=== PATIENT | male | born 1965 | race Caucasian/White ===

== ENCOUNTER → 2016-11-24 | Outpatient (CLI) | payer BC ==
[~2016-11-24] MED LIST: ALFU1TAB2 PO; ATOR-24 PO; CLBPO15 TOP; CYAN100020 PO; CYAN10005 PO; EMPA1TAB3 PO; FRS/40 PO; KETO10TA PO; LISI-461 PO; LVT/20 PO; MCRK/20 PO; METF1000 PO; METO25TA3 PO; OXYC-57 PO; POTA20TA16 PO; PRVHFAIN INH; TRAZ50TA35 PO; WARF5TAB90 PO
[2016-11-24 12:20] LABS: HEMATOCRIT 42.3 % (42-52); MEAN CELL VOLUME 92.4 fL (80-100); MEAN CORPUSCULAR HGB CONC 33.6 g/dl (32-36); MEAN PLATELET VOLUME 12.2 fL (7.4-10.4); PLATELET COUNT 187 K/uL (130-400); RED BLOOD COUNT 4.58 M/uL (4.7-6.1); WHITE BLOOD COUNT 7.75 K/uL (4.8-10.8)
[2016-11-24 12:36] LABS: ESTIMATED AVERAGE GLUCOSE 148 mg/dl; HA1C FLAG Normal (Normal)
[2016-11-24 12:44] LABS: INR 2.4 (0.9-1.1); PROTHROMBIN TIME (PATIENT) 26.2 SECONDS (9.0-12.0)
[2016-11-24 12:48] LABS: ALT/SGPT 27 U/L (12-78); AST/SGOT 17 U/L (15-37); BLOOD UREA NITROGEN 19 mg/dl (7-18); BUN/CREATININE RATIO 14.2 (10-20); CALCIUM 9.6 mg/dl (8.5-10.1); CARBON DIOXIDE 26 mmol/L (21-32); CHLORIDE 102 mmol/L (98-107); CHOLESTEROL 150 mg/dl (0-200); GLUCOSE 105 mg/dl (70-99); POTASSIUM 4.2 mmol/L (3.5-5.1); SODIUM 139 mmol/L (136-145)
[2016-11-24 13:01] LABS: ALB/GLOB RATIO 1.1 (0.9-2); ALKALINE PHOSPHATASE 79 U/L (45-117); CHOLESTEROL/HDL RATIO 3.5; HDL CHOLESTEROL 43 mg/dl; LDL CHOLESTEROL CALCULATED 66 mg/dl; TRIGLYCERIDES 205 mg/dl (0-150); VERY LOW DENSITY LIPOPROT CALC 41 mg/dl
[2016-11-24 15:38] LABS: RATIO 72.9 mcg/mg (0-30.0)
== END | disposition home or self-care (01) ==
LOC: C.LAB 10:58
PROVIDERS: ATTEND Family Medicine
DX: Z11.59 Encounter for screening for other viral diseases (principal); Z79.01 Long term (current) use of anticoagulants; E11.9 Type 2 diabetes mellitus without complications; E78.00 Pure hypercholesterolemia, unspecified; I10 Essential (primary) hypertension; E53.8 Deficiency of other specified B group vitamins

== ENCOUNTER → 2016-12-25 | Outpatient (CLI) | payer BC ==
--- NOTE | 2016-12-25 11:09 | DIAGNOSTIC IMAGING REPORT ---
CHEST 2 VIEWS ROUTINE CLINICAL HISTORY: J20.9 Acute bronchitis with [id number] COMPARISON STUDY: No previous studies for comparison. FINDINGS: There are postsurgical changes of a midline sternotomy. The heart is mildly enlarged. There is no lobar consolidation. There is no failure. There are no pleural effusions. Increased left basal markings are felt to be atelectatic.[ IMPRESSION: Left basilar opacities, likely atelectatic. Mild cardiomegaly. No evidence of failure. No evidence of lobar consolidation. Electronically signed by: Nura Ta M.D. 12/25/2016 11:07 AM Dictated Date/Time: 12/25/2016 11:07 AM
== END | disposition home or self-care (01) ==
LOC: C.RADBC 10:46
PROVIDERS: ATTEND Nurse Practitioner Family
DX: J20.9 Acute bronchitis, unspecified (principal); R91.8 Other nonspecific abnormal finding of lung field

== ENCOUNTER 2017-01-11 18:01 | Inpatient (IN) | payer BC ==
[~2017-01-11] VITALS: Ht 175.3 cm; Wt 121.5 kg
[2017-01-11] MEDS ORDERED: SODIUM CHLORIDE 0.9% 1000ML 1,000 ML IV STA (18:49)
--- NOTE | 2017-01-11 19:02 | EMERGENCY ROOM VISIT NOTE ---
History Report prepared by Poncho: Skyla Oliveira Under the Supervision of: Dr. Eliezer Liu M.D. First contact with patient: 18:37 Chief Complaint: ABNORMAL LABS Stated Complaint: LOW RBC,BLOOD IN URINE History of Present Illness The patient is a 51 year old male who presents to the Emergency Room with complaints of sudden abnormal labs that were noticed this morning. The patient states that he began experiencing hematuria 2 days ago while he was on vacation in [place]. He got home yesterday and the hematuria was worse. He states that he is experiencing a normal urine stream, but it is dark red in color. He states that he experiences hematuria every time he urinates. The patient states that he developed photophobia around the same time that he developed hematuria. He denies abdominal pain, melena, and generalized weakness. The patient saw his PCP this morning and they did blood work, which revealed that his red blood cell count was below 10. The patient states that his right kidney does not function, but he follows with Dr. Puga for that. He states that he also has an issue with his bladder that was revealed when they did an ultrasound of his kidneys, but he is unsure of what exactly was wrong with his bladder. He denies any history of prostate problems. 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 Source of History: patient Onset: this morning Position: other (global) Quality: other (abnormal labs ) Timing: other (sudden) Associated Symptoms: + urinary symptoms (hematuria), No abdominal pain, No melena, No weakness Note: photophobia Review of Systems See HPI for pertinent positives & negatives. A total of 10 systems reviewed and were otherwise negative. Past Medical & Surgical Medical Problems: (1) Anemia (2) Hematuria Family History No pertinent family history Social History Smoking Status: Never Smoker Current/Historical Medications Scheduled Alfuzosin Hcl (Alfuzosin Hcl Er), 10 MG PO DAILY Atorvastatin (Lipitor), 40 MG PO DAILY Cyanocobalamin (Vitamin B-12), 1,000 MCG PO DAILY Empagliflozin (Jardiance), 25 MG PO DAILY Lisinopril (Zestril), 10 MG PO DAILY Metoprolol Succ (Toprol Xl) (Toprol-Xl), 25 MG PO DAILY Potassium Chloride (Potassium Chloride ER), 20 MEQ PO DAILY Trazodone Hcl (Trazodone), 50-100 MG PO HS Vardenafil (Levitra), 20 MG PO DIRECTED Warfarin Sodium (Coumadin), 5 MG PO DAILY Scheduled PRN Albuterol (Ventolin Hfa), 2-4 PUFFS INH Q4-6H PRN for SOB/Wheezing Furosemide (Lasix), 40 MG PO DAILY PRN for LEG EDEMA Allergies Coded Allergies: No Known Allergies (Unverified , 01/11/17) Physical Exam Vital Signs Date Time Temp Pulse Resp B/P Pulse Ox O2 Delivery O2 Flow Rate FiO2 01/11/17 20:31 89 18 92/52 96 Room Air 01/11/17 19:15 97 Room Air 01/11/17 18:34 36.8 98 18 95/57 99 Room Air Physical Exam GENERAL: Patient is a healthy-appearing well-nourished male. HEAD: Normocephalic atraumatic EYES: Ocular movements intact pupils equal and react to light OROPHARYNX mucous membranes are moist no exudates present no erythema or edema present NECK: Supple no nuchal rigidity CHEST: Good equal expansion LUNGS: Clear and equal to auscultation CARDIAC: Normal S1 and S2 ABDOMEN: Soft nontender no guarding BACK: No CVA tenderness EXTREMITIES: No pain upon palpation normal muscle strength in all groups no clubbing cyanosis or edema NEURO: Patient is following commands is answering questions appropriately. Alert and oriented x3 Cranial Nerves 2-12 grossly intact Medical Decision & Procedures ER Provider Diagnostic Interpretation: CT results as stated below per my review and radiologist interpretation: CT OF THE ABDOMEN AND PELVIS WITHOUT CONTRAST IMPRESSION: 1. Severe right hydroureteronephrosis which is unchanged since prior exams. Marked right renal cortical atrophy due to long-standing hydronephrosis. 2. 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 Mild adjacent infiltration is probably chronic although could be correlated with urinalysis. 3. No change in irregular bladder wall thickening with multiple trabeculations. Decreased sensitivity for the detection of urothelial lesions on this unenhanced exam. Electronically signed by: Josemanuel Ball M.D. 01/11/2017 8:30 PM Dictated Date/Time: 01/11/2017 8:20 PM Laboratory Results 01/11/17 18:50 Test 01/11/17 18:50 Immature Granulocyte % (Auto) 0.3 % White Blood Count 7.81 K/uL (4.8-10.8) Red Blood Count 3.08 M/uL (4.7-6.1) Hemoglobin 9.4 g/dL (14.0-18.0) Hematocrit 28.4 % (42-52) Mean Corpuscular Volume 92.2 fL (80-100) Mean Corpuscular Hemoglobin 30.5 pg (25-34) Mean Corpuscular Hemoglobin Concent 33.1 g/dl (32-36) Platelet Count 255 K/uL (130-400) Mean Platelet Volume 11.5 fL (7.4-10.4) Neutrophils (%) (Auto) 63.3 % Lymphocytes (%) (Auto) 26.5 % Monocytes (%) (Auto) 6.3 % Eosinophils (%) (Auto) 3.2 % Basophils (%) (Auto) 0.4 % Neutrophils # (Auto) 4.95 K/uL (1.4-6.5) Lymphocytes # (Auto) 2.07 K/uL (1.2-3.4) Monocytes # (Auto) 0.49 K/uL (0.11-0.59) Eosinophils # (Auto) 0.25 K/uL (0-0.5) Basophils # (Auto) 0.03 K/uL (0-0.2) Immature Granulocyte # (Auto) 0.02 K/uL (0.00-0.02) Prothrombin Time 40.5 SECONDS (9.0-12.0) Prothromb Time International Ratio 3.6 (0.9-1.1) Activated Partial Thromboplast Time 52.1 SECONDS (21.0-31.0) Partial Thromboplastin Ratio 2.0 Anion Gap 9.0 mmol/L (3-11) Est Creatinine Clear Calc Drug Dose 47.8 ml/min Estimated GFR () 36.2 Estimated GFR (Non- 31.3 BUN/Creatinine Ratio 19.4 (10-20) Calcium Level 8.4 mg/dl (8.5-10.1) Total Bilirubin 0.3 mg/dl (0.2-1) Direct Bilirubin 0.1 mg/dl (0-0.2) Aspartate Amino Transf (AST/SGOT) 12 U/L (15-37) Alanine Aminotransferase (ALT/SGPT) 24 U/L (12-78) Alkaline Phosphatase 89 U/L (45-117) Total Protein 7.0 gm/dl (6.4-8.2) Albumin 3.3 gm/dl (3.4-5.0) Lipase 328 U/L (73-393) Labs reviewed by ED physician. Medications Administered Medications (Trade) Dose Ordered Sig/Naeem Route Start Time Stop Time Status Last Admin Dose Admin Sodium Chloride (Nss 1000ml) 1,000 ml @ 999 mls/hr Q1H1M STAT IV 01/11/17 18:49 01/11/17 19:49 DC 01/11/17 19:23 999 MLS/HR ECG Indication: other (Anemia) Rate (beats per minute): 96 Rhythm: normal sinus Findings: no acute ischemic change, no ectopy, other (LBBB) ED Course 1841: Past medical records reviewed. The patient was evaluated in room C3. A complete history and physical examination was performed. 1848: Ordered Sodium Chloride 1000 ml @ 999 mls/hr IV 2032: Upon reexamination the patient is resting comfortably. I discussed results and treatment plan with the patient. He verbalizes agreement and understanding. The patient will be evaluated for further management. 2039: I discussed the patient's case with Dr. Tone FERGUSON, he has agreed to evaluate the patient for further management and care. Medical Decision Differential diagnosis: Etiologies such as appendicitis, diverticulitis, PUD, biliary pathology, UTI, pancreatitis, obstruction, mesenteric ischemia, aortic pathology, infections, inflammatory bowel disease, renal colic, as well as others were entertained. This is a 51-year-old male who presents emergency department complaining of hematuria as well as anemia. The patient also has one kidney and his creatinine is also elevated. An IV was established, patient given normal saline bolus. The patient is on Coumadin for mechanical heart valve. He was typed and screened. I did discuss the case with the hospitalist service who agreed to admit the patient. Patient was in agreement with the treatment plan. Consults Time Called: 2032 Consulting Physician: Dr. Tone FERGUSON Returned Call: 2039 I discussed the patient's case with Dr. Tone FERGUSON, he has agreed to evaluate the patient for further management and care. Impression Primary Impression: Hematuria Additional Impressions: Anemia Acute renal failure Scribe Attestation The scribe's documentation has been prepared under my direction and personally reviewed by me in its entirety. I confirm that the note above accurately reflects all work, treatment, procedures, and medical decision making performed by me. Departure Information Dispostion Being Evaluated By Hospitalist Referrals Jordyn Truong DO (PCP) Patient Instructions My [facility] Problem Qualifiers Additional Impressions: Anemia Anemia type: unspecified type Qualified Codes: D64.9 - Anemia, unspecified Acute renal failure Acute renal failure type: unspecified Qualified Codes: N17.9 - Acute kidney failure, unspecified
[2017-01-11 19:11] LABS: BASO % 0.4 %; BASO ABS # 0.03 K/uL (0-0.2); COMPLETE YES; EOS % 3.2 %; HEMATOCRIT 28.4 % (42-52); IG% 0.3 %; LYMPH % 26.5 %; LYMPH ABS # 2.07 K/uL (1.2-3.4); MEAN CELL VOLUME 92.2 fL (80-100); MEAN CORPUSCULAR HEMOGLOBIN 30.5 pg (25-34); MEAN CORPUSCULAR HGB CONC 33.1 g/dl (32-36); MEAN PLATELET VOLUME 11.5 fL (7.4-10.4); MONO % 6.3 %; NEUT % 63.3 %; PLATELET COUNT 255 K/uL (130-400); RED BLOOD COUNT 3.08 M/uL (4.7-6.1); WHITE BLOOD COUNT 7.81 K/uL (4.8-10.8)
[2017-01-11] MEDS ORDERED: ATOR-24 PO (19:20)
[2017-01-11] MEDS ORDERED: ALFU1TAB2 PO (19:21)
[2017-01-11] MEDS ORDERED: FRS/40 PO (19:22)
[2017-01-11] MEDS ORDERED: EMPA1TAB3 PO (19:22)
[2017-01-11] MEDS ORDERED: LVT/20 PO (19:23)
[2017-01-11] MEDS ORDERED: LISI-461 PO (19:24)
[2017-01-11] MEDS ORDERED: METO25TA3 PO (19:25)
[2017-01-11] MEDS ORDERED: MCRK/20 PO (19:27)
[2017-01-11 19:28] LABS: INR 3.6 (0.9-1.1); PROTHROMBIN TIME (PATIENT) 40.5 SECONDS (9.0-12.0)
[2017-01-11] MEDS ORDERED: TRAZ50TA35 PO (19:28)
[2017-01-11] MEDS ORDERED: PRVHFAIN INH (19:31)
[2017-01-11 19:32] LABS: BUN/CREATININE RATIO 19.4 (10-20); CALCIUM 8.4 mg/dl (8.5-10.1); CREATININE 2.3 mg/dl (0.60-1.40)
[2017-01-11] MEDS ORDERED: CYAN10005 PO (19:32)
[2017-01-11] MEDS ORDERED: WARF5TAB90 PO (19:33)
--- NOTE | 2017-01-11 20:32 | DIAGNOSTIC IMAGING REPORT ---
CT OF THE ABDOMEN AND PELVIS WITHOUT CONTRAST CLINICAL HISTORY: Hematuria. Anemia. COMPARISON STUDY: CT of the abdomen and pelvis October 02, 2014 and renal ultrasound October 06, 2016. TECHNIQUE: Axial images of the abdomen and pelvis were obtained without IV contrast. Images were reviewed in the axial, sagittal, and coronal planes. FINDINGS: Evaluation of the abdomen and pelvis is suboptimal given the lack of IV and oral contrast. Unenhanced images of liver, spleen, adrenal glands and pancreas are normal. There is no biliary or pancreatic ductal dilatation. Severe right hydroureteronephrosis is unchanged since CT of October 02, 2014. A large diverticulum arising from the right lateral aspect of the bladder is unchanged, measuring 18 cm. There is mild infiltration adjacent to this diverticulum. Irregular bladder wall thickening with trabeculation is unchanged. Sensitivity for detection of urothelial lesions is diminished on this exam but the appearance is unchanged since prior exams. There is no abdominal or pelvic lymphadenopathy. There is no evidence for a bowel obstruction. Marked right renal atrophy is noted due to long-standing hydronephrosis. There is no left collecting system dilatation. There is slight dilatation of the mid to distal left ureter. IMPRESSION: 1. Severe right hydroureteronephrosis which is unchanged since prior exams. Marked right renal cortical atrophy due to long-standing hydronephrosis. 2. 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 Mild adjacent infiltration is probably chronic although could be correlated with urinalysis. 3. No change in irregular bladder wall thickening with multiple trabeculations. Decreased sensitivity for the detection of urothelial lesions on this unenhanced exam. Electronically signed by: Josemanuel Ball M.D. 01/11/2017 8:30 PM Dictated Date/Time: 01/11/2017 8:20 PM
[2017-01-11] MEDS ORDERED: ALUMINUM/MAGNESIUM/SIMETH (MAALOX MAX) 30 ML UDC PO PRN (21:45)
[2017-01-11] MEDS ORDERED: ACETAMINOPHEN 325 MG TAB PO PRN (21:45)
[2017-01-11] MEDS ORDERED: MAGNESIUM HYDROXIDE SUSP 30 ML UDC PO PRN (21:45)
[2017-01-11] MEDS ORDERED: ONDANSETRON INJ 2 MG/ML 2 ML VIAL IV PRN (21:45)
[2017-01-11] MEDS ORDERED: POLYETHYLENE (MIRALAX) 17 GM PACK PO PRN (21:45)
[2017-01-11] MEDS ORDERED: DEXTROSE 50% 50 ML SYR IV PRN (22:00)
[2017-01-11] MEDS ORDERED: GLUCOSE 10 TABS/TUBE PO PRN (22:00)
[2017-01-11] MEDS ORDERED: GLUCOSE 40% GEL 15 GM TUBE PO PRN (22:00)
[2017-01-11] MEDS ORDERED: GLUCAGON FOR INJ 1 MG VIAL SQ PRN (22:00)
[2017-01-11 22:08] VITALS: O2SAT 96
[2017-01-11 22:20] VITALS: Ht 175.3 cm; Wt 121.5 kg
--- NOTE | 2017-01-11 22:53 | History and Physical ---
History & Physical Date & Time of Service: Jan 11, 2017 at 21:57 Chief Complaint: Low Rbc,Blood In Urine Primary Care Physician: Jordyn Truong DO History of Present Illness Source: patient 51 y/o M Hx DM, TN, HPL, Chronic R renal cortical atrophy - mechanical aortic valve on Coumadin. Pt was sent to the ER by primary for abnormal labs which include RITU and anemia. He has had gross hematuria for approximately 3-4 days. It is not unusual for him to have mild hematuria when his INR is elevated, however he states that his urine is dark red which has not happened before. Initial labs reveal a creatinine of 2.3 (baseline 1.2) and a hemoglobin of 9.4 ( baseline 12+). A CT of the abdomen shows a bladder diverticulum which the pt was aware of. He does not have a reason to be dehydrated and the CT does not show visible clots or hydronephrosis. He denies CP, SOB or light headedness. He was treated for an upper respiratory infection recently with a course of Prednisone and Zithromax. 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 Smoking Status: Never Smoker Multi-Drug Resistant Organisms History of MDRO: No Home Medications Scheduled Alfuzosin Hcl (Alfuzosin Hcl Er), 10 MG PO DAILY Atorvastatin (Lipitor), 40 MG PO DAILY Cyanocobalamin (Vitamin B-12), 1,000 MCG PO DAILY Empagliflozin (Jardiance), 25 MG PO DAILY Lisinopril (Zestril), 10 MG PO DAILY Metoprolol Succ (Toprol Xl) (Toprol-Xl), 25 MG PO DAILY Potassium Chloride (Potassium Chloride ER), 20 MEQ PO DAILY Trazodone Hcl (Trazodone), 50-100 MG PO HS Vardenafil (Levitra), 20 MG PO DIRECTED Warfarin Sodium (Coumadin), 5 MG PO DAILY Scheduled PRN Albuterol (Ventolin Hfa), 2-4 PUFFS INH Q4-6H PRN for SOB/Wheezing Furosemide (Lasix), 40 MG PO DAILY PRN for LEG EDEMA Review of Systems Constitutional: No chills, No fever, No sweats Eyes: No eye pain, No worsening of vision ENT: No hearing loss, No nasal symptoms, No unusual epistaxis Respiratory: No cough, No sputum, No wheezing Cardiovascular: No PND, No chest pain, No orthopnea Abdomen: No nausea, No pain, No vomiting Musculoskeletal: No joint pain, No muscle pain Genitourinary - Male: + hematuria, No dysuria, No urinary frequency, No urinary retention, No urinary urgency Neurologic: No memory loss, No paralysis, No weakness Psychiatric: No depression symptoms Endocrine: No fatigue Hematologic / Lymphatic: + abnormal bleeding/bruising Integumentary: No rash Physical Exam Vital Signs Date Time Temp Pulse Resp B/P Pulse Ox O2 Delivery O2 Flow Rate FiO2 01/11/17 20:31 89 18 92/52 96 Room Air 01/11/17 19:15 97 Room Air 01/11/17 18:34 36.8 98 18 95/57 99 Room Air General Appearance: WD/WN, no apparent distress Head: normocephalic, atraumatic Eyes: normal inspection, EOMI ENT: normal ENT inspection, pharynx normal Neck: supple, no JVD Respiratory/Chest: chest non-tender, lungs clear, normal breath sounds, no respiratory distress, no accessory muscle use Cardiovascular: regular rate, rhythm, no JVD, no murmur, + pertinent finding ( Expected click is audible without murmur) Abdomen/GI: normal bowel sounds, non tender, soft Back: normal inspection, no CVA tenderness, no muscle spasm, normal range of motion Extremities/Musculoskelatal: normal inspection, no calf tenderness, normal capillary refill, no pedal edema, normal range of motion Neurologic/Psych: 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 II-XII nml as tested, no motor/sensory deficits, alert, normal mood/affect, normal reflexes, oriented x 3 Skin: normal color, warm/dry, no rash Diagnostics Laboratory Results Results Past 24 Hours Test 01/11/17 18:50 01/11/17 21:45 Range/Units White Blood Count 7.81 4.8-10.8 K/uL Red Blood Count 3.08 4.7-6.1 M/uL Hemoglobin 9.4 14.0-18.0 g/dL Hematocrit 28.4 42-52 % Mean Corpuscular Volume 92.2 80-100 fL Mean Corpuscular Hemoglobin 30.5 25-34 pg Mean Corpuscular Hemoglobin Concent 33.1 32-36 g/dl Platelet Count 255 130-400 K/uL Mean Platelet Volume 11.5 7.4-10.4 fL Neutrophils (%) (Auto) 63.3 % Lymphocytes (%) (Auto) 26.5 % Monocytes (%) (Auto) 6.3 % Eosinophils (%) (Auto) 3.2 % Basophils (%) (Auto) 0.4 % Neutrophils # (Auto) 4.95 1.4-6.5 K/uL Lymphocytes # (Auto) 2.07 1.2-3.4 K/uL Monocytes # (Auto) 0.49 0.11-0.59 K/uL Eosinophils # (Auto) 0.25 0-0.5 K/uL Basophils # (Auto) 0.03 0-0.2 K/uL RDW Standard Deviation 47.5 36.4-46.3 fL RDW Coefficient of Variation 14.1 11.5-14.5 % Immature Granulocyte % (Auto) 0.3 % Immature Granulocyte # (Auto) 0.02 0.00-0.02 K/uL Prothrombin Time 40.5 9.0-12.0 SECONDS Prothromb Time International Ratio 3.6 0.9-1.1 Activated Partial Thromboplast Time 52.1 21.0-31.0 SECONDS Partial Thromboplastin Ratio 2.0 Sodium Level 137 136-145 mmol/L Potassium Level 5.0 3.5-5.1 mmol/L Chloride Level 104 98-107 mmol/L Carbon Dioxide Level 24 21-32 mmol/L Anion Gap 9.0 3-11 mmol/L Blood Urea Nitrogen 45 7-18 mg/dl Creatinine 2.30 0.60-1.40 mg/dl Est Creatinine Clear Calc Drug Dose 47.8 ml/min Estimated GFR () 36.2 Estimated GFR (Non- 31.3 BUN/Creatinine Ratio 19.4 10-20 Random Glucose 152 70-99 mg/dl Calcium Level 8.4 8.5-10.1 mg/dl Total Bilirubin 0.3 0.2-1 mg/dl Direct Bilirubin 0.1 0-0.2 mg/dl Aspartate Amino Transf (AST/SGOT) 12 15-37 U/L Alanine Aminotransferase (ALT/SGPT) 24 12-78 U/L Alkaline Phosphatase 89 45-117 U/L Total Protein 7.0 6.4-8.2 gm/dl Albumin 3.3 3.4-5.0 gm/dl Lipase 328 73-393 U/L Diagnostic Radiology CT abdomen 1. Severe right hydroureteronephrosis which is unchanged since prior exams. Marked right renal cortical atrophy due to long-standing hydronephrosis. 2. 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 Mild adjacent infiltration is probably chronic although could be correlated with urinalysis. 3. No change in irregular bladder wall thickening with multiple trabeculations. Decreased sensitivity for the detection of urothelial lesions on this unenhanced exam. Impression Assessment and Plan 51 y/o M Hx DM, [place], HPL, Chronic R renal cortical atrophy - mechanical aortic valve on Coumadin. Pt was sent to the ER by primary for abnormal labs which include RITU and anemia. He has had gross hematuria for approximately 3-4 days. It is not unusual for him to have mild hematuria when his INR is elevated, however he states that his urine is dark red which has not happened before. Initial labs reveal a creatinine of 2.3 (baseline 1.2) and a hemoglobin of 9.4 ( baseline 12+). A CT of the abdomen shows a bladder diverticulum which the pt was aware of. He does not have a reason to be dehydrated and the CT does not show visible clots or hydronephrosis. He denies CP, SOB or light headedness. He was treated for an upper respiratory infection recently with a course of Prednisone and Zithromax. 1) Elevated creatinine - reason unclear - He denies dehydration and denies increased use of Lasix recently. May be related to hematuria and a degree of post-renal failure. It may be that he had partial function in his R kidney until recently. We will hydrate aggressively overnight and recheck electrolytes AM. We will obtain a FeNa and can consult Nephrology if there is no immediate improvement. 2) Hematuria - anemia - INR is 3.5 which is not terribly high however the pt states that he normally runs below 3. Reason for increased bleeding may be related to his increased INR and diverticulum. We will recheck his Hb at midnight and then AM and transfuse if needed. A catheter will be placed for irrigation. If his bleeding persists we would contact his Urologist, otherwise he can likely be seen in the outpatient setting. 3) DM -sliding scale provided 4) HTN - Lisinopril held due to RITU - cont Metoprolol 5) HPL - cont Lipitor 6) Mechanical valve - AM Coumadin held - would not reverse if can be avoided Full code - anticoagulated with Coumadin Total time for this admit including review of meds, labs, imaging - discussion with ER attending and pt - 38 min Level of Care Med/Surg Resuscitation Status FULL RESUSCITATION VTE Prophylaxis VTE Risk Assessment Done? Y/N: Yes Risk Level: Low Given or contraindicated: Warfarin (Coumadin)
[2017-01-11] MEDS: SODIUM CHLORIDE 0.9% 1000ML 1,000 ML IV SCH (23:01)
[2017-01-11 23:05] LABS: MANUAL MICROSCOPIC REQUIRED? YES; REVIEW REQ? NO; SULFASALICYLIC ACID POS (NEG); URINE APPEARANCE TURBID (CLEAR); URINE COLOR RED
[2017-01-11 23:06] VITALS: BP 96/62; PULSE 98; TEMP 36.8; O2SAT 96
[2017-01-11 23:09] LABS: URINE BACTERIA 1+ (NEG); URINE RBC >30 /hpf (0-4); URINE WBC >30 /hpf (0-5)
[2017-01-11 23:31] LABS: HEMATOCRIT 25.7 % (42-52); MEAN CELL VOLUME 92.1 fL (80-100); MEAN CORPUSCULAR HEMOGLOBIN 30.5 pg (25-34); MEAN CORPUSCULAR HGB CONC 33.1 g/dl (32-36); MEAN PLATELET VOLUME 11.3 fL (7.4-10.4); PLATELET COUNT 237 K/uL (130-400); RED BLOOD COUNT 2.79 M/uL (4.7-6.1); WHITE BLOOD COUNT 8.39 K/uL (4.8-10.8)
[2017-01-12] VITALS (9 sets, daily range): BP systolic 99–125; BP diastolic 61–79; PULSE 84–93; TEMP 36.2–36.9; O2SAT 96–99
[2017-01-12] MEDS: SODIUM CHLORIDE 0.9% 1000ML 1,000 ML IV SCH (05:40)
[2017-01-12] MEDS: INSULIN ASPART 100 UNITS/ML 3 ML PEN SC SCH ×3 (08:06→16:30)
[2017-01-12 08:28] LABS: BUN/CREATININE RATIO 19.5 (10-20); CALCIUM 8.3 mg/dl (8.5-10.1); CREATININE 1.5 mg/dl (0.60-1.40); MAGNESIUM 1.9 mg/dl (1.8-2.4); PHOSPHORUS 3.2 mg/dl (2.5-4.9); POTASSIUM 5.2 mmol/L (3.5-5.1)
[2017-01-12] MEDS ORDERED: NURSING VERBAL MED ORDER ONE ×3 (08:30→15:15)
[2017-01-12] MEDS ORDERED: ALFUZosin TAB 10 MG TAB PO SCH (09:00)
[2017-01-12] MEDS ORDERED: METOPROLOL SUCC 25MG EXT REL TAB PO SCH (09:00)
[2017-01-12] MEDS ORDERED: CYANOCOBALAMIN 500 MCG TAB (VIT B-12) PO SCH (09:00)
[2017-01-12] MEDS ORDERED: ATORVASTATIN 40 MG TAB PO SCH ×2 (09:00→21:00)
[2017-01-12] MEDS ORDERED: POTASSIUM CHLORIDE 20 MEQ TABCR PO SCH (09:00)
--- NOTE | 2017-01-12 11:06 | Progress Note ---
Subjective Date of Service: Jan 12, 2017. Subjective Pt evaluation today including: conversation w/ patient, physical exam, chart review, lab review, review of studies, review of inpatient medication list Feeling fine. 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 He otherwise reports clearing of his urine. He reports being on Azithromycin for bronchitis prior to going on vacation. Refusing insulin and would like his Jardiance but explained why we're holding off on both Jardiance and metformin espcially in setting of RITU and possibe volume depletion. He also reports decreased po intake during vacation last week. Problem List Medical Problems: (1) Acute renal failure Status: Acute Review of Systems All Other Systems: Reviewed and Negative Medications Acetaminophen (Tylenol Tab) 650 mg Q4H PRN PO; Start 01/11/17 at 21:45; Stop 02/10/17 at 21:44 Al Hydrox/Mg Hydrox/Simethicone (Maalox Max Susp) 15 ml Q4H PRN PO; Start 01/11 at 21:45; Stop 02/10/17 at 21:44 Alfuzosin HCl (Uroxatral Tab) 10 mg DAILY PO Last administered on 01/12/17t 08: 16; Admin Dose 10 MG; Start 01/12/17 at 09:00; Stop 02/11/17 at 08:59 Atorvastatin Calcium (Lipitor Tab) 40 mg HS PO; Start 01/12/17 at 21:00; Stop at 20:59 Cyanocobalamin (Vitamin B-12 Tab) 1,000 mcg DAILY PO Last administered on 08:16; Admin Dose 1,000 MCG; Start 01/12/17 at 09:00; Stop 02/11/17 at 08: 59 Dextrose (Dextrose 50% 50ML Syringe) 25-50ML OF 50% DW IV FOR... UD PRN IV; Start 01/11/17 at 22:00; Stop 02/10/17 at 21:59 Glucagon (Glucagon Inj) 1 mg UD PRN SQ; Start 01/11/17 at 22:00; Stop 02/10/17 at 21:59 Glucose (Glucose 40% Gel) 15-30 GRAMS 15 GRAMS... UD PRN PO; Start 01/11/17 at 22:00; Stop 02/10/17 at 21:59 Glucose (Glucose Chew Tab) 4-8 Tablets 4 Tabl... UD PRN PO; Start 01/11/17 at 22:00; Stop 02/10/17 at 21:59 Insulin Aspart (novoLOG ASPART) SLIDING SCALE G... ACHS SC; Start at 06:30; Stop 02/11/17 at 06:59 Magnesium Hydroxide (Milk Of Magnesia Susp) 30 ml Q6H PRN PO; Start 01/11/17 at 21:45; Stop 02/10/17 at 21:44 Metoprolol Succinate (Toprol Xl Tab) 25 mg DAILY PO Last administered on t 08:15; Admin Dose 25 MG; Start 01/12/17 at 09:00; Stop 02/11/17 at 08:59 Ondansetron HCl (Zofran Inj) 4 mg Q6H PRN IV; Start 01/11/17 at 21:45; Stop 10/17 at 21:44 Polyethylene (Miralax Powder Packet) 17 gm DAILY PRN PO; Start 01/11/17 at 21: 45; Stop 02/10/17 at 21:44 Sodium Chloride (Maili Nasal [place]) 1 sprays PRN PRN NA; Start 01/12/17 at 14: 45; Stop 02/11/17 at 14:44 Trazodone HCl (Desyrel Tab) 100 mg HS PO; Start 01/12/17 at 21:00; Stop at 20:59 Objective Vital Signs Date Time Temp Pulse Resp B/P Pulse Ox O2 Delivery O2 Flow Rate FiO2 01/12/17 09:56 Room Air 01/12/17 07:53 36.6 90 18 106/66 97 Room Air 01/12/17 05:15 36.9 84 16 99/61 01/12/17 04:45 36.3 90 16 121/76 96 01/12/17 04:15 36.2 86 16 125/79 96 01/12/17 04:00 36.8 92 113/72 01/12/17 03:45 36.9 92 14 103/67 96 01/12/17 00:20 36.7 93 16 99/63 97 Room Air 01/12/17 00:00 Room Air 01/11/17 23:06 36.8 98 20 96/62 96 01/11/17 22:20 Room Air 01/11/17 22:08 97 18 115/70 96 01/11/17 20:31 89 18 92/52 96 Room Air 01/11/17 19:15 97 Room Air 01/11/17 18:34 36.8 98 18 95/57 99 Room Air Physical Exam Comments: nad, aox3 eomi, perrl, anicteric s1 s2 rrr, +loud S1, no rubs/gallops ctab no w/r/r abd soft nt nd +BS no LE edema + gonzalez in place with clear yellow urine Laboratory Results Last 24 Hours Test 01/11/17 18:50 01/11/17 22:23 01/11/17 23:10 01/12/17 07:35 White Blood Count 7.81 K/uL 8.39 K/uL Red Blood Count 3.08 M/uL 2.79 M/uL Hemoglobin 9.4 g/dL 8.5 g/dL 8.5 g/dL Hematocrit 28.4 % 25.7 % Mean Corpuscular Volume 92.2 fL 92.1 fL Mean Corpuscular Hemoglobin 30.5 pg 30.5 pg Mean Corpuscular Hemoglobin Concent 33.1 g/dl 33.1 g/dl Platelet Count 255 K/uL 237 K/uL Mean Platelet Volume 11.5 fL 11.3 fL Neutrophils (%) (Auto) 63.3 % Lymphocytes (%) (Auto) 26.5 % Monocytes (%) (Auto) 6.3 % Eosinophils (%) (Auto) 3.2 % Basophils (%) (Auto) 0.4 % Neutrophils # (Auto) 4.95 K/uL Lymphocytes # (Auto) 2.07 K/uL Monocytes # (Auto) 0.49 K/uL Eosinophils # (Auto) 0.25 K/uL Basophils # (Auto) 0.03 K/uL RDW Standard Deviation 47.5 fL 46.9 fL RDW Coefficient of Variation 14.1 % 14.1 % Immature Granulocyte % (Auto) 0.3 % Immature Granulocyte # (Auto) 0.02 K/uL Prothrombin Time 40.5 SECONDS Prothromb Time International Ratio 3.6 Activated Partial Thromboplast Time 52.1 SECONDS Partial Thromboplastin Ratio 2.0 Sodium Level 137 mmol/L 140 mmol/L Potassium Level 5.0 mmol/L 5.2 mmol/L Chloride Level 104 mmol/L 110 mmol/L Carbon Dioxide Level 24 mmol/L 19 mmol/L Anion Gap 9.0 mmol/L 11.0 mmol/L Blood Urea Nitrogen 45 mg/dl 29 mg/dl Creatinine 2.30 mg/dl 1.50 mg/dl Est Creatinine Clear Calc Drug Dose 47.8 ml/min 73.3 ml/min Estimated GFR () 36.2 60.7 Estimated GFR (Non- 31.3 52.4 BUN/Creatinine Ratio 19.4 19.5 Random Glucose 152 mg/dl 106 mg/dl Calcium Level 8.4 mg/dl 8.3 mg/dl Total Bilirubin 0.3 mg/dl Direct Bilirubin 0.1 mg/dl Aspartate Amino Transf (AST/SGOT) 12 U/L Alanine Aminotransferase (ALT/SGPT) 24 U/L Alkaline Phosphatase 89 U/L Total Protein 7.0 gm/dl Albumin 3.3 gm/dl Lipase 328 U/L Urine Color RED Urine Appearance TURBID Urine pH Urine Specific [place] Urine Protein POS Urine Glucose (UA) Urine Ketones Urine Occult Blood Urine Nitrite Urine Bilirubin Urine Urobilinogen Urine Leukocyte Esterase Urine RBC >30 /hpf Urine WBC >30 /hpf Urine Epithelial Cells 5-10 /lpf Urine Bacteria 1+ Urine Random Creatinine 79.0 mg/dl Urine Random Sodium 75 mEq/L Phosphorus Level 3.2 mg/dl Magnesium Level 1.9 mg/dl Test 01/12/17 07:40 01/12/17 10:36 Bedside Glucose 109 mg/dl Assessment and Plan 1. RITU with possible CKD - creat baseline 1.3-1.4 on prior labs - likely volume depletion from increase uop from SGLP2 inhibitor + autoregulatory failure from acei/arb - improved with IVF from 2.3 down to 1.5 - cont to hold Jardiance and metformin - give more IVF and encourage po intake - holding acei for now - repeat BMP in the evening 2. Hematuria - 2/2 elevated INR - resolving 3. Supratherapeutic INR - 2/2 recent abx - can resume coumadin tonight, now off abx 4. Low BP with h/o HTN - likely volume depletion - give more IVF - hold Jardiance for today 5. T2DM - blood glucose checks - explained to patient why Jardiance and metformin are being held
[2017-01-12] MEDS ORDERED: SODIUM CHLORIDE 0.9% 1000ML 1,000 ML IV SCH ×3 (11:15→15:45)
[2017-01-12 11:27] LABS: INR 2.8 (0.9-1.1); PROTHROMBIN TIME (PATIENT) 30.7 SECONDS (9.0-12.0)
[2017-01-12] MEDS ORDERED: SODIUM CHLORIDE 0.65% NA SOLN 45 ML (OCEAN) ONE (14:17)
[2017-01-12] MEDS ORDERED: SODIUM CHLORIDE 0.65% NA SOLN 45 ML (OCEAN) PRN (14:45)
[2017-01-12 17:24] LABS: BUN/CREATININE RATIO 17.1 (10-20); CALCIUM 8.5 mg/dl (8.5-10.1); CREATININE 1.5 mg/dl (0.60-1.40); POTASSIUM 5.3 mmol/L (3.5-5.1)
--- NOTE | 2017-01-12 18:01 | Discharge Instructions ---
Discharge Instructions Date of Service Jan 12, 2017. Admission Reason for Admission: Anemia, Hematuria Discharge Discharge Diagnosis / Problem: hematuria, acute kidney injury Discharge Goals Goal(s): Improve disease control Activity Recommendations Activity Limitations: resume your previous activity . Current Hospital Diet Patient's current hospital diet: AHA Diet (Heart Healthy), Diabetes Type 2 Diet Discharge Diet Recommended Diet: Diabetes Type 2 Diet Fluid Restriction: None Pending Studies Studies pending at discharge: no Laboratory Results Hemoglobin A1c Test 11/24/16 11:34 Range/Units Estimated Average Glucose 148 mg/dl Hemoglobin A1c 6.8 H 4.5-5.6 % Lipid Panel Test 11/24/16 11:34 Range/Units Triglycerides Level 205 H 0-150 mg/dl Cholesterol Level 150 0-200 mg/dl HDL Cholesterol 43 mg/dl Cholesterol/HDL Ratio 3.5 LDL Cholesterol, Calculated 66 mg/dl Medical Emergencies . Who to Call and When: Medical Emergencies: If at any time you feel your situation is an emergency, please call 911 immediately. . Non-Emergent Contact Non-Emergency issues call your: Primary Care Provider . . "Provider Documentation" section prepared by Laurence Pineda. VTE Core Measure Inpt VTE Proph given/why not?: Warfarin (Coumadin)
--- NOTE | 2017-01-12 18:13 | Discharge Summary ---
Discharge Summary Date of Service Jan 12, 2017. Discharge Summary Admission Date: Jan 11, 2017 at 21:45 Discharge Date: Jan 12, 2017 Discharge Disposition: Home Principal Diagnosis: hematuria Medication Reconciliation Continued Medications: Albuterol (Ventolin Hfa) 60 Puffs/5400 Mcg Aers 2-4 PUFFS INH Q4-6H PRN for SOB/Wheezing Alfuzosin Hcl (Alfuzosin Hcl Er) 10 Mg Tab 10 MG PO DAILY, TAB Atorvastatin (Lipitor) 40 Mg Tab 40 MG PO DAILY, TAB Cyanocobalamin (Vitamin B-12) 1,000 Mcg Tab 1000 MCG PO DAILY, TAB Furosemide (Lasix) 40 Mg Tab 40 MG PO DAILY PRN for LEG EDEMA, TAB Metoprolol Succ (Toprol Xl) (Toprol-Xl) 25 Mg Tabcr 25 MG PO DAILY, TAB Trazodone Hcl (Trazodone) 50 Mg Tab 50-100 MG PO HS, TAB Vardenafil (Levitra) 20 Mg Tab 20 MG PO DIRECTED, TAB Warfarin Sodium (Coumadin) 5 Mg Tab 5 MG PO DAILY, TAB Discontinued Medications: Empagliflozin (Jardiance) 25 Mg Tab 25 MG PO DAILY Lisinopril (Zestril) 10 Mg Tab 10 MG PO DAILY, TAB Potassium Chloride (Potassium Chloride ER) 20 Meq Tabcr 20 MEQ PO DAILY Hospital Course 51 y/o M Hx DM, [place], HPL, Chronic R renal cortical atrophy - mechanical aortic valve on Coumadin. Pt was sent to the ER by primary for abnormal labs which include RITU and anemia. He has had gross hematuria for approximately 3-4 days. It is not unusual for him to have mild hematuria when his INR is elevated, however he states that his urine is dark red which has not happened before. Initial labs reveal a creatinine of 2.3 (baseline 1.2) and a hemoglobin of 9.4 ( baseline 12+). A CT of the abdomen shows a bladder diverticulum which the pt was aware of. He does not have a reason to be dehydrated and the CT does not show visible clots or new hydronephrosis. He denies CP, SOB or light headedness. He was treated for an upper respiratory infection recently with a course of Prednisone and Zithromax. During his hospital stay, patient had a gonzalez placed. His coumadin was held and he was given IVF. His creat improved to 1.5, however, his potassium was on the high side of normal and on repeat , creat did not improve further but potassium did trend up slightly. I did discuss these findings with him and risks of potassium increasing and creatinine not continuing to improve despite IVF that further increase in his potassium could result in arrhythmias which may lead to fatal events. He did verbalize understanding and promised to follow-up with Dr. Jordyn Truong with labs and INR. His INR did improve down to 2.8 and his urine did clear- up and the gonzalez was removed. He was instructed to follow-up with Dr. Truong with a urinalysis as well. During this stay, his BP was also on the lower side, although asymptomatic. This was likely due to volume depletion. Lisinopril was held and will be held until repeat labs will be done as outpatient. 1. RITU with possible CKD - creat baseline 1.2 on prior labs - likely volume depletion from increase uop from SGLP2 inhibitor + autoregulatory failure from acei/arb - improved with IVF from 2.3 down to 1.5 - cont to hold Jardiance and metformin - Continue holding lisinopril - encouraged po intake - he will have renal function and potassium checked in 2-3 days 2. Hematuria - 2/2 elevated INR - resolving - will need INR checked in 2-3 days 3. Supratherapeutic INR - 2/2 recent abx - can resume coumadin tonight, now off abx - needs INR checked in 2-3 days 4. Low BP with h/o HTN - likely volume depletion - encourage po intake - cont to hold lisinopril - cont to hold Jardiance 5. T2DM - blood glucose checks - explained to patient why Jardiance and metformin are being held and will continue to be held until repeat labs are done outpatient - in the meantime, patient was instructed to check blood glucose at home and to seek medical attention or call PCP if >180. Total Time Spent: Greater than 30 minutes This includes examination of the patient, discharge planning, medication reconciliation, and communication with other providers. Discharge Instructions Please refer to the electronic Patient Visit Report (Discharge Instructions) for additional information. Additional Copies To Jordyn Truong DO
[2017-01-12] MEDS ORDERED: TRAZODONE HCL 100 MG TAB PO SCH (21:00)
[2017-01-18 09:29] LABS: ISTAT CREATININE 2.2 mg/dl (0.6-1.3); ISTAT HEMOGLOBIN 9.5 g/dl (14.0-18.0); ISTAT IONIZED CALCIUM 1.16 mmol/l (1.12-1.32)
[2017-04-06] MEDS ORDERED: POTA20TA16 PO (10:32)
[2017-04-06] MEDS ORDERED: EMPA1TAB3 PO (10:32)
[2017-04-06] MEDS ORDERED: WARF5TAB90 PO (10:32)
[2017-04-06] MEDS ORDERED: METF1000 PO (10:32)
[2017-04-06] MEDS ORDERED: METO25TA3 PO (10:32)
[2017-04-06] MEDS ORDERED: TRAZ50TA35 PO (10:32)
[2017-04-06] MEDS ORDERED: FRS/40 PO (10:32)
[2017-04-06] MEDS ORDERED: CYAN100020 PO (10:32)
[2017-04-06] MEDS ORDERED: LVT/20 PO (10:32)
[2017-04-06] MEDS ORDERED: CLBPO15 TOP (10:32)
[2017-04-08] MEDS ORDERED: KETO10TA PO (13:58)
[2017-04-08] MEDS ORDERED: OXYC-57 PO (13:58)
== END 2017-01-12 18:14 | disposition home or self-care (01) | DRG 684 ==
LOC: ENRESERVTM → ENRESERVDT → C.EDB 18:02 → C.MS2W 21:45
PROVIDERS: ADMIT Internal Medicine; ATTEND Internal Medicine
DX: N17.9 Acute kidney failure, unspecified (principal); T45.515A Adverse effect of anticoagulants, initial encounter; R31.9 Hematuria, unspecified; E78.5 Hyperlipidemia, unspecified; Z95.2 Presence of prosthetic heart valve; D64.9 Anemia, unspecified; N26.1 Atrophy of kidney (terminal); E86.1 Hypovolemia; N18.9 Chronic kidney disease, unspecified; E11.21 Type 2 diabetes mellitus with diabetic nephropathy; Z79.01 Long term (current) use of anticoagulants; Y92.009 Unspecified place in unspecified non-institutional (private) residence as the place of occurrence of the external cause

== ENCOUNTER → 2017-01-11 | Outpatient (CLI) | payer BC ==
[2017-01-11 14:47] LABS: BASO % 0.3 %; BASO ABS # 0.02 K/uL (0-0.2); COMPLETE YES; EOS % 2.8 %; HEMATOCRIT 27.6 % (42-52); IG% 0.3 %; LYMPH % 23.3 %; LYMPH ABS # 1.76 K/uL (1.2-3.4); MEAN CELL VOLUME 91.4 fL (80-100); MEAN CORPUSCULAR HEMOGLOBIN 30.1 pg (25-34); MEAN PLATELET VOLUME 11.6 fL (7.4-10.4); MONO % 6.6 %; NEUT % 66.7 %; PLATELET COUNT 245 K/uL (130-400); RED BLOOD COUNT 3.02 M/uL (4.7-6.1); WHITE BLOOD COUNT 7.55 K/uL (4.8-10.8)
[2017-01-11 15:56] LABS: MANUAL MICROSCOPIC REQUIRED? YES; REVIEW REQ? NO; URINE APPEARANCE CLOUDY (CLEAR); URINE COLOR RED
[2017-01-11 15:57] LABS: SULFASALICYLIC ACID POS (NEG)
[2017-01-11 16:01] LABS: URINE RBC >30 /hpf (0-4); URINE WBC >30 /hpf (0-5)
[2017-01-11 16:02] LABS: URINE BACTERIA NEG (NEG)
== END | disposition home or self-care (01) ==
LOC: C.LAB 13:20
PROVIDERS: ATTEND Family Medicine
DX: R31.0 Gross hematuria (principal)

== ENCOUNTER → 2017-01-14 | Outpatient (CLI) | payer BC ==
[~2017-01-14] MED LIST changes: -LISI-461 PO; -MCRK/20 PO
[2017-01-14 15:53] LABS: BASO % 0.3 %; BASO ABS # 0.03 K/uL (0-0.2); COMPLETE YES; EOS % 2.8 %; HEMATOCRIT 28.9 % (42-52); IG% 0.5 %; LYMPH % 19.3 %; LYMPH ABS # 1.94 K/uL (1.2-3.4); MEAN CELL VOLUME 89.5 fL (80-100); MEAN CORPUSCULAR HEMOGLOBIN 30.7 pg (25-34); MEAN CORPUSCULAR HGB CONC 34.3 g/dl (32-36); MEAN PLATELET VOLUME 11.4 fL (7.4-10.4); MONO % 11.5 %; NEUT % 65.6 %; PLATELET COUNT 269 K/uL (130-400); RED BLOOD COUNT 3.23 M/uL (4.7-6.1); WHITE BLOOD COUNT 10.07 K/uL (4.8-10.8)
[2017-01-14 16:02] LABS: BLOOD UREA NITROGEN 20 mg/dl (7-18); CALCIUM 8.9 mg/dl (8.5-10.1); CARBON DIOXIDE 26 mmol/L (21-32); CHLORIDE 99 mmol/L (98-107); GLUCOSE 150 mg/dl (70-99); POTASSIUM 4.6 mmol/L (3.5-5.1); SODIUM 136 mmol/L (136-145)
[2017-01-14 16:03] LABS: INR 1.9 (0.9-1.1); PROTHROMBIN TIME (PATIENT) 21.2 SECONDS (9.0-12.0)
== END | disposition home or self-care (01) ==
LOC: C.LAB 14:54
PROVIDERS: ATTEND Family Medicine
DX: D64.9 Anemia, unspecified (principal); R31.0 Gross hematuria

== ENCOUNTER → 2017-02-03 | Outpatient (CLI) | payer BC | END | disposition home or self-care (01) | LOC: C.LABSPEC 17:53 | PROVIDERS: ATTEND Urology | DX: R31.9 Hematuria, unspecified (principal); N39.0 Urinary tract infection, site not specified ==

== ENCOUNTER → 2017-03-31 | Outpatient (CLI) | payer BC ==
[2017-03-31 09:30] LABS: BASO % 0.6 %; BASO ABS # 0.05 K/uL (0-0.2); COMPLETE YES; EOS % 8.9 %; HEMATOCRIT 40.8 % (42-52); IG% 0.2 %; LYMPH % 20.4 %; LYMPH ABS # 1.67 K/uL (1.2-3.4); MEAN CELL VOLUME 94.9 fL (80-100); MEAN CORPUSCULAR HGB CONC 31.6 g/dl (32-36); MEAN PLATELET VOLUME 12.1 fL (7.4-10.4); MONO % 10.2 %; NEUT % 59.7 %; PLATELET COUNT 225 K/uL (130-400)
[2017-03-31 09:59] LABS: BLOOD UREA NITROGEN 18 mg/dl (7-18); BUN/CREATININE RATIO 13.5 (10-20); CARBON DIOXIDE 28 mmol/L (21-32); CHLORIDE 105 mmol/L (98-107); GLUCOSE 146 mg/dl (70-99); POTASSIUM 4.3 mmol/L (3.5-5.1); SODIUM 140 mmol/L (136-145)
== END | disposition home or self-care (01) ==
LOC: C.LAB 08:41
PROVIDERS: ATTEND Orthopaedic Surgery
DX: M75.02 Adhesive capsulitis of left shoulder (principal); R31.0 Gross hematuria; Z79.01 Long term (current) use of anticoagulants

== ENCOUNTER → 2017-04-08 | Day surgery (SDC) | payer BC ==
[2017-04-06 10:19] VITALS: Ht 175.3 cm; Wt 122.7 kg
[~2017-04-08] VITALS: Ht 175.3 cm; Wt 122.7 kg
[~2017-04-08] MED LIST changes: +ATROPINE SULFATE 0.1 MG/ML 5ML SYR IV PRN; +BUPIVACAINE 0.5 % 5 MG/1 ML PF 10ML VIAL ONE; -CYAN10005 PO; +EpHEDrine SULFATE INJ 50 MG/ML AMP IV PRN; +FENTANYL CITRATE INJ 50 MCG/1 ML 2 ML VIAL IV PRN; +LACTATED RINGER'S 1000ML 1,000 ML IV SCH; +LIDOCAINE HCL 2% 2 ML VIAL (20MG/ML) ONE; +METHYLPREDNISOLONE ACETATE 80 MG/ML VIAL ONE; +ONDANSETRON INJ 2 MG/ML 2 ML VIAL IV PRN; +ONDANSETRON INJ 2 MG/ML 2 ML VIAL ONE; +OXYCODONE/ACETAMINOPHEN 5-325 TAB PO PRN; +PROMETHAZINE HCL INJ 6.25 MG in SODIUM CHLORIDE 0.9% 50ML 50 ML IV PRN; +PROPOFOL IV EMULSION 10 MG/ML 20 ML VIAL IV ONE; -PRVHFAIN INH; +SODIUM CHLORIDE 0.9% 1000ML 1,000 ML IV SCH; +SUCCINYLCHOLINE CHLORIDE 20 MG/ML 10 ML VIAL IV ONE
--- NOTE | 2017-04-08 13:16 | History & Physical Bridge - SC ---
H&P Re-Evaluation Bridge Note: I have examined the patient, reviewed the History & Physical and in the interval since the performance of the History & Physical I have noted the following changes of clinical significance: No changes noted
--- NOTE | 2017-04-08 14:00 | Discharge Instructions-SurgCtr ---
Discharge Instructions Date of Service Apr 08, 2017. Visit Reason for Visit: Left Shoulder Adhesive Capsulitis Discharge Discharge Diagnosis / Problem: SAME ABOVE Discharge Goals Goal(s): Decrease discomfort, Improve function Medications Stopped Medications Name(s): Metformin stopped Wednesday Restart Stopped Medication(s): MARCH RESTART 04/08/2017 Activity Recommendations Activity Limitations: as noted below Lifting Limitations: until after follow-up appointment Shower/Bathe: tomorrow Driving or Machine Use: resume 1 day after discharge (OR WHEN OUT OF THE SLING AND PAIN IS TOLERATED ) Anesthesia . Post Anesthesia Instructions: If you have had General Anesthesia or IV Sedation: * Do not drive today. * Resume driving when surgeon permits. * Do not make important decisions or sign legal documents today. * Call surgeon for: 1. Temperature elevations greater than 101 degrees F. 2. Uncontrollable pain. 3. Excessive bleeding. 4. Persistent nausea and vomiting. 5. Medication intolerance (nausea, vomiting or rash). * For nausea and vomiting use only clear liquids such as: tea, soda, bouillon until nausea subsides, then gradually increase diet as tolerated. * If you have any concerns or questions, call your surgeon's office. If physician is unavailable and it is an emergency, call 911 or go to the nearest emergency room. . Diet Recommendations Home Diet: no limitations Fluid Restriction: None Procedures Procedures Performed: Left Shoulder Manipulation Under Anesthesia Pending Studies Studies pending at discharge: no Work Instructions Return To Work: after follow-up (OR WHEN PAIN IS TOLERATED ) Lifting Limitations: INCREASE TOLREATED Medical Emergencies . Who to Call and When: Medical Emergencies: If at any time you feel your situation is an emergency, please call 911 immediately. . Non-Emergent Contact Non-Emergency issues call your: Primary Care Provider Call Non-Emergent contact if: you have a fever, temperature is above 101.5 . . "Provider Documentation" section prepared by Des Moss. .
[2017-04-08 14:56] VITALS: TEMP 36.8
--- NOTE | 2017-04-08 14:56 | OPERATIVE REPORT ---
DATE OF OPERATION: 04/08/2017 PREOPERATIVE DIAGNOSIS: Adhesive capsulitis of the left shoulder. POSTOPERATIVE DIAGNOSIS: Same. PROCEDURE: Manipulation under anesthesia, left shoulder. SURGEON: Dr. Leon Garza. HEAD TURNING MACHINE OPERATOR: None. ANESTHESIA: Sedation. COMPLICATIONS: None. CONDITION: Stable to PACU. INDICATIONS: Arturo is a pleasant 51-year-old male with multiple medical conditions. He presented to my office with pain and stiffness of his left shoulder. Clinical examination was diagnostic for adhesive capsulitis. He elected to undergo manipulation under anesthesia of the left shoulder. DESCRIPTION OF PROCEDURE: On 04/08/2017, he arrived at the [facility] for the above procedure. He was seen in the preoperative holding area and the operative extremity was identified and signed. He was then taken back to the operating room and given basic sedation. Time-out was done and the patient and operative extremity was properly identified. On preoperative physical examination, he had 80 degrees of abduction, but only 20 degrees of external rotation. A gentle manipulation was done under anesthesia and I was able to get full range of motion of his shoulder. He had 120 degrees of abduction with the scapula stabilized in full forward elevation and 90 degrees of external rotation. The glenohumeral joint was then injected with 80 mg of Depo-Medrol. He was then placed in a regular arm sling and taken to the postanesthesia care unit in stable condition. He tolerated the procedure well. I attest to the content of the Intraoperative Record and any orders documented therein. Any exception s are noted below.
--- NOTE | 2017-04-08 15:30 | Anesthesia Progress Nt - [facility] ---
Anesthesia Post Op Note Date & Time Apr 08, 2017 at 15:30 Vital Signs Pain Intensity: 4 Vital Signs Past 12 Hours Date Time Temp Pulse Resp B/P (MAP) Pulse Ox O2 Delivery O2 Flow Rate FiO2 04/08/17 15:10 78 16 130/85 (100) 96 Room Air 04/08/17 14:56 36.8 79 16 144/92 95 Room Air 04/08/17 14:50 80 22 95 04/08/17 14:50 81 22 04/08/17 14:47 143/95 04/08/17 14:45 79 18 94 04/08/17 14:45 72 18 04/08/17 14:42 150/95 04/08/17 14:40 75 18 100 04/08/17 14:40 75 18 04/08/17 14:37 147/91 04/08/17 14:35 75 14 99 04/08/17 14:35 75 14 04/08/17 14:32 147/90 04/08/17 14:30 76 13 100 04/08/17 14:30 76 13 04/08/17 14:27 142/91 04/08/17 14:25 76 14 04/08/17 14:25 75 14 100 04/08/17 14:22 130/94 04/08/17 14:20 75 19 99 04/08/17 14:20 75 19 04/08/17 14:19 79 16 04/08/17 14:19 80 16 100 04/08/17 14:17 138/89 04/08/17 14:14 75 20 04/08/17 14:14 76 20 99 04/08/17 14:12 135/81 04/08/17 14:09 75 99 04/08/17 14:09 75 04/08/17 14:07 134/81 04/08/17 14:06 138/75 04/08/17 14:04 37.0 75 16 136/89 100 Mask 6 04/08/17 13:24 36.7 87 16 157/92 (113) 96 Room Air Notes Mental Status: alert / awake / arousable, participated in evaluation Pt Amnestic to Procedure: Yes Nausea / Vomiting: adequately controlled Pain: adequately controlled Airway Patency, RR, SpO2: stable & adequate BP & HR: stable & adequate Hydration State: stable & adequate Anesthetic Complications: no major complications apparent Patient aware that his INR was sub-therapeudic and plan is already in place with those managing his coumadin for his dosage tonight and tomorrow
[2017-04-08 15:55] VITALS: BP 139/88; PULSE 75; O2SAT 95
--- NOTE | 2017-04-08 17:01 | [facility] Post Operative Brief Note ---
Immediate Operative Summary Operative Date Apr 08, 2017. Pre-Operative Diagnosis Adhesive Capsulitis Left Shoulder Post-Operative Diagnosis same Procedure(s) Performed Left Shoulder Manipulation Under Anesthesia Surgeon Dr. Kristyn Garza [employer] Commissioner Surgeon(s) 0 Estimated Blood Loss 0 Findings as above Specimens none Complication(s) None Disposition Recovery Room / PACU
== END | disposition home or self-care (01) ==
LOC: X.SURG 11:05
PROVIDERS: ATTEND Orthopaedic Surgery
DX: M75.02 Adhesive capsulitis of left shoulder (principal); I10 Essential (primary) hypertension; E78.00 Pure hypercholesterolemia, unspecified; E11.9 Type 2 diabetes mellitus without complications; Z95.2 Presence of prosthetic heart valve

== ENCOUNTER → 2017-04-23 | Outpatient (CLI) | payer BC ==
[~2017-04-23] MED LIST changes: -ATROPINE SULFATE 0.1 MG/ML 5ML SYR IV PRN; -BUPIVACAINE 0.5 % 5 MG/1 ML PF 10ML VIAL ONE; -EpHEDrine SULFATE INJ 50 MG/ML AMP IV PRN; -FENTANYL CITRATE INJ 50 MCG/1 ML 2 ML VIAL IV PRN; -LACTATED RINGER'S 1000ML 1,000 ML IV SCH; -LIDOCAINE HCL 2% 2 ML VIAL (20MG/ML) ONE; -METHYLPREDNISOLONE ACETATE 80 MG/ML VIAL ONE; -ONDANSETRON INJ 2 MG/ML 2 ML VIAL IV PRN; -ONDANSETRON INJ 2 MG/ML 2 ML VIAL ONE; -OXYCODONE/ACETAMINOPHEN 5-325 TAB PO PRN; -PROMETHAZINE HCL INJ 6.25 MG in SODIUM CHLORIDE 0.9% 50ML 50 ML IV PRN; -PROPOFOL IV EMULSION 10 MG/ML 20 ML VIAL IV ONE; -SODIUM CHLORIDE 0.9% 1000ML 1,000 ML IV SCH; -SUCCINYLCHOLINE CHLORIDE 20 MG/ML 10 ML VIAL IV ONE
[2017-04-23 12:24] LABS: BLOOD UREA NITROGEN 19 mg/dl (7-18); BUN/CREATININE RATIO 12.7 (10-20)
== END | disposition home or self-care (01) ==
LOC: C.LAB 10:52
PROVIDERS: ATTEND Urology
DX: Z00.00 Encounter for general adult medical examination without abnormal findings (principal); R97.20 Elevated prostate specific antigen [PSA]; N32.3 Diverticulum of bladder; R31.9 Hematuria, unspecified; N39.0 Urinary tract infection, site not specified

== ENCOUNTER → 2017-06-03 | Outpatient (CLI) | payer BC ==
[2017-06-03 09:56] LABS: ESTIMATED AVERAGE GLUCOSE 160 mg/dl; HA1C FLAG Normal (Normal)
[2017-06-03 10:12] LABS: BLOOD UREA NITROGEN 18 mg/dl (7-18); BUN/CREATININE RATIO 14.6 (10-20); CALCIUM 9.3 mg/dl (8.5-10.1); CARBON DIOXIDE 26 mmol/L (21-32); CHLORIDE 106 mmol/L (98-107); GLUCOSE 97 mg/dl (70-99); HDL CHOLESTEROL 37 mg/dl; POTASSIUM 4.2 mmol/L (3.5-5.1); SODIUM 140 mmol/L (136-145)
[2017-06-03 10:25] LABS: ALKALINE PHOSPHATASE 82 U/L (45-117); ALT/SGPT 23 U/L (12-78); AST/SGOT 16 U/L (15-37); CHOLESTEROL 136 mg/dl (0-200); CHOLESTEROL/HDL RATIO 3.7; LDL CHOLESTEROL CALCULATED 63 mg/dl; TRIGLYCERIDES 182 mg/dl (0-150); VERY LOW DENSITY LIPOPROT CALC 36 mg/dl
== END | disposition home or self-care (01) ==
LOC: C.LAB 08:21
PROVIDERS: ATTEND Family Medicine
DX: E11.9 Type 2 diabetes mellitus without complications (principal); E78.00 Pure hypercholesterolemia, unspecified; I10 Essential (primary) hypertension

== ENCOUNTER → 2017-07-09 | Outpatient (CLI) | payer BC ==
[2017-07-09 13:19] LABS: BASO % 0.4 %; BASO ABS # 0.03 K/uL (0-0.2); COMPLETE YES; EOS % 4.2 %; HEMATOCRIT 42.8 % (42-52); IG% 0.1 %; LYMPH % 19.6 %; MEAN CELL VOLUME 93.4 fL (80-100); MEAN CORPUSCULAR HEMOGLOBIN 30.3 pg (25-34); MEAN CORPUSCULAR HGB CONC 32.5 g/dl (32-36); MEAN PLATELET VOLUME 12.7 fL (7.4-10.4); MONO % 9.9 %; NEUT % 65.8 %; PLATELET COUNT 179 K/uL (130-400); RED BLOOD COUNT 4.58 M/uL (4.7-6.1); WHITE BLOOD COUNT 7.65 K/uL (4.8-10.8)
[2017-07-09 13:59] LABS: BLOOD UREA NITROGEN 15 mg/dl (7-18); BUN/CREATININE RATIO 11.2 (10-20); CALCIUM 9.4 mg/dl (8.5-10.1); CARBON DIOXIDE 27 mmol/L (21-32); CHLORIDE 103 mmol/L (98-107); GLUCOSE 100 mg/dl (70-99); POTASSIUM 4.2 mmol/L (3.5-5.1); SODIUM 139 mmol/L (136-145)
== END | disposition home or self-care (01) ==
LOC: C.LAB 12:10
PROVIDERS: ATTEND Nurse Practitioner Adult Health
DX: R31.9 Hematuria, unspecified (principal); I10 Essential (primary) hypertension

== ENCOUNTER 2017-11-15 15:39 | Inpatient (IN) | payer BC ==
[~2017-11-15] VITALS: Ht 175.3 cm; Wt 122.9 kg
[~2017-11-15 15:39] MED LIST changes: -ALFU1TAB2 PO; -ATOR-24 PO; -KETO10TA PO; -OXYC-57 PO
[2017-11-15] MEDS ORDERED: CEFEPIME IV 2,000 MG in DEXTROSE 5% 100ML 100 ML IV STA (17:02)
[2017-11-15] MEDS ORDERED: SODIUM CHLORIDE 0.9% 1000ML 1,000 ML IV ONE (17:02)
--- NOTE | 2017-11-15 17:29 | DIAGNOSTIC IMAGING REPORT ---
CHEST ONE VIEW PORTABLE CLINICAL HISTORY: Sepsis COMPARISON STUDY: 12/25/2016 FINDINGS: There are postsurgical changes of midline sternotomy. The heart is mildly enlarged. Slight interstitial prominence is felt to be secondary to suboptimal inspiration. There is no focal pulmonary consolidation. There is no overt failure. There are no pleural effusions.[ IMPRESSION: Mild cardiomegaly. No acute findings. Electronically signed by: Nura Ta M.D. 11/15/2017 5:28 PM Dictated Date/Time: 11/15/2017 5:27 PM
--- NOTE | 2017-11-15 17:34 | EMERGENCY ROOM VISIT NOTE ---
History Report prepared by Poncho: Brittany Gayle Under the Supervision of: Dr. Samson Jang M.D. First contact with patient: 16:54 Chief Complaint: URINARY SYMPTOMS Stated Complaint: DICOLORATION IN URINE Nursing Triage Summary: Patient states he has been having discoloration of urine for about 2 weeks , low grade fevers. History of Present Illness The patient is a 51 year old male who presents to the Emergency Room with complaints of persistent urinary symptoms that started two weeks ago. The patient notes he has also had a low grade fever for the past two weeks. He states it is difficult for him to urinate. The patient reports he has a bladder diverticulum and Dr. Puga is his urologist. He states he had a UTI about one year ago. He states his right kidney has very little function. He denies having a history of kidney stones. The patient notes he has type II diabetes. He reports he had an aortic valve replacement about 20 years ago. He notes he takes Coumadin every day. The patient denies any SOB, CP, vomiting, diarrhea, abdominal pain, or flank pain. Source of History: patient Onset: 2 weeks ago Position: other (urinary symptoms) Timing: other (persistent) Associated Symptoms: No chest pain, No SOB, No vomiting, No abdominal pain Note: Additional symptoms: No flank pain. Review of Systems See HPI for pertinent positives & negatives. A total of 10 systems reviewed and were otherwise negative. Past Medical & Surgical Medical Problems: (1) Anemia (2) Fever of unknown origin (3) Hematuria Family History No pertinent family history Social History Smoking Status: Never Smoker Current/Historical Medications Scheduled Alfuzosin Hcl (Alfuzosin Hcl Er), 10 MG PO QAM Atorvastatin (Lipitor), 40 MG PO HS Clobetasol Propionate (Clobetasol Propionate), 1 APPLN TOP 2XWK Empagliflozin (Jardiance), 25 MG PO QAM Metformin Hcl (Glucophage), 1,000 MG PO BID Metoprolol Succ (Toprol Xl) (Toprol-Xl), 25 MG PO QAM Warfarin Sodium (Coumadin), 5 MG PO DAILY Scheduled PRN Furosemide (Lasix), 40 MG PO DAILY PRN for Leg Swelling Potassium Ext Rel (Klor-Con), 20 MEQ PO DAILY PRN for When Lasix Taken Trazodone Hcl (Trazodone), 50 MG PO HS PRN for Sleep Vardenafil (Levitra), 20 MG PO UD PRN for Prior to [place] Allergies Coded Allergies: No Known Allergies (Unverified , 04/08/17) Physical Exam Vital Signs Date Time Temp Pulse Resp B/P (MAP) Pulse Ox O2 Delivery O2 Flow Rate FiO2 11/15/17 19:51 95 Room Air 11/15/17 19:01 36.8 115 16 127/75 95 Room Air 11/15/17 17:18 112 11/15/17 15:43 36.8 122 16 131/69 95 Room Air Physical Exam GENERAL: Patient is in no acute distress. HEENT: No acute trauma, normocephalic atraumatic, mucous membranes moist, no nasal congestion, no scleral icterus. NECK: No stridor, no adenopathy, no meningismus, trachea is midline. LUNGS: Scattered wheezes, breath sounds equal, no rhonchi, no respiratory distress. HEART: Mildly tachycardic with a regular rhythm, 2/6 systolic murmur with a metallic click. ABDOMEN: Soft, nontender, bowel sounds positive, no hernias, no peritonitis. BACK: No flank discomfort with percussion. EXTREMITIES: No cyanosis or edema, full range of motion of all the joints without pain or difficulty, no signs for acute trauma. GROIN: No cellulitis. NEUROLOGIC: Oriented x 3, no acute motor or sensory deficits, no focal weakness. SKIN: No rash, no jaundice, no diaphoresis. Pale. Medical Decision & Procedures ER Provider Diagnostic Interpretation: Radiology results as stated below per my review and radiologist interpretation: CHEST ONE VIEW PORTABLE CLINICAL HISTORY: Sepsis COMPARISON STUDY: 12/25/2016 FINDINGS: There are postsurgical changes of midline sternotomy. The heart is mildly enlarged. Slight interstitial prominence is felt to be secondary to suboptimal inspiration. There is no focal pulmonary consolidation. There is no overt failure. There are no pleural effusions.[ IMPRESSION: Mild cardiomegaly. No acute findings. Electronically signed by: Nura Ta M.D. 11/15/2017 5:28 PM Dictated Date/Time: 11/15/2017 5:[address] SCAN OF THE ABDOMEN AND PELVIS WITHOUT CONTRAST CLINICAL HISTORY: Flank pain hematuria COMPARISON STUDY: 01/11/2017 TECHNIQUE: CT scan of the abdomen and pelvis was performed from the lung bases to the proximal femurs. Images are reviewed in the axial, sagittal, and coronal planes. IV contrast was not administered for this examination. A dose lowering technique was utilized adhering to the principles of ALARA. CT DOSE: 1365.14 mGycm FINDINGS: Lower chest: The heart is mildly enlarged. There are no significant pleural effusions. There is no focal basilar consolidation Liver: The unenhanced liver is normal in size, contour, and attenuation. There is no intrahepatic biliary ductal dilatation. Gallbladder: Unremarkable. Spleen: Normal in size and attenuation. Pancreas: Unremarkable. Adrenal glands: Unremarkable. Kidneys: There is severe progressive right-sided hydronephrosis with marked cortical atrophy. There is mild right-sided perinephric infiltration. There is minor fullness of the left renal collecting system and left ureter. No ureteral calculi are visualized. Bowel: There are no transition zones to indicate bowel obstruction. There is no acute diverticulitis. There is no evidence of acute appendicitis. Peritoneum: There is no intraperitoneal free air or abdominal ascites. Vasculature: The abdominal aorta is normal in course and caliber. Adenopathy: There is an enlarged right para-aortic lymph node measuring 25 mm. Pelvic viscera: There is a large right-sided bladder diverticula measuring 18 cm. The bladder is mildly distended thick walled and trabeculated. Skeletal structures: No destructive osseous lesions are seen. IMPRESSION: 1. Mildly thick walled trabeculated bladder, containing a large 18 cm right-sided bladder diverticulum. 2. Progressive severe right-sided hydronephrosis with mild perinephric infiltration. 3. No obstructing ureteral calculi identified 4. No evidence of bowel obstruction. No evidence of free air. 5. No evidence of acute appendicitis. No evidence of acute diverticulitis 6. Nonspecific enlarged right para aortic lymph node measuring 25 mm. Electronically signed by: Nura Ta M.D. 11/15/2017 5:59 PM Dictated Date/Time: 11/15/2017 5:51 PM Laboratory Results 11/15/17 17:10 Red Blood Count 3.20, Mean Corpuscular Volume 93.1, Mean Corpuscular Hemoglobin 30.3, Mean Corpuscular Hemoglobin Concent 32.6, Mean Platelet Volume 10.2, Neutrophils (%) (Auto) 65.9, Lymphocytes (%) (Auto) 12.5, Monocytes (%) (Auto) 19.0, Eosinophils (%) (Auto) 0.5, Basophils (%) (Auto) 0.4, Neutrophils # (Auto ) 5.40, Lymphocytes # (Auto) 1.02, Monocytes # (Auto) 1.56, Eosinophils # (Auto ) 0.04, Basophils # (Auto) 0.03 11/15/17 17:10 Test 11/15/17 17:00 11/15/17 17:10 11/15/17 17:25 Urine Color BROWN Urine Appearance CLOUDY (CLEAR) Urine pH 5.5 (4.5-7.5) Urine Specific [place] 1.020 (1.000-1.030) Urine Protein 2+ (NEG) Urine Glucose (UA) 3+ (NEG) Urine Ketones TRACE (NEG) Urine Occult Blood 3+ (NEG) Urine Nitrite NEG (NEG) Urine Bilirubin NEG (NEG) Urine Urobilinogen NEG (NEG) Urine Leukocyte Esterase SMALL (NEG) Urine RBC 10-30 /hpf (0-4) Urine WBC >30 /hpf (0-5) Urine Epithelial Cells 5-10 /lpf (0-5) Urine Bacteria 1+ (NEG) White Blood Count 8.19 K/uL (4.8-10.8) Red Blood Count 3.20 M/uL (4.7-6.1) Hemoglobin 9.7 g/dL (14.0-18.0) Hematocrit 29.8 % (42-52) Mean Corpuscular Volume 93.1 fL (80-100) Mean Corpuscular Hemoglobin 30.3 pg (25-34) Mean Corpuscular Hemoglobin Concent 32.6 g/dl (32-36) Platelet Count 361 K/uL (130-400) Mean Platelet Volume 10.2 fL (7.4-10.4) Neutrophils (%) (Auto) 65.9 % Lymphocytes (%) (Auto) 12.5 % Monocytes (%) (Auto) 19.0 % Eosinophils (%) (Auto) 0.5 % Basophils (%) (Auto) 0.4 % Neutrophils # (Auto) 5.40 K/uL (1.4-6.5) Lymphocytes # (Auto) 1.02 K/uL (1.2-3.4) Monocytes # (Auto) 1.56 K/uL (0.11-0.59) Eosinophils # (Auto) 0.04 K/uL (0-0.5) Basophils # (Auto) 0.03 K/uL (0-0.2) RDW Standard Deviation 49.4 fL (36.4-46.3) RDW Coefficient of Variation 14.3 % (11.5-14.5) Immature Granulocyte % (Auto) 1.7 % Immature Granulocyte # (Auto) 0.14 K/uL (0.00-0.02) Red Blood Cell Morphology Unremarkable Prothrombin Time 57.6 SECONDS (9.0-12.0) Prothromb Time International Ratio 5.7 (0.9-1.1) Activated Partial Thromboplast Time 73.1 SECONDS (21.0-31.0) Partial Thromboplastin Ratio 2.8 Anion Gap 11.0 mmol/L (3-11) Est Creatinine Clear Calc Drug Dose 57.9 ml/min Estimated GFR () 45.3 Estimated GFR (Non- 39.1 BUN/Creatinine Ratio 19.2 (10-20) Calcium Level 9.0 mg/dl (8.5-10.1) Magnesium Level 2.0 mg/dl (1.8-2.4) Total Bilirubin 1.0 mg/dl (0.2-1) Aspartate Amino Transf (AST/SGOT) 28 U/L (15-37) Alanine Aminotransferase (ALT/SGPT) 29 U/L (12-78) Alkaline Phosphatase 103 U/L (45-117) Total Protein 7.7 gm/dl (6.4-8.2) Albumin 2.3 gm/dl (3.4-5.0) Globulin 5.4 gm/dl (2.5-4.0) Albumin/Globulin Ratio 0.4 (0.9-2) Bedside Lactic Acid Venous 1.36 mmol/L (0.90-1.70) Laboratory results reviewed by me. Medications Administered Medications (Trade) Dose Ordered Sig/Naeem Route Start Time Stop Time Status Last Admin Dose Admin Sodium Chloride 1,000 ml @ 999 mls/hr Q1H1M ONCE IV 11/15/17 17:02 11/15/17 18:02 DC 11/15/17 17:25 999 MLS/HR Cefepime HCl 2000 mg/Dextrose 112.5 ml @ 200 mls/hr ONE STAT IV 11/15/17 17:02 11/15/17 17:35 DC 11/15/17 18:13 200 MLS/HR Sodium Chloride 500 ml @ 999 mls/hr Q31M STAT IV 11/15/17 18:32 11/15/17 19:02 DC 11/15/17 18:59 999 MLS/HR ECG Indication: other (urinary symptoms) Rate (beats per minute): 111 Rhythm: sinus tachycardia Findings: LBBB, no ectopy Change: no significant change (12/2016) ED Course 1654: The patient was evaluated in room B5. A complete history and physical exam was performed. 1702: Cefepime HCI 2000 mg/Dextrose 112.5 ml @ 200 mls/hr, Sodium Chloride 1000 ml @ 999 mls/hr IV. 1822: Upon reexamination the patient is resting comfortably. I discussed results and treatment plan with the patient. He verbalizes agreement and understanding. I spoke with Dr. Cotton of the [facility]. We discussed the patient's results and findings. The patient will be evaluated by Dr. Babb for further management. 183: Sodium Chloride 500 ml @ 999 mls/hr IV. Medical Decision The patient is a 51 year old male who presents to the ED with complaints of urinary symptoms. Differential diagnoses considered include sepsis, renal failure, dehydration, electrolyte imbalance, pyelonephritis, urinary obstruction , UTI, bacteremia. There is no leukocytosis. The patient is anemic. The patient has had a lower hemoglobin value before although today's number is lower than his most recent value. INR is over the therapeutic window for someone using Coumadin, of note, the patient is not actively bleeding anywhere. Renal panel testing shows some acute on chronic renal failure. Potassium is slightly high, sodium somewhat low. No hepatitis. Urinalysis is suggestive of infection, urine culture is pending. Blood cultures are pending. Lactic acid level is not elevated making sepsis less likely. Abdominal and pelvis CT shows evidence for atrophy of the right kidney and some hydronephrosis of the right collecting system, this is chronic. The left ureter was not dilated. There was a bladder diverticulum noted. Chest x-ray does not show any pneumonia. The patient received IV saline, a second bolus of saline was given. He received IV cefepime as antibiotic coverage. The patient presents with intermittent fevers, tachycardia. He is in some mild acute renal failure and appears to have a UTI. He only has one functioning kidney. He has a history of aortic valve replacement. I do think a hospital stay is warranted. The patient has findings that are concerning for possible early sepsis. He did respond nicely though to the IV fluids. Heart rate is improved. I discussed things with the patient, I discussed things with case management. The on-call hospitalist was consulted. Medication Reconcilliation Current Medication List: was personally reviewed by me Blood Pressure Screening Patient's blood pressure: Elevated blood pressure Blood pressure disposition: Elevated BP felt to be situational Consults Time Called: 1817 Consulting Physician: Dr. Babb, [facility] Returned Call: [address] Cotton of the [facility]. We discussed the patient's results and findings. The patient will be evaluated by Dr. Babb for further management. Impression Primary Impression: Acute renal failure Additional Impressions: Dehydration UTI (urinary tract infection) Tachycardia Scribe Attestation The scribe's documentation has been prepared under my direction and personally reviewed by me in its entirety. I confirm that the note above accurately reflects all work, treatment, procedures, and medical decision making performed by me. Departure Information Dispostion Being Evaluated By Hospitalist Referrals No Doctor, Assigned (PCP) Patient Instructions My [facility] Problem Qualifiers
[2017-11-15 17:37] LABS: HEMATOCRIT 29.8 % (42-52); HEMOGLOBIN 9.7 g/dL (14.0-18.0); MEAN CELL VOLUME 93.1 fL (80-100); MEAN CORPUSCULAR HEMOGLOBIN 30.3 pg (25-34); MEAN CORPUSCULAR HGB CONC 32.6 g/dl (32-36); MEAN PLATELET VOLUME 10.2 fL (7.4-10.4); PLATELET COUNT 361 K/uL (130-400); RED CELL DISTRIBUTION WIDTH CV 14.3 % (11.5-14.5); RED CELL DISTRIBUTION WIDTH SD 49.4 fL (36.4-46.3); WHITE BLOOD COUNT 8.19 K/uL (4.8-10.8)
[2017-11-15 17:51] LABS: ALBUMIN 2.3 gm/dl (3.4-5.0); CREATININE 1.91 mg/dl (0.60-1.40); POTASSIUM 5.2 mmol/L (3.5-5.1)
[2017-11-15 17:54] LABS: TOTAL PROTEIN 7.7 gm/dl (6.4-8.2)
[2017-11-15 17:56] LABS: BASO % 0.4 %; BASO ABS # 0.03 K/uL (0-0.2); EOS % 0.5 %; EOS ABS # 0.04 K/uL (0-0.5); IG# 0.14 K/uL (0.00-0.02); LYMPH % 12.5 %; LYMPH ABS # 1.02 K/uL (1.2-3.4); MONO ABS # 1.56 K/uL (0.11-0.59); NEUT % 65.9 %
--- NOTE | 2017-11-15 18:00 | DIAGNOSTIC IMAGING REPORT ---
CT SCAN OF THE ABDOMEN AND PELVIS WITHOUT CONTRAST CLINICAL HISTORY: Flank pain hematuria COMPARISON STUDY: 01/11/2017 TECHNIQUE: CT scan of the abdomen and pelvis was performed from the lung bases to the proximal femurs. Images are reviewed in the axial, sagittal, and coronal planes. IV contrast was not administered for this examination. A dose lowering technique was utilized adhering to the principles of ALARA. CT DOSE: 1365.14 mGycm FINDINGS: Lower chest: The heart is mildly enlarged. There are no significant pleural effusions. There is no focal basilar consolidation Liver: The unenhanced liver is normal in size, contour, and attenuation. There is no intrahepatic biliary ductal dilatation. Gallbladder: Unremarkable. Spleen: Normal in size and attenuation. Pancreas: Unremarkable. Adrenal glands: Unremarkable. Kidneys: There is severe progressive right-sided hydronephrosis with marked cortical atrophy. There is mild right-sided perinephric infiltration. There is minor fullness of the left renal collecting system and left ureter. No ureteral calculi are visualized. Bowel: There are no transition zones to indicate bowel obstruction. There is no acute diverticulitis. There is no evidence of acute appendicitis. Peritoneum: There is no intraperitoneal free air or abdominal ascites. Vasculature: The abdominal aorta is normal in course and caliber. Adenopathy: There is an enlarged right para-aortic lymph node measuring 25 mm. Pelvic viscera: There is a large right-sided bladder diverticula measuring 18 cm. The bladder is mildly distended thick walled and trabeculated. Skeletal structures: No destructive osseous lesions are seen. IMPRESSION: 1. Mildly thick walled trabeculated bladder, containing a large 18 cm right-sided bladder diverticulum. 2. Progressive severe right-sided hydronephrosis with mild perinephric infiltration. 3. No obstructing ureteral calculi identified 4. No evidence of bowel obstruction. No evidence of free air. 5. No evidence of acute appendicitis. No evidence of acute diverticulitis 6. Nonspecific enlarged right para aortic lymph node measuring 25 mm. Electronically signed by: Nura Ta M.D. 11/15/2017 5:59 PM Dictated Date/Time: 11/15/2017 5:51 PM
[2017-11-15] MEDS ORDERED: SODIUM CHLORIDE 0.9% 500ML 500 ML IV STA (18:32)
[2017-11-15 18:58] LABS: PTT PATIENT 73.1 SECONDS (21.0-31.0)
[2017-11-15 18:59] LABS: INR 5.7 (0.9-1.1)
[2017-11-15] MEDS ORDERED: ATOR-24 PO (19:20)
[2017-11-15] MEDS ORDERED: ALFU1TAB2 PO (19:21)
[2017-11-15] MEDS ORDERED: MAGNESIUM HYDROXIDE SUSP 30 ML UDC PO PRN (20:00)
[2017-11-15] MEDS ORDERED: ONDANSETRON INJ 2 MG/ML 2 ML VIAL IV PRN (20:00)
[2017-11-15] MEDS ORDERED: ALUMINUM/MAGNESIUM/SIMETH (MAALOX MAX) 30 ML UDC PO PRN (20:00)
[2017-11-15] MEDS ORDERED: ZOLPIDEM TARTRATE 5 MG TAB PO PRN (20:00)
[2017-11-15] MEDS ORDERED: ACETAMINOPHEN 325 MG TAB PO PRN (20:00)
[2017-11-15] MEDS ORDERED: POLYETHYLENE (MIRALAX) 17 GM PACK PO PRN (20:00)
[2017-11-15] MEDS ORDERED: TRAZODONE HCL 50 MG TAB PO PRN (20:00)
[2017-11-15] MEDS ORDERED: DAPTOmycin IV 600 MG in SODIUM CHLORIDE 0.9% 50ML 50 ML IV SCH (20:15)
[2017-11-15] MEDS ORDERED: CEFEPIME IV 1,000 MG in DEXTROSE 5% 100ML 100 ML IV SCH (20:15)
--- NOTE | 2017-11-15 20:43 | History and Physical ---
History & Physical Date & Time of Service: Nov 15, 2017 at 19:44 Chief Complaint: Dicoloration In Urine Primary Care Physician: Aida Denton MD History of Present Illness Source: patient 51 y/o M Hx DM, HTN, anemia, HPL, Chronic R renal cortical atrophy, mechanical aortic valve on Coumadin. Pt suffers from recurrent UTIs. Beginning two weeks ago he developed low grade fevers and discolored urine. Due to his artificial valve, he was promptly placed on a course of Zithromax lasting 5 days. The pt had completed a five day course, however, his fevers persisted. He denies CP, SOB, N/V, diarrhea or dysuria. He states that he continues to have discolored urine and denies gross hematuria. A UA is equivocal. There is no obvious additional focus of infection. Initial labs are consistent with dehydration, RITU, hyponatremia, mild hyperkalemia and worsening anemia. 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 Status: Never Smoker Multi-Drug Resistant Organisms History of MDRO: No Allergies Coded Allergies: No Known Allergies (Unverified , 04/08/17) Home Medications Scheduled Alfuzosin Hcl (Alfuzosin Hcl Er), 10 MG PO QAM Atorvastatin (Lipitor), 40 MG PO HS Clobetasol Propionate (Clobetasol Propionate), 1 APPLN TOP 2XWK Empagliflozin (Jardiance), 25 MG PO QAM Metformin Hcl (Glucophage), 1,000 MG PO BID Metoprolol Succ (Toprol Xl) (Toprol-Xl), 25 MG PO QAM Warfarin Sodium (Coumadin), 5 MG PO DAILY Scheduled PRN Furosemide (Lasix), 40 MG PO DAILY PRN for Leg Swelling Potassium Ext Rel (Klor-Con), 20 MEQ PO DAILY PRN for When Lasix Taken Trazodone Hcl (Trazodone), 50 MG PO HS PRN for Sleep Vardenafil (Levitra), 20 MG PO UD PRN for Prior to [place] Review of Systems Constitutional: + fever, + chills, + sweats Eyes: No worsening of vision, No eye pain ENT: No hearing loss, No unusual epistaxis, No nasal symptoms Respiratory: No cough, No sputum, No wheezing Cardiovascular: No chest pain, No orthopnea, No PND Abdomen: No pain, No nausea, No vomiting Musculoskeletal: No joint pain, No muscle pain Genitourinary - Male: + problem reported (Dark, brownish urine), No hematuria, No dysuria Neurologic: No memory loss, No paralysis, No weakness Psychiatric: No depression symptoms Endocrine: No fatigue Hematologic / Lymphatic: No abnormal bleeding/bruising Integumentary: No rash Allergic / Immunologic: No environmental allergies Physical Exam Vital Signs Date Time Temp Pulse Resp B/P (MAP) Pulse Ox O2 Delivery O2 Flow Rate FiO2 11/15/17 19:01 36.8 115 16 127/75 95 Room Air 11/15/17 17:18 112 11/15/17 15:43 36.8 122 16 131/69 95 Room Air General Appearance: WD/WN, no apparent distress Head: normocephalic Eyes: normal inspection ENT: normal ENT inspection, hearing grossly normal, TMs normal, pharynx normal Neck: supple, no JVD Respiratory/Chest: chest non-tender, lungs clear Cardiovascular: regular rate, rhythm, no edema, no gallop, + systolic murmur ( Audible mechanical valve) Abdomen/GI: normal bowel sounds, non tender, soft Back: normal inspection, no CVA tenderness Extremities/Musculoskelatal: normal inspection, no calf tenderness 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, no motor/sensory deficits, alert, oriented x 3 Skin: normal color Diagnostics Laboratory Results Results Past 24 Hours Test 11/15/17 17:00 11/15/17 17:10 11/15/17 17:25 Range/Units Urine Color BROWN Urine Appearance CLOUDY CLEAR Urine pH 5.5 4.5-7.5 Urine Specific [place] 1.020 1.000-1.030 Urine Protein 2+ NEG Urine Glucose (UA) 3+ NEG Urine Ketones TRACE NEG Urine Occult Blood 3+ NEG Urine Nitrite NEG NEG Urine Bilirubin NEG NEG Urine Urobilinogen NEG NEG Urine Leukocyte Esterase SMALL NEG Urine RBC 10-30 0-4 /hpf Urine WBC >30 0-5 /hpf Urine Epithelial Cells 5-10 0-5 /lpf Urine Bacteria 1+ NEG White Blood Count 8.19 4.8-10.8 K/uL Red Blood Count 3.20 4.7-6.1 M/uL Hemoglobin 9.7 14.0-18.0 g/dL Hematocrit 29.8 42-52 % Mean Corpuscular Volume 93.1 80-100 fL Mean Corpuscular Hemoglobin 30.3 25-34 pg Mean Corpuscular Hemoglobin Concent 32.6 32-36 g/dl Platelet Count 361 130-400 K/uL Mean Platelet Volume 10.2 7.4-10.4 fL Neutrophils (%) (Auto) 65.9 % Lymphocytes (%) (Auto) 12.5 % Monocytes (%) (Auto) 19.0 % Eosinophils (%) (Auto) 0.5 % Basophils (%) (Auto) 0.4 % Neutrophils # (Auto) 5.40 1.4-6.5 K/uL Lymphocytes # (Auto) 1.02 1.2-3.4 K/uL Monocytes # (Auto) 1.56 0.11-0.59 K/uL Eosinophils # (Auto) 0.04 0-0.5 K/uL Basophils # (Auto) 0.03 0-0.2 K/uL RDW Standard Deviation 49.4 36.4-46.3 fL RDW Coefficient of Variation 14.3 11.5-14.5 % Immature Granulocyte % (Auto) 1.7 % Immature Granulocyte # (Auto) 0.14 0.00-0.02 K/uL Red Blood Cell Morphology Unremarkable Prothrombin Time 57.6 9.0-12.0 SECONDS Prothromb Time International Ratio 5.7 0.9-1.1 Activated Partial Thromboplast Time 73.1 21.0-31.0 SECONDS Partial Thromboplastin Ratio 2.8 Sodium Level 128 136-145 mmol/L Potassium Level 5.2 3.5-5.1 mmol/L Chloride Level 95 98-107 mmol/L Carbon Dioxide Level 21 21-32 mmol/L Anion Gap 11.0 3-11 mmol/L Blood Urea Nitrogen 37 7-18 mg/dl Creatinine 1.91 0.60-1.40 mg/dl Est Creatinine Clear Calc Drug Dose 57.9 ml/min Estimated GFR () 45.3 Estimated GFR (Non- 39.1 BUN/Creatinine Ratio 19.2 10-20 Random Glucose 174 70-99 mg/dl Calcium Level 9.0 8.5-10.1 mg/dl Magnesium Level 2.0 1.8-2.4 mg/dl Total Bilirubin 1.0 0.2-1 mg/dl Aspartate Amino Transf (AST/SGOT) 28 15-37 U/L Alanine Aminotransferase (ALT/SGPT) 29 12-78 U/L Alkaline Phosphatase 103 45-117 U/L Total Protein 7.7 6.4-8.2 gm/dl Albumin 2.3 3.4-5.0 gm/dl Globulin 5.4 2.5-4.0 gm/dl Albumin/Globulin Ratio 0.4 0.9-2 Bedside Lactic Acid Venous 1.36 0.90-1.70 mmol/L Microbiology Results 11/15/17 Blood Culture, Received Pending 11/15/17 Blood Culture, Received Pending 11/15/17 Urine Culture, Received Pending Diagnostic Radiology 1. Mildly thick walled trabeculated bladder, containing a large 18 cm right- sided bladder diverticulum. 2. Progressive severe right-sided hydronephrosis with mild perinephric infiltration. 3. No obstructing ureteral calculi identified 4. No evidence of bowel obstruction. No evidence of free air. 5. No evidence of acute appendicitis. No evidence of acute diverticulitis 6. Nonspecific enlarged right para aortic lymph node measuring 25 mm. Impression Assessment and Plan 51 y/o M Hx DM, HTN, HPL, anemia, Chronic R renal cortical atrophy - mechanical aortic valve on Coumadin. Pt suffers from recurrent UTIs. Beginning two weeks ago he developed low grade fevers and discolored urine. Due to his artificial valve, he was promptly placed on a course of Zithromax lasting 5 days. The pt had completed a five day course, however, his fevers persisted. He denies CP, SOB, N/V, diarrhea or dysuria. He states that he continues to have discolored urine and denies gross hematuria. A UA is equivocal. There is no obvious additional focus of infection. Initial labs are consistent with dehydration, RITU, hyponatremia, mild hyperkalemia and worsening anemia. 1) Fever - UA may be equivocal due to Zithromax use although he states he has not taken antibiotics for nearly 10 day. Due to his mechanical AV, Azithromycin failure and recurrent UTIs, he will be placed on Cefepime and Dapto pending culture results and an ID consult. 2) RITU - labs indicate dehydration - provided IVF - recheck BMP AM - he has one functional kidney so that nephrology should be consulted if there is further deterioration. Pt takes Lasix PRN for LE edema - held presently. 3) Anemia - 2+ points below baseline Hb - denies any source of bleeding. We will guiac all stools. Consent obtained for transfusions if needed. PPi provided. 4) DM - placed on a SS 5) HTN - cont Metoprolol 6) HPL - cont Statin 7) Mechanical aortic valve - remians on Coumadin - INR is therapeutic - Consider echo if blood culture is + and does not match urine culture findings Full code - Coumadin prophylaxis Total time for this admit including review of labs, meds, imaging, records - discussion with pt and ER attending - 38 min Level of Care Med/Surg Resuscitation Status FULL RESUSCITATION VTE Prophylaxis Given or contraindicated: SCD's
[2017-11-15] MEDS: INSULIN ASPART 100 UNITS/ML 3 ML PEN SC SCH (21:00)
[2017-11-15 21:08] VITALS: BP 116/72; PULSE 99; TEMP 36.8; O2SAT 94; Ht 175.3 cm; Wt 122.9 kg
[2017-11-15] MEDS ORDERED: GLUCOSE 40% GEL 15 GM TUBE PO PRN (21:15)
[2017-11-15] MEDS ORDERED: DAPTOmycin IV 600 MG in SYRINGE 0 ML IV SCH (21:15)
[2017-11-15] MEDS ORDERED: GLUCOSE 10 TABS/TUBE PO PRN (21:15)
[2017-11-15] MEDS ORDERED: DEXTROSE 50% 50 ML SYR IV PRN (21:15)
[2017-11-15] MEDS ORDERED: GLUCAGON FOR INJ 1 MG VIAL SQ PRN (21:15)
[2017-11-15] MEDS: SODIUM CHLORIDE 0.9% 1000ML 1,000 ML IV SCH (21:45)
[2017-11-15] MEDS: ATORVASTATIN 40 MG TAB PO SCH (21:45)
[2017-11-15 23:38] VITALS: BP 126/80; PULSE 96; TEMP 36.9; O2SAT 96
[2017-11-16] MEDS: CEFEPIME IV 1,000 MG in SYRINGE 0 ML IV SCH ×3 (02:10→17:40)
[2017-11-16 05:39] LABS: CALCIUM 8.6 mg/dl (8.5-10.1); CREATININE 1.72 mg/dl (0.60-1.40); POTASSIUM 4.9 mmol/L (3.5-5.1)
[2017-11-16] MEDS: SODIUM CHLORIDE 0.9% 1000ML 1,000 ML IV SCH (05:49)
[2017-11-16 07:47] VITALS: BP 146/82; PULSE 107; TEMP 37.6; O2SAT 96
[2017-11-16] MEDS: INSULIN ASPART 100 UNITS/ML 3 ML PEN SC SCH ×4 (07:56→21:00)
[2017-11-16] MEDS: ALFUZosin TAB 10 MG TAB PO SCH (07:57)
[2017-11-16] MEDS: METOPROLOL SUCC 25MG EXT REL TAB PO SCH (07:57)
[2017-11-16] MEDS: PANTOprazole SOD 40 MG TAB PO SCH ×2 (07:58→21:00)
[2017-11-16 08:00] VITALS: O2SAT 96
[2017-11-16 08:55] LABS: HEMATOCRIT 28.5 % (42-52); HEMOGLOBIN 9.3 g/dL (14.0-18.0); MEAN CELL VOLUME 93.4 fL (80-100); MEAN CORPUSCULAR HEMOGLOBIN 30.5 pg (25-34); MEAN CORPUSCULAR HGB CONC 32.6 g/dl (32-36); MEAN PLATELET VOLUME 10.1 fL (7.4-10.4); PLATELET COUNT 336 K/uL (130-400); RED CELL DISTRIBUTION WIDTH CV 14.3 % (11.5-14.5); RED CELL DISTRIBUTION WIDTH SD 49.2 fL (36.4-46.3); WHITE BLOOD COUNT 6.27 K/uL (4.8-10.8)
[2017-11-16 09:27] LABS: INR > 10.0 (0.9-1.1)
[2017-11-16 09:31] VITALS: TEMP 37.4
[2017-11-16 10:32] LABS: INR > 10.0 (0.9-1.1)
[2017-11-16] MEDS ORDERED: NURSING VERBAL MED ORDER ONE (11:15)
[2017-11-16] MEDS ORDERED: PHYTONADIONE INJ 5 MG in SODIUM CHLORIDE 0.9% 50ML 50 ML IV ONE (11:30)
--- NOTE | 2017-11-16 11:51 | Medical Consult ---
Consultation Date of Consultation: Nov 16, 2017. Attending Physician: Art Savage M.D. Reason for Consultation: Fever of unknown origin, restricted antibiotic use History of Present Illness 51-year-old male with history of diabetes mellitus, mechanical aortic valve replacement, cortical atrophy of right kidney, right hydronephrosis, and bladder diverticulum, with history of recurrent urinary tract infections, developed fever and discolored urine consistent with his urinary tract infections approximately 2 weeks ago. He was given a course of azithromycin but continued with fever, discolored, somewhat foul-smelling urine without associated flank pain. He eventually came to the emergency department was admitted to the hospital for further management. Blood in urine cultures are pending. CT scan of the abdomen, read by me, shows what looks like increase in right hydronephrosis with cortical atrophy, without evidence of obstruction. He has been started empirically on daptomycin and cefepime which he is tolerating without apparent difficulty Past Medical/Surgical History Medical Problems: (1) Acute renal failure Status: Acute (2) Acute renal failure Status: Acute (3) Dehydration Status: Acute (4) Tachycardia Status: Acute (5) UTI (urinary tract infection) Status: Acute 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 2) Mechanical aortic valve - 1996 - on Coumadin 3) Hyperlipidemia 4) Hypertension 5) NIDDM 6) Anemia Family History No pertinent family history Social History Smoking Status: Never Smoker Allergies Coded Allergies: No Known Allergies (Unverified , 04/08/17) Current Inpatient Medications Current Inpatient Medications Medications (Trade) Dose Ordered Sig/Naeem Route Start Time Stop Time Status Last Admin Dose Admin Alfuzosin HCl (Uroxatral Tab) 10 mg QAM PO 11/16/17 09:00 12/16/17 08:59 11/16/17 07:57 10 MG Atorvastatin Calcium (Lipitor Tab) 40 mg HS PO 11/15/17 21:00 12/15/17 20:59 11/15/17 21:45 40 MG Metoprolol Succinate (Toprol Xl Tab) 25 mg QAM PO 11/16/17 09:00 12/16/17 08:59 11/16/17 07:57 25 MG Trazodone HCl (Desyrel Tab) 50 mg HS PRN PO 11/15/17 20:00 12/15/17 19:59 Acetaminophen (Tylenol Tab) 650 mg Q4H PRN PO 11/15/17 20:00 12/15/17 19:59 Al Hydrox/Mg Hydrox/Simethicone (Maalox Max Susp) 15 ml Q4H PRN PO 11/15/17 20:00 12/15/17 19:59 Magnesium Hydroxide (Milk Of Magnesia Susp) 30 ml Q6H PRN PO 11/15/17 20:00 12/15/17 19:59 Polyethylene (Miralax Powder Packet) 17 gm DAILY PRN PO 11/15/17 20:00 12/15/17 19:59 Zolpidem Tartrate (Ambien Tab) 5 mg HSZ PRN PO 11/15/17 20:00 12/15/17 19:59 Ondansetron HCl (Zofran Inj) 4 mg Q6H PRN IV 11/15/17 20:00 12/15/17 19:59 Sodium Chloride 1,000 ml @ 125 mls/hr Q8H IV 11/15/17 20:15 11/16/17 12:14 11/16/17 05:49 125 MLS/HR Insulin Aspart (novoLOG ASPART) SLIDING SCALE G... ACHS SC 11/15/17 21:00 12/15/17 20:59 Cefepime HCl 1000 mg/Syringe 11 ml @ 5.5 mls/min Q8@0200,1000,1800 IV 11/16/17 02:00 11/26/17 01:59 11/16/17 10:03 5.5 MLS/MIN Glucose (Glucose 40% Gel) 15-30 GRAMS 15 GRAMS... UD PRN PO 11/15/17 21:15 12/15/17 21:14 Glucose (Glucose Chew Tab) 4-8 Tablets 4 Tabl... UD PRN PO 11/15/17 21:15 12/15/17 21:14 Dextrose (Dextrose 50% 50ML Syringe) 25-50ML OF 50% DW IV FOR... UD PRN IV 11/15/17 21:15 12/15/17 21:14 Glucagon (Glucagon Inj) 1 mg UD PRN SQ 11/15/17 21:15 12/15/17 21:14 Pantoprazole Sodium (Protonix Tab) 40 mg BID PO 11/16/17 09:00 2/15/18 08:59 Phytonadione 5 mg/ Sodium Chloride 50.5 ml @ 101 mls/hr NOW ONCE IV 11/16/17 11:30 11/16/17 11:59 11/16/17 11:34 101 MLS/HR Review of Systems All systems were reviewed and are negative except as per HPI Physical Exam Date Time Temp Pulse Resp B/P (MAP) Pulse Ox O2 Delivery O2 Flow Rate FiO2 11/16/17 09:31 37.4 11/16/17 08:00 96 Room Air 11/16/17 07:47 37.6 107 18 146/82 (103) 96 Room Air 11/16/17 00:00 Room Air 11/15/17 23:38 36.9 96 18 126/80 (95) 96 Room Air 11/15/17 21:08 36.8 99 18 116/72 94 Room Air 11/15/17 20:36 85 20 140/83 95 11/15/17 19:51 95 Room Air 11/15/17 19:01 36.8 115 16 127/75 95 Room Air 11/15/17 17:18 112 11/15/17 15:43 36.8 122 16 131/69 95 Room Air General Appearance: WD/WN, no apparent distress Head: normocephalic, atraumatic Eyes: normal inspection, EOMI, sclerae normal ENT: normal ENT inspection, hearing grossly normal, pharynx normal Neck: supple, no adenopathy, thyroid normal, trachea midline Respiratory/Chest: chest non-tender, lungs clear, normal breath sounds, no respiratory distress Cardiovascular: regular rate, rhythm, no gallop, + systolic murmur Abdomen/GI: normal bowel sounds, non tender, soft, no organomegaly Back: normal inspection, no CVA tenderness Extremities/Musculoskelatal: no calf tenderness, normal capillary refill, non- tender Neurologic/Psych: alert, oriented x 3 Skin: normal color, warm/dry, no rash Lymphatic: no adenopathy Laboratory Results Date/Time Source Procedure Growth Status 11/15/17 17:14 Blood Blood Culture Pending Received 11/15/17 17:10 Blood Blood Culture Pending Received 11/15/17 17:00 Urine , Clean Catch Urine Culture Pending Received Last 24 Hours Test 11/15/17 17:00 11/15/17 17:10 11/15/17 17:25 11/15/17 21:28 Urine Color BROWN Urine Appearance CLOUDY Urine pH 5.5 Urine Specific [place] 1.020 Urine Protein 2+ Urine Glucose (UA) 3+ Urine Ketones TRACE Urine Occult Blood 3+ Urine Nitrite NEG Urine Bilirubin NEG Urine Urobilinogen NEG Urine Leukocyte Esterase SMALL Urine RBC 10-30 /hpf Urine WBC >30 /hpf Urine Epithelial Cells 5-10 /lpf Urine Bacteria 1+ White Blood Count 8.19 K/uL Red Blood Count 3.20 M/uL Hemoglobin 9.7 g/dL Hematocrit 29.8 % Mean Corpuscular Volume 93.1 fL Mean Corpuscular Hemoglobin 30.3 pg Mean Corpuscular Hemoglobin Concent 32.6 g/dl Platelet Count 361 K/uL Mean Platelet Volume 10.2 fL Neutrophils (%) (Auto) 65.9 % Lymphocytes (%) (Auto) 12.5 % Monocytes (%) (Auto) 19.0 % Eosinophils (%) (Auto) 0.5 % Basophils (%) (Auto) 0.4 % Neutrophils # (Auto) 5.40 K/uL Lymphocytes # (Auto) 1.02 K/uL Monocytes # (Auto) 1.56 K/uL Eosinophils # (Auto) 0.04 K/uL Basophils # (Auto) 0.03 K/uL RDW Standard Deviation 49.4 fL RDW Coefficient of Variation 14.3 % Immature Granulocyte % (Auto) 1.7 % Immature Granulocyte # (Auto) 0.14 K/uL Red Blood Cell Morphology Unremarkable Prothrombin Time 57.6 SECONDS Prothromb Time International Ratio 5.7 Activated Partial Thromboplast Time 73.1 SECONDS Partial Thromboplastin Ratio 2.8 Sodium Level 128 mmol/L Potassium Level 5.2 mmol/L Chloride Level 95 mmol/L Carbon Dioxide Level 21 mmol/L Anion Gap 11.0 mmol/L Blood Urea Nitrogen 37 mg/dl Creatinine 1.91 mg/dl Est Creatinine Clear Calc Drug Dose 57.9 ml/min Estimated GFR () 45.3 Estimated GFR (Non- 39.1 BUN/Creatinine Ratio 19.2 Random Glucose 174 mg/dl Calcium Level 9.0 mg/dl Magnesium Level 2.0 mg/dl Total Bilirubin 1.0 mg/dl Aspartate Amino Transf (AST/SGOT) 28 U/L Alanine Aminotransferase (ALT/SGPT) 29 U/L Alkaline Phosphatase 103 U/L Total Protein 7.7 gm/dl Albumin 2.3 gm/dl Globulin 5.4 gm/dl Albumin/Globulin Ratio 0.4 Bedside Lactic Acid Venous 1.36 mmol/L Bedside Glucose 168 mg/dl Test 11/15/17 22:51 11/16/17 04:35 11/16/17 07:30 11/16/17 08:41 Hemoglobin 9.2 g/dL 9.2 g/dL 9.3 g/dL Sodium Level 130 mmol/L Potassium Level 4.9 mmol/L Chloride Level 99 mmol/L Carbon Dioxide Level 22 mmol/L Anion Gap 9.0 mmol/L Blood Urea Nitrogen 28 mg/dl Creatinine 1.72 mg/dl Est Creatinine Clear Calc Drug Dose 64.4 ml/min Estimated GFR () 51.5 Estimated GFR (Non- 44.4 BUN/Creatinine Ratio 16.2 Random Glucose 115 mg/dl Calcium Level 8.6 mg/dl Magnesium Level 1.8 mg/dl Iron Level 16 mcg/dl Total Iron Binding Capacity 219 mcg/dl Bedside Glucose 117 mg/dl White Blood Count 6.27 K/uL Red Blood Count 3.05 M/uL Hematocrit 28.5 % Mean Corpuscular Volume 93.4 fL Mean Corpuscular Hemoglobin 30.5 pg Mean Corpuscular Hemoglobin Concent 32.6 g/dl RDW Standard Deviation 49.2 fL RDW Coefficient of Variation 14.3 % Platelet Count 336 K/uL Mean Platelet Volume 10.1 fL Prothrombin Time > 100.0 SECONDS Prothromb Time International Ratio > 10.0 Test 11/16/17 09:54 11/16/17 11:06 Prothrombin Time > 100.0 SECONDS Prothromb Time International Ratio > 10.0 Bedside Glucose 150 mg/dl Patient Name: MARCI GALLARDO Unit Number: [id number] Dictated: 11/15/171750 Transcribed: 11/15/171750 ARG Printed Date/Time: [~ rep prt dt]/[~ rep prt tm] [~ rep ct labl] - [~ rep ct ivnm] [facility] [place] [address] Dictated: 11/15/171750 Transcribed: 11/15/171750 ARG Printed Date/Time: [~ rep prt dt]/[~ rep prt tm] [~ rep ct labl] - [~ rep ct ivnm] CT SCAN OF THE ABDOMEN AND PELVIS WITHOUT CONTRAST CLINICAL HISTORY: Flank pain hematuria COMPARISON STUDY: 01/11/2017 TECHNIQUE: CT scan of the abdomen and pelvis was performed from the lung bases to the proximal femurs. Images are reviewed in the axial, sagittal, and coronal planes. IV contrast was not administered for this examination. A dose lowering technique was utilized adhering to the principles of ALARA. CT DOSE: 1365.14 mGycm FINDINGS: Lower chest: The heart is mildly enlarged. There are no significant pleural effusions. There is no focal basilar consolidation Liver: The unenhanced liver is normal in size, contour, and attenuation. There is no intrahepatic biliary ductal dilatation. Gallbladder: Unremarkable. Spleen: Normal in size and attenuation. Pancreas: Unremarkable. Adrenal glands: Unremarkable. Kidneys: There is severe progressive right-sided hydronephrosis with marked cortical atrophy. There is mild right-sided perinephric infiltration. There is minor fullness of the left renal collecting system and left ureter. No ureteral calculi are visualized. Bowel: There are no transition zones to indicate bowel obstruction. There is no acute diverticulitis. There is no evidence of acute appendicitis. Peritoneum: There is no intraperitoneal free air or abdominal ascites. Vasculature: The abdominal aorta is normal in course and caliber. Adenopathy: There is an enlarged right para-aortic lymph node measuring 25 mm. Pelvic viscera: There is a large right-sided bladder diverticula measuring 18 cm. The bladder is mildly distended thick walled and trabeculated. Skeletal structures: No destructive osseous lesions are seen. IMPRESSION: 1. Mildly thick walled trabeculated bladder, containing a large 18 cm right-sided bladder diverticulum. 2. Progressive severe right-sided hydronephrosis with mild perinephric infiltration. 3. No obstructing ureteral calculi identified 4. No evidence of bowel obstruction. No evidence of free air. 5. No evidence of acute appendicitis. No evidence of acute diverticulitis 6. Nonspecific enlarged right para aortic lymph node measuring 25 mm. Electronically signed by: Nura Ta M.D. 11/15/2017 5:59 PM Dictated Date/Time: 11/15/2017 5:51 PM The status of this report is Signed. Draft = Not yet reviewed or approved by Radiologist. Signed = Reviewed and approved by Radiologist. <AttendingPhy></AttendingPhy> <FamilyPhy>Aida Denton MD</FamilyPhy> < PrimaryPhy>Aida Denton MD</PrimaryPhy> <UnitNumber>[id number]</UnitNumber > <VisitNumber>[id number]</VisitNumber> <PatientName>MARCI GALLARDO Srini</PatientName > <DateOfBirth>1965</DateOfBirth> <Location>[facility]</Location> <ServiceDate> 11/15/17</ServiceDate> <MNE>ESINDI</MNE> <OrderingPhy>Samson Jang M.D.</ OrderingPhy> <OrderingPhyMNE>f rep ord dr sierra</OrderingPhyMNE> <DictatingPhyMNE> f rep dict dr sierra</DictatingPhyMNE> <CCListMNE>f rep ct mne</CCListMNE> < AdmittingPhyMNE>f pt admit dr sierra</AdmittingPhyMNE> <AttendingPhyMNE>f pt attend dr sierra</AttendingPhyMNE> <ConsultingPhyMNE>f pt consult dr sierra</ConsultingPhyMNE> <FamilyPhyMNE>f pt fam dr sierra</FamilyPhyMNE> <OtherPhyMNE>f pt other dr sierra</OtherPhyMNE> < PrimaryPhyMNE>f pt prim care dr sierra</PrimaryPhyMNE> <ReferringPhyMNE>f pt referring dr sierra</ReferringPhyMNE> Assessment & Plan 51-year-old male with history of diabetes mellitus, bladder diverticulum, and recurrent urinary tract infections, now presents with fever with symptoms of recurrent urine infection, not responding to azithromycin. Agree with use of daptomycin and cefepime for now given recent antibiotics and risk for resistant organisms. Given worsening right hydronephrosis, would consider urology consult. Will follow.
[2017-11-16 14:52] VITALS: BP 122/77; PULSE 94; TEMP 36.8; O2SAT 93
[2017-11-16 16:00] VITALS: O2SAT 93
--- NOTE | 2017-11-16 18:34 | Progress Note ---
Subjective Date of Service: Nov 16, 2017. Subjective pt states he no longer feels chills but does continue to have cloudy milky urine , he has no melena or other signs of bleeding despite the INR being >10 x2 Problem List Medical Problems: (1) Acute renal failure Status: Acute (2) Acute renal failure Status: Acute (3) Dehydration Status: Acute (4) Tachycardia Status: Acute (5) UTI (urinary tract infection) Status: Acute Review of Systems Constitutional: + weakness, + fatigue, No fever, No chills Respiratory: No cough, No shortness of breath, No dyspnea on exertion Cardiac: No edema Abdomen: No pain, No nausea, No vomiting, No diarrhea Musculoskeletal: No joint pain, No muscle pain, No swelling Male : + problem reported (change in urine color), No dysuria, No urinary frequency, No incontinence Psychiatric: No depression symptoms, No anhedonism, No anxiety Objective Vital Signs Date Time Temp Pulse Resp B/P (MAP) Pulse Ox O2 Delivery O2 Flow Rate FiO2 11/16/17 07:47 37.6 107 18 146/82 (103) 96 Room Air 11/16/17 00:00 Room Air 11/15/17 23:38 36.9 96 18 126/80 (95) 96 Room Air 11/15/17 21:08 36.8 99 18 116/72 94 Room Air 11/15/17 20:36 85 20 140/83 95 11/15/17 19:51 95 Room Air 11/15/17 19:01 36.8 115 16 127/75 95 Room Air 11/15/17 17:18 112 11/15/17 15:43 36.8 122 16 131/69 95 Room Air Physical Exam General Appearance: WD/WN, + mild distress Eyes: normal inspection, sclerae normal Respiratory/Chest: chest non-tender, lungs clear, normal breath sounds Cardiovascular: regular rate, rhythm, + pertinent finding (has valvular click) Abdomen: normal bowel sounds, non tender, soft Extremities: no pedal edema, no calf tenderness Neurologic/Psychiatric: alert, oriented x 3 Laboratory Results Last 24 Hours Test 11/15/17 17:00 11/15/17 17:10 11/15/17 17:25 11/15/17 21:28 Urine Color BROWN Urine Appearance CLOUDY Urine pH 5.5 Urine Specific [place] 1.020 Urine Protein 2+ Urine Glucose (UA) 3+ Urine Ketones TRACE Urine Occult Blood 3+ Urine Nitrite NEG Urine Bilirubin NEG Urine Urobilinogen NEG Urine Leukocyte Esterase SMALL Urine RBC 10-30 /hpf Urine WBC >30 /hpf Urine Epithelial Cells 5-10 /lpf Urine Bacteria 1+ White Blood Count 8.19 K/uL Red Blood Count 3.20 M/uL Hemoglobin 9.7 g/dL Hematocrit 29.8 % Mean Corpuscular Volume 93.1 fL Mean Corpuscular Hemoglobin 30.3 pg Mean Corpuscular Hemoglobin Concent 32.6 g/dl Platelet Count 361 K/uL Mean Platelet Volume 10.2 fL Neutrophils (%) (Auto) 65.9 % Lymphocytes (%) (Auto) 12.5 % Monocytes (%) (Auto) 19.0 % Eosinophils (%) (Auto) 0.5 % Basophils (%) (Auto) 0.4 % Neutrophils # (Auto) 5.40 K/uL Lymphocytes # (Auto) 1.02 K/uL Monocytes # (Auto) 1.56 K/uL Eosinophils # (Auto) 0.04 K/uL Basophils # (Auto) 0.03 K/uL RDW Standard Deviation 49.4 fL RDW Coefficient of Variation 14.3 % Immature Granulocyte % (Auto) 1.7 % Immature Granulocyte # (Auto) 0.14 K/uL Red Blood Cell Morphology Unremarkable Prothrombin Time 57.6 SECONDS Prothromb Time International Ratio 5.7 Activated Partial Thromboplast Time 73.1 SECONDS Partial Thromboplastin Ratio 2.8 Sodium Level 128 mmol/L Potassium Level 5.2 mmol/L Chloride Level 95 mmol/L Carbon Dioxide Level 21 mmol/L Anion Gap 11.0 mmol/L Blood Urea Nitrogen 37 mg/dl Creatinine 1.91 mg/dl Est Creatinine Clear Calc Drug Dose 57.9 ml/min Estimated GFR () 45.3 Estimated GFR (Non- 39.1 BUN/Creatinine Ratio 19.2 Random Glucose 174 mg/dl Calcium Level 9.0 mg/dl Magnesium Level 2.0 mg/dl Total Bilirubin 1.0 mg/dl Aspartate Amino Transf (AST/SGOT) 28 U/L Alanine Aminotransferase (ALT/SGPT) 29 U/L Alkaline Phosphatase 103 U/L Total Protein 7.7 gm/dl Albumin 2.3 gm/dl Globulin 5.4 gm/dl Albumin/Globulin Ratio 0.4 Bedside Lactic Acid Venous 1.36 mmol/L Bedside Glucose 168 mg/dl Test 11/15/17 22:51 11/16/17 04:35 11/16/17 07:30 Hemoglobin 9.2 g/dL 9.2 g/dL Sodium Level 130 mmol/L Potassium Level 4.9 mmol/L Chloride Level 99 mmol/L Carbon Dioxide Level 22 mmol/L Anion Gap 9.0 mmol/L Blood Urea Nitrogen 28 mg/dl Creatinine 1.72 mg/dl Est Creatinine Clear Calc Drug Dose 64.4 ml/min Estimated GFR () 51.5 Estimated GFR (Non- 44.4 BUN/Creatinine Ratio 16.2 Random Glucose 115 mg/dl Calcium Level 8.6 mg/dl Magnesium Level 1.8 mg/dl Iron Level 16 mcg/dl Total Iron Binding Capacity 219 mcg/dl Bedside Glucose 117 mg/dl Assessment and Plan 51 y/o M presents with ferer and gross hematuria, dehydration, he has a Hx DM, HTN, HPL, anemia, Chronic R renal cortical atrophy - mechanical aortic valve on Coumadin. Pt suffers from recurrent UTIs. Fever - UA, due to mechanical valve will be treated aggressively for UTI poa, however initial culture negative and maybe influenced by recent antibiotic, ID recommends continued Cefepime and Dapto ; CT scan shows progressive right hydro this is unexplained will have urology consult has seen Dr dubon in the past RITU - labs indicate dehydration - and right hydronephrosis, provided IVF - - he has one functional kidney Pt takes Lasix PRN for LE edema - held presently. Anemia - 2+ points below baseline Hb - denies any source of bleeding. may have spontaneous GI bleed with markedly high INR, . PPi provided. iron is low but so is TIBC, consider anemia of chronic disease Hyponatremia, slight improvement will follow DM - placed on a SS HTN - controlled with Metoprolol HPL - cont Statin Mechanical aortic valve - Coumadin -on hold, since dramatically high will give vitamin K Full code -
[2017-11-16 19:09] LABS: INR 1.9 (0.9-1.1)
[2017-11-16] MEDS: ATORVASTATIN 40 MG TAB PO SCH (21:27)
[2017-11-16 23:30] VITALS: BP 95/48; PULSE 97; TEMP 37.1; O2SAT 92
[2017-11-17 00:16] VITALS: BP 132/79
[2017-11-17] MEDS: CEFEPIME IV 1,000 MG in SYRINGE 0 ML IV SCH ×3 (01:48→18:48)
[2017-11-17 06:52] LABS: HEMATOCRIT 25.7 % (42-52); HEMOGLOBIN 8.5 g/dL (14.0-18.0); MEAN CELL VOLUME 93.5 fL (80-100); MEAN CORPUSCULAR HEMOGLOBIN 30.9 pg (25-34); MEAN CORPUSCULAR HGB CONC 33.1 g/dl (32-36); PLATELET COUNT 339 K/uL (130-400); RED CELL DISTRIBUTION WIDTH CV 14.3 % (11.5-14.5); RED CELL DISTRIBUTION WIDTH SD 48.7 fL (36.4-46.3); WHITE BLOOD COUNT 5.89 K/uL (4.8-10.8)
[2017-11-17 06:59] LABS: INR 1.4 (0.9-1.1)
[2017-11-17 07:18] LABS: CALCIUM 8.6 mg/dl (8.5-10.1); CREATININE 1.18 mg/dl (0.60-1.40); POTASSIUM 5.1 mmol/L (3.5-5.1)
[2017-11-17 07:36] VITALS: BP 123/74; PULSE 95; TEMP 37.2; O2SAT 96
[2017-11-17] MEDS: INSULIN ASPART 100 UNITS/ML 3 ML PEN SC SCH ×4 (07:49→21:00)
[2017-11-17] MEDS: ALFUZosin TAB 10 MG TAB PO SCH (07:50)
[2017-11-17] MEDS: METOPROLOL SUCC 25MG EXT REL TAB PO SCH (07:50)
[2017-11-17] MEDS: PANTOprazole SOD 40 MG TAB PO SCH ×2 (07:52→21:00)
[2017-11-17] MEDS ORDERED: ACETAMINOPHEN 500 MG TAB PO PRN (08:00)
--- NOTE | 2017-11-17 09:07 | Urology Consultation ---
History General Date of Service: Nov 17, 2017. Chief Complaint: fevers Primary Care Physician: Aida Denton MD Pt seen a urologist before?: Yes (Dr. Fred Puga) If yes, why?: recurrent UTI, right hydro, bladder diverticulum History of Present Illness 51 yo male presents to [facility] with c/o fevers and "milky urine." consulted for progressive right hydronephrosis seen on CT scan. The pt has a hx of recurrent UTI, right hydronephrosis, and a bladder diverticulum for which he follows with Dr. Puga. CT scan reviewed this morning. CT showing ? slightly progressive right hydro as compared to CT from January 2017. Right renal atrophy noted. Bladder diverticulum again visualized. Pt denies any dysuria or gross hematuria. Denies n/v. He is currently afebrile. He reports fevers of up to 100F at home. UC&S preliminarily negative. White count and Cr are normal. Imaging Imaging: CT Laboratory Last 24 Hours Test 11/16/17 09:54 11/16/17 11:06 11/16/17 16:21 11/16/17 18:46 Prothrombin Time > 100.0 SECONDS 19.9 SECONDS Prothromb Time International Ratio > 10.0 1.9 Bedside Glucose 150 mg/dl 164 mg/dl Test 11/16/17 20:21 11/17/17 06:30 11/17/17 07:26 Bedside Glucose 162 mg/dl 136 mg/dl White Blood Count 5.89 K/uL Red Blood Count 2.75 M/uL Hemoglobin 8.5 g/dL Hematocrit 25.7 % Mean Corpuscular Volume 93.5 fL Mean Corpuscular Hemoglobin 30.9 pg Mean Corpuscular Hemoglobin Concent 33.1 g/dl RDW Standard Deviation 48.7 fL RDW Coefficient of Variation 14.3 % Platelet Count 339 K/uL Mean Platelet Volume 10.0 fL Prothrombin Time 14.1 SECONDS Prothromb Time International Ratio 1.4 Sodium Level 133 mmol/L Potassium Level 5.1 mmol/L Chloride Level 103 mmol/L Carbon Dioxide Level 20 mmol/L Anion Gap 11.0 mmol/L Blood Urea Nitrogen 19 mg/dl Creatinine 1.18 mg/dl Est Creatinine Clear Calc Drug Dose 93.8 ml/min Estimated GFR () 81.2 Estimated GFR (Non- 70.0 BUN/Creatinine Ratio 16.4 Random Glucose 116 mg/dl Calcium Level 8.6 mg/dl Problem List Medical Problems: (1) Acute renal failure Status: Acute (2) Acute renal failure Status: Acute (3) Dehydration Status: Acute (4) Tachycardia Status: Acute (5) UTI (urinary tract infection) Status: Acute Past History diabetes, high cholesterol, hypertension, urinary tract infection (recurrent), other (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, NIDDM, anemia, bladder diverticulum, mechanical aortic valve ) Past Surgical History: other (mechanical valve replacement 1996) Family History No pertinent family history mother with asthma father with leukemia Social History Hx Tobacco Use In Past Year?: No Smoking: non-smoker Alcohol: other (rarely) Drug use: none Marital status: Housing status: lives with family Occupation status: employed History of MDRO No Allergies Coded Allergies: No Known Allergies (Unverified , 04/08/17) Medications Home Medications: Home Meds and Scripts Medications Dose Route/Sig Max Daily Dose Days Date Category Dose Instructions Trazodone (Trazodone HCl) 50 Mg Tab 50 Mg PO HS PRN 04/06/17 Reported Klor-Con (Potassium Chloride) 20 Meq Tabcr 20 Meq PO DAILY PRN 04/06/17 Reported Toprol-Xl (Metoprolol Succinate) 25 Mg Tabcr 25 Mg PO QAM 04/06/17 Reported Glucophage (Metformin Hcl) 1,000 Mg Tab 1,000 Mg PO BID 04/06/17 Reported Levitra (Vardenafil HCl) 20 Mg Tab 20 Mg PO UD PRN 04/06/17 Reported ONCE DAILY ONE HOUR BEFORE INTERCOURSE Jardiance (Empagliflozin) 25 Mg Tab 25 Mg PO QAM 04/06/17 Reported Lasix (Furosemide) 40 Mg Tab 40 Mg PO DAILY PRN 04/06/17 Reported Coumadin (Warfarin Sodium) 5 Mg Tab 5 Mg PO DAILY 04/06/17 Reported TAKE 5 MG EVERY DAY OR OTHERWISE DIRECTED TO TAKE BY ANTICOAGULATION CLINIC/ Clobetasol Propionate 45 Appln/15 Gm Oint 1 Appln TOP 2XWK 04/06/17 Reported APPLY SPARINGLY DIRECTED TO AFFECTED AREA(S) Alfuzosin Hcl Er (Alfuzosin Hcl) 10 Mg Tab 10 Mg PO QAM 01/11/17 Reported Lipitor (Atorvastatin Calcium) 40 Mg Tab 40 Mg PO HS 01/11/17 Reported Inpatient Medications: Current Inpatient Medications Medications (Trade) Dose Ordered Sig/Naeem Route Start Time Stop Time Status Last Admin Dose Admin Alfuzosin HCl (Uroxatral Tab) 10 mg QAM PO 11/16/17 09:00 12/16/17 08:59 11/17/17 07:50 10 MG Atorvastatin Calcium (Lipitor Tab) 40 mg HS PO 11/15/17 21:00 12/15/17 20:59 11/16/17 21:27 40 MG Metoprolol Succinate (Toprol Xl Tab) 25 mg QAM PO 11/16/17 09:00 12/16/17 08:59 11/17/17 07:50 25 MG Trazodone HCl (Desyrel Tab) 50 mg HS PRN PO 11/15/17 20:00 12/15/17 19:59 Al Hydrox/Mg Hydrox/Simethicone (Maalox Max Susp) 15 ml Q4H PRN PO 11/15/17 20:00 12/15/17 19:59 Magnesium Hydroxide (Milk Of Magnesia Susp) 30 ml Q6H PRN PO 11/15/17 20:00 12/15/17 19:59 Polyethylene (Miralax Powder Packet) 17 gm DAILY PRN PO 11/15/17 20:00 12/15/17 19:59 Zolpidem Tartrate (Ambien Tab) 5 mg HSZ PRN PO 11/15/17 20:00 12/15/17 19:59 Ondansetron HCl (Zofran Inj) 4 mg Q6H PRN IV 11/15/17 20:00 12/15/17 19:59 Insulin Aspart (novoLOG ASPART) SLIDING SCALE G... ACHS SC 11/15/17 21:00 12/15/17 20:59 Cefepime HCl 1000 mg/Syringe 11 ml @ 5.5 mls/min Q8@0200,1000,1800 IV 11/16/17 02:00 11/26/17 01:59 11/17/17 01:48 5.5 MLS/MIN Glucose (Glucose 40% Gel) 15-30 GRAMS 15 GRAMS... UD PRN PO 11/15/17 21:15 12/15/17 21:14 Glucose (Glucose Chew Tab) 4-8 Tablets 4 Tabl... UD PRN PO 11/15/17 21:15 12/15/17 21:14 Dextrose (Dextrose 50% 50ML Syringe) 25-50ML OF 50% DW IV FOR... UD PRN IV 11/15/17 21:15 12/15/17 21:14 Glucagon (Glucagon Inj) 1 mg UD PRN SQ 11/15/17 21:15 12/15/17 21:14 Pantoprazole Sodium (Protonix Tab) 40 mg BID PO 11/16/17 09:00 12/16/17 08:59 Acetaminophen (Tylenol Tab) 1,000 mg Q8H PRN PO 11/17/17 08:00 12/17/17 07:59 11/17/17 08:07 1,000 MG Review of Systems Review of Systems Constitutional: No fever, No chills Eyes: No eye pain Neurological: No dizzy Endocrine: No excessive thirst Gastrointestinal: No abdominal pain, No nausea, No vomiting Cardiovascular: No chest pain Respiratory: No shortness of breath Skin: No rash Musculoskeletal: No back pain Male : No painful urination, No blood in urine Physical Exam Vital Signs: Vital Signs Past 12 Hours Date Time Temp Pulse Resp B/P (MAP) Pulse Ox O2 Delivery O2 Flow Rate FiO2 11/17/17 07:36 37.2 95 18 123/74 (90) 96 Room Air 11/17/17 07:30 Room Air 11/17/17 00:16 132/79 (96) 11/16/17 23:48 Room Air 11/16/17 23:30 37.1 97 18 95/48 (64) 92 Room Air Physical Exam: General Appearance: no apparent distress Eyes: bilateral eyes normal inspection ENT: hearing grossly normal Neck: no JVD Respiratory/Chest: no respiratory distress, no accessory muscle use Cardiovascular: no JVD Extremities: normal inspection Neurologic/Psychiatric: alert, normal mood/affect, oriented x 3 Skin: normal color Assessment & Plan Assessment & Plan A/P: Recurrent UTI, right hydronephrosis, bladder diverticulum AFVSS. UC&S preliminarily negative. Chronic right hydronephrosis. ? slightly worse on CT. Will continue to observe, and avoid any surgical intervention at this time. ? how much function his right kidney continues to provide given the cortical atrophy. Will plan to place gonzalez catheter today and check a cath UC&S. Will irrigate gonzalez catheter as well. "Milky urine" likely just old urine pooling in his large diverticulum. Hopefully draining it and irrigating the bladder will help. Thanks for the consult. Will continue to follow along with primary service.
[2017-11-17] MEDS ORDERED: WARFARIN SOD 2.5 MG TAB PO ONE (11:15)
[2017-11-17 14:43] VITALS: BP 120/76; PULSE 85; TEMP 36.6; O2SAT 95
[2017-11-17 16:00] VITALS: O2SAT 95
[2017-11-17] MEDS ORDERED: WARFARIN SOD 5 MG TAB PO ONE (18:15)
--- NOTE | 2017-11-17 18:19 | Progress Note ---
Subjective Date of Service: Nov 17, 2017. Subjective this pt is comfortable with his care plan put forth by urology and ID, no fevers and no abnormal cultures to date has been moving bowels and ambulating without difficulty pt has no pain control or other issues Problem List Medical Problems: (1) Acute renal failure Status: Acute (2) Acute renal failure Status: Acute (3) Dehydration Status: Acute (4) Tachycardia Status: Acute (5) UTI (urinary tract infection) Status: Acute Review of Systems Constitutional: No fever, No chills Cardiac: No chest pain, No orthopnea Abdomen: No pain, No nausea Musculoskeletal: No joint pain, No muscle pain Neurologic: No memory loss, No paralysis, No weakness Objective Vital Signs Date Time Temp Pulse Resp B/P (MAP) Pulse Ox O2 Delivery O2 Flow Rate FiO2 11/17/17 14:43 36.6 85 18 120/76 (91) 95 11/17/17 07:36 37.2 95 18 123/74 (90) 96 Room Air 11/17/17 07:30 Room Air 11/17/17 00:16 132/79 (96) 11/16/17 23:48 Room Air 11/16/17 23:30 37.1 97 18 95/48 (64) 92 Room Air Physical Exam General Appearance: WD/WN, + mild distress Eyes: normal inspection, sclerae normal Neck: supple, no adenopathy Respiratory/Chest: chest non-tender, lungs clear, normal breath sounds Cardiovascular: regular rate, rhythm, no murmur, + pertinent finding (click) Abdomen: normal bowel sounds, non tender, soft Extremities: no pedal edema, no calf tenderness Neurologic/Psychiatric: alert, oriented x 3 Laboratory Results Last 24 Hours Test 11/16/17 18:46 11/16/17 20:21 11/17/17 06:30 11/17/17 07:26 Prothrombin Time 19.9 SECONDS 14.1 SECONDS Prothromb Time International Ratio 1.9 1.4 Bedside Glucose 162 mg/dl 136 mg/dl White Blood Count 5.89 K/uL Red Blood Count 2.75 M/uL Hemoglobin 8.5 g/dL Hematocrit 25.7 % Mean Corpuscular Volume 93.5 fL Mean Corpuscular Hemoglobin 30.9 pg Mean Corpuscular Hemoglobin Concent 33.1 g/dl RDW Standard Deviation 48.7 fL RDW Coefficient of Variation 14.3 % Platelet Count 339 K/uL Mean Platelet Volume 10.0 fL Sodium Level 133 mmol/L Potassium Level 5.1 mmol/L Chloride Level 103 mmol/L Carbon Dioxide Level 20 mmol/L Anion Gap 11.0 mmol/L Blood Urea Nitrogen 19 mg/dl Creatinine 1.18 mg/dl Est Creatinine Clear Calc Drug Dose 93.8 ml/min Estimated GFR () 81.2 Estimated GFR (Non- 70.0 BUN/Creatinine Ratio 16.4 Random Glucose 116 mg/dl Calcium Level 8.6 mg/dl Test 11/17/17 11:29 11/17/17 16:48 Bedside Glucose 194 mg/dl 177 mg/dl Assessment and Plan 51 y/o M presents with fever and gross hematuria, dehydration, he has a Hx DM, HTN, HPL, anemia, Chronic R renal cortical atrophy - mechanical aortic valve on Coumadin. Pt suffers from recurrent UTIs. Fever - UA, due to mechanical valve will be treated aggressively for UTI poa, however initial culture negative and maybe influenced by recent antibiotic, ID recommends continued Cefepime and Dapto ; CT scan shows progressive right hydro urology consult feels that since renal function is improving no plans for intervention, will place gonzalez to drain bladder diverticula, re culture urine and restart coumdin RITU -resolving - and right hydronephrosis, - - he has one functional kidney Pt takes Lasix PRN for LE edema - continue to hold Anemia - has been stable and non symptomatic, PPi provided. iron is low but so is TIBC, consider anemia of chronic disease Hyponatremia, improving DM - placed on a SS HTN - controlled with Metoprolol HPL - cont Statin Mechanical aortic valve - Coumadin -resumed Full code -
[2017-11-17 20:20] VITALS: O2SAT 95
[2017-11-17] MEDS: ATORVASTATIN 40 MG TAB PO SCH (21:50)
[2017-11-17 23:23] VITALS: BP 146/84; PULSE 89; TEMP 36.8; O2SAT 93
[2017-11-18] MEDS: CEFEPIME IV 1,000 MG in SYRINGE 0 ML IV SCH ×2 (02:05→09:43)
[2017-11-18] MEDS: INSULIN ASPART 100 UNITS/ML 3 ML PEN SC SCH ×2 (06:30→11:00)
[2017-11-18 06:49] LABS: INR 1.8 (0.9-1.1)
[2017-11-18 07:13] LABS: CALCIUM 9.3 mg/dl (8.5-10.1); CREATININE 1.22 mg/dl (0.60-1.40); POTASSIUM 4.8 mmol/L (3.5-5.1)
[2017-11-18 07:23] VITALS: BP 128/88; PULSE 93; TEMP 37; O2SAT 96
[2017-11-18] MEDS: PANTOprazole SOD 40 MG TAB PO SCH (08:04)
[2017-11-18] MEDS: ALFUZosin TAB 10 MG TAB PO SCH (08:07)
[2017-11-18] MEDS: METOPROLOL SUCC 25MG EXT REL TAB PO SCH (08:07)
--- NOTE | 2017-11-18 08:31 | Discharge Instructions ---
Discharge Instructions Date of Service Nov 18, 2017. Admission Reason for Admission: Fever Of Unknown Origin Discharge Discharge Diagnosis / Problem: coaguloppathy, bladder diverticulum Discharge Goals Goal(s): Diagnostic testing, Therapeutic intervention Activity Recommendations Activity Limitations: as noted below Lifting Limitations: gradually increase as tolerated Your Coumadin INR seems to be very sensitive, please take 2.5 mg daily and follow up with an outpt lab check 11/19, and also phone your coumadin clinic for further instructions . Current Hospital Diet Patient's current hospital diet: AHA Diet (Heart Healthy), Diabetes Type 2 Diet Discharge Diet Recommended Diet: Low Sodium Diet (2gm Na) Pending Studies Studies pending at discharge: no Medical Emergencies . Who to Call and When: Medical Emergencies: If at any time you feel your situation is an emergency, please call 911 immediately. . Non-Emergent Contact Non-Emergency issues call your: Primary Care Provider, Urologist Call Non-Emergent contact if: temperature is above 101 . . "Provider Documentation" section prepared by Art Savage. . VTE Core Measure Inpt VTE Proph given/why not?: Warfarin (Coumadin), SCD's
[2017-11-18] MEDS ORDERED: WARFARIN SOD 5 MG TAB PO SCH ×2 (09:00→16:00)
--- NOTE | 2017-11-18 09:00 | Progress Note ---
Subjective Date of Service: Nov 18, 2017. Subjective Pt evaluation today including: conversation w/ patient, chart review, lab review Voiding: gonzalez catheter in place (patent, draining milky colored urine with ) 51 yo male with fever of unknown etiology. Clean catch UC&S is negative. Repeat cath UC&S pending. Gonzalez in place draining milk urine with some blood. Hand irrigating qshift per nursing staff. Pt denies pain this morning. He reports he wants to go home today, and go home without the gonzalez catheter. The pt remains afebrile. Problem List Medical Problems: (1) Acute renal failure Status: Acute (2) Acute renal failure Status: Acute (3) Dehydration Status: Acute (4) Tachycardia Status: Acute (5) UTI (urinary tract infection) Status: Acute Review of Systems Constitutional: No fever, No chills Respiratory: No shortness of breath Cardiac: No chest pain Abdomen: No pain, No nausea, No vomiting Male : + hematuria Heme: No abnormal bleeding/bruising Objective Vital Signs Date Time Temp Pulse Resp B/P (MAP) Pulse Ox O2 Delivery O2 Flow Rate FiO2 11/18/17 07:23 37.0 93 18 128/88 (101) 96 Room Air 11/18/17 00:35 Room Air 11/17/17 23:23 36.8 89 18 146/84 (104) 93 Room Air 11/17/17 20:20 95 Room Air 11/17/17 16:00 95 Room Air 11/17/17 14:43 36.6 85 18 120/76 (91) 95 Physical Exam General Appearance: no apparent distress Eyes: normal inspection ENT: hearing grossly normal Neck: no JVD Respiratory/Chest: no respiratory distress, no accessory muscle use Cardiovascular: no JVD Extremities: normal inspection Neurologic/Psychiatric: alert, normal mood/affect, oriented x 3 Skin: normal color Laboratory Results Last 24 Hours Test 11/17/17 11:29 11/17/17 16:48 11/17/17 20:20 11/18/17 06:24 Bedside Glucose 194 mg/dl 177 mg/dl 218 mg/dl Prothrombin Time 19.1 SECONDS Prothromb Time International Ratio 1.8 Sodium Level 134 mmol/L Potassium Level 4.8 mmol/L Chloride Level 102 mmol/L Carbon Dioxide Level 22 mmol/L Anion Gap 10.0 mmol/L Blood Urea Nitrogen 18 mg/dl Creatinine 1.22 mg/dl Est Creatinine Clear Calc Drug Dose 90.7 ml/min Estimated GFR () 78.0 Estimated GFR (Non- 67.3 BUN/Creatinine Ratio 14.3 Random Glucose 155 mg/dl Calcium Level 9.3 mg/dl Test 11/18/17 07:54 Bedside Glucose 153 mg/dl Assessment and Plan A/P: Right hydronephrosis, bladder diverticulum, fever of unknown etiology AFVSS. I have recommended the pt leave the gonzalez catheter in place for now given it's appearance and continue hand irrigation qshift until urine is more clear. However, he prefers to go home today without the gonzalez. We have also discussed him going home with the gonzalez catheter for 1 week, and he does not wish to do this either. Will discuss with Dr. Puga today.
[2017-11-18 10:36] LABS: HEMATOCRIT 30.6 % (42-52)
[2017-11-18 12:34] VITALS: BP 128/88; PULSE 93; TEMP 37; O2SAT 96
--- NOTE | 2017-11-18 16:39 | Discharge Summary ---
Discharge Summary Date of Service Nov 18, 2017. Discharge Summary Admission Date: Nov 15, 2017 at 20:02 Discharge Date: Nov 18, 2017 Discharge Disposition: Home Principal Diagnosis: coaguloapthy, bladder diverticulum Consultations: urology and ID Discharge Exam Review of Systems: Constitutional: No fever, No chills Respiratory: No cough, No sputum Cardiovascular: No chest pain, No edema Abdomen: No pain, No nausea, No diarrhea Physical Exam: General Appearance: WD/WN, no apparent distress Respiratory/Chest: chest non-tender, lungs clear, normal breath sounds Cardiovascular: regular rate, rhythm (audible click) Hospital Course 51 y/o M presents with fever and gross hematuria, dehydration, he has a Hx DM, HTN, HPL, anemia, Chronic R renal cortical atrophy - mechanical aortic valve on Coumadin. Pt suffers from recurrent UTIs. Fever none since admission - Urine culture negative and cath culture negative ; CT scan shows progressive right hydro urology consult feels that since renal function is improving no plans for intervention, did place gonzalez to drain bladder diverticula, restarted coumdin RITU -resolving - and right hydronephrosis, - - he has one functional kidney Pt takes Lasix PRN for LE edema Anemia - has been stable and non symptomatic, . iron is low but so is TIBC, consider anemia of chronic disease Hyponatremia, improved DM - resume outpt regime HTN - controlled with Metoprolol HPL - cont Statin Mechanical aortic valve - Coumadin -resumed, discussed seeing coumadin clinic, gave phone number, pt states has home monitor and wants to do it his way at home but will consider in the future Full code - Total Time Spent: Greater than 30 minutes This includes examination of the patient, discharge planning, medication reconciliation, and communication with other providers. Discharge Instructions Please refer to the electronic Patient Visit Report (Discharge Instructions) for additional information.
== END 2017-11-18 13:38 | disposition home or self-care (01) | DRG 683 ==
LOC: C.EDB 15:41 → C.MS2W 20:02 → ENRESERV 20:19
PROVIDERS: ADMIT Internal Medicine; ATTEND Internal Medicine
DX: N17.9 Acute kidney failure, unspecified (principal); N39.0 Urinary tract infection, site not specified; E87.1 Hypo-osmolality and hyponatremia; E11.9 Type 2 diabetes mellitus without complications; I10 Essential (primary) hypertension; E78.5 Hyperlipidemia, unspecified; D64.9 Anemia, unspecified; Z79.01 Long term (current) use of anticoagulants; Z79.84 Long term (current) use of oral hypoglycemic drugs; Z79.899 Other long term (current) drug therapy; Z95.2 Presence of prosthetic heart valve

== ENCOUNTER → 2017-12-17 | Outpatient (CLI) | payer BC ==
[~2017-12-17] MED LIST changes: +ALFU1TAB2 PO; +ATOR-24 PO; -CYAN100020 PO; +CYAN100073; +FERR50TA3; +LISI10TA PO; +PROB1TAB16; +WARF5TAB7 PO
[2017-12-17 10:02] LABS: BASO % 0.9 %; BASO ABS # 0.06 K/uL (0-0.2); EOS % 4.9 %; EOS ABS # 0.33 K/uL (0-0.5); HEMATOCRIT 39.1 % (42-52); HEMOGLOBIN 12.7 g/dL (14.0-18.0); IG# 0.03 K/uL (0.00-0.02); LYMPH % 29.1 %; LYMPH ABS # 1.97 K/uL (1.2-3.4); MEAN CELL VOLUME 95.4 fL (80-100); MEAN CORPUSCULAR HGB CONC 32.5 g/dl (32-36); MEAN PLATELET VOLUME 10.8 fL (7.4-10.4); MONO % 8.1 %; MONO ABS # 0.55 K/uL (0.11-0.59); NEUT % 56.6 %; NEUT ABS # 3.82 K/uL (1.4-6.5); PLATELET COUNT 237 K/uL (130-400); RED CELL DISTRIBUTION WIDTH CV 16.1 % (11.5-14.5); RED CELL DISTRIBUTION WIDTH SD 55.8 fL (36.4-46.3); WHITE BLOOD COUNT 6.76 K/uL (4.8-10.8)
[2017-12-17 11:17] LABS: HEMOGLOBIN A1C 6.4 % (4.5-5.6)
== END | disposition home or self-care (01) ==
LOC: C.LAB 09:04
PROVIDERS: ATTEND Nurse Practitioner Adult Health
DX: E11.9 Type 2 diabetes mellitus without complications (principal); D64.9 Anemia, unspecified; E78.00 Pure hypercholesterolemia, unspecified

== ENCOUNTER → 2018-03-21 | Outpatient (CLI) | payer BC ==
[~2018-03-21] MED LIST changes: -ALFU1TAB2 PO; +ASPI-232 PO; -CYAN100073; +CYAN1CAP3 PO; +FERR325T5 PO; -FERR50TA3; +POTA-639 PO; -POTA20TA16 PO; -PROB1TAB16; +PROB1TAB16 PO; +SILO8CAP PO
--- NOTE | 2018-03-21 10:12 | DIAGNOSTIC IMAGING REPORT ---
(RENAL)RETROPERITON COMP CLINICAL HISTORY: 52 years-old Male presenting with R31.9 Hematuria. TECHNIQUE: Real-time grayscale and limited color Doppler ultrasound imaging of the kidneys and bladder was performed. COMPARISON: CT from 11/15/2017 and ultrasound from 10/06/2016. FINDINGS: Right kidney: Severe cortical atrophy, unchanged. Right kidney measures 13.6 cm. Moderate hydronephrosis, significantly decreased from prior ultrasound and likely decreased from prior CT. The proximal right ureter is also dilated measuring 32 mm in AP dimension. No gross evidence of renal mass or calculus. Left kidney: Normal echogenicity of renal parenchyma. Left kidney measures 14.3 cm. No hydronephrosis. No convincing evidence of calculus or mass. Bladder: Significant bladder wall thickening with trabeculation. A large right bladder diverticulum is again noted measuring 18.5 x 13.4 x 13.3 cm. Bilateral ureteral jets not visualized. No bladder calculi or debris evident. Other: None. IMPRESSION: 1. Chronic cortical atrophy of the right kidney with moderate right hydronephrosis, stable to slightly decreased from prior CT. 2. No left hydronephrosis. 3. Significant bladder wall trabeculation could suggest a neurogenic bladder. 4. Stable large right bladder diverticulum. Electronically signed by: Davy Galarza M.D. 03/21/2018 10:10 AM Dictated Date/Time: 03/21/2018 10:07 AM
== END | disposition home or self-care (01) ==
LOC: C.ULTR 09:07
PROVIDERS: ATTEND Urology
DX: R31.9 Hematuria, unspecified (principal); N32.3 Diverticulum of bladder; N26.1 Atrophy of kidney (terminal); N13.30 Unspecified hydronephrosis

== ENCOUNTER 2021-11-06 10:18 | Inpatient (IN) ==
[2021-11-06] MEDS ORDERED: DEXTROSE 50% 50 ML SYRINGE IV STA (10:55)
[2021-11-06] MEDS ORDERED: CALCIUM GLUCONATE 10% 1,000 MG in SODIUM CHLORIDE 0.9% 50 ML IV STA (10:55)
[2021-11-06] MEDS ORDERED: SODIUM BICARBONATE 8.4% 150 MEQ in DEXTROSE 5% 1,000 ML IV STA (10:55)
[2021-11-06] MEDS ORDERED: INSULIN HUMAN REGULAR PER UNIT 10 UNITS in SYRINGE 9.9 ML IV STA (10:55)
[2021-11-06] MEDS ORDERED: SODIUM BICARB 8.4% INJ 50 MEQ/50 ML SYR IV ONE (11:01)
[2021-11-06] MEDS ORDERED: CALCIUM GLUCONATE 1000 MG/60 ML NSS IV ONE (11:01)
[2021-11-06] MEDS ORDERED: SODIUM BICARB 8.4% INJ 50 MEQ/50 ML SYR IV STA (11:02)
[2021-11-06] MEDS ORDERED: NovoLIN-R INSULIN PER UNIT CHARGE ONE (11:02)
[2021-11-06 11:07] LABS: Hematocrit (blood only) 19.6 % (42-52); Hemoglobin 5.8 g/dL (14.0-18.0); Mean Corpuscular Hemoglobin 25.2 pg (25-34); Mean Corpuscular Hgb Conc 29.6 g/dL (32-36); Mean Corpuscular Volume 85.2 fL (80-100); Platelet Count 488 K/uL (130-400); RDW Coefficient of Variation 18.9 % (11.5-14.5); White Blood Count 16.73 K/uL (4.8-10.8)
[2021-11-06] MEDS: SODIUM CHLORIDE 0.9% 1000ML 1,000 ML IV SCH (11:07)
[2021-11-06 11:16] LABS: Anisocytosis Present; Basophils # (auto) 0.03 K/uL (0-0.2); Basophils % (auto) 0.2 %; Eosinophils # (auto) 0.08 K/uL (0-0.5); Eosinophils % (auto) 0.5 %; Immature Granulocytes # (auto) 0.38 K/uL (0.00-0.02); Immature Granulocytes % (auto) 2.3 %; Lymphocytes # (auto) 1.95 K/uL (1.2-3.4); Lymphocytes % (auto) 11.7 %; Monocytes # (auto) 0.53 K/uL (0.11-0.59); Monocytes % (auto) 3.2 %; Neutrophils # (auto) 13.76 K/uL (1.4-6.5); Neutrophils % (auto) 82.1 %; Polychromasia 1+
[2021-11-06 11:20] LABS: INR 4.1 (0.9-1.1); Prothrombin Time 37.5 Seconds (9.0-12.0)
[2021-11-06] MEDS ORDERED: SODIUM CHLORIDE 0.9% 250 ML IV PRN ×3 (11:24→18:10)
[2021-11-06] MEDS ORDERED: PHYTONADIONE 2.5 MG in SODIUM CHLORIDE 0.9% 50 ML IV ONE (11:26)
[2021-11-06] MEDS ORDERED: STAT IV Infusion **Titration per Protocol STA ×3 (11:29→15:13)
[2021-11-06] MEDS ORDERED: AMIODARONE / D5W 150 MG/100 ML BAG IV STA (11:29)
[2021-11-06] MEDS ORDERED: AMIODARONE IV BOLUS & DRIP IV STA (11:29)
[2021-11-06] MEDS ORDERED: 0.2 MICRON FILTER SET 1 EA IV ONE (11:29)
[2021-11-06 11:30] LABS: Alanine Aminotransferase 26 (12-78); Albumin Globulin Ratio 0.6 (0.9-2); Albumin Level 2.8 gm/dl (3.4-5.0); Alkaline Phosphatase 98 U/L (45-117); Aspartate Aminotransferase 9 U/L (15-37); BUN Creatinine Ratio 22.8 (10-20); Bilirubin,Total 0.5 mg/dl (0.2-1); Blood Urea Nitrogen 81 mg/dl (7-18); Calcium 8.9 mg/dl (8.5-10.1); Carbon Dioxide 12 mmol/L (21-32); Chloride 95 mmol/L (98-107); Creatinine Clr Calc Pharmacy 29.7 ml/min; Est GFR (Non-African American) 18.1 ml/min; Globulin 4.8 gm/dl (2.5-4.0); Glucose 313 mg/dl (70-99); Potassium 6.9 mmol/L (3.5-5.1); Sodium 121 mmol/L (136-145); Total Protein 7.6 gm/dl (6.4-8.2); Troponin I < 0.015 ng/ml (0-0.045)
[2021-11-06 11:40] LABS: Magnesium 1.8 mg/dl (1.8-2.4); Phosphorus 4.5 mg/dl (2.5-4.9)
[2021-11-06] MEDS ORDERED: AMIODARONE / D5W 360 MG/200 ML BAG IV ONE (11:40)
[2021-11-06 11:42] LABS: Beta-Hydroxybutyrate 9.28 mg/dl (0.2-2.81)
[2021-11-06] MEDS: NOREPINEPHRINE/D5W 8 MG/508 ML BAG IV SCH (11:45)
--- NOTE | 2021-11-06 12:01 | History & Physical Report ---
Date of Service November 06, 2021 Assessment & Plan (1) Hypotension: Plan: Due to multiple medical problems and active hypotension, feel patient would be a candidate for ICU admission. I did speak to Dr. Fink who will take the patient in the ICU. Will defer blood commissioners to him, will write transfer order to ICU. Likely secondary to significant volume depletion from bleeding. Less likely to be sepsis 2 units of packed red blood cells as ordered, continue normal saline infusion as well If blood pressure remains low, consider norepinephrine treatment ER physician is already contacted nephrology to see the patient, please see below (2) Hyperkalemia: Plan: Patient was given 10 units IV insulin along with amp of D50 1 g calcium gluconate also given in ER will need to recheck labs in the next few hours and treat further as necessary Patient to be evaluated in the emergency room by nephrology, will defer further recommendations (3) Hematuria: Plan: Consideration of hypercoagulable state versus infection. Patient has a urinary retention which is likely cause of acute renal failure Patient was given vitamin K 2.5 mg IV to reverse over anticoagulation. I will continue to follow PT/INR Check urinalysis and urine culture Orosco in place, seems to be draining. We will continue for now We will ask urology to evaluate for further recommendations (4) Aortic valve replaced: Plan: Patient is on chronic Coumadin for this, over anticoagulated as noted Continue to monitor PT/INR Unfortunately, patient will need to remain anticoagulated with Coumadin for this (5) Uncontrolled type 2 diabetes mellitus with chronic kidney disease: Plan: We will keep n.p.o. for the time being On sliding scale insulin only for now (6) Anemia: Plan: Likely secondary to ongoing hematuria Transfusion as ordered (7) Hypercholesterolemia: Plan: Hold statin for now (8) NSVT (nonsustained ventricular tachycardia): Plan: I did see echo from 07/11/2020. EKG showing normal sinus rhythm with left bundle branch block, similar in appearance to 2018 tracing ER physician is already discussed with cardiology Work to correct electrolyte abnormalities for now IV amiodarone drip started after bolus dosing Defer further treatment to medical staff services coordinator (9) Hypercoagulability due to heart valve disorder: History of Present Illness Chief Complaint: abnormal labs Primary Care Provider: NO PCP This is a 55-year-old male with past medical history of prostate adenocarcinoma 2018, type 2 diabetes mellitus, mild chronic renal sufficiency, status post mechanical aortic valve secondary to congenital bicuspid valve and chronic bladder outlet obstruction that presents with abnormal lab work. Patient is awake and alert and able to give history, rest the history as per ER physician and outpatient records. Patient tells me that approximately 4 days ago he started to have evidence hematuria. He says he occasionally gets urinary tract infections and these present in this matter. He denied any fevers or chills as well as any pain in his back or his suprapubic region. He does follow with urology and was at their office yesterday. He saw the nurse and at that time he had a Orosco catheter placed with return of 1500 cc of "Merlot colored urine". He also had lab work performed at that night. Today he returned to the urologist office and was told to present to the emergency room. He was found to be in acute renal failure with a very elevated creatinine. In addition, he was anemic with hemoglobin down to 6.5. His potassium was also very elevated to 6.2. In the emergency room, he was found to be tachycardic and hypotensive. He did have periods of prolonged NSVT which seem to improve with volume resuscitation. Blood pressure was down to 74/49 although this is improving. Unit of O- packed blood cells is currently being administered when I arrived into the room. In addition, patient is supratherapeutic on his Coumadin with an INR 4.1. At this time, patient will be admitted to the hospital. I have a call out to [facility] to discuss ICU admission. Allergies Allergy/AdvReac Type Severity Reaction Status Date / Time No Known Allergies Allergy Verified 11/06/21 12:29 Home Medications Medication Instructions Recorded Confirmed Type aspirin 81 mg tablet,delayed 81 mg PO DAILY 08/04/18 11/06/21 History release (Ecotrin Low Strength) lactobacillus combination no.4 3 3,000 mmu cells PO DAILY 08/04/18 11/06/21 History billion cell capsule (Probiotic) potassium chloride 10 mEq 20 meq PO DAILY PRN tab 08/04/18 11/06/21 History tablet,extended release (Klor-Con) clobetasol 0.05 % topical ointment 1 appln TOP 2XWK PRN gm 06/20/19 11/06/21 History triamcinolone acetonide 0.5 % 1 applic TOP QID PRN #45 gm 02/07/21 11/06/21 Rx topical ointment atorvastatin 40 mg tablet 40 mg PO DAILY #90 tab 05/21/21 11/06/21 Rx metformin 1,000 mg tablet 1,000 mg PO BID #180 tab 06/06/21 11/06/21 Rx trazodone 50 mg tablet See Rx Instructions .ROUTE 06/12/21 11/06/21 Rx .COMPLEX #90 tab empagliflozin 25 mg tablet 25 mg PO QAM #90 tab 06/13/21 11/06/21 Rx (Jardiance) furosemide 40 mg tablet 40 mg PO DAILY PRN #90 tab 06/13/21 11/06/21 Rx metoprolol succinate 25 mg 25 mg PO DAILY #90 tab 06/13/21 11/06/21 Rx tablet,extended release 24 hr (Toprol XL) glimepiride 1 mg tablet 1 mg PO DAILY #90 tab 07/14/21 11/06/21 Rx silodosin 8 mg capsule 8 mg PO DAILY #90 cap 07/31/21 11/06/21 Rx lisinopril 10 mg tablet 10 mg PO DAILY #90 tab 10/06/21 11/06/21 Rx warfarin 5 mg tablet (Jantoven) See Rx Instructions PO UD tab 10/31/21 11/06/21 History warfarin 7.5 mg tablet (Jantoven) See Rx Instructions PO UD tab 10/31/21 11/06/21 History Past Med/Surg History Medical History Chronic anticoagulation Chronic kidney disease States right kidney doesn't function much at all;Left kidney doing all the work per pt Diabetes Diabetic retinopathy Diverticulum of bladder Erectile dysfunction Hematuria Couple days out of a month will noted tea colored urine; Hydronephrosis Hydronephrosis of right kidney Hypercholesteremia Hypertension Incomplete bladder emptying Insomnia Neurogenic bladder Prostate cancer Psoriasis Surgical History H/O aortic valve replacement H/O colonoscopy Tubular adenoma 08/22/18 H/O cystoscopy Family History Mother Asthma MVP (mitral valve prolapse) Father Leukemia Pernicious anemia Brother No problems noted. Brother No problems noted. Brother No problems noted. Sister No problems noted. Daughter No problems noted. Daughter No problems noted. 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; Feels Safe at Home: Yes caffeine: No during the past year weight has: remained stable Review of Systems Constitutional: + chills and + fatigue; no fever, no weakness, no weight loss and no weight gain Eyes: as per Subjective / HPI Respiratory: no cough, no chest congestion, no dyspnea and no dyspnea on exertion Cardiovascular: no chest pain, no orthopnea, no palpitations, no lightheadedness and no edema Gastrointestinal: no abdominal pain, no nausea, no vomiting, no constipation and no diarrhea/loose stools Genitourinary: + hematuria and + urinary urgency Musculoskeletal: no back pain, no neck pain, no joint pain, no stiffness and no myalgia Integumentary: no rash Neurologic: no gait abnormality, no unsteadiness, no falls and no generalized weakness Physical Exam Constitutional: cooperative; no acute distress Neck: trachea midline, no thyromegaly Respiratory: normal respiratory effort Auscultation: lungs clear to auscultation bilaterally; no crackles, no rales, no rhonchi and no wheezes Cardiovascular: Rate/Rhythm: regular rate and regular rhythm Heart Sounds: normal S1, normal S2 and + murmur Gastrointestinal (Abdomen): Inspection/Auscultation: abdomen normal to inspection Percussion/Palpation: abdomen soft; abdomen nontender, no guarding, abdomen not rigid and no hepatosplenomegaly Skin: + pallor Genitourinary: Orosco with scant dark red urine in tubing and bag. No suprapubic or flank tenderness Results & Data Results & Data ([facility]) Vital Signs (Past 12 Hours) Vital Signs Temp Pulse Pulse Resp BP BP Pulse Ox 11/06/21 11:49 36.4 C L 108 H 18 83/49 L 100 01/06/22 11:19 113 H 20 74/49 L 99 11/06/21 11:12 99 H 16 80/46 L 100 11/06/21 11:09 93 H 20 83/55 L 100 11/06/21 10:20 36.9 C 110 H 18 104/61 100 Diagnostic Findings Laboratory Results WBC 16.73 K/uL (4.8-10.8) H 11/06/21 10:37 RBC 2.30 M/uL (4.7-6.1) L 11/06/21 10:37 Hgb 5.8 g/dL (14.0-18.0) L* 11/06/21 10:37 Hct 19.6 % (42-52) L* 11/06/21 10:37 MCV 85.2 fL (80-100) 11/06/21 10:37 MCH 25.2 pg (25-34) 11/06/21 10:37 MCHC 29.6 g/dL (32-36) L 11/06/21 10:37 RDW Std Deviation 59.0 fL (36.4-46.3) H 11/06/21 10:37 RDW Coeff of Juliane 18.9 % (11.5-14.5) H 11/06/21 10:37 Plt Count 488 K/uL (130-400) H 11/06/21 10:37 MPV 10.0 fL (7.4-10.4) 11/06/21 10:37 Immature Gran % (Auto) 2.3 % 11/06/21 10:37 Neut % (Auto) 82.1 % 11/06/21 10:37 Lymph % (Auto) 11.7 % 11/06/21 10:37 [place] % (Auto) 3.2 % 11/06/21 10:37 Eos % (Auto) 0.5 % 11/06/21 10:37 Baso % (Auto) 0.2 % 11/06/21 10:37 Neut # (Auto) 13.76 K/uL (1.4-6.5) H 11/06/21 10:37 Lymph # (Auto) 1.95 K/uL (1.2-3.4) 11/06/21 10:37 [place] # (Auto) 0.53 K/uL (0.11-0.59) 11/06/21 10:37 Eos # (Auto) 0.08 K/uL (0-0.5) 11/06/21 10:37 Baso # (Auto) 0.03 K/uL (0-0.2) 11/06/21 10:37 Immature Gran # (Auto) 0.38 K/uL (0.00-0.02) H 11/06/21 10:37 Polychromasia 1+ 11/06/21 10:37 Anisocytosis Present 11/06/21 10:37 PT 37.5 Seconds (9.0-12.0) H 11/06/21 10:37 INR 4.1 (0.9-1.1) H 11/06/21 10:37 Sodium 121 mmol/L (136-145) L 11/06/21 10:37 Potassium 6.9 mmol/L (3.5-5.1) H* 11/06/21 10:37 Chloride 95 mmol/L (98-107) L 11/06/21 10:37 Carbon Dioxide 12 mmol/L (21-32) L 11/06/21 10:37 Anion Gap 13.0 (3-11) H 11/06/21 10:37 BUN 81 mg/dl (7-18) H 11/06/21 10:37 Creatinine 3.53 mg/dl (0.6-1.4) H 11/06/21 10:37 Est Cr Clr Drug Dosing 29.7 ml/min 11/06/21 10:37 Est GFR ( Amer) 21.0 ml/min 11/06/21 10:37 Est GFR (Non-Af Amer) 18.1 ml/min 11/06/21 10:37 BUN/Creatinine Ratio 22.8 (10-20) H 11/06/21 10:37 Glucose 313 mg/dl (70-99) H* 11/06/21 10:37 Calcium 8.9 mg/dl (8.5-10.1) 11/06/21 10:37 Phosphorus 4.5 mg/dl (2.5-4.9) 11/06/21 10:37 Magnesium 1.8 mg/dl (1.8-2.4) 11/06/21 10:37 Total Bilirubin 0.5 mg/dl (0.2-1) 11/06/21 10:37 AST 9 U/L (15-37) L 11/06/21 10:37 ALT 26 (12-78) 11/06/21 10:37 Alkaline Phosphatase 98 U/L (45-117) 11/06/21 10:37 Troponin I < 0.015 ng/ml (0-0.045) 11/06/21 10:37 Total Protein 7.6 gm/dl (6.4-8.2) 11/06/21 10:37 Albumin 2.8 gm/dl (3.4-5.0) L 11/06/21 10:37 Globulin 4.8 gm/dl (2.5-4.0) H 11/06/21 10:37 Albumin/Globulin Ratio 0.6 (0.9-2) L 11/06/21 10:37 Beta-Hydroxybutyric Acd 9.28 mg/dl (0.2-2.81) H 11/06/21 10:37 Blood Type O Negative 11/06/21 10:45 Antibody Screen NEGATIVE 11/06/21 10:45 Crossmatch See Detail 11/06/21 10:45 PG Care Time/CCT Total # of Minutes Spent Total Time Spent with Patient: Total time spent is greater than 50% in coordination of care (as documented) at patient's floor/unit and/or counseling patient: Coding Level of Care Code 68030 Initial Inpt Care Lvl 3 Diagnoses Hematuria R31.9 Aortic valve replaced Z95.2 Uncontrolled type 2 diabetes mellitus with chronic kidney disease E11.22; E11.65 Anemia D64.9 Hypercholesterolemia E78.00 Hypotension I95.9 NSVT (nonsustained ventricular tachycardia) I47.2 Hypercoagulability due to heart valve disorder D68.69; I38 Hyperkalemia E87.5
--- NOTE | 2021-11-06 12:37 | Nephrology Consultation ---
Date of Consultation November 06, 2021 Assessment & Plan (1) Acute kidney injury: * RITU due to obstruction and hemodynamic instability * Patient has already received medical management of hyperkalemia, volume resuscitation, blood transfusion and irrigation of gonzalez catheter while in the EMD * SBP now 110 - 120 mmHg * Elevated INR precludes dialysis catheter insertion. Vitamin K has been administered by EMD team * Agree w/ admission to ICU. Plan of care discussed w/ ICU team * Will order STAT PRP (2) Chronic kidney disease, stage III (moderate): * Baseline Cr 1.3 - 1.5 * Atrophic/nonfunctional R kidney (3) Anemia: * Agree w/ blood transfusion * Recommend checking FOBT * Recommend consultation w/ Urology History of Present Illness Reason for Consultation: RITU/CKD History of Present Illness Mr. Davidson is a 55 year old white male who is seen at the request of Dr. Landrum for evaluation of RITU/CKD. Medical records in the EMR were reviewed today and are summarized as follows: Mr. Davidson was diagnosed w/ prostate carcinoma in 2019, underwent androgen deprivation therapy, radiation therapy and has chronic urinary outflow obstruction. His baseline Cr has been 1.3 - 1.5. Previous evaluation has revealed chronic R hydronephrosis, R renal atrophy. His medical history is also significant for DM, congenital aortic valve disorder s/p mechanical AVR on warfarin. 4 days ago Mr. Davidson developed gross hematuria. He contacted his Urologist and 11/05/20 underwent Gonzalez catheter insertion as an outpatient. Laboratory studies post procedure revealed anemia and progressive renal dysfunction. His Urologist referred him to the [facility] for evaluation. Upon presentation, SBP was 70's, Hgb 6.5, INR 4.1, Cr 3.5, K 6.2. Mr. Davidson received 1L 0.9NS, 2 amps NaHCO3, 1 amp Ca Gluconate and transfused one unit PRBC. Gonzalez catheter was obstructed w/ blood clot but successfully irrigated and is now draining bloody urine. Patient is in the process of being admitted to the ICU. Nephrology consultation has been requested to assist in his medical care and correction of electrolyte abnormalities Allergies Allergy/AdvReac Type Severity Reaction Status Date / Time No Known Allergies Allergy Verified 11/06/21 12:29 Home Medications Medication Instructions Recorded Confirmed Type aspirin 81 mg tablet,delayed 81 mg PO DAILY 08/04/18 11/06/21 History release (Ecotrin Low Strength) lactobacillus combination no.4 3 3,000 mmu cells PO DAILY 08/04/18 11/06/21 History billion cell capsule (Probiotic) potassium chloride 10 mEq 20 meq PO DAILY PRN tab 08/04/18 11/06/21 History tablet,extended release (Klor-Con) clobetasol 0.05 % topical ointment 1 appln TOP 2XWK PRN gm 06/20/19 11/06/21 History triamcinolone acetonide 0.5 % 1 applic TOP QID PRN #45 gm 02/07/21 11/06/21 Rx topical ointment atorvastatin 40 mg tablet 40 mg PO DAILY #90 tab 05/21/21 11/06/21 Rx metformin 1,000 mg tablet 1,000 mg PO BID #180 tab 06/06/21 11/06/21 Rx trazodone 50 mg tablet See Rx Instructions .ROUTE 06/12/21 11/06/21 Rx .COMPLEX #90 tab empagliflozin 25 mg tablet 25 mg PO QAM #90 tab 06/13/21 11/06/21 Rx (Jardiance) furosemide 40 mg tablet 40 mg PO DAILY PRN #90 tab 06/13/21 11/06/21 Rx metoprolol succinate 25 mg 25 mg PO DAILY #90 tab 06/13/21 11/06/21 Rx tablet,extended release 24 hr (Toprol XL) glimepiride 1 mg tablet 1 mg PO DAILY #90 tab 07/14/21 11/06/21 Rx silodosin 8 mg capsule 8 mg PO DAILY #90 cap 07/31/21 11/06/21 Rx lisinopril 10 mg tablet 10 mg PO DAILY #90 tab 10/06/21 11/06/21 Rx warfarin 5 mg tablet (Jantoven) See Rx Instructions PO UD tab 10/31/21 11/06/21 History warfarin 7.5 mg tablet (Jantoven) See Rx Instructions PO UD tab 10/31/21 11/06/21 History Patient History Medical History Chronic anticoagulation Chronic kidney disease States right kidney doesn't function much at all;Left kidney doing all the work per pt Diabetes Diabetic retinopathy Diverticulum of bladder Erectile dysfunction Hematuria Couple days out of a month will noted tea colored urine; Hydronephrosis Hydronephrosis of right kidney Hypercholesteremia Hypertension Incomplete bladder emptying Insomnia Neurogenic bladder Prostate cancer Psoriasis Surgical History H/O aortic valve replacement H/O colonoscopy Tubular adenoma 08/22/18 H/O cystoscopy Family History Mother Asthma MVP (mitral valve prolapse) Father Leukemia Pernicious anemia Brother No problems noted. Brother No problems noted. Brother No problems noted. Sister No problems noted. Daughter No problems noted. Daughter No problems noted. 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 Safe at Home: Yes caffeine: No during the past year weight has: remained stable Review of Systems Constitutional: no fever Eyes: no problem reported Ear, Nose, Mouth, Throat: no problem reported Respiratory: no cough and no dyspnea Cardiovascular: no chest pain, no palpitations and no edema Gastrointestinal: no abdominal pain, no nausea, no vomiting and no diarrhea/loose stools Genitourinary: + hematuria Musculoskeletal: no back pain Integumentary: no rash Neurologic: no confusion Physical Exam Constitutional: + ill appearing Eyes: PERRL, conjunctivae normal, anicteric sclerae ENMT: external ear and nose normal, oropharynx normal Neck: trachea midline, no thyromegaly Respiratory: normal respiratory effort, lungs clear to auscultation Cardiovascular: Rate/Rhythm: + tachycardic Extremities: no edema Gastrointestinal (Abdomen): normal bowel sounds, soft, nontender, no hepatosplenomegaly Musculoskeletal: Extremities: extremities normal to inspection Skin: no rashes, warm and dry Neurologic: awake; not confused Genitourinary: Gonzalez catheter in place draining bloody urine Results & Data ([facility]) Vital Signs (Past 12 Hours) Vital Signs Temp Pulse Pulse Resp BP BP Pulse Ox 11/06/21 12:15 109 H 18 103/65 100 11/06/21 12:00 36.5 C 111 H 17 90/54 L 100 11/06/21 11:55 112 H 25 H 97/45 L 100 11/06/21 11:49 36.4 C L 108 H 18 83/49 L 100 11/06/21 11:45 114 H 30 H 83/49 L 100 11/06/21 11:35 114 H 23 80/51 L 100 11/06/21 11:30 110 H 20 63/44 L 100 11/06/21 11:20 118 H 23 74/49 L 11/06/21 11:19 113 H 20 74/49 L 99 11/06/21 11:15 65 23 91 11/06/21 11:14 70 22 83/40 L 97 11/06/21 11:12 99 H 16 80/46 L 100 11/06/21 11:11 96 H 21 80/46 L 100 11/06/21 11:09 127 H 93 H 21 83/55 L 83/55 L 92 11/06/21 11:01 114 H 26 H 76/47 L 99 11/06/21 11:00 115 H 22 100 11/06/21 10:50 85/45 L 11/06/21 10:20 36.9 C 110 H 18 104/61 100 Laboratory Results Laboratory Results WBC 16.73 K/uL (4.8-10.8) H 11/06/21 10:37 RBC 2.30 M/uL (4.7-6.1) L 11/06/21 10:37 Hgb 5.8 g/dL (14.0-18.0) L* 11/06/21 10:37 Hct 19.6 % (42-52) L* 11/06/21 10:37 MCV 85.2 fL (80-100) 11/06/21 10:37 MCH 25.2 pg (25-34) 11/06/21 10:37 MCHC 29.6 g/dL (32-36) L 11/06/21 10:37 RDW Std Deviation 59.0 fL (36.4-46.3) H 11/06/21 10:37 RDW Coeff of Juliane 18.9 % (11.5-14.5) H 11/06/21 10:37 Plt Count 488 K/uL (130-400) H 11/06/21 10:37 MPV 10.0 fL (7.4-10.4) 11/06/21 10:37 Immature Gran % (Auto) 2.3 % 11/06/21 10:37 Neut % (Auto) 82.1 % 11/06/21 10:37 Lymph % (Auto) 11.7 % 11/06/21 10:37 [place] % (Auto) 3.2 % 11/06/21 10:37 Eos % (Auto) 0.5 % 11/06/21 10:37 Baso % (Auto) 0.2 % 11/06/21 10:37 Neut # (Auto) 13.76 K/uL (1.4-6.5) H 11/06/21 10:37 Lymph # (Auto) 1.95 K/uL (1.2-3.4) 11/06/21 10:37 [place] # (Auto) 0.53 K/uL (0.11-0.59) 11/06/21 10:37 Eos # (Auto) 0.08 K/uL (0-0.5) 11/06/21 10:37 Baso # (Auto) 0.03 K/uL (0-0.2) 11/06/21 10:37 Immature Gran # (Auto) 0.38 K/uL (0.00-0.02) H 11/06/21 10:37 Polychromasia 1+ 11/06/21 10:37 Anisocytosis Present 11/06/21 10:37 PT 37.5 Seconds (9.0-12.0) H 11/06/21 10:37 INR 4.1 (0.9-1.1) H 11/06/21 10:37 Sodium 121 mmol/L (136-145) L 11/06/21 10:37 Potassium 6.9 mmol/L (3.5-5.1) H* 11/06/21 10:37 Chloride 95 mmol/L (98-107) L 11/06/21 10:37 Carbon Dioxide 12 mmol/L (21-32) L 11/06/21 10:37 Anion Gap 13.0 (3-11) H 11/06/21 10:37 BUN 81 mg/dl (7-18) H 11/06/21 10:37 Creatinine 3.53 mg/dl (0.6-1.4) H 11/06/21 10:37 Est Cr Clr Drug Dosing 29.7 ml/min 11/06/21 10:37 Est GFR ( Amer) 21.0 ml/min 11/06/21 10:37 Est GFR (Non-Af Amer) 18.1 ml/min 11/06/21 10:37 BUN/Creatinine Ratio 22.8 (10-20) H 11/06/21 10:37 Glucose 313 mg/dl (70-99) H* 11/06/21 10:37 Calcium 8.9 mg/dl (8.5-10.1) 11/06/21 10:37 Phosphorus 4.5 mg/dl (2.5-4.9) 11/06/21 10:37 Magnesium 1.8 mg/dl (1.8-2.4) 11/06/21 10:37 Total Bilirubin 0.5 mg/dl (0.2-1) 11/06/21 10:37 AST 9 U/L (15-37) L 11/06/21 10:37 ALT 26 (12-78) 11/06/21 10:37 Alkaline Phosphatase 98 U/L (45-117) 11/06/21 10:37 Troponin I < 0.015 ng/ml (0-0.045) 11/06/21 10:37 Total Protein 7.6 gm/dl (6.4-8.2) 11/06/21 10:37 Albumin 2.8 gm/dl (3.4-5.0) L 11/06/21 10:37 Globulin 4.8 gm/dl (2.5-4.0) H 11/06/21 10:37 Albumin/Globulin Ratio 0.6 (0.9-2) L 11/06/21 10:37 Beta-Hydroxybutyric Acd 9.28 mg/dl (0.2-2.81) H 11/06/21 10:37 SARS-CoV-2, RNA, NAAT NEGATIVE (NEGATIVE) 11/06/21 11:55 Blood Type O Negative 11/06/21 10:45 Antibody Screen NEGATIVE 11/06/21 10:45 Crossmatch See Detail 11/06/21 10:45 PG Care Time/CCT Total # of Minutes Spent Total Time Spent with Patient: Total time spent is greater than 50% in coordination of care (as documented) at patient's floor/unit and/or counseling patient: Coding Level of Care Code 94303 Inpt Consult Level 5 Diagnoses Acute kidney injury N17.9 Chronic kidney disease, stage III (moderate) N18.3 Anemia D64.9
[2021-11-06 13:35] LABS: BUN Creatinine Ratio 24.3 (10-20); Calcium 8.7 mg/dl (8.5-10.1); Creatinine Clr Calc Pharmacy 33.2 ml/min; Est GFR (Non-African American) 20.7 ml/min; Potassium 6.9 mmol/L (3.5-5.1)
[2021-11-06] MEDS ORDERED: FUROSEMIDE 40 MG/4 ML VIAL IV STA (14:26)
[2021-11-06] MEDS ORDERED: SODIUM BICARBONATE 8.4% 150 MEQ in WATER, STERILE 1,000 ML IV ONE (14:26)
[2021-11-06 14:54] LABS: Beta-Hydroxybutyrate 7.47 mg/dl (0.2-2.81)
[2021-11-06] MEDS ORDERED: PATIROMER CALCIUM SORBITEX 8.4 GM PACK PO SCH ×2 (15:00→15:15)
[2021-11-06] MEDS ORDERED: INSULIN PROTOCOL GOAL RANGE ONE (15:13)
[2021-11-06] MEDS ORDERED: INSULIN REGULAR 250 UNITS in SODIUM CHLORIDE 0.9% 247.5 ML IV SCH (15:15)
--- NOTE | 2021-11-06 15:18 | Critical Care Consultation ---
Date of Consultation November 06, 2021 Assessment & Plan (1) Acute kidney injury: (2) Hyperkalemia: (3) Hypercoagulability due to heart valve disorder: (4) Hypotension: (5) Hematuria: --Acute renal failure with hyperkalemia Likely secondary to obstruction Orosco catheter has been placed in Strict ins and outs Avoid nephrotoxic medication Monitor BUNs/creatinine S/p hyperkalemia cocktail -- Acute blood loss anaemia Likely secondary to source Transfuse as needed to keep hemoglobin greater than 7 Monitor H&H Nephrology on board --Transient hypotension Likely from the blood loss Improved with fluids --History of aortic valve replacement Metallic valve On chronic Coumadin --Coagulopathy INR 4.1 s/p vitamin K 2.5 mg on 11/06/2021 --Diabetes type 2 We will start the patient on insulin drip which help with the hyperkalemia ICU hypoglycemia protocol --Dyslipidemia Plan: Patient's potassium is still 6.9 on labs done at 1 PM He is on bicarb drip I am going to to start the patient on insulin drip given the patient's sugars are in 300s. This will help with the potassium. Patient got 2 units of PRBC so far. Monitor H&H Case was discussed with Dr. Wood I have personally spent 63 minutes of critical care time in the direct management of this patient. This is a life/limb threatening event. This includes time spent evaluating patient, direct bedside care, chart review, placing orders, interpretation of diagnostic studies, discussion with consultants, patient, and family members, as well as other required patient management activities. This time is exclusive of all separately billable procedures, and teaching time and separate from and in addition to any other critical care service time. Please note the above document was generated using voice recognition software. It may contain grammatical, syntax or spelling errors. History of Present Illness History of Present Illness 55-year-old male past medical history of prostate adenocarcinoma diagnosed 2018, type 2 diabetes, s/p AVR metallic on chronic Coumadin He presented to the ER from urologist office as he was looking pale. They tried to put a Orosco catheter at the urologist office but they were not able to do anything. Bloody urine came out following that. In the ED patient was found to have potassium of 6.9 with left bundle branch block and wide-complex tachycardia. Orosco was finally able to put in. He got 2 units of PRBC in the ED as well as fluids along with hyperkalemia cocktail He was awake alert oriented x3. Patient had repeat labs done at around 1 PM which again showed potassium of 6.9. He was given Veltassa, started on bicarb drip. His potassium did come down finally after starting insulin drip. At the time of examination denied any chest pain No headache, no nausea, no vomiting. Denies any dizziness. Has been compliant with all of his medication along with Coumadin Social history: Lifetime non-smoker Allergies Allergy/AdvReac Type Severity Reaction Status Date / Time No Known Allergies Allergy Verified 11/06/21 12:29 Home Medications Medication Instructions Recorded Confirmed Type aspirin 81 mg tablet,delayed 81 mg PO DAILY 08/04/18 11/06/21 History release (Ecotrin Low Strength) lactobacillus combination no.4 3 3,000 mmu cells PO DAILY 08/04/18 11/06/21 History billion cell capsule (Probiotic) potassium chloride 10 mEq 20 meq PO DAILY PRN tab 08/04/18 11/06/21 History tablet,extended release (Klor-Con) clobetasol 0.05 % topical ointment 1 appln TOP 2XWK PRN gm 06/20/19 11/06/21 History triamcinolone acetonide 0.5 % 1 applic TOP QID PRN #45 gm 02/07/21 11/06/21 Rx topical ointment atorvastatin 40 mg tablet 40 mg PO DAILY #90 tab 05/21/21 11/06/21 Rx metformin 1,000 mg tablet 1,000 mg PO BID #180 tab 06/06/21 11/06/21 Rx trazodone 50 mg tablet See Rx Instructions .ROUTE 06/12/21 11/06/21 Rx .COMPLEX #90 tab empagliflozin 25 mg tablet 25 mg PO QAM #90 tab 06/13/21 11/06/21 Rx (Jardiance) furosemide 40 mg tablet 40 mg PO DAILY PRN #90 tab 06/13/21 11/06/21 Rx metoprolol succinate 25 mg 25 mg PO DAILY #90 tab 06/13/21 11/06/21 Rx tablet,extended release 24 hr (Toprol XL) glimepiride 1 mg tablet 1 mg PO DAILY #90 tab 07/14/21 11/06/21 Rx silodosin 8 mg capsule 8 mg PO DAILY #90 cap 07/31/21 11/06/21 Rx lisinopril 10 mg tablet 10 mg PO DAILY #90 tab 10/06/21 11/06/21 Rx warfarin 5 mg tablet (Jantoven) See Rx Instructions PO UD tab 10/31/21 11/06/21 History warfarin 7.5 mg tablet (Jantoven) See Rx Instructions PO UD tab 10/31/21 11/06/21 History Patient History Medical History Chronic anticoagulation Chronic kidney disease States right kidney doesn't function much at all;Left kidney doing all the work per pt Diabetes Diabetic retinopathy Diverticulum of bladder Erectile dysfunction Hematuria Couple days out of a month will noted tea colored urine; Hydronephrosis Hydronephrosis of right kidney Hypercholesteremia Hypertension Incomplete bladder emptying Insomnia Neurogenic bladder Prostate cancer Psoriasis Surgical History H/O aortic valve replacement H/O colonoscopy Tubular adenoma 08/22/18 H/O cystoscopy Family History Mother Asthma MVP (mitral valve prolapse) Father Leukemia Pernicious anemia Brother No problems noted. Brother No problems noted. Brother No problems noted. Sister No problems noted. Daughter No problems noted. Daughter No problems noted. 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; Other Information That Helps Us Care for You: No Feels Safe at Home: Yes Safety Concerns: Feels Safe At This Time caffeine: No during the past year weight has: remained stable Assistive Devices: Glasses Review of Systems Review of Systems: All systems reviewed & are unremarkable except as noted in HPI & below Physical Exam Physical Exam: Constitutional: No acute distress HEENT: EOMI, PERRLA Respiratory system: Good air entry bilaterally, no wheeze, no rhonchi, mild crackles bilateral lower lobes CVS: S1-S2 positive, mechanical heart sound appreciated best at the aorta Abdomen: Soft, nontender, nondistended, positive bowel sounds x4, obese Extremities: +2 pulses bilaterally radialis/ dorsalis pedis, no cyanosis, no edema Neuro: Awake alert oriented x3 Psych: Normal mood and affect G/U: Positive Orosco Skin: no rashes, warm and dry Lymphatic: no cervical or axillary lymphadenopathy Results & Data Results & Data ([facility]) Vital Signs (Past 12 Hours) Vital Signs Temp Pulse Pulse Resp BP BP Pulse Ox 11/06/21 14:30 107 H 25 H 94/59 L 100 11/06/21 14:15 108 H 23 100/64 97 11/06/21 14:00 108 H 26 H 99/65 L 97 11/06/21 13:45 114 H 23 107/60 100 11/06/21 13:30 109 H 32 H 112/69 99 11/06/21 13:24 37 C 108 H 18 130/76 99 11/06/21 13:00 99 H 25 H 130/76 99 11/06/21 12:45 107 H 14 120/76 99 11/06/21 12:44 37 C 108 H 18 120/76 98 11/06/21 12:39 37 C 110 H 18 105/57 L 98 11/06/21 12:30 108 H 19 105/57 L 100 11/06/21 12:15 109 H 18 103/65 100 11/06/21 12:00 36.5 C 111 H 17 90/54 L 100 11/06/21 11:55 112 H 25 H 97/45 L 100 11/06/21 11:49 36.4 C L 108 H 18 83/49 L 100 11/06/21 11:45 114 H 30 H 83/49 L 100 11/06/21 11:35 114 H 23 80/51 L 100 11/06/21 11:30 110 H 20 63/44 L 100 11/06/21 11:20 118 H 23 74/49 L 11/06/21 11:19 113 H 20 74/49 L 99 11/06/21 11:15 65 23 91 11/06/21 11:14 70 22 83/40 L 97 11/06/21 11:12 99 H 16 80/46 L 100 11/06/21 11:11 96 H 21 80/46 L 100 11/06/21 11:09 127 H 93 H 21 83/55 L 83/55 L 92 11/06/21 11:01 114 H 26 H 76/47 L 99 11/06/21 11:00 115 H 22 100 11/06/21 10:50 85/45 L 11/06/21 10:20 36.9 C 110 H 18 104/61 100 Laboratory Results 11/06/21 10:37 11/06/21 13:03 Coding Level of Care Code Critical Care 1st 30-74 mins Diagnoses Acute kidney injury N17.9 Hyperkalemia E87.5 Hypercoagulability due to heart valve disorder D68.69; I38 Hypotension I95.9 Hematuria R31.9 Time Spent (min) 63
[2021-11-06] MEDS ORDERED: GLUCAGON FOR INJ 1 MG VIAL IM PRN (15:30)
[2021-11-06] MEDS ORDERED: NovoLIN-R BOLUS FROM BAG IV ONE (15:30)
[2021-11-06] MEDS ORDERED: CARBOHYDRATES FOR HYPOGLYCEMIA PO PRN (15:30)
[2021-11-06] MEDS ORDERED: DEXTROSE 50% 50 ML SYRINGE IV PRN (15:30)
[2021-11-06] MEDS ORDERED: GLUCOSE 40% GEL 15 GM TUBE PO PRN (15:30)
[2021-11-06] MEDS ORDERED: GLUCOSE 10 TABS/TUBE PO PRN (15:30)
[2021-11-06] MEDS ORDERED: ICU PROTOCOL FOR HYPERGLYCEMIA PRN (16:10)
--- NOTE | 2021-11-06 16:18 | Emergency Department Note ---
History of Present Illness General Chief complaint: Referred by Doctor Stated complaint: REF FOR TRANSFUSION Time Seen by Provider: 11/06/21 10:26 Source: patient Mode of arrival: wheelchair Limitations: no limitations History of Present Illness Provider complaint: Low blood counts, hematuria Onset (ago): day(s) 1 Maximum Pain Intensity: 8 Treatments prior to arrival: none This is a 55-year-old male who presents emergency department after being referred by urology due to abnormal outpatient labs. Patient states he had a Orosco catheter placed yesterday with return of a dark bloody urine. Patient states the catheter continued to drain and he was sent for outpatient labs yesterday. He states when he went to the urology office again today, they checked his catheter that it was still draining, and told him to come immediately to the emergency room due to his low blood counts. Patient denies any prior history of anemia, denies any prior history of requiring a blood transfusion. Patient does take anticoagulation due to a history of a valve replacement from a congenital bicuspid aortic valve. Patient denies any history of kidney stones. Patient states he does have kidney problems and follows with Dr. Cole. Patient states his Coumadin level recently had been mildly elevated over 3, he does not know what the level was yesterday. Patient denies any other change in medications. Patient denies any coming abdominal pain or back pain. He states he has been dizzy, fatigued, and short of breath with exertion. He denies chest pain or palpitations. Denies any recent fevers or chills. No prior history of requiring a catheter. Pt seen during a time of high acuity and national emergency pandemic while wearing PPE. Home Medications Medication Instructions Recorded Confirmed Type aspirin 81 mg tablet,delayed 81 mg PO DAILY 08/04/18 11/06/21 History release (Ecotrin Low Strength) lactobacillus combination no.4 3 3,000 mmu cells PO DAILY 08/04/18 11/06/21 History billion cell capsule (Probiotic) potassium chloride 10 mEq 20 meq PO DAILY PRN tab 08/04/18 11/06/21 History tablet,extended release (Klor-Con) clobetasol 0.05 % topical ointment 1 appln TOP 2XWK PRN gm 06/20/19 11/06/21 History triamcinolone acetonide 0.5 % 1 applic TOP QID PRN #45 gm 02/07/21 11/06/21 Rx topical ointment atorvastatin 40 mg tablet 40 mg PO DAILY #90 tab 05/21/21 11/06/21 Rx metformin 1,000 mg tablet 1,000 mg PO BID #180 tab 06/06/21 11/06/21 Rx trazodone 50 mg tablet See Rx Instructions .ROUTE 06/12/21 11/06/21 Rx .COMPLEX #90 tab empagliflozin 25 mg tablet 25 mg PO QAM #90 tab 06/13/21 11/06/21 Rx (Jardiance) furosemide 40 mg tablet 40 mg PO DAILY PRN #90 tab 06/13/21 11/06/21 Rx metoprolol succinate 25 mg 25 mg PO DAILY #90 tab 06/13/21 11/06/21 Rx tablet,extended release 24 hr (Toprol XL) glimepiride 1 mg tablet 1 mg PO DAILY #90 tab 07/14/21 11/06/21 Rx silodosin 8 mg capsule 8 mg PO DAILY #90 cap 07/31/21 11/06/21 Rx lisinopril 10 mg tablet 10 mg PO DAILY #90 tab 10/06/21 11/06/21 Rx warfarin 5 mg tablet (Jantoven) See Rx Instructions PO UD tab 10/31/21 11/06/21 History warfarin 7.5 mg tablet (Jantoven) See Rx Instructions PO UD tab 10/31/21 11/06/21 History Allergies Allergy/AdvReac Type Severity Reaction Status Date / Time No Known Allergies Allergy Verified 11/06/21 12:29 Past Med/Surg History Medical History Chronic anticoagulation Chronic kidney disease States right kidney doesn't function much at all;Left kidney doing all the work per pt Diabetes Diabetic retinopathy Diverticulum of bladder Erectile dysfunction Hematuria Couple days out of a month will noted tea colored urine; Hydronephrosis Hydronephrosis of right kidney Hypercholesteremia Hypertension Incomplete bladder emptying Insomnia Neurogenic bladder Prostate cancer Psoriasis Surgical History H/O aortic valve replacement H/O colonoscopy Tubular adenoma 08/22/18 H/O cystoscopy Family History Mother Asthma MVP (mitral valve prolapse) Father Leukemia Pernicious anemia Brother No problems noted. Brother No problems noted. Brother No problems noted. Sister No problems noted. Daughter No problems noted. Daughter No problems noted. 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; Feels Safe at Home: Yes caffeine: No during the past year weight has: remained stable Review of Systems A total of 10 systems reviewed and were otherwise negative All systems reviewed & are unremarkable except as noted in HPI & below Physical Exam Vital Signs Vital Signs - 24 hr 11/06/21 10:20 11/06/21 10:50 11/06/21 11:00 Temperature 36.9 C Temperature Source Temporal Artery Scan Pulse Rate 110 H 115 H Pulse Rate [Left Apical] Pulse Rate from SpO2 Sensor 115 H Pulse Rhythm Pulse Strength Respiratory Rate 18 22 Respiratory Effort / Characteristics Respiratory Depth Blood Pressure 104/61 85/45 L Blood Pressure [Left Arm] Blood Pressure Mean 75 58 Blood Pressure Mean [Left Arm] Blood Pressure Position Pulse Oximetry 100 100 Oxygen Delivery Method Room Air Room Air Oxygen Flow Rate Sepsis Recent Fever Within 48 Hours No Sepsis New/Unexplained Change in Mental Status No Sepsis Action Taken by Nursing No Action Required 11/06/21 11:01 11/06/21 11:09 11/06/21 11:11 Temperature Temperature Source Pulse Rate 114 H 127 H 96 H Pulse Rate [Left Apical] 93 H Pulse Rate from SpO2 Sensor 112 H 128 H 98 H Pulse Rhythm Pulse Strength Respiratory Rate 26 H 21 21 Respiratory Effort / Characteristics Non-Labored Respiratory Depth Normal Blood Pressure 76/47 L 83/55 L 80/46 L Blood Pressure [Left Arm] 83/55 L Blood Pressure Mean 56 64 57 Blood Pressure Mean [Left Arm] 64 Blood Pressure Position Pulse Oximetry 99 92 100 Oxygen Delivery Method Room Air Room Air Room Air Oxygen Flow Rate Sepsis Recent Fever Within 48 Hours Sepsis New/Unexplained Change in Mental Status Sepsis Action Taken by Nursing 11/06/21 11:12 11/06/21 11:14 11/06/21 11:15 Temperature Temperature Source Pulse Rate 70 65 Pulse Rate [Left Apical] 99 H Pulse Rate from SpO2 Sensor 70 64 Pulse Rhythm Pulse Strength Respiratory Rate 16 22 23 Respiratory Effort / Characteristics Non-Labored Respiratory Depth Normal Blood Pressure 83/40 L Blood Pressure [Left Arm] 80/46 L Blood Pressure Mean 54 Blood Pressure Mean [Left Arm] 57 Blood Pressure Position Pulse Oximetry 100 97 91 Oxygen Delivery Method Room Air Room Air Room Air Oxygen Flow Rate Sepsis Recent Fever Within 48 Hours Sepsis New/Unexplained Change in Mental Status Sepsis Action Taken by Nursing 11/06/21 11:19 11/06/21 11:20 11/06/21 11:30 Temperature Temperature Source Pulse Rate 118 H 110 H Pulse Rate [Left Apical] 113 H Pulse Rate from SpO2 Sensor 113 H 111 H Pulse Rhythm Pulse Strength Respiratory Rate 20 23 20 Respiratory Effort / Characteristics Respiratory Depth Blood Pressure 74/49 L 63/44 L Blood Pressure [Left Arm] 74/49 L Blood Pressure Mean 57 50 Blood Pressure Mean [Left Arm] 57 Blood Pressure Position Pulse Oximetry 99 100 Oxygen Delivery Method Room Air Nasal Cannula Oxygen Flow Rate 2 Sepsis Recent Fever Within 48 Hours Sepsis New/Unexplained Change in Mental Status Sepsis Action Taken by Nursing 11/06/21 11:35 11/06/21 11:45 11/06/21 11:49 Temperature 36.4 C L Temperature Source Oral Pulse Rate 114 H 114 H 108 H Pulse Rate [Left Apical] Pulse Rate from SpO2 Sensor 112 H 113 H Pulse Rhythm Irregular Pulse Strength Respiratory Rate 23 30 H 18 Respiratory Effort / Characteristics Respiratory Depth Blood Pressure 80/51 L 83/49 L 83/49 L Blood Pressure [Left Arm] Blood Pressure Mean 60 60 60 Blood Pressure Mean [Left Arm] Blood Pressure Position Lying Pulse Oximetry 100 100 100 Oxygen Delivery Method Nasal Cannula Nasal Cannula Oxygen Flow Rate 2 2 Sepsis Recent Fever Within 48 Hours Sepsis New/Unexplained Change in Mental Status Sepsis Action Taken by Nursing 11/06/21 11:55 11/06/21 12:00 11/06/21 12:15 Temperature 36.5 C Temperature Source Oral Pulse Rate 112 H 111 H 109 H Pulse Rate [Left Apical] Pulse Rate from SpO2 Sensor 112 H 111 H 112 H Pulse Rhythm Pulse Strength Respiratory Rate 25 H 17 18 Respiratory Effort / Characteristics Respiratory Depth Blood Pressure 97/45 L 90/54 L 103/65 Blood Pressure [Left Arm] Blood Pressure Mean 62 66 77 Blood Pressure Mean [Left Arm] Blood Pressure Position Lying Lying Pulse Oximetry 100 100 100 Oxygen Delivery Method Nasal Cannula Nasal Cannula Nasal Cannula Oxygen Flow Rate 2 2 2 Sepsis Recent Fever Within 48 Hours Sepsis New/Unexplained Change in Mental Status Sepsis Action Taken by Nursing 11/06/21 12:30 11/06/21 12:39 11/06/21 12:44 Temperature 37 C 37 C Temperature Source Oral Oral Pulse Rate 108 H 110 H 108 H Pulse Rate [Left Apical] Pulse Rate from SpO2 Sensor 107 H Pulse Rhythm Regular Regular Pulse Strength Normal Normal Respiratory Rate 19 18 18 Respiratory Effort / Characteristics Respiratory Depth Blood Pressure 105/57 L 105/57 L 120/76 Blood Pressure [Left Arm] Blood Pressure Mean 73 73 90 Blood Pressure Mean [Left Arm] Blood Pressure Position Lying Lying Pulse Oximetry 100 98 98 Oxygen Delivery Method Oxygen Flow Rate Sepsis Recent Fever Within 48 Hours Sepsis New/Unexplained Change in Mental Status Sepsis Action Taken by Nursing 11/06/21 12:45 11/06/21 13:00 Temperature Temperature Source Pulse Rate 107 H 99 H Pulse Rate [Left Apical] Pulse Rate from SpO2 Sensor 107 H 99 H Pulse Rhythm Pulse Strength Respiratory Rate 14 25 H Respiratory Effort / Characteristics Respiratory Depth Blood Pressure 120/76 130/76 Blood Pressure [Left Arm] Blood Pressure Mean 90 94 Blood Pressure Mean [Left Arm] Blood Pressure Position Pulse Oximetry 99 99 Oxygen Delivery Method Oxygen Flow Rate Sepsis Recent Fever Within 48 Hours Sepsis New/Unexplained Change in Mental Status Sepsis Action Taken by Nursing GENERAL: alert, ill appearing, well nourished, no distress, non-toxic, diaphoretic/pale in wheelchair, BMI>39 EYE EXAM: normal conjunctiva, PERRL and EOM's grossly intact OROPHARYNX: no exudate, no erythema, lips, buccal mucosa, and tongue normal and mucous membranes are moist NECK: supple, no nuchal rigidity, no adenopathy, non-tender LUNGS: Clear to auscultation. Normal chest wall mechanics, no w/r/r HEART: no murmurs, S1 normal and S2 normal, tachycardic on telemetry, appears to be wide-complex ABDOMEN: abdomen soft, non-tender, normo-active bowel sounds, no masses, no rebound or guarding. : Circumcised, catheter in place, bilaterally descended testicles, gross hematuria noted in the catheter tubing and bag BACK: Back is symmetrical on inspection and there is no deformity, no midline tenderness, no CVA tenderness. SKIN: no rashes and no bruising, no petechiae UPPER EXTREMITIES: upper extremities are grossly normal. FROM, nml pulses b/l. LOWER EXTREMITIES: No pitting edema. FROM, nml pulses b/l. NEURO EXAM: Normal sensorium, cranial nerves II-XII grossly intact, normal speech, no gross weakness of arms, no gross weakness of legs. Gross sensation intact. Course Course 1028: Patient still hypotensive, IV being established. 1035: IV fluids running, patient still hypotensive, continues to mentate well. 1044: We will add second IV, EKG reviewed, will compared to prior. 1100: Outpatient labs reviewed which showed hyperkalemia and RITU compared to prior. Outpatient hemoglobin here 6, prior levels 11 and 12. Patient denies bleeding from any other source other than the hematuria noted upon placement of the catheter yesterday. Patient states no difficulty or repeat attempts when catheter was placed. No prior history of hematuria. Hyperkalemia treatment started. 1112: Second doses of calcium and bicarb given after patient with evolving dysrhythmia noted on telemetry including an episode of VT. IV fluids continuing to run. Patient still hypotensive. Awaiting bicarb drip from pharmacy. 1123: I called blood bank to ask for an emergency release of O- due to patient's persistent hypotension as type and cross still pending. Nor epi drip added while awaiting additional volume in order to maintain blood pressure. Patient still tachycardic and hypotensive at this time however still mentating well. No hypoxia. 1133: Discussed with Dr. Byrd. 1136: Discussed with Dr. Bernstein. 1149: Discussed with Dr. Wood. 1202: Dr. Byrd at bedside. 1218: Dr. Wood at bedside. Administered Medications Sodium Chloride (Nss 1000ml) 1,000 mls @ 125 mls/hr IV .Q8H [facility] Stop: 12/06/21 10:44 Last Admin: 11/06/21 11:07 Dose: 125 mls/hr Documented by: [id number] Norepinephrine Bitartrate (Levophed/D5w) 8 mg in 508 mls @ 23.165 mls/hr IV .[id number] [facility]; Protocol Stop: 12/06/21 11:44 Last Admin: 11/06/21 11:45 Dose: 0.015 mcg/kg/min, 6.9 mls/hr Documented by: [id number] Cosigned by: [id number] Sodium Bicarbonate 150 meq/ (Sterile Water) 1,150 mls @ 80 mls/hr IV .[id number] ONE Stop: 11/07/21 04:48 Last Admin: 11/06/21 16:49 Dose: 80 mls/hr Documented by: [id number] Insulin Human Regular 250 (units/ Sodium Chloride) 250 mls @ 4.6 mls/hr IV .Q24H [facility]; Protocol Stop: 12/06/21 15:14 Last Admin: 11/06/21 16:50 Dose: 4.6 units/hr, 4.6 mls/hr Documented by: [id number] Cosigned by: [id number] Patiromer (Patiromer Calcium Sorbitex 8.4 Gm Pack) 8.4 gm PO DAILY [facility] Stop: 12/06/21 14:59 Last Admin: 11/06/21 16:49 Dose: 8.4 gm Documented by: [id number] Discontinued Medications Amiodarone HCl (Amiodarone Iv Bolus & Drip) 1 ea IV NOW STA; Protocol Stop: 11/06/21 11:30 Last Admin: 11/06/21 16:42 Dose: Not Given Documented by: [id number] Calcium Gluconate (Calcium Gluconate 1000 Mg/60 Ml Nss) Confirm Administered Dose 1,000 mg IV .STK-MED ONE Stop: 11/06/21 11:02 Last Admin: 11/06/21 11:05 Dose: 1,000 mg Documented by: [id number] Dextrose (Dextrose 50% 50 Ml Syringe) 50 ml IV NOW STA Stop: 11/06/21 10:56 Last Admin: 11/06/21 11:06 Dose: 50 ml Documented by: [id number] Furosemide (Furosemide 40 Mg/4 Ml Vial) 80 mg IV ONE STA Stop: 11/06/21 14:27 Last Admin: 11/06/21 16:37 Dose: 80 mg Documented by: [id number] Calcium Gluconate 1,000 mg/ (Sodium Chloride) 60 mls @ 240 mls/hr IV NOW STA Stop: 11/06/21 11:09 Last Infusion: 11/06/21 11:38 Dose: 0 mls/hr Documented by: [id number] Admin: 11/06/21 11:23 Dose: 240 mls/hr Documented by: [id number] Insulin Human Regular 10 units (/ Syringe) 9.9 mls @ 3 mls/sec IV ONE STA Stop: 11/06/21 10:56 Last Admin: 11/06/21 11:07 Dose: 3 mls/sec Documented by: [id number] Cosigned by: [id number] Sodium Bicarbonate 150 meq/ (Dextrose) 1,150 mls @ 290 mls/hr IV .[id number] STA Stop: 11/06/21 14:52 Last Admin: 11/06/21 11:29 Dose: 290 mls/hr Documented by: [id number] Phytonadione 2.5 mg/ Sodium (Chloride) 50.25 mls @ 100.5 mls/hr IV ONE ONE Stop: 11/06/21 11:55 Last Infusion: 11/06/21 12:20 Dose: 0 mls/hr Documented by: [id number] Admin: 11/06/21 11:44 Dose: 100.5 mls/hr Documented by: [id number] Amiodarone HCl/Dextrose (Nexterone / D5w) 150 mg in 100 mls @ 600 mls/hr IV NOW STA Stop: 11/06/21 11:38 Last Admin: 11/06/21 16:32 Dose: Not Given Documented by: [id number] Insulin Human Regular (Novolin-R Insulin Per Unit Charge) Confirm Administered Dose 10 units .ROUTE .STK-MED ONE Stop: 11/06/21 11:03 Last Admin: 11/06/21 11:21 Dose: Not Given Documented by: [id number] Insulin Human Regular (Novolin-R Bolus From Bag) 4.5 units IV ONE ONE Stop: 11/06/21 15:31 Last Admin: 11/06/21 16:50 Dose: 4.5 units Documented by: [id number] Cosigned by: [id number] Miscellaneous (Stat Iv Infusion Titration Per Protocol) 1 ea N/A NOW STA Stop: 11/06/21 11:30 Last Admin: 11/06/21 16:42 Dose: Not Given Documented by: [id number] Miscellaneous (Insulin Protocol Goal Range ) 1 ea N/A ONE ONE Stop: 11/06/21 15:14 Last Admin: 11/06/21 16:50 Dose: 1 ea Documented by: [id number] Sodium Bicarbonate (Sodium Bicarb 8.4% Inj 50 Meq/50 Ml Syr) Confirm Administered Dose 50 meq IV .STK-MED ONE Stop: 11/06/21 11:02 Last Admin: 11/06/21 11:06 Dose: 50 meq Documented by: [id number] Sodium Bicarbonate (Sodium Bicarb 8.4% Inj 50 Meq/50 Ml Syr) 50 meq IV NOW STA Stop: 11/06/21 11:03 Last Admin: 11/06/21 11:21 Dose: 50 meq Documented by: [id number] Critical Care Time Critical Care Time: Yes Total Critical Care Time: 95 Critical care of 95 min performed to assess and manage high likelihood of life- threatening hypotension and anemia, involving labs and imaging performed with assessment to evaluate hypotension and anemia diagnosis with frequent reassessment. This time includes bedside time, treatment discussions with patient/family/consultants, documentation time and excludes procedure time. Medical Decision Making Differential Diagnosis Differential diagnoses includes but is not limited to pneumonia, bronchitis, COPD/Asthma exacerbation, pneumothorax, pulmonary embolism, congestive heart failure, acute coronary syndrome Medical Records Attestation: I reviewed the patient's medical records. Home Medications Current Medication List: was personally reviewed by me Laboratory Data Attestation: I reviewed the patient's lab results. Result diagrams: 11/06/21 16:17 11/06/21 16:17 Lab Results 11/06/21 11/06/21 11/06/21 Range/Units 10:37 10:37 10:37 WBC 16.73 H (4.8-10.8) K/uL RBC 2.30 L (4.7-6.1) M/uL Hgb 5.8 L* (14.0-18.0) g/dL Hct 19.6 L* (42-52) % MCV 85.2 (80-100) fL MCH 25.2 (25-34) pg MCHC 29.6 L (32-36) g/dL RDW Std Deviation 59.0 H (36.4-46.3) fL RDW Coeff of Juliane 18.9 H (11.5-14.5) % Plt Count 488 H (130-400) K/uL MPV 10.0 (7.4-10.4) fL Immature Gran % (Auto) 2.3 % Neut % (Auto) 82.1 % Lymph % (Auto) 11.7 % [facility] % (Auto) 3.2 % Eos % (Auto) 0.5 % Baso % (Auto) 0.2 % Neut # (Auto) 13.76 H (1.4-6.5) K/uL Lymph # (Auto) 1.95 (1.2-3.4) K/uL [facility] # (Auto) 0.53 (0.11-0.59) K/uL Eos # (Auto) 0.08 (0-0.5) K/uL Baso # (Auto) 0.03 (0-0.2) K/uL Immature Gran # (Auto) 0.38 H (0.00-0.02) K/uL Polychromasia 1+ Anisocytosis Present PT 37.5 H (9.0-12.0) Seconds INR 4.1 H (0.9-1.1) Sodium 121 L (136-145) mmol/L Potassium 6.9 H* (3.5-5.1) mmol/L Chloride 95 L (98-107) mmol/L Carbon Dioxide 12 L (21-32) mmol/L Anion Gap 13.0 H (3-11) BUN 81 H (7-18) mg/dl Creatinine 3.53 H (0.6-1.4) mg/dl Est Cr Clr Drug Dosing 29.7 ml/min Est GFR ( Amer) 21.0 ml/min Est GFR (Non-Af Amer) 18.1 ml/min BUN/Creatinine Ratio 22.8 H (10-20) Glucose 313 H* (70-99) mg/dl Calcium 8.9 (8.5-10.1) mg/dl Phosphorus (2.5-4.9) mg/dl Magnesium (1.8-2.4) mg/dl Total Bilirubin 0.5 (0.2-1) mg/dl AST 9 L (15-37) U/L ALT 26 (12-78) Alkaline Phosphatase 98 (45-117) U/L Troponin I < 0.015 (0-0.045) ng/ml Total Protein 7.6 (6.4-8.2) gm/dl Albumin 2.8 L (3.4-5.0) gm/dl Globulin 4.8 H (2.5-4.0) gm/dl Albumin/Globulin Ratio 0.6 L (0.9-2) Beta-Hydroxybutyric Acd 9.28 H (0.2-2.81) mg/dl SARS-CoV-2, RNA, NAAT (NEGATIVE) Blood Type Antibody Screen Crossmatch 11/06/21 11/06/21 11/06/21 Range/Units 10:37 10:45 11:55 WBC (4.8-10.8) K/uL RBC (4.7-6.1) M/uL Hgb (14.0-18.0) g/dL Hct (42-52) % MCV (80-100) fL MCH (25-34) pg MCHC (32-36) g/dL RDW Std Deviation (36.4-46.3) fL RDW Coeff of Juliane (11.5-14.5) % Plt Count (130-400) K/uL MPV (7.4-10.4) fL Immature Gran % (Auto) % Neut % (Auto) % Lymph % (Auto) % [facility] % (Auto) % Eos % (Auto) % Baso % (Auto) % Neut # (Auto) (1.4-6.5) K/uL Lymph # (Auto) (1.2-3.4) K/uL [facility] # (Auto) (0.11-0.59) K/uL Eos # (Auto) (0-0.5) K/uL Baso # (Auto) (0-0.2) K/uL Immature Gran # (Auto) (0.00-0.02) K/uL Polychromasia Anisocytosis PT (9.0-12.0) Seconds INR (0.9-1.1) Sodium (136-145) mmol/L Potassium (3.5-5.1) mmol/L Chloride (98-107) mmol/L Carbon Dioxide (21-32) mmol/L Anion Gap (3-11) BUN (7-18) mg/dl Creatinine (0.6-1.4) mg/dl Est Cr Clr Drug Dosing ml/min Est GFR ( Amer) ml/min Est GFR (Non-Af Amer) ml/min BUN/Creatinine Ratio (10-20) Glucose (70-99) mg/dl Calcium (8.5-10.1) mg/dl Phosphorus 4.5 (2.5-4.9) mg/dl Magnesium 1.8 (1.8-2.4) mg/dl Total Bilirubin (0.2-1) mg/dl AST (15-37) U/L ALT (12-78) Alkaline Phosphatase (45-117) U/L Troponin I (0-0.045) ng/ml Total Protein (6.4-8.2) gm/dl Albumin (3.4-5.0) gm/dl Globulin (2.5-4.0) gm/dl Albumin/Globulin Ratio (0.9-2) Beta-Hydroxybutyric Acd (0.2-2.81) mg/dl SARS-CoV-2, RNA, NAAT NEGATIVE (NEGATIVE) Blood Type O Negative Antibody Screen NEGATIVE Crossmatch See Detail 11/06/21 Range/Units 13:03 WBC (4.8-10.8) K/uL RBC (4.7-6.1) M/uL Hgb (14.0-18.0) g/dL Hct (42-52) % MCV (80-100) fL MCH (25-34) pg MCHC (32-36) g/dL RDW Std Deviation (36.4-46.3) fL RDW Coeff of Juliane (11.5-14.5) % Plt Count (130-400) K/uL MPV (7.4-10.4) fL Immature Gran % (Auto) % Neut % (Auto) % Lymph % (Auto) % [facility] % (Auto) % Eos % (Auto) % Baso % (Auto) % Neut # (Auto) (1.4-6.5) K/uL Lymph # (Auto) (1.2-3.4) K/uL [facility] # (Auto) (0.11-0.59) K/uL Eos # (Auto) (0-0.5) K/uL Baso # (Auto) (0-0.2) K/uL Immature Gran # (Auto) (0.00-0.02) K/uL Polychromasia Anisocytosis PT (9.0-12.0) Seconds INR (0.9-1.1) Sodium 124 L (136-145) mmol/L Potassium 6.9 H* (3.5-5.1) mmol/L Chloride 96 L (98-107) mmol/L Carbon Dioxide 19 L (21-32) mmol/L Anion Gap 9.0 (3-11) BUN 77 H (7-18) mg/dl Creatinine 3.16 H D (0.6-1.4) mg/dl Est Cr Clr Drug Dosing 33.2 ml/min Est GFR ( Amer) 24.0 ml/min Est GFR (Non-Af Amer) 20.7 ml/min BUN/Creatinine Ratio 24.3 H (10-20) Glucose 323 H* (70-99) mg/dl Calcium 8.7 (8.5-10.1) mg/dl Phosphorus (2.5-4.9) mg/dl Magnesium (1.8-2.4) mg/dl Total Bilirubin (0.2-1) mg/dl AST (15-37) U/L ALT (12-78) Alkaline Phosphatase (45-117) U/L Troponin I (0-0.045) ng/ml Total Protein (6.4-8.2) gm/dl Albumin (3.4-5.0) gm/dl Globulin (2.5-4.0) gm/dl Albumin/Globulin Ratio (0.9-2) Beta-Hydroxybutyric Acd 7.47 H (0.2-2.81) mg/dl SARS-CoV-2, RNA, NAAT (NEGATIVE) Blood Type Antibody Screen Crossmatch ECG Data Attestation: I personally reviewed and interpreted this ECG as follows: Indication: + weakness Rate (beats per minute): 70 ECG Intervals/blocks: + Left bundle branch block and + Prolonged QT ECG [place]: + Normal ECG ST segments: + Nonspecific ST abnormalities Additional Comments: Repeat EKG at 11:00 is tachycardic at 114 with a left bundle branch block and QRS of 170 ms, QTC of 609 ms, normal axis, nonspecific ST/T wave changes MDM Narrative This is a 55-year-old male who presents emergency department after being referred by urology due to abnormal outpatient labs which showed acute anemia and concern for need of a blood transfusion. Patient presented ill-appearing, diaphoretic and pale while in the wheelchair when I assisted another staff member and placing him into bed. Patient with gross hematuria noted in Orosco catheter that he states was placed yesterday by urology. Patient does take anticoagulation daily. Denies any prior history of anemia, denied any recent trauma, and stated a recent check of his INR was supratherapeutic. Patient was unaware of the results of his outpatient labs just that he was sent here for additional evaluation. Patient found to be tachycardic and hypotensive on the monitor. IV was established, labs sent, and IV fluids initially started on the patient in hopes of improving his blood pressure. It was noted that the patient appeared to have a wide-complex and well this was being performed an EKG was performed which did reveal the same. As a second IV was being established as a precaution patient began to have evolving dysrhythmia including bradycardia, pauses, and several episodes of ventricular tachycardia. I was able to quickly review the labs from yesterday which showed new RITU with a creatinine up over 3 with accompanying hyperkalemia. Due to concern for wide-complex tachycardia with evolving dysrhythmia and hyperkalemia patient was given calcium, bicarb, insulin and dextrose. IV fluids were continued, type and screen was sent and blood consent signed at bedside. Patient continued to be mentating well despite persistent hypotension. When episodes of VT were noted, amiodarone was also added. Patient given a second dose of calcium and bicarb while awaiting the bicarb drip from pharmacy. I did call and discussed the dysrhythmia and his prior cardiac history with Dr. Bernstein of cardiology. I then discussed the case with the hospitalist and ultimately with nephrology in addition as patient does follow with nephrology typically. Patient had no further dysrhythmias, did require low-dose Levophed in order to help maintain blood pressure while he was given additional blood volume. I did call the blood bank and asked for an emergency release of O- while we were awaiting the additional type and screen due to patient's significant hypotension and concern for unstable condition. On review of echo from last year, patient with a normal EF, no prior documented history of CHF. I do feel patient required additional volume despite acute kidney injury and hyperkalemia. Patient rechecked multiple times, continued to mentate well and slowly showed improvement with additional blood volume, bicarb drip, and nor epi drip. Ultimately once additional volume was repleted patient's nor epi drip was able to be stopped. Patient was given vitamin K 2.5 mg due to a mildly supratherapeutic INR and concern for ongoing blood loss in the setting of his unstable anemia at this time. With additional medications and blood volume patient remained tachycardic however blood pressure improved and no further dysrhythmia noted. I suspect dysrhythmia secondary to electrolyte abnormalities and significant anemia/volume depletion. Patient was not sent for additional CT imaging due to instability. Patient denied any other blood loss from any other source. It is unclear if there is an additional concurrent source of bleeding contributing to the significant anemia other than the gross hematuria that continues to be noted at bedside. An order was placed for continuous cardiac monitoring. The monitor shows a rate of _112_ with _sinus tachycardia_ rhythm. Impression & Plan Hypotension, Anemia, Hematuria, RITU (acute kidney injury), Acute hyperkalemia, Ventricular tachycardia, Tachycardia, Hyponatremia, Hyperglycemia, Supratherape utic INR Discharge Plan Visit Data Chief Complaint: Referred by Doctor Stated Complaint: REF FOR TRANSFUSION Discharge Problem: Hypotension, Anemia, Hematuria, RITU (acute kidney injury), Acute hyperkalemia, Ventricular tachycardia, Tachycardia, Hyponatremia, Hyperglycemia, Supratherapeutic INR Patient Disposition: Admitted As Inpatient Discharge Instructions Interventions: ED Discharge Assessment Last Done: 11/06/21 16:17 Discharge Problem: Hypotension Qualifiers: Hypotension type: hypotension due to hypovolemia Qualified Code(s): I95.89 - Other hypotension Anemia Qualifiers: Anemia type: unspecified type Qualified Code(s): D64.9 - Anemia, unspecified Hematuria Qualifiers: Hematuria type: gross Qualified Code(s): R31.0 - Gross hematuria
[2021-11-06 16:44] LABS: Hematocrit (blood only) 20.5 % (42-52); Hemoglobin 6.5 g/dL (14.0-18.0); Mean Corpuscular Hgb Conc 31.7 g/dL (32-36); Mean Platelet Volume 9.6 fL (7.4-10.4); Platelet Count 324 K/uL (130-400); RDW Coefficient of Variation 16.9 % (11.5-14.5); RDW Standard Deviation 50.5 fL (36.4-46.3); White Blood Count 13.13 K/uL (4.8-10.8)
[2021-11-06 16:53] LABS: BUN Creatinine Ratio 25.2 (10-20); Calcium 8.4 mg/dl (8.5-10.1); Creatinine Clr Calc Pharmacy 37.2 ml/min; Est GFR (African American) 27.5 ml/min; Est GFR (Non-African American) 23.7 ml/min; Potassium 5.7 mmol/L (3.5-5.1)
--- NOTE | 2021-11-06 17:05 | XRay Report ---
XR chest 1V portable CLINICAL HISTORY: sob TECHNIQUE: Single frontal radiograph of the chest was obtained. Comparison: Comparison is made to chest one view 11/15/2017 FINDINGS: No lines and tubes are seen. Cardiomegaly is noted. Prominence and cephalization of the vasculature i s seen. No evidence of pleural effusion or pneumothorax. IMPRESSION: Mild pulmonary edema. ACT 112: Negative or not required by law. Electronically signed by: Alex Deleon M.D. 11/06/2021 5:04 PM
[2021-11-06] MEDS: INSULIN ASPART PER UNIT SC SCH ×2 (17:57→20:26)
[2021-11-06] MEDS: AMIODARONE / D5W 360 MG/200 ML BAG IV SCH (17:57)
--- NOTE | 2021-11-06 19:49 | Urology Consultation ---
Date of Consultation November 06, 2021 Assessment & Plan (1) Hematuria: Patient has been admitted to the intensive care unit on the hospitalist service. We recommend proceeding as follows: Continue Orosco catheter. At the present time the Orosco catheter is patent and draining. I discussed with the nurse that if it appears that the Orosco catheter becomes clogged with clots gentle irrigation is permissible. As long as his Orosco catheter is able to be remain patent there is no need for continuous bladder irrigation Continue to follow serial hemoglobin and hematocrits with transfusion as needed. We will defer this to the primary service Recommend checking a urinalysis and culture. This has been ordered and may be the inciting event that caused patient's hematuria It is noted that the patient has mechanical aortic valve and therefore he cannot stop his anticoagulation. Upon presentation his INR was supratherapeutic and would recommend taking measures to ensure that patient's INR does not reach escalated levels that would further insight hematuria Supervising Physician Co-Signing Physician Notes Agree with plan above. Renal failure is likely due to chronic obstruction due to poor bladder emptying. Now that Orosco is in place, decompression will hopefully improve creatinine and electrolyte levels.Hematuria is likely combination of over distention and supratherapeutic INR. Monitor conservatively and irrigate as needed. No acute urologic intervention necessary at this time. Follow-up culture and treat if positive. History of Present Illness Reason for Consultation: Hematuria Attending Physician: Juan M Byrd DO History of Present Illness Is a 55-year-old male with a history of a mechanical aortic valve replacement. Because of this mechanical heart valve replacement the patient has been placed on anticoagulation in the form of Coumadin. Patient relates that he is prone to urinary tract infections and he typically develops hematuria when he develops urinary tract infection but the hematuria usually resolves with treatment of urinary tract infection. Patient reports that around [place] time he developed urinary tract infection developed hematuria. He said that this subsequently cleared only to return a few days ago. Patient is noted gross hematuria. Seen at the [facility] urology office on 11/05/2021 where he had a Orosco catheter placed and the Orosco catheter was irrigated until his urine was clear. Stat laboratories were checked. Labs on 11/05/2021 showed his white blood cell count is 13.5. His hemoglobin and hematocrit were 6.5 and 21.5. Platelet count was noted to be high at 485,000. A chemistry profile showed sodium and potassium are 126 and 6.2. His BUN and creatinine were 83 and 3.4. His INR was noted to be 3.5. The on-call physician, Dr. Ellis, reviewed these labs and converse with this patient via phone on 11/05/2021 and recommended he report to the emergency department for further evaluation as the laboratory results were obtained after office hours concluded. Patient declined emergency department evaluation at that time and remain home. Patient ultimately followed up with the [facility] urology office and saw Dr. Valencia. Patient was again noted to have gross hematuria in the Orosco bag. Due to the lab abnormalities noted the previous day the patient was instructed go to the emergency room and patient complied this time. There is no over the mention that Dr. Juliano gallo felt that the patient may require permanent Orosco catheter as the patient was noted to have a nonfunctioning bladder. Upon presentation to the emergency department the patient was noted to be hypotensive with a systolic blood pressure in the 90s. Patient was also noted to be tachycardic with heart rate anywhere from 106-120. Labs were performed her white blood cell count was noted to be 16.7. His hemoglobin and hematocrit had dropped further to 5.8 19.6. Platelet count was again elevated at 488,000. Chemistry profile showed sodium and potassium are 121 and 6.9. His BUN and creatinine were 81 and 3.5. INR was noted to be 4.1. Patient did have a Covid test that was noted to be negative. Patient was ultimately admitted to the hospital for further treatment. Thus far the patient has been transfused 2 units of packed red blood cells with 1/3 unit transfusing at the present time. He has been seen by nephrology. Patient has had his hyperkalemia treated with calcium gluconate, insulin, veltaqssa, and sodium bicarbonate. He has also been given a one-time dose of Lasix. He has had repeat labs performed where his white blood cell count was 13.1. Hemoglobin hematocrit were 6.5 and 20.5. Platelet count was noted to be within the normal range. Repeat chemistry profile showed sodium and potassium are 130 and 5.7. His BUN and creatinine were 71 and 2.8. I visited with the patient in the ICU and discussed with his bedside nurse. The Orosco catheter is draining gross blood that is characterized as dark red with oc casional clots in the Orosco catheter bag. The nurse notes that the Orosco catheter has been draining and remains patent. At the time of my interview the patient was resting comfortably in bed and he was in no distress. Allergies Allergy/AdvReac Type Severity Reaction Status Date / Time No Known Allergies Allergy Verified 11/06/21 12:29 Home Medications Medication Instructions Recorded Confirmed Type aspirin 81 mg tablet,delayed 81 mg PO DAILY 08/04/18 11/06/21 History release (Ecotrin Low Strength) lactobacillus combination no.4 3 3,000 mmu cells PO DAILY 08/04/18 11/06/21 History billion cell capsule (Probiotic) potassium chloride 10 mEq 20 meq PO DAILY PRN tab 08/04/18 11/06/21 History tablet,extended release (Klor-Con) clobetasol 0.05 % topical ointment 1 appln TOP 2XWK PRN gm 06/20/19 11/06/21 History triamcinolone acetonide 0.5 % 1 applic TOP QID PRN #45 gm 02/07/21 11/06/21 Rx topical ointment atorvastatin 40 mg tablet 40 mg PO DAILY #90 tab 05/21/21 11/06/21 Rx metformin 1,000 mg tablet 1,000 mg PO BID #180 tab 06/06/21 11/06/21 Rx trazodone 50 mg tablet See Rx Instructions .ROUTE 06/12/21 11/06/21 Rx .COMPLEX #90 tab empagliflozin 25 mg tablet 25 mg PO QAM #90 tab 06/13/21 11/06/21 Rx (Jardiance) furosemide 40 mg tablet 40 mg PO DAILY PRN #90 tab 06/13/21 11/06/21 Rx metoprolol succinate 25 mg 25 mg PO DAILY #90 tab 06/13/21 11/06/21 Rx tablet,extended release 24 hr (Toprol XL) glimepiride 1 mg tablet 1 mg PO DAILY #90 tab 07/14/21 11/06/21 Rx silodosin 8 mg capsule 8 mg PO DAILY #90 cap 07/31/21 11/06/21 Rx lisinopril 10 mg tablet 10 mg PO DAILY #90 tab 10/06/21 11/06/21 Rx warfarin 5 mg tablet (Jantoven) See Rx Instructions PO UD tab 10/31/21 11/06/21 History warfarin 7.5 mg tablet (Jantoven) See Rx Instructions PO UD tab 10/31/21 11/06/21 History Patient History Medical History Chronic anticoagulation Chronic kidney disease States right kidney doesn't function much at all;Left kidney doing all the work per pt Diabetes Diabetic retinopathy Diverticulum of bladder Erectile dysfunction Hematuria Couple days out of a month will noted tea colored urine; Hydronephrosis Hydronephrosis of right kidney Hypercholesteremia Hypertension Incomplete bladder emptying Insomnia Neurogenic bladder Prostate cancer Psoriasis Surgical History H/O aortic valve replacement H/O colonoscopy Tubular adenoma 08/22/18 H/O cystoscopy Family History Mother Asthma MVP (mitral valve prolapse) Father Leukemia Pernicious anemia Brother No problems noted. Brother No problems noted. Brother No problems noted. Sister No problems noted. Daughter No problems noted. Daughter No problems noted. 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; Other Information That Helps Us Care for You: No Feels Safe at Home: Yes Safety Concerns: Feels Safe At This Time caffeine: No during the past year weight has: remained stable Assistive Devices: None Review of Systems Constitutional: no fever and no chills Eyes: no diplopia Ear, Nose, Mouth, Throat: no ear pain Respiratory: no cough and no dyspnea Cardiovascular: no chest pain Gastrointestinal: no abdominal pain, no nausea and no vomiting Genitourinary: no dysuria Musculoskeletal: no back pain Integumentary: no rash Neurologic: no localized weakness Physical Exam Constitutional: well developed and well nourished; no acute distress Eyes: no conjunctival abnormality ENMT: Ears: no hearing impairment Mouth: no oropharynx abnormality Neck: trachea midline Respiratory: normal respiratory effort; no respiratory distress and no labored breathing Cardiovascular: Rate/Rhythm: regular rate and regular rhythm Gastrointestinal (Abdomen): Soft, nondistended Musculoskeletal: No calf tenderness Skin: Skin appears pale Neurologic: moves all extremities Psychiatric: A+Ox3, euthymic affect Results & Data ([facility]) Vital Signs (Past 12 Hours) Vital Signs Temp Pulse Pulse Resp BP BP Pulse Ox 11/06/21 19:00 106 H 21 108/59 L 95 11/06/21 18:56 36.8 C 107 H 17 108/59 L 99 11/06/21 18:40 36.8 C 109 H 19 110/59 L 99 11/06/21 18:00 105/57 L 11/06/21 17:30 36.8 C 93/65 L 11/06/21 17:20 36.8 C 108 H 18 116/60 100 11/06/21 17:00 106 H 17 116/60 98 11/06/21 16:15 120 H 106/66 99 11/06/21 14:30 107 H 25 H 94/59 L 100 11/06/21 14:15 108 H 23 100/64 97 11/06/21 14:00 108 H 26 H 99/65 L 97 11/06/21 13:45 114 H 23 107/60 100 11/06/21 13:30 109 H 32 H 112/69 99 11/06/21 13:24 37 C 108 H 18 130/76 99 11/06/21 13:00 99 H 25 H 130/76 99 11/06/21 12:45 107 H 14 120/76 99 11/06/21 12:44 37 C 108 H 18 120/76 98 11/06/21 12:39 37 C 110 H 18 105/57 L 98 11/06/21 12:30 108 H 19 105/57 L 100 11/06/21 12:15 109 H 18 103/65 100 11/06/21 12:00 36.5 C 111 H 17 90/54 L 100 11/06/21 11:55 112 H 25 H 97/45 L 100 11/06/21 11:49 36.4 C L 108 H 18 83/49 L 100 11/06/21 11:45 114 H 30 H 83/49 L 100 11/06/21 11:35 114 H 23 80/51 L 100 11/06/21 11:30 110 H 20 63/44 L 100 11/06/21 11:20 118 H 23 74/49 L 11/06/21 11:19 113 H 20 74/49 L 99 11/06/21 11:15 65 23 91 11/06/21 11:14 70 22 83/40 L 97 11/06/21 11:12 99 H 16 80/46 L 100 11/06/21 11:11 96 H 21 80/46 L 100 11/06/21 11:09 127 H 93 H 21 83/55 L 83/55 L 92 11/06/21 11:01 114 H 26 H 76/47 L 99 11/06/21 11:00 115 H 22 100 11/06/21 10:50 85/45 L 11/06/21 10:20 36.9 C 110 H 18 104/61 100 PG Care Time/CCT Total # of Minutes Spent Total Time Spent with Patient: Total time spent is greater than 50% in coordination of care (as documented) at patient's floor/unit and/or counseling patient: Coding Level of Care Code 07303 Inpt Consult Level 5 Diagnoses Hematuria R31.0 Hematuria type: gross (1) Hematuria Hematuria type: gross Qualified Code(s): R31.0 - Gross hematuria
[2021-11-06 20:22] LABS: Appearance Urine Turbid (Clear); Bacteria Urine Automated Negative (Negative); Blood Urine 3+ (Negative); Color Urine Red; Epithelial Cell Urine Auto 20-30 /lpf (0-5); Glucose Urine UA 1+ (Negative); Ketones Urine Negative (Negative); Leukocyte Esterase Urine 2+ (Negative); Nitrite Urine Positive (Negative); Protein Urine 3+ (Negative); Specific Gravity Urine 1.008 (1.000-1.030); Urobilinogen Urine Negative (Negative); WBC Urine Automated >30 /hpf (0-5)
[2021-11-06] MEDS: PANTOprazole 40 MG TAB PO SCH (20:25)
[2021-11-06 20:26] LABS: Bilirubin Urine 1+ (Negative)
[2021-11-06 20:34] LABS: RBC Urine Automated >30 /hpf (0-4)
[2021-11-07] MEDS: SODIUM CHLORIDE 0.9% 1000ML 1,000 ML IV SCH ×4 (00:54→20:41)
[2021-11-07 00:56] LABS: Basophils # (auto) 0.02 K/uL (0-0.2); Basophils % (auto) 0.2 %; Eosinophils # (auto) 0.07 K/uL (0-0.5); Eosinophils % (auto) 0.8 %; Hemoglobin 8.1 g/dL (14.0-18.0); Immature Granulocytes # (auto) 0.15 K/uL (0.00-0.02); Immature Granulocytes % (auto) 1.8 %; Lymphocytes # (auto) 0.82 K/uL (1.2-3.4); Lymphocytes % (auto) 9.7 %; Mean Corpuscular Hemoglobin 27.2 pg (25-34); Mean Corpuscular Hgb Conc 32.4 g/dL (32-36); Mean Corpuscular Volume 83.9 fL (80-100); Mean Platelet Volume 9.7 fL (7.4-10.4); Monocytes # (auto) 1.88 K/uL (0.11-0.59); Monocytes % (auto) 22.2 %; Neutrophils # (auto) 5.53 K/uL (1.4-6.5); Neutrophils % (auto) 65.3 %; Platelet Count 293 K/uL (130-400); RDW Coefficient of Variation 16.7 % (11.5-14.5); RDW Standard Deviation 50.8 fL (36.4-46.3); Red Blood Count 2.98 M/uL (4.7-6.1); White Blood Count 8.47 K/uL (4.8-10.8)
[2021-11-07 01:05] LABS: INR 1.6 (0.9-1.1)
[2021-11-07 01:19] LABS: BUN Creatinine Ratio 26.6 (10-20); Calcium 8.6 mg/dl (8.5-10.1); Creatinine Clr Calc Pharmacy 44.6 ml/min; Est GFR (African American) 35.4 ml/min; Est GFR (Non-African American) 30.5 ml/min; Magnesium 1.7 mg/dl (1.8-2.4); Phosphorus 4.8 mg/dl (2.5-4.9); Potassium 4.4 mmol/L (3.5-5.1)
[2021-11-07] MEDS ORDERED: MAGNESIUM SULFATE / D5W 1 GM/100 ML BAG IV ONE ×2 (01:25→10:30)
--- NOTE | 2021-11-07 01:32 | Communication Note ---
Date of Service: November 07, 2021 Patient mated with acute renal failure as well as acute blood loss anemia. Patient receiving 2 units PRBCs upon arrival at change of shift. Patient did complete both units of blood and repeat laboratory assessment shows modest improvement in H&H. He continues with blood from his Orosco catheter. Repeat chemistry shows correction of potassium which is down to 4.4 at this time. CO2 has improved to 26. Insulin drip has been discontinued. Patient remains on bicarb drip. Also of note, repeat INR shows INR of 1.6. Given the above-mentioned laboratory findings of subtherapeutic INR and concerns the patient does have mechanical aortic valve and is requiring ongoing anticoagulation, patient will be started on a heparin drip without bolus. Patient does not require additional units of blood at this point, but will repeat H&H in 4 hours and assess for administration for limits at that time. We will discontinue bicarb drip at this time as the patient's potassium has corrected and we will hope to prevent progression to hypokalemia. I anticipate the patient's potassium will continue to improve as his renal function appears to be improving as well. He is having good urine output. Changes to be made include addition of heparin drip. Discontinuation of bicarb drip. Restarting normal saline at 100 mL/h. We will replace 1 g of magnesium. Repeat labs placed for 0500 to include H&H and repeat INR. I have personally spent 35 minutes of critical care time in the direct management of this patient. This is a life/limb threatening event. This includes time spent evaluating patient, direct bedside care, chart review, placing orders, interpretation of diagnostic studies, discussion with consultants, patient, and family members, as well as other required patient management activities. This time is exclusive of all separately billable procedures, and teaching time and separate from and in addition to any other critical care service time. Coding Level of Care Code Critical Care 1st 30-74 mins Time Spent (min) 35
[2021-11-07 01:56] LABS: Partial Thromboplastin Ratio 1.5; Partial Thromboplastin Time 40.5 Seconds (21.0-31.0)
[2021-11-07] MEDS: HEPARIN SODIUM/DEXTROSE 25,000 UNITS/500 ML BAG IV SCH ×2 (03:22→17:44)
[2021-11-07] MEDS: Heparin IV Adult Wt-Based Standard *NO* Bolus Protocol IV SCH ×2 (03:28→03:29)
[2021-11-07] MEDS: AMIODARONE / D5W 360 MG/200 ML BAG IV SCH (04:27)
[2021-11-07 04:57] LABS: Hematocrit (blood only) 25.8 % (42-52); Hemoglobin 8.1 g/dL (14.0-18.0)
[2021-11-07 05:04] LABS: INR 1.5 (0.9-1.1); Prothrombin Time 14.6 Seconds (9.0-12.0)
--- NOTE | 2021-11-07 06:31 | Electrocardiogram Report ---
Test Reason : Blood Pressure : / mmHG Vent. Rate : 070 BPM Atrial Rate : 070 BPM P-R Int : 160 ms QRS Dur : 186 ms QT Int : 466 ms P-R-T Axes : 000 -07 150 degrees QTc Int : 503 ms Normal sinus rhythm Left bundle branch block Abnormal ECG When compared with ECG of 15-NOV-2017 17:22, Vent. rate has decreased BY 41 BPM Confirmed by Quinn Bueno ([id number]) on 11/07/2021 6:31:11 AM Referred By: Confirmed By:Quinn Bueno
--- NOTE | 2021-11-07 06:32 | Electrocardiogram Report ---
Test Reason : Blood Pressure : / mmHG Vent. Rate : 114 BPM Atrial Rate : 114 BPM P-R Int : 000 ms QRS Dur : 170 ms QT Int : 442 ms P-R-T Axes : 000 -11 145 degrees QTc Int : 609 ms Sinus tachycardia Left bundle branch block Abnormal ECG When compared with ECG of 06-NOV-2021 10:49, Vent. rate has increased BY 44 BPM Confirmed by Quinn Bueno ([id number]) on 11/07/2021 6:32:12 AM Referred By: Miguel Angel Valencia Confirmed By:Quinn Bueno
[2021-11-07 07:44] LABS: Estimated Average Glucose 131 mg/dl; Hemoglobin A1C 6.2 % (4.5-5.6)
[2021-11-07] MEDS: PANTOprazole 40 MG TAB PO SCH ×2 (08:35→20:20)
--- NOTE | 2021-11-07 09:00 | Nephrology Progress Note ---
Date of Service November 07, 2021 Assessment & Plan (1) Acute kidney injury: Plan: * RITU due to obstruction and hemodynamic instability * Creatinine improved from 3.46 to 2.29 following volume resuscitation and blood transfusion (baseline Cr 1.3 - 1.5) * K 4.4 this am, remainder of electrolytes are acceptable. Patient is nonoliguric * Continue gentle hydration, monitor PRP (2) Chronic kidney disease, stage III (moderate): Plan: * Baseline Cr 1.3 - 1.5 * Atrophic/nonfunctional R kidney (3) Anemia: Plan: * Required 4 U PRBC since admission * Recommend checking FOBT * Urology consultation reviewed. Await further recommendations. Patient has ongoing blood loss Admission and Anticipated Discharge Date Admission Date: November 06, 2021 Subjective Mr. Davidson was evaluated in the ICU this morning. He denies abdominal pain, melena, palpitations or uremic symptoms. Orosco catheter remains in place draining bloody urine Review of Systems Constitutional: no fever Eyes: no problem reported Ear, Nose, Mouth, Throat: no problem reported Respiratory: no cough and no dyspnea Cardiovascular: no chest pain, no palpitations and no edema Gastrointestinal: no abdominal pain, no nausea, no vomiting and no diarrhea/loose stools Genitourinary: + hematuria Musculoskeletal: no back pain Integumentary: no rash Neurologic: no confusion Physical Exam Constitutional: not in distress Eyes: PERRL, conjunctivae normal, anicteric sclerae ENMT: external ear and nose normal, oropharynx normal Neck: trachea midline, no thyromegaly Respiratory: normal respiratory effort, lungs clear to auscultation Cardiovascular: Rate/Rhythm: regular rate Extremities: no edema Gastrointestinal (Abdomen): normal bowel sounds, soft, nontender, no hepatosplenomegaly Musculoskeletal: Extremities: extremities normal to inspection Skin: no rashes, warm and dry Neurologic: awake; not confused Results & Data ([facility]) Vital Signs (Past 12 Hours) Vital Signs Temp Pulse Resp BP Pulse Ox 11/07/21 08:00 90 11/07/21 06:15 95 H 18 106/56 L 94 11/07/21 06:00 87 18 115/55 L 94 11/07/21 05:45 96 H 21 129/75 95 11/07/21 05:30 94 H 20 115/64 94 11/07/21 05:15 94 H 18 119/66 95 11/07/21 05:00 92 H 21 109/58 L 94 11/07/21 04:45 88 14 112/58 L 94 11/07/21 04:30 93 H 17 116/62 94 11/07/21 04:15 90 19 117/64 94 11/07/21 04:00 88 20 118/61 95 11/07/21 03:45 90 18 115/58 L 92 11/07/21 03:30 90 19 115/59 L 93 11/07/21 03:15 85 26 H 111/58 L 94 11/07/21 03:00 91 H 25 H 120/70 90 11/07/21 02:45 87 22 109/61 91 11/07/21 02:30 87 21 110/64 93 11/07/21 02:15 89 22 111/60 92 11/07/21 02:00 89 19 115/66 93 11/07/21 01:45 85 24 112/57 L 94 11/07/21 01:33 89 20 89/48 L 95 11/07/21 01:30 93 H 19 79/41 L 95 11/07/21 01:16 92 H 11/07/21 01:15 93 H 20 79/41 L 94 11/07/21 01:00 94 H 19 81/44 L 93 11/07/21 00:47 96 H 18 93/47 L 94 11/07/21 00:45 97 H 18 76/43 L 94 11/07/21 00:30 99 H 18 94/53 L 95 11/07/21 00:15 99 H 23 96/57 L 95 11/07/21 00:09 37.0 C 98 H 20 97/56 L 97 11/07/21 00:00 98 H 26 H 97/56 L 94 11/06/21 23:58 99 H 27 H 90/54 L 94 11/06/21 23:57 37.0 C 99 H 22 94/54 L 94 11/06/21 23:46 100 H 14 94/54 L 95 11/06/21 23:45 100 H 17 95 11/06/21 23:30 36.9 C 102 H 20 97/59 L 92 11/06/21 23:15 100 H 20 90/52 L 95 11/06/21 23:00 102 H 24 93/60 L 96 11/06/21 22:45 103 H 20 96/60 L 95 11/06/21 22:30 37.0 C 105 H 21 87/58 L 95 11/06/21 22:15 106 H 20 83/56 L 94 11/06/21 22:00 37.0 C 104 H 21 91/56 L 94 11/06/21 21:45 37.0 C 102 H 20 89/55 L 97 11/06/21 21:30 102 H 17 90/57 L 97 11/06/21 21:29 36.7 C 103 H 22 96/60 L 97 11/06/21 21:15 103 H 18 96/60 L 95 11/06/21 21:08 101 H 20 95/60 L 97 11/06/21 21:07 36.8 C 100 H 22 95/60 L 96 11/06/21 21:06 36.8 C 103 H 23 97/57 L 95 11/06/21 21:00 103 H 23 97/57 L 95 PG Care Time/CCT Total # of Minutes Spent Total Time Spent with Patient: Total time spent is greater than 50% in coordination of care (as documented) at patient's floor/unit and/or counseling patient: Coding Level of Care Code 33241 Subseq Hosp Care Lvl 3 Diagnoses Acute kidney injury N17.9 Chronic kidney disease, stage III (moderate) N18.3 Anemia D64.9
[2021-11-07 09:10] LABS: BUN Creatinine Ratio 27.5 (10-20); Calcium 8.8 mg/dl (8.5-10.1); Est GFR (African American) 38.6 ml/min; Est GFR (Non-African American) 33.3 ml/min; Magnesium 1.9 mg/dl (1.8-2.4); Potassium 4.6 mmol/L (3.5-5.1)
[2021-11-07] MEDS: INSULIN ASPART PER UNIT SC SCH ×4 (09:10→21:14)
--- NOTE | 2021-11-07 09:30 | Critical Care Progress Note ---
Date of Service November 07, 2021 Assessment & Plan (1) Acute kidney injury: (2) Hyperkalemia: (3) Hypercoagulability due to heart valve disorder: (4) Hypotension: (5) Hematuria: Plan: --Acute renal failure with hyperkalemia --> improving Likely secondary to obstruction Orosco catheter has been placed in Strict ins and outs Avoid nephrotoxic medication Monitor BUNs/creatinine S/p hyperkalemia cocktail -- Acute blood loss anaemia Likely secondary to source Status 4 units PRBC Transfuse as needed to keep hemoglobin greater than 7 Monitor H&H Nephrology on board --Transient hypotension Likely from the blood loss Improved with fluids --History of aortic valve replacement Metallic valve On chronic Coumadin --Coagulopathy INR 4.1 s/p vitamin K 2.5 mg on 11/06/2021 --Diabetes type 2 We will start the patient on insulin drip which help with the hyperkalemia ICU hypoglycemia protocol --Dyslipidemia --Prophylaxis VTE: IPC GI: Protonix Lines: Peripheral Diet: Cardiorenal Plan: In/out: -1.4 L, urine output 6 L Patient hemoglobin is stable. I will repeat the hemoglobin again at 10 AM. Wing and is improving significantly. He unfortunately is still having hematuria. I am waiting for urology consult to see him as soon as possible Unfortunately we cannot stop the anticoagulation given that he has mechanical aortic valve. Continue with heparin drip. Patient was on 0.01 of Levophed. Examination with MAP of 74. It was stopped Patient is hemodynamically stable to be downgraded to medical floor. Please note the above document was generated using voice recognition software. It may contain grammatical, syntax or spelling errors. Admission and Anticipated Discharge Date Admission Date: November 06, 2021 Subjective Patient seen and examined at bedside. No acute distress, no adverse events overnight. Patient did get 3 to 4 units of PRBC yesterday His INR went down to 1.5, he has been started on heparin drip. Denies any chest pain, no belly pain, no nausea or vomiting. Review of Systems Review of Systems: All systems reviewed & are unremarkable except as noted in Subjective Physical Exam Physical Exam: Constitutional: No acute distress HEENT: EOMI, PERRLA Respiratory system: Good air entry bilaterally, no wheeze, no rhonchi, mild crackles bilateral lower lobes CVS: S1-S2 positive, mechanical heart sound appreciated best at the aorta Abdomen: Soft, nontender, nondistended, positive bowel sounds x4, obese Extremities: +2 pulses bilaterally radialis/ dorsalis pedis, no cyanosis, no edema Neuro: Awake alert oriented x3 Psych: Normal mood and affect G/U: Positive Orosco Skin: no rashes, warm and dry Lymphatic: no cervical or axillary lymphadenopathy Results & Data Results & Data ([facility]) Vital Signs (Past 12 Hours) Vital Signs Temp Pulse Resp BP Pulse Ox 11/07/21 08:00 90 11/07/21 06:15 95 H 18 106/56 L 94 11/07/21 06:00 87 18 115/55 L 94 11/07/21 05:45 96 H 21 129/75 95 11/07/21 05:30 94 H 20 115/64 94 11/07/21 05:15 94 H 18 119/66 95 11/07/21 05:00 92 H 21 109/58 L 94 11/07/21 04:45 88 14 112/58 L 94 11/07/21 04:30 93 H 17 116/62 94 11/07/21 04:15 90 19 117/64 94 11/07/21 04:00 88 20 118/61 95 11/07/21 03:45 90 18 115/58 L 92 11/07/21 03:30 90 19 115/59 L 93 11/07/21 03:15 85 26 H 111/58 L 94 11/07/21 03:00 91 H 25 H 120/70 90 11/07/21 02:45 87 22 109/61 91 11/07/21 02:30 87 21 110/64 93 11/07/21 02:15 89 22 111/60 92 11/07/21 02:00 89 19 115/66 93 11/07/21 01:45 85 24 112/57 L 94 11/07/21 01:33 89 20 89/48 L 95 11/07/21 01:30 93 H 19 79/41 L 95 11/07/21 01:16 92 H 11/07/21 01:15 93 H 20 79/41 L 94 11/07/21 01:00 94 H 19 81/44 L 93 11/07/21 00:47 96 H 18 93/47 L 94 11/07/21 00:45 97 H 18 76/43 L 94 11/07/21 00:30 99 H 18 94/53 L 95 11/07/21 00:15 99 H 23 96/57 L 95 11/07/21 00:09 37.0 C 98 H 20 97/56 L 97 11/07/21 00:00 98 H 26 H 97/56 L 94 11/06/21 23:58 99 H 27 H 90/54 L 94 11/06/21 23:57 37.0 C 99 H 22 94/54 L 94 11/06/21 23:46 100 H 14 94/54 L 95 11/06/21 23:45 100 H 17 95 11/06/21 23:30 36.9 C 102 H 20 97/59 L 92 11/06/21 23:15 100 H 20 90/52 L 95 11/06/21 23:00 102 H 24 93/60 L 96 11/06/21 22:45 103 H 20 96/60 L 95 11/06/21 22:30 37.0 C 105 H 21 87/58 L 95 11/06/21 22:15 106 H 20 83/56 L 94 11/06/21 22:00 37.0 C 104 H 21 91/56 L 94 11/06/21 21:45 37.0 C 102 H 20 89/55 L 97 11/06/21 21:30 102 H 17 90/57 L 97 11/06/21 21:29 36.7 C 103 H 22 96/60 L 97 Laboratory Results 11/07/21 04:31 11/07/21 04:37 Coding Level of Care Code [id number] [facility] 3 Diagnoses Acute kidney injury N17.9 Hyperkalemia E87.5 Hypercoagulability due to heart valve disorder D68.69; I38 Hypotension I95.9 Hematuria R31.9
[2021-11-07] MEDS: NOREPINEPHRINE/D5W 8 MG/508 ML BAG IV SCH (10:06)
[2021-11-07] MEDS ORDERED: INSULIN GLARGINE SOLOSTAR 100 UNITS/ML 3 ML PEN SC STA (10:24)
[2021-11-07 10:29] LABS: Hemoglobin 7.9 g/dL (14.0-18.0)
[2021-11-07] MEDS ORDERED: PHARMACY GLYCEMIC MGMT CONSULT PRN (10:51)
[2021-11-07 10:53] LABS: Partial Thromboplastin Ratio 1.8; Partial Thromboplastin Time 47.9 Seconds (21.0-31.0)
--- NOTE | 2021-11-07 11:27 | Urology Progress Note ---
Date of Service November 07, 2021 Assessment & Plan (1) Hematuria: Plan: 55yo M with a mechanical aortic valve on chronic anticoagulation admitted with RITU, hyperkalemia, hypercoagulability, and gross hematuria - Plan of care reviewed with Dr. Carvajal, on-call urologist. - Hematuria in the setting of chronic anticoagulation with supratherapeutic INR on admission and possible UTI. - INR now 1.5, pt has been started on heparin drip. - Pt afebrile. - Labs reviewed - Wbc 8.47, Hemoglobin 7.9 (received 4u PRBC since admit), Creatinine 2.13 - Continue to trend. - Urine culture pending, follow culture. - No acute intervention warranted at this time. - Orosco intact and patent, draining dark red urine. - Maintain Orosco catheter. Ok to gently hand irrigate as needed for clots, retention, or suprapubic pain. - Monitor H&H, transfuse as felt necessary per primary team. - Patient has mechanical aortic valve and therefore he cannot stop his anticoagulation. Recommend taking measures to correct INR to therapeutic level as we suspect his hematuria may clear on its own once INR is stabilized. - Continue supportive care and management per primary team. - Pt will need outpatient follow-up with urologist, likely needs cystoscopy, but this can be discussed during outpatient visit. - Will continue to follow. Admission and Anticipated Discharge Date Admission Date: November 06, 2021 Subjective Pt examined at bedside this AM. Awake, resting in bed on arrival. No acute distress. No fevers overnight. Denies abdominal, flank, and suprapubic pain at present. Orosco catheter intact and patent, draining with hematuria. Review of Systems Constitutional: as per Subjective / HPI Genitourinary: + as per Subjective / HPI Physical Exam Constitutional: well developed and well nourished; no acute distress Respiratory: normal respiratory effort; no respiratory distress and no labored breathing Gastrointestinal (Abdomen): Inspection/Auscultation: abdomen normal to inspection Percussion/Palpation: abdomen soft; abdomen nontender and no guarding Skin: No visible rashes or lesions to exposed skin areas Neurologic: moves all extremities and awake Psychiatric: Orientation: alert, oriented x 3 and cooperative Genitourinary: Orosco intact, draining dark red urine Results & Data ([facility]) Vital Signs (Past 12 Hours) Vital Signs Temp Pulse Resp BP Pulse Ox 11/07/21 08:00 90 11/07/21 06:15 95 H 18 106/56 L 94 11/07/21 06:00 87 18 115/55 L 94 11/07/21 05:45 96 H 21 129/75 95 11/07/21 05:30 94 H 20 115/64 94 11/07/21 05:15 94 H 18 119/66 95 11/07/21 05:00 92 H 21 109/58 L 94 11/07/21 04:45 88 14 112/58 L 94 11/07/21 04:30 93 H 17 116/62 94 11/07/21 04:15 90 19 117/64 94 11/07/21 04:00 88 20 118/61 95 11/07/21 03:45 90 18 115/58 L 92 11/07/21 03:30 90 19 115/59 L 93 11/07/21 03:15 85 26 H 111/58 L 94 11/07/21 03:00 91 H 25 H 120/70 90 11/07/21 02:45 87 22 109/61 91 11/07/21 02:30 87 21 110/64 93 11/07/21 02:15 89 22 111/60 92 11/07/21 02:00 89 19 115/66 93 11/07/21 01:45 85 24 112/57 L 94 11/07/21 01:33 89 20 89/48 L 95 11/07/21 01:30 93 H 19 79/41 L 95 11/07/21 01:16 92 H 11/07/21 01:15 93 H 20 79/41 L 94 11/07/21 01:00 94 H 19 81/44 L 93 11/07/21 00:47 96 H 18 93/47 L 94 11/07/21 00:45 97 H 18 76/43 L 94 11/07/21 00:30 99 H 18 94/53 L 95 11/07/21 00:15 99 H 23 96/57 L 95 11/07/21 00:09 37.0 C 98 H 20 97/56 L 97 11/07/21 00:00 98 H 26 H 97/56 L 94 11/06/21 23:58 99 H 27 H 90/54 L 94 11/06/21 23:57 37.0 C 99 H 22 94/54 L 94 11/06/21 23:46 100 H 14 94/54 L 95 11/06/21 23:45 100 H 17 95 11/06/21 23:30 36.9 C 102 H 20 97/59 L 92 PG Care Time/CCT Total # of Minutes Spent Total Time Spent with Patient: Total time spent is greater than 50% in coordination of care (as documented) at patient's floor/unit and/or counseling patient: Coding Level of Care Code 42985 Subseq Hosp Care Lvl 2 Diagnoses Hematuria R31.0 Hematuria type: gross (1) Hematuria Hematuria type: gross Qualified Code(s): R31.0 - Gross hematuria
[2021-11-07] MEDS ORDERED: INSULIN ASPART 100 UNITS/ML 3 ML PEN SC SCH (11:30)
--- NOTE | 2021-11-07 12:10 | Pharmacy Report ---
Pharmacy Glycemic Short Note 2 - Date of Service November 07, 2021 - Glycemic Short BSG Results (Last 24 hours): 11/06/21 11/06/21 11/06/21 13:03 16:17 17:48 Glucose 323 H* 232 H POC Glucose 177 H 11/06/21 11/06/21 11/06/21 18:47 20:23 21:23 Glucose POC Glucose 126 H 131 H 110 H 11/06/21 11/06/21 11/07/21 22:27 23:24 00:40 Glucose 90 POC Glucose 107 H 95 11/07/21 11/07/21 11/07/21 04:37 08:50 11:44 Glucose 144 H POC Glucose 175 H 229 H OUTPATIENT ANTIDIABETIC REGIMEN: * empagliflozin 25mg Q AM * metformin 1gm PO BID * glimepiride 1mg po daily * A1c = 6.2% ASSESSMENT: * Type 2 diabetic admitted for hematuria, RITU, ABLA * Patient was placed on insulin drip yesterday for both hyperglycemia and hyperkalemia. The insulin drip was weaned off overnight. * Will begin basal/bolus SQ regimen at this time, dosing to be based upon weight and "moderate" stress level. PLAN FOR INPATIENT GLYCEMIC CONTROL: * Hold outpatient oral diabetes medications * Basal insulin * Lantus 20unit x1 this AM followed by scaled dosing this evening (additional 10 units if BSG 180 or greater) * Bolus insulin * NovoLog per scale ACHS or Q6hrs while NPO * Goal Range: Low 110 mg/dL - High 140 mg/dL * Correction Factor: 20 mg/dL/unit * Nutritional / Prandial insulin per carb ratio of 1 unit per 7 grams CHO consumed PLAN FOR DISCHARGE: * to be determined
[2021-11-07 15:59] LABS: Hematocrit (blood only) 23.1 % (42-52); Hemoglobin 7.3 g/dL (14.0-18.0); Mean Corpuscular Hemoglobin 26.9 pg (25-34); Mean Corpuscular Hgb Conc 31.6 g/dL (32-36); Mean Corpuscular Volume 85.2 fL (80-100); Mean Platelet Volume 10.4 fL (7.4-10.4); Nucleated RBC # (auto) 0.04 K/uL (0-0); Nucleated RBC % (auto) 0.4 %; Platelet Count 283 K/uL (130-400); RDW Coefficient of Variation 16.8 % (11.5-14.5); RDW Standard Deviation 51.7 fL (36.4-46.3); Red Blood Count 2.71 M/uL (4.7-6.1); White Blood Count 10.41 K/uL (4.8-10.8)
--- NOTE | 2021-11-07 16:10 | Electrocardiogram Report ---
Test Reason : Blood Pressure : / mmHG Vent. Rate : 108 BPM Atrial Rate : 108 BPM P-R Int : 160 ms QRS Dur : 148 ms QT Int : 402 ms P-R-T Axes : 000 -06 145 degrees QTc Int : 538 ms Sinus tachycardia Left bundle branch block Abnormal ECG When compared with ECG of 06-NOV-2021 11:00, (unconfirmed) Sinus rhythm has replaced Wide QRS rhythm Confirmed by Dm Parker [id number]) on 11/07/2021 4:10:29 PM Referred By: Miguel Angel Valencia Confirmed By:Dm Parker
[2021-11-07 16:20] LABS: Basophils # (auto) 0.03 K/uL (0-0.2); Basophils % (auto) 0.3 %; Eosinophils # (auto) 0.18 K/uL (0-0.5); Eosinophils % (auto) 1.7 %; Hypochromasia Present; Immature Granulocytes # (auto) 0.23 K/uL (0.00-0.02); Immature Granulocytes % (auto) 2.2 %; Lymphocytes # (auto) 0.98 K/uL (1.2-3.4); Lymphocytes % (auto) 9.4 %; Monocytes # (auto) 1.86 K/uL (0.11-0.59); Monocytes % (auto) 17.9 %; Neutrophils # (auto) 7.13 K/uL (1.4-6.5); Neutrophils % (auto) 68.5 %; Polychromasia 1+
--- NOTE | 2021-11-07 17:14 | Hospitalist Progress Note ---
Date of Service November 07, 2021 Assessment & Plan (1) Hypotension: Plan: hemorrhagic shock from hemorrhagic cystitisnow more stabilized status post transfusion of 4 units packed red cells. Stable for transfer out of ICU, continue to follow closely (2) Hematuria: Plan: Hemorrhagic cystitis, or related simply to Coumadin induced coagulopathy, probably elements of both. Continue antibiotics, continue to follow urine for clearing. As long as urine clears, can likely pursue outpatient cystoscopy as patient would prefer. If bleeding continues, obviously would need to consider sooner for the possibility of an intervention. The added difficulty with this is his mechanical aortic valve, which necessitates uninterrupted anticoagulation as best as possible. Currently on a heparin drip, resume Coumadin once it is clear that it is safe. Follow hemoglobinis a late addendum, his afternoon hemoglobin was marginally lower, but given that it was a little lower and he still has some bright red urine, hesitate to restart his Coumadin yet (3) Hyperkalemia: Plan: Treated and improved (4) Aortic valve replaced: Plan: Patient is on chronic Coumadin for this, supratherapeutic INR on admission (although really not markedly so given that it was 4.1) Continue to monitor PT/INRand resume Coumadin to get him back to therapeutic as soon as appears safesee above, really this will hinge on his hemoglobin readings, and hematuria For now continue heparin drip due to rapid reversibility if the need arises (5) Uncontrolled type 2 diabetes mellitus with chronic kidney disease: Plan: A1c 6.2, pharmacy glycemic management as an inpatient (6) Anemia: Plan: See above with hematuria/hemorrhagic shock (7) Hypercholesterolemia: Plan: Chronically on a statin (8) NSVT (nonsustained ventricular tachycardia): Plan: Heart rates have overall improved with improvement of his volume status Plan: Stable for transfer to med/telemetry Continue to follow hematuria and hemoglobin, ultimately goal will be to get him home, but obviously need to have better control of bleeding and stability on anticoagulation before this is possible Admission and Anticipated Discharge Date Admission Date: November 06, 2021 Subjective Feeling better overall. Still gross hematuria. Notes this happens whenever he gets infections. Notes that he has mechanical aortic valvehas been on anticoagulation for decades, always therapeutic. Would like to pursue cystoscopy as an outpatient rather than inpatient if safe, discussed with urology. No other new complaints. Review of Systems Review of Systems: All systems reviewed & are unremarkable except as noted in HPI & below Physical Exam Physical Exam: General he is awake and alert pleasant no distress. HEENT normocephalic atraumatic mucous membranes moist. Cardio is regular no rubs murmurs or gallops. Lungs clear to auscultation bilaterally no rales rhonchi or wheeze with good effort. Abdomen is soft skin shows no rashes pallor or icterus. Neuro without focal deficits. Results & Data Results & Data ([facility]) Vital Signs (Past 12 Hours) Vital Signs Temp Pulse Pulse Resp BP BP Pulse Ox 11/07/21 14:46 98.6 F 102 H 16 106/64 95 11/07/21 13:30 110 H 22 104/58 L 97 11/07/21 13:00 107 H 24 93/56 L 95 11/07/21 12:30 110 H 20 94/56 L 95 11/07/21 12:00 112 H 22 98/60 L 97 11/07/21 11:30 119 H 17 113/65 96 11/07/21 11:00 98.4 F 111 H 23 101/59 L 96 11/07/21 10:30 113 H 27 H 101/59 L 95 11/07/21 10:00 108 H 21 93/56 L 96 11/07/21 09:30 120 H 20 95/60 L 94 11/07/21 09:00 112 H 24 111/60 98 11/07/21 08:45 106 H 20 122/64 98 11/07/21 08:30 110 H 27 H 129/78 98 11/07/21 08:15 89 16 101/60 97 11/07/21 08:00 93 H 20 122/56 L 97 11/07/21 07:45 97 H 22 111/66 92 11/07/21 07:30 87 15 114/57 L 96 11/07/21 07:15 94 H 18 108/64 94 11/07/21 07:00 90 12 101/52 L 94 11/07/21 06:15 95 H 18 106/56 L 94 11/07/21 06:00 87 18 115/55 L 94 11/07/21 05:45 96 H 21 129/75 95 11/07/21 05:30 94 H 20 115/64 94 11/07/21 05:15 94 H 18 119/66 95 PG Care Time/CCT Total # of Minutes Spent Total Time Spent with Patient: Total time spent is greater than 50% in coordination of care (as documented) at patient's floor/unit and/or counseling patient: Coding Level of Care Code 14150 Subseq Hosp Care Lvl 3 Diagnoses Hypotension I95.9 Hyperkalemia E87.5 Hematuria R31.9 Aortic valve replaced Z95.2 Uncontrolled type 2 diabetes mellitus with chronic kidney disease E11.22; E11.65 Anemia D64.9 Hypercholesterolemia E78.00 NSVT (nonsustained ventricular tachycardia) I47.2
[2021-11-07] MEDS ORDERED: INSULIN GLARGINE SOLOSTAR 100 UNITS/ML 3 ML PEN SC SCH (21:00)
[2021-11-07] MEDS ORDERED: INSULIN GLARGINE SOLOSTAR 100 UNITS/ML 3 ML PEN SC ONE (21:00)
[2021-11-08] MEDS ORDERED: INSULIN ASPART PER UNIT SC ONE (02:00)
[2021-11-08] MEDS: MELATONIN 3 MG TAB PO PRN (03:10)
[2021-11-08 03:12] LABS: Hematocrit (blood only) 20.7 % (42-52); Hemoglobin 6.6 g/dL (14.0-18.0); Mean Corpuscular Hemoglobin 27.5 pg (25-34); Mean Corpuscular Hgb Conc 31.9 g/dL (32-36); Mean Corpuscular Volume 86.3 fL (80-100); Mean Platelet Volume 9.6 fL (7.4-10.4); Nucleated RBC # (auto) 0.03 K/uL (0-0); Nucleated RBC % (auto) 0.3 %; Platelet Count 278 K/uL (130-400); RDW Coefficient of Variation 16.9 % (11.5-14.5); RDW Standard Deviation 52.3 fL (36.4-46.3); White Blood Count 10.06 K/uL (4.8-10.8)
[2021-11-08] MEDS ORDERED: SODIUM CHLORIDE 0.9% 250 ML IV PRN ×2 (03:16→20:27)
--- NOTE | 2021-11-08 06:26 | Communication Note ---
Date of Service: November 08, 2021 Subjective: Nursing notified that the patient had thick dark blood in his Orosco and last hgb was stable in the low 7's. Patient denies chest pain, shortness of breath or fatigue. Objective: HR: 115 Orosco with thick dark blood, just emptied A/P: 55 yo w/ mechanical heart valve on Heparin with hemorrhagic cystitis, tachycardia and dark red blood in Orosco - ordered H&H at 2AM that came back at 6.6 - 1U pRBC ordered and will recheck 1 hr. after completing transfusion
[2021-11-08 07:00] LABS: BUN Creatinine Ratio 25.1 (10-20); Calcium 8.2 mg/dl (8.5-10.1); Creatinine Clr Calc Pharmacy 67.2 ml/min; Est GFR (African American) 56.8 ml/min; Potassium 4.5 mmol/L (3.5-5.1)
[2021-11-08 07:46] LABS: Hematocrit (blood only) 22.9 % (42-52); Hemoglobin 7.2 g/dL (14.0-18.0)
[2021-11-08 07:58] LABS: INR 1.2 (0.9-1.1); Partial Thromboplastin Ratio 2.4; Prothrombin Time 12.4 Seconds (9.0-12.0)
[2021-11-08 08:27] LABS: Partial Thromboplastin Time 62.3 Seconds (21.0-31.0)
[2021-11-08] MEDS: SODIUM CHLORIDE 0.9% 1000ML 1,000 ML IV SCH ×2 (08:29→16:36)
[2021-11-08] MEDS: HEPARIN SODIUM/DEXTROSE 25,000 UNITS/500 ML BAG IV SCH (08:29)
[2021-11-08] MEDS: INSULIN ASPART PER UNIT SC SCH ×4 (08:33→20:37)
[2021-11-08] MEDS: METOPROLOL SUCC 25MG EXT REL TAB PO SCH (08:35)
[2021-11-08] MEDS: ATORVASTATIN 40 MG TAB PO SCH (08:35)
[2021-11-08] MEDS: PANTOprazole 40 MG TAB PO SCH ×2 (08:35→20:38)
[2021-11-08] MEDS: INSULIN GLARGINE SOLOSTAR 100 UNITS/ML 3 ML PEN SC SCH (08:35)
[2021-11-08] MEDS ORDERED: Nursing to Pharmacy Communication SCH ×2 (09:00→18:45)
--- NOTE | 2021-11-08 11:14 | Nephrology Progress Note ---
Date of Service November 08, 2021 Assessment & Plan (1) RITU (acute kidney injury): (2) Acute hyperkalemia: (3) Anemia: (4) Hematuria: (5) Hypotension: Plan: 55 year old male with RITU and gross hematuria w h/o prostate carcinoma Dx in 2019, underwent androgen deprivation therapy, radiation therapy and has chronic R hydronephrosis and R renal atrophy,b/l cr 1.3 - 1.5.He developed gross hematuria and contacted his Urologist and on 11/05/20 underwent Orosco catheter insertion as an outpatient. Lab post procedure revealed anemia and progressive renal dysfunction and referred to ER. On admission SBP was 70's, Hgb 6.5, INR 4.1, Cr 3.5, K 6.2. Orosco catheter was obstructed w/ blood clot but successfully irrigated and had total 4 units of PRBC. Hemoglobin again dropped to 6.6 overnight and received in another unit of blood transfusion cystoscopy today as he continues to significant gross hematuria renal function started to improve with improvement in blood pressure and release of obstruction hemoglobin creatinine drawn to 1.6 this morning. Electrolyte has been acceptable. -- Continue to monitor renal function and electrolyte while inpatient. Will follow Admission and Anticipated Discharge Date Admission Date: November 06, 2021 Subjective Arturo was seen evaluated this he denies any shortness of breath pain. Continues to gross hematuria and hemoglobin to 6.6 overnight requiring another unit of blood transfusion. Plan for cystoscopy this morning. Review of Systems Review of Systems: Detailed review of system was otherwise Unremarkable. Physical Exam Constitutional: WD/WN, vitals as above no acute distress Eyes: + anicteric sclerae Respiratory: no respiratory distress Auscultation: lungs clear to auscultation bilaterally Cardiovascular: Rate/Rhythm: regular rate and regular rhythm Heart Sounds: normal S1 and normal S2 Extremities: no edema Skin: no rashes Neurologic: no focal motor deficits and not confused Psychiatric: Orientation: alert and oriented x 3 Results & Data ([facility]) Vital Signs (Past 12 Hours) Vital Signs Temp Pulse Pulse Resp BP BP Pulse Ox 11/08/21 08:00 36.8 C 101 H 19 114/73 96 11/08/21 06:14 36.8 C 94 H 18 108/73 96 11/08/21 06:00 36.8 C 98 H 18 108/73 99 11/08/21 05:00 36.9 C 96 H 18 101/65 95 11/08/21 04:30 36.9 C 90 18 101/63 96 11/08/21 04:15 36.6 C 120 H 18 100/64 96 11/08/21 03:59 37 C 129 H 100 H 18 103/67 104/69 96 11/08/21 00:02 103 H 11/07/21 23:59 36.8 C 102 H 16 106/53 L 97 PG Care Time/CCT Total # of Minutes Spent Total Time Spent with Patient: Total time spent is greater than 50% in coordination of care (as documented) at patient's floor/unit and/or counseling patient: Coding Level of Care Code 23748 Subseq Hosp Care Lvl 2 Diagnoses RITU (acute kidney injury) N17.9 Acute hyperkalemia E87.5 Anemia D64.9 Anemia type: unspecified type Hematuria R31.0 Hematuria type: gross Hypotension I95.89; E86.1 Hypotension type: hypotension due to hypovolemia (1) Anemia Anemia type: unspecified type Qualified Code(s): D64.9 - Anemia, unspecified (2) Hematuria Hematuria type: gross Qualified Code(s): R31.0 - Gross hematuria (3) Hypotension Hypotension type: hypotension due to hypovolemia Qualified Code(s): I95.89 - Other hypotension; E86.1 - Hypovolemia
--- NOTE | 2021-11-08 16:35 | Anesthesiology Consultation ---
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 History Surgery Operation Date: 11/08/21 17:00 Proposed Procedures p Cystoscopy, Clot evacuation and fulgeration - Shaun Carvajal DO Height/Weight Height: 5 ft 9 in Weight: 119.7 kg Allergies Allergy/AdvReac Type Severity Reaction Status Date / Time No Known Allergies Allergy Verified 11/06/21 12:29 Medications Home Medications Medication Instructions Recorded Confirmed Last Taken aspirin 81 mg tablet,delayed 81 mg PO DAILY 08/04/18 11/06/21 Unknown release (Ecotrin Low Strength) lactobacillus combination no.4 3 3,000 mmu cells PO DAILY 08/04/18 11/06/21 Unknown billion cell capsule (Probiotic) potassium chloride 10 mEq 20 meq PO DAILY PRN tab 08/04/18 11/06/21 Unknown tablet,extended release (Klor-Con) clobetasol 0.05 % topical ointment 1 appln TOP 2XWK PRN gm 06/20/19 11/06/21 U nknown triamcinolone acetonide 0.5 % 1 applic TOP QID PRN #45 gm 02/07/21 11/06/21 Unknown topical ointment atorvastatin 40 mg tablet 40 mg PO DAILY #90 tab 05/21/21 11/06/21 Unknown metformin 1,000 mg tablet 1,000 mg PO BID #180 tab 06/06/21 11/06/21 Unknown trazodone 50 mg tablet See Rx Instructions .ROUTE 06/12/21 11/06/21 Unknown .COMPLEX #90 tab empagliflozin 25 mg tablet 25 mg PO QAM #90 tab 06/13/21 11/06/21 Unknown (Jardiance) furosemide 40 mg tablet 40 mg PO DAILY PRN #90 tab 06/13/21 11/06/21 Unknown metoprolol succinate 25 mg 25 mg PO DAILY #90 tab 06/13/21 11/06/21 Unknown tablet,extended release 24 hr (Toprol XL) glimepiride 1 mg tablet 1 mg PO DAILY #90 tab 07/14/21 11/06/21 Unknown silodosin 8 mg capsule 8 mg PO DAILY #90 cap 07/31/21 11/06/21 Unknown lisinopril 10 mg tablet 10 mg PO DAILY #90 tab 10/06/21 11/06/21 Unknown warfarin 5 mg tablet (Novtoven) See Rx Instructions PO UD tab 10/31/21 11/06/21 Unknown warfarin 7.5 mg tablet (Novtoven) See Rx Instructions PO UD tab 10/31/21 11/06/21 Unknown Active Medications Generic Name Dose Route Start Last Admin Trade Name Freq PRN Reason Stop Dose Admin Atorvastatin Calcium 40 mg 11/08/21 09:00 11/08/21 08:35 Atorvastatin 40 Mg Tab PO 12/08/21 08:59 Not Given DAILY EDER Sodium Chloride 1,000 mls @ 100 mls/hr 11/07/21 01:30 11/08/21 08:29 Nss 1000ml IV 12/07/21 01:29 100 mls/hr .Q10H EDER Administration Heparin Sodium/Dextrose 25,000 units in 500 mls @ 32 mls/hr 11/07/21 01:45 11/08/21 08:29 Heparin Sodium/Dextrose IV 12/07/21 01:44 1,600 units/hr .[id number] EDER 32 mls/hr Administration Protocol 1,600 UNITS/HR Insulin Aspart 0 units 11/08/21 12:00 11/08/21 11:54 Insulin Aspart Per Unit SC 12/08/21 11:59 1 units Q6H EDER Administration Insulin Glargine 20 units 11/08/21 09:00 11/08/21 08:35 Insulin Glargine Solostar 100 Units/Ml 3 Ml Pen SC 12/08/21 08:59 20 units QAM EDER Administration Melatonin 6 mg 11/08/21 02:32 11/08/21 03:10 Melatonin 3 Mg Tab PO 12/08/21 02:31 6 mg HS PRN Administration Sleep Metoprolol Succinate 25 mg 11/08/21 09:00 11/08/21 08:35 Metoprolol Succ 25mg Ext Rel Tab PO 12/08/21 08:59 Not Given DAILY EDER Pantoprazole Sodium 40 mg 11/06/21 21:00 11/08/21 08:35 Pantoprazole 40 Mg Tab PO 12/06/21 20:59 Not Given BID EDER Past Medical History Medical History Chronic anticoagulation Chronic kidney disease States right kidney doesn't function much at all;Left kidney doing all the work per pt Diabetes Diabetic retinopathy Diverticulum of bladder Erectile dysfunction Hematuria Couple days out of a month will noted tea colored urine; Hydronephrosis Hydronephrosis of right kidney Hypercholesteremia Hypertension Incomplete bladder emptying Insomnia Neurogenic bladder Prostate cancer Psoriasis Past Family History Family History Mother Asthma MVP (mitral valve prolapse) Father Leukemia Pernicious anemia Brother No problems noted. Brother No problems noted. Brother No problems noted. Sister No problems noted. Daughter No problems noted. Daughter No problems noted. Son Seizure disorder Intellectual disability Past Surgical History Surgical History H/O aortic valve replacement H/O colonoscopy Tubular adenoma 08/22/18 H/O cystoscopy Social History Smoking Status: Never smoker Do You Dip or Chew Tobacco: No Hx Alcohol Use: No Hx Substance Use: No Physical Exam Vital Signs Last Vital Signs Temp 98.4 F 11/08/21 15:16 Pulse 95 H 11/08/21 15:16 Resp 97 H 11/08/21 15:16 BP 125/78 11/08/21 15:16 Pulse Ox 97 11/08/21 15:16 Testing Laboratory Results 11/08/21 07:35 11/08/21 05:52 PT 12.4 Seconds (9.0-12.0) H 11/08/21 05:52 INR 1.2 (0.9-1.1) H 11/08/21 05:52 APTT 62.3 Seconds (21.0-31.0) H* 11/08/21 05:52 Hemoglobin A1c 6.2 % (4.5-5.6) H 11/07/21 04:31 Urine Color Red 11/06/21 17:55 Urine Appearance Turbid (Clear) A 11/06/21 17:55 Urine pH 5.0 (4.5-7.5) 11/06/21 17:55 Ur Specific [place] 1.008 (1.000-1.030) 11/06/21 17:55 Urine Protein 3+ (Negative) H 11/06/21 17:55 Urine Glucose (UA) 1+ (Negative) H 11/06/21 17:55 Urine Ketones Negative (Negative) 11/06/21 17:55 Urine Nitrite Positive (Negative) A 11/06/21 17:55 Ur Leukocyte Esterase 2+ (Negative) H 11/06/21 17:55 Urine WBC (Auto) >30 /hpf (0-5) H 11/06/21 17:55 Urine RBC (Auto) >30 /hpf (0-4) H 11/06/21 17:55 U Hyaline Cast (Auto) 1-5 /lpf (0-5) 11/06/21 17:55 U Epithel Cells (Auto) 20-30 /lpf (0-5) H 11/06/21 17:55 Urine Bacteria (Auto) Negative (Negative) 11/06/21 17:55 Blood Type O Negative 11/06/21 10:45 Antibody Screen NEGATIVE 11/06/21 10:45 11/06/21 17:55 Urine Culture - Preliminary Urine,Straight Cath Probable Enterococcus 11/08/21 11/08/21 11:23 07:45 POC Glucose 155 H 179 H Laboratory Tests 11/06/21 11:55 SARS-CoV-2, RNA, NAAT NEGATIVE Electrocardiogram Date: 11/06/21 Sinus tachycardia, rate 108 bpm Left bundle branch block Abnormal ECG When compared with ECG of 06-NOV-2021 11:00, (unconfirmed) Sinus rhythm has replaced Wide QRS rhythm Confirmed by Dm Parker ([id number]) on 11/07/2021 4:10:29 PM Chest X-Ray Date: 11/06/21 IMPRESSION: Mild pulmonary edema. Echocardiogram Date: 07/11/20 Normal LV size, moderate concentric LVH LVEF 55-60%. No regional wall motion abnormalities. Normal RV size and function. Well seated mechanical AV with expected transvalvular gradients. Mitral annular calcification with mild to moderate mitral stenosis. Normal estimated RA and PA pressures.
--- NOTE | 2021-11-08 16:38 | History & Physical Bridge Note ---
Date of Service November 08, 2021 History & Physical Bridge Note I have examined the patient, reviewed the History & Physical and in the interval since the performance of the History & Physical I have noted the following changes of clinical significance: no changes noted
[2021-11-08] MEDS ORDERED: PROPOFOL IV EMULSION 10 MG/ML 20 ML VIAL IV ONE ×4 (16:39→17:56)
[2021-11-08] MEDS ORDERED: fentaNYL citrate 100 MCG/2 ML VIAL ONE (16:39)
--- NOTE | 2021-11-08 16:41 | Urology Progress Note ---
Date of Service November 08, 2021 Assessment & Plan (1) Hematuria: Plan: Patient with known history of recurrent hematuria came in with hypertherapeutic INR. Had been continuing to have clot and dark red urine but was improving and subjectively not having considerable issues. Became once again anemic this morning required transfusion. Patient is n.p.o. Did not end up having breakfast. Has not had anything to eat or drink since midnight. No considerable fevers. Discussed extensively different options. Does following with an outlying urologist. Risks and benefits discussed at length for procedure. These include bleeding, infection, injury to surrounding tissues or organs, and risks associated with anesthesia. Patient states understanding and agrees to proceed. Will sign consent and proceed with cystoscopy with clot evacuation and possible transurethral resection. Admission and Anticipated Discharge Date Admission Date: November 06, 2021 Subjective Patient admitted with gross hematuria. Well-known history of radiation cystitis. [facility] and previously seen Dr. Michaels. Patient had been improving. Has been doing well with catheter. Hemoglobin has continued to drop. Had initially been hypertherapeutic on his INR. Patient is afebrile. Was on supportive therapy with oral medications, IV medications, IV fluids, and oral intake. Has not developed severe vomiting or other issues. Has not experienced fever or chills. Has been tolerating oral medications. Is tolerating fluids. Has noticed some frequency and urgency. Was tolerating catheter and had not needed considerable irrigation but continues to pass moderate amount of hematuria with clots. Has not had severe pain in the back and flank. Does have occasional burning and irritation. No severe episodes or major changes. Required transfusion again this morning. Did not have breakfast. Review of Systems Review of Systems: All systems reviewed & are unremarkable except as noted in HPI & below Physical Exam Physical Exam: General: Alert in no acute distress. HEENT: Normocephalic Atraumatic. Inspection normal. Cranial Nerves 2-12 Grossly intact. Normal inspection of face. Normal inspection of neck. Psychologic: Normal affect. Respiratory: Nonlabored. No use of accessory muscles. No tachypnea or dyspnea. Cardiovascular: No tachycardia Skin: [place] and Dry. No rashes or visible lesions. Extremities/Lymphatics: No edema Abdomen: Soft Non-distended. No rebound or guarding. : Catheter in place draining dark red urine Results & Data ([facility]) Vital Signs (Past 12 Hours) Vital Signs Temp Pulse Pulse Resp BP BP Pulse Ox 11/08/21 15:16 36.9 C 95 H 97 H 125/78 97 11/08/21 11:34 36.9 C 96 H 18 115/73 97 11/08/21 08:00 36.8 C 101 H 19 114/73 96 11/08/21 06:14 36.8 C 94 H 18 108/73 96 11/08/21 06:00 36.8 C 98 H 18 108/73 99 11/08/21 05:00 36.9 C 96 H 18 101/65 95 PG Care Time/CCT Total # of Minutes Spent Total Time Spent with Patient: Total time spent is greater than 50% in coordination of care (as documented) at patient's floor/unit and/or counseling patient: Coding Level of Care Code 35875 Subseq Hosp Care Lvl 3 Diagnoses Hematuria R31.0 Hematuria type: gross (1) Hematuria Hematuria type: gross Qualified Code(s): R31.0 - Gross hematuria
[2021-11-08] MEDS ORDERED: LIDOCAINE 2% 2 ML VIAL/AMP(20MG/ML) INFIL ONE (16:43)
[2021-11-08] MEDS ORDERED: ePHEDrine sulfate 50 MG/ML AMP IV PRN (16:47)
[2021-11-08] MEDS ORDERED: ONDANSETRON INJ 2 MG/ML 2 ML VIAL IV PRN (16:47)
[2021-11-08] MEDS ORDERED: ATROPINE SULFATE 0.1 MG/ML 10ML SYR IV PRN (16:47)
[2021-11-08] MEDS ORDERED: ceFAZolin 2000MG 2,000 MG/15 ML SYR IV ONE (17:41)
--- NOTE | 2021-11-08 18:12 | Operative Report ---
PG Post Operative Report Pre & Post Diagnosis Operation Date: 11/08/21 17:00 Pre-Op Diagnosis: Gross Hematuria Post-Op Diagnosis: Gross Hematuria I identified the patient and participated in the time-out.: Yes Procedure Operation Date: 11/08/21 17:00 Actual Procedures p Cystoscopy with Uretheral Dilation, Clot Evacuation, Prostate and Bladder Fulgeration(Not Applicable) - Shaun Carvajal DO Surgeon Shaun Carvajal, II, DO Manufacturing Recruiter None Estimated Blood Loss 10 Findings Consistent with Post-Op Diagnosis Patient found to have an extremely high bladder neck with large median lobe with severe edema and active bleeding varicosities throughout prostate. Severe stricture of the meatus/distal urethra which was dilated. Severe edematous inflamed tissue throughout bladder especially the bladder neck and trigone. Large diverticulum versus deep bladder base. Specimens None Drains 24 Uzbek three-way Anesthesia Type MAC Complications none Disposition Disposition: Recovery Room Indications Patient with history of radiation. Patient had presented with hyper therapeutic INR and acute blood loss anemia from hematuria. Risks and benefits discussed at length. Description of Procedure Patient was consented and brought back to the operating room. Patient was placed under anesthesia in the supine position and moved to the dorsal lithotomy position. Patient was prepped and draped in the regular sterile fashion. A time out was completed. A 30degree Cystoscope was placed into the urethra and a severe stricture was noted at the meatus and distal urethra. This was dilated. The scope was then advanced to the bladder and the entire bladder was examined. The patient's prostate had multiple large varicosities with multiple areas of bleeding. Had a large amount of clot deep within the base of the bladder due to an extremely high bladder neck with significantly edematous median lobe. A significant clot was then irrigated. Dark red urine was appreciated throughout the entire case. The UO's were identified as well as the bladder neck, trigone, dome, and the other important landmarks. The entire base and and trigone region as well as bladder neck/edges of the prostate were found to be significantly edematous with multiple areas of bleeding varicosities and irritation. The lesions and areas of concern were identified and area/size was assessed. The dome posterior wall and lateral [place] were very difficult to assess due to the extremely high bladder neck and considerable manipulation was necessary in order to maintain the position of the scope within the bladder. The resection scope with the fine bipolar loop was selected. The entire visible areas of lesion was assessed. The lesions were fulgurated and the entire area inspected. All bleeding active areas of bleeding from prostatic varicosities was controlled. The bladder was inspected a final time. The entire base and did appear to be severely edematous and multiple areas of bleeding were noted throughout the bladder. Some of the larger areas were fulgurated. The UOs were identified but difficult to monitor due to the significant edema throughout the base. Bladder appearance was that more of severe acute cystitis. With active bleeding. The bladder was emptied. Multiple irrigations were completed through the scope. The clot material was able to be completely evacuated. The urine did still maintain a red appearance. Largely due to the multiple areas of bleeding inflammation throughout the bladder. Patient had a very deep base of bladder secondary to the high bladder neck and median lobe. No active bleeding was noted throughout the prostate. No bleeding within the urethra. The bladder mucosa in innumerable areas did have a small amount of oozing and irritation. Due to the significant area as well as the appearance of severe cystitis fulguration of all areas would be at risk for considerable scarring and major issues. No active masses or lesions suspicious for malignancy were identified. The dome was never fully visualized secondary to limitations from the patient's habitus and need for increased manipulation of scope. At this point a sensor wire was placed. The scope was removed and then replaced in order to confirm placement of the wire within the bladder. The urine did im prove in color to a light pink with continued irrigation. At this point the scope was removed. A 24 Uzbek three-way catheter was placed over the wire. And continuous bladder irrigation was attached. The patient was cleaned, aroused from anesthesia, and transferred to the pacu in stable condition having tolerated the procedure well with no complications. I was present and participated in all aspects of the procedure. The patient will be monitored in the PACU until transferred. Patient will likely be monitored overnight. Had 2 g of Ancef preoperatively. We will likely need to consider ongoing antibiotics as well as continued monitoring and management. Patient had required transfusion earlier in the day. We will need to monitor blood counts in the postoperative period. We will maintain continuous bladder irrigation. We will need to consider possible utilization of alum or other agent in order to control bleeding if patient continues to have significant issues not cleared by CBI. We will plan to continue a consistent high continuous bladder irrigation if patient is able to tolerate. Monitor for clots. I attest to the content of the Intraoperative Record and any orders documented therein. Any exceptions are noted below.
--- NOTE | 2021-11-08 18:13 | Anesthesiology Progress Note ---
Date of Service November 08, 2021 Anesthesia Post Procedure Vital Signs Vital Signs: Temp Pulse Pulse Resp BP BP Pulse Ox 11/08/21 15:16 98.4 F 95 H 97 H 125/78 97 11/08/21 11:34 98.4 F 96 H 18 115/73 97 11/08/21 08:00 98.2 F 101 H 19 114/73 96 11/08/21 06:14 98.2 F 94 H 18 108/73 96 11/08/21 06:00 98.2 F 98 H 18 108/73 99 11/08/21 05:00 98.4 F 96 H 18 101/65 95 11/08/21 04:30 98.4 F 90 18 101/63 96 11/08/21 04:15 97.9 F 120 H 18 100/64 96 11/08/21 03:59 98.6 F 129 H 100 H 18 103/67 104/69 96 11/08/21 00:02 103 H 11/07/21 23:59 98.2 F 102 H 16 106/53 L 97 11/07/21 19:00 98.1 F 115 H 18 104/65 96 Transfer of Care Handoff Completed per policy Notes Mental Status: alert / awake / arousable and participated in evaluation Patient Amnestic to Procedure: Yes Nausea / Vomiting: adequately controlled Pain: adequately controlled Airway Patency, RR, SpO2: stable & adequate BP & HR: stable & adequate Hydration State: stable & adequate Anesthetic Complications: no major complications apparent and Pt Satisfied with anesthetic care
[2021-11-08] MEDS: fentaNYL citrate 100 MCG/2 ML VIAL IV PRN ×4 (18:17→18:45)
[2021-11-08] MEDS: MoRPHine SULFATE 2 MG/ML CARP IV PRN ×2 (20:16→23:25)
[2021-11-08 20:25] LABS: Hematocrit (blood only) 21.8 % (42-52); Hemoglobin 6.7 g/dL (14.0-18.0); Mean Corpuscular Hemoglobin 27.6 pg (25-34); Mean Corpuscular Hgb Conc 30.7 g/dL (32-36); Mean Corpuscular Volume 89.7 fL (80-100); Mean Platelet Volume 9.4 fL (7.4-10.4); Platelet Count 284 K/uL (130-400); Red Blood Count 2.43 M/uL (4.7-6.1); White Blood Count 10.33 K/uL (4.8-10.8)
[2021-11-08] MEDS ORDERED: INSULIN GLARGINE SOLOSTAR 100 UNITS/ML 3 ML PEN SC ONE ×2 (21:00)
[2021-11-08] MEDS ORDERED: MoRPHine SULFATE 4 MG/ML 1 ML CARP\\VIAL IV PRN (21:12)
[2021-11-08] MEDS ORDERED: OXYBUTYNIN CHLORIDE 5 MG TAB PO PRN (21:12)
--- NOTE | 2021-11-08 21:14 | Communication Note ---
Date of Service: November 08, 2021 Reviewed overnight eventsongoing hematuria, need for further transfusionand then informed urology. They took patient to cystoscopyinput greatly appreci atedsee OR notes. Whenever I went to see patient he was in the OR, unable to see today. Communicated extensively with urology as well as with nursing. Continue current care, continue to follow hemoglobin, pain control, bladder irrigation.
[2021-11-09] MEDS: HEPARIN SODIUM/DEXTROSE 25,000 UNITS/500 ML BAG IV SCH ×2 (02:05→17:17)
[2021-11-09] MEDS: SODIUM CHLORIDE 0.9% 1000ML 1,000 ML IV SCH ×3 (03:36→22:21)
[2021-11-09 04:03] LABS: Hematocrit (blood only) 27.2 % (42-52); Hemoglobin 8.5 g/dL (14.0-18.0)
[2021-11-09 05:47] LABS: Hematocrit (blood only) 25.9 % (42-52); Hemoglobin 8.2 g/dL (14.0-18.0); Mean Corpuscular Hemoglobin 28.1 pg (25-34); Mean Corpuscular Hgb Conc 31.7 g/dL (32-36); Mean Corpuscular Volume 88.7 fL (80-100); Mean Platelet Volume 9.8 fL (7.4-10.4); Platelet Count 261 K/uL (130-400); RDW Coefficient of Variation 16.3 % (11.5-14.5); RDW Standard Deviation 52.2 fL (36.4-46.3); Red Blood Count 2.92 M/uL (4.7-6.1); White Blood Count 11.02 K/uL (4.8-10.8)
[2021-11-09 06:01] LABS: Partial Thromboplastin Ratio 2.3
[2021-11-09 06:12] LABS: ALC (manual) 1.26 K/uL (1.2-3.4); ANC (manual) 8.69 K/uL (1.4-6.5); Anisocytosis Present; Basophils % (manual) 0.9 %; Eosinophils % (manual) 0.9 %; Lymphocytes # (manual) 1.26 K/uL (1.2-3.4); Lymphocytes % (manual) 11.4 %; Metamyelocytes % (manual) 1.8 %; Monocytes # (manual) 0.67 K/uL (0.11-0.59); Monocytes % (manual) 6.1 %; Neutrophils # (manual) 8.69 K/uL (1.4-6.5); Neutrophils % (manual) 78.9 %; Polychromasia 1+
[2021-11-09 06:17] LABS: BUN Creatinine Ratio 19.9 (10-20); Calcium 8.4 mg/dl (8.5-10.1); Creatinine Clr Calc Pharmacy 83.4 ml/min; Est GFR (African American) 73.6 ml/min; Est GFR (Non-African American) 63.5 ml/min; Potassium 4.9 mmol/L (3.5-5.1)
[2021-11-09 06:47] LABS: Partial Thromboplastin Time 61.1 Seconds (21.0-31.0)
[2021-11-09] MEDS: METOPROLOL SUCC 25MG EXT REL TAB PO SCH (07:36)
[2021-11-09] MEDS: PANTOprazole 40 MG TAB PO SCH ×2 (07:37→21:00)
[2021-11-09] MEDS: ATORVASTATIN 40 MG TAB PO SCH (07:37)
[2021-11-09] MEDS: INSULIN ASPART PER UNIT SC SCH ×4 (08:18→21:01)
[2021-11-09] MEDS: INSULIN GLARGINE SOLOSTAR 100 UNITS/ML 3 ML PEN SC SCH ×2 (08:33→21:04)
[2021-11-09] MEDS: AMPICILLIN 1,000 MG in SODIUM CHLOR 0.9% AD-VAN 50 ML IV SCH ×3 (08:48→21:00)
--- NOTE | 2021-11-09 11:05 | Nephrology Progress Note ---
Date of Service November 09, 2021 Assessment & Plan (1) RITU (acute kidney injury): (2) Acute hyperkalemia: (3) Anemia: (4) Hematuria: (5) Hypotension: Plan: 55 year old male with RITU and gross hematuria w h/o prostate carcinoma Dx in 2019, underwent androgen deprivation therapy, radiation therapy and has chronic R hydronephrosis and R renal atrophy,b/l cr 1.3 - 1.5.He developed gross hematuria and contacted his Urologist and on 11/05/20 underwent Orosco catheter insertion as an outpatient. Lab post procedure revealed anemia and progressive renal dysfunction and referred to ER. On admission SBP was 70's, Hgb 6.5, INR 4.1, Cr 3.5, K 6.2. Orosco catheter was obstructed w/ blood clot but successfully irrigated and had total 4 units of PRBC. RITU resolved.Hb >8 s/p Cysto 11/08/21. . Electrolyte has been acceptable. -- out pt nephrology f/u as currently scheduled with Dr. Cole Admission and Anticipated Discharge Date Admission Date: November 06, 2021 Subjective Arturo was seen this morning, overall feeling better, no concerns. Hematuria resolving, s/p cystoscopy yesterday, hemoglobin >8. Renal function improved to baseline. Review of Systems Review of Systems: Detailed review of system was otherwise Unremarkable. Physical Exam Constitutional: WD/WN, vitals as above no acute distress Eyes: + anicteric sclerae Respiratory: no respiratory distress Auscultation: lungs clear to auscultation bilaterally Cardiovascular: Rate/Rhythm: regular rate and regular rhythm Heart Sounds: normal S1 and normal S2 Extremities: no edema Skin: no rashes Neurologic: no focal motor deficits and not confused Psychiatric: Orientation: alert and oriented x 3 Results & Data ([facility]) Vital Signs (Past 12 Hours) Vital Signs Temp Pulse Pulse Resp BP BP Pulse Ox 11/09/21 07:32 36.9 C 79 19 112/73 99 11/09/21 04:40 86 11/09/21 02:15 36.8 C 82 18 118/76 97 11/09/21 01:34 36.3 C L 85 18 129/80 97 11/09/21 01:04 36.9 C 91 H 16 109/72 95 11/09/21 00:27 36.6 C 86 18 107/73 97 11/09/21 00:09 36.6 C 85 18 113/74 97 11/08/21 23:52 36.6 C 85 18 113/74 94 PG Care Time/CCT Total # of Minutes Spent Total Time Spent with Patient: Total time spent is greater than 50% in coordination of care (as documented) at patient's floor/unit and/or counseling patient: Coding Level of Care Code 83224 Subseq Hosp Care Lvl 2 Diagnoses RITU (acute kidney injury) N17.9 Acute hyperkalemia E87.5 Anemia D64.9 Anemia type: unspecified type Hematuria R31.0 Hematuria type: gross Hypotension I95.89; E86.1 Hypotension type: hypotension due to hypovolemia (1) Anemia Anemia type: unspecified type Qualified Code(s): D64.9 - Anemia, unspecified (2) Hematuria Hematuria type: gross Qualified Code(s): R31.0 - Gross hematuria (3) Hypotension Hypotension type: hypotension due to hypovolemia Qualified Code(s): I95.89 - Other hypotension; E86.1 - Hypovolemia
[2021-11-09 13:43] LABS: Hematocrit (blood only) 24.6 % (42-52); Hemoglobin 7.7 g/dL (14.0-18.0); Mean Corpuscular Hemoglobin 27.8 pg (25-34); Mean Corpuscular Hgb Conc 31.3 g/dL (32-36); Mean Corpuscular Volume 88.8 fL (80-100); Mean Platelet Volume 9.3 fL (7.4-10.4); Platelet Count 243 K/uL (130-400); RDW Coefficient of Variation 16.7 % (11.5-14.5); RDW Standard Deviation 53.3 fL (36.4-46.3); Red Blood Count 2.77 M/uL (4.7-6.1); White Blood Count 10.43 K/uL (4.8-10.8)
[2021-11-09 13:59] LABS: Basophils # (auto) 0.02 K/uL (0-0.2); Basophils % (auto) 0.2 %; Eosinophils # (auto) 0.23 K/uL (0-0.5); Eosinophils % (auto) 2.2 %; Immature Granulocytes # (auto) 0.16 K/uL (0.00-0.02); Immature Granulocytes % (auto) 1.5 %; Lymphocytes # (auto) 2.12 K/uL (1.2-3.4); Lymphocytes % (auto) 20.3 %; Monocytes % (auto) 3.8 %; Polychromasia 1+
--- NOTE | 2021-11-09 18:00 | Urology Progress Note ---
Date of Service November 09, 2021 Assessment & Plan (1) Hematuria: Plan: Patient with known history of recurrent hematuria came in with hypertherapeutic INR. Had been continuing to have clot and dark red urine but was improving and subjectively not having considerable issues. Became once again anemic this morning required transfusion. Patient follows with outlying urologist. Will likely follow-up with them for cystoscopy to assess after resolution of issues. Patient's hematuria is improved. Is being monitored for blood counts. Has been tolerating CBI without major issue. Has not had considerable clots or issues. Patient had extremely high bladder neck with bleeding varicosities as well as and severely edematous and irritated bleeding cystitis throughout bladder. Difficult to fully visualize due to severity of inflammation and irritation. Multiple areas were fulgurated. Patient has not been having considerable pain or other issues. Plan is to continue to monitor. We will try to titrate CBI off. Will likely need until tomorrow at least. At that point can try to plan discharge planning and likely need set up for outpatient cystoscopy once patient has resolved and improved in order to assess bladder for issues. Patient updated. Is agreeable. Plan to continue to monitor. Call if any major changes or issues. Admission and Anticipated Discharge Date Admission Date: November 06, 2021 Subjective Postop day 1 status post clot evacuation with fulguration of prostatic lesions and bladder lesions. Patient has history of radiation cystitis. Had severe gross hematuria. It is on heparin drip and was hypertherapeutic on INR at presentation. On presentation patient had an extremely high bladder neck with bleeding varicosities as well as multiple severe edematous cystitis changes throughout the bladder with multiple areas of oozing/bleeding. Patient underwent fulguration. Was placed on CBI. Had improvement overall. Hemoglobin this morning has stabilized. Hematuria has continued through the day but has drastically decreased from yesterday. Tolerated procedure without major issue. Review of Systems Review of Systems: All systems were reviewed. Any pertinent positives and/or negatives are listed in the history of present illness section. Physical Exam Physical Exam: General: Alert in no acute distress. HEENT: Normocephalic Atraumatic. Inspection normal. Cranial Nerves 2-12 Grossly intact. Normal inspection of face. Normal inspection of neck. Psychologic: Normal affect. Respiratory: Nonlabored. No use of accessory muscles. No tachypnea or dyspnea. Cardiovascular: No tachycardia Skin: [place] and Dry. No rashes or visible lesions. Extremities/Lymphatics: No edema Abdomen: Soft Non-distended. No rebound or guarding. : Catheter in place draining light pink/red urine. CBI running well. No clots Results & Data ([facility]) Vital Signs (Past 12 Hours) Vital Signs Temp Pulse Pulse Resp BP Pulse Ox 11/09/21 16:01 37.1 C 88 18 131/76 97 11/09/21 15:03 88 11/09/21 11:30 37 C 86 18 121/74 98 11/09/21 08:00 86 11/09/21 07:32 36.9 C 79 19 112/73 99 PG Care Time/CCT Total # of Minutes Spent Total Time Spent with Patient: Total time spent is greater than 50% in coordination of care (as documented) at patient's floor/unit and/or counseling patient: Coding Level of Care Code 23939 Subseq Hosp Care Lvl 2 Diagnoses Hematuria R31.0 Hematuria type: gross (1) Hematuria Hematuria type: gross Qualified Code(s): R31.0 - Gross hematuria
--- NOTE | 2021-11-09 18:46 | Hospitalist Progress Note ---
Date of Service November 09, 2021 Assessment & Plan (1) Hypotension: Plan: hemorrhagic shock from hemorrhagic cystitisnow more stabilized status post transfusion of 4 units packed red cells. Has required additional transfusions since. Shock/hypotension now stable, although bleeding persists. (2) Hematuria: Plan: Hemorrhagic cystitis, exacerbated by Coumadin induced coagulopathy. Status post cystoscopy yesterdayurology input appreciatedstill needing continuous bladder irrigation, hemoglobin trending downgiven the amount of blood, I suspect this is probably legitimate. Continue to follow closely, is hemodynamically stable at this time. Given his mechanical aortic valve, we are continuing anticoagulation with heparin drip, given that the risk of interrupting anticoagulation is reasonably high. Hopefully bleeding will continue to slow. (3) Hyperkalemia: Plan: Treated and improved (4) Aortic valve replaced: Plan: Patient is on chronic Coumadin for this, supratherapeutic INR on admission (although really not markedly so given that it was 4.1) Continue to monitor PT/INRand resume Coumadin to get him back to therapeutic as soon as appears safesee above, really this will hinge on his hemoglobin readings, and hematuriain today with his hematuria still being fairly significant and his hemoglobin trending downit seems too soon to resume Coumadin. For now continue heparin drip due to rapid reversibility if the need arises -Once bleeding stops, if the only thing keeping him in the hospital is a subtherapeutic INR, then Lovenox bridge could be utilized (5) Uncontrolled type 2 diabetes mellitus with chronic kidney disease: Plan: A1c 6.2, pharmacy glycemic management as an inpatient appreciated (6) Anemia: Plan: See above with hematuria/hemorrhagic shock has required a total of 7 units transfusion during this hospitalization (7) Hypercholesterolemia: Plan: Chronically on a statin (8) NSVT (nonsustained ventricular tachycardia): Plan: Heart rates have overall improved with improvement of his volume status Plan: Continue to follow hematuria and hemoglobin, ultimately goal will be to get him home, but obviously need to have better control of bleeding and stability on anticoagulation before this is possible Admission and Anticipated Discharge Date Admission Date: November 06, 2021 Subjective Doing fairly well with continuous bladder irrigationnot a lot of pain, some degree of spasms at times and a degree of pressure, but generally tolerating well. In discussion with nursing, he is requiring aggressive/high amounts of bladder irrigation to keep urine flowing and clearslowing it down at all it gets thicker and more red. He is anxious to go home. Review of Systems Review of Systems: All systems reviewed & are unremarkable except as noted in HPI & below Physical Exam Physical Exam: In general he is awake and alert pleasant no distress. HEENT normocephalic atraumatic mucous membranes moist. Breathing unlabored no accessory muscle use good effort. Skin shows no rashes no pallor or icterus. Neuro without focal deficits. Urine is clear pink in the Orosco bagbut bladder irrigation running at a fairly brisk rate. Results & Data Results & Data ([facility]) Vital Signs (Past 12 Hours) Vital Signs Temp Pulse Pulse Resp BP Pulse Ox 11/09/21 16:01 98.8 F 88 18 131/76 97 11/09/21 15:03 88 11/09/21 11:30 98.6 F 86 18 121/74 98 11/09/21 08:00 86 11/09/21 07:32 98.4 F 79 19 112/73 99 PG Care Time/CCT Total # of Minutes Spent Total Time Spent with Patient: Total time spent is greater than 50% in coordination of care (as documented) at patient's floor/unit and/or counseling patient: Coding Level of Care Code 30397 Subseq Hosp Care Lvl 3 Diagnoses Hypotension I95.9 Hematuria R31.9 Hyperkalemia E87.5 Aortic valve replaced Z95.2 Uncontrolled type 2 diabetes mellitus with chronic kidney disease E11.22; E11.65 Anemia D64.9 Hypercholesterolemia E78.00 NSVT (nonsustained ventricular tachycardia) I47.2
[2021-11-09] MEDS: MoRPHine SULFATE 2 MG/ML CARP IV PRN ×2 (20:58→23:03)
--- NOTE | 2021-11-09 21:22 | Urology Progress Note ---
Date of Service November 09, 2021 Assessment & Plan (1) Hematuria: Plan: Update 11/09/2021 at 9:11 PM. Called due to clotting of catheter. Appears to have been dislodged. Multiple attempts by nursing to reinitiate flow. Were unsuccessful. On assessment patient had small amount of very dark clot containing urine within the tubing. The 24 [place] three-way catheter was removed and a 24 three-way coud hematuria catheter was placed using sterile technique by myself. This was then copiously irrigated. A moderate amount of clot was evacuated. The catheter appears to a dislodged likely into the prostate possibly during transition. Due to extremely high bladder neck catheter is positioned deeper than expected. Balloon was overfilled to 40 cc as opposed to 24 cc with the older catheter. Good drainage was appreciated. The urine was able to be irrigated to a clear color. With just CBI urine was a light red/pink color. We will plan to continue to monitor. Will continue CBI. May need to consider options such as alum if patient continues to have hematuria and issues tolerating catheter. If patient becomes anemic again and requires further transfusion, we will also need to reevaluate need for anticoagulation level. Could consider outpatient hyperbaric oxygen as a consideration. Plan to monitor. Call if any changes or increase in issues Admission and Anticipated Discharge Date Admission Date: November 06, 2021 Subjective Doing fairly well with continuous bladder irrigationnot a lot of pain, some degree of spasms at times and a degree of pressure, but generally tolerating well. In discussion with nursing, he is requiring aggressive/high amounts of bladder irrigation to keep urine flowing and clearslowing it down at all it gets thicker and more red. He is anxious to go home. Review of Systems Review of Systems: All systems were reviewed. Any pertinent positives and/or negatives are listed in the history of present illness section. Physical Exam Physical Exam: General: Alert in no acute distress. HEENT: Normocephalic Atraumatic. Inspection normal. Cranial Nerves 2-12 Grossly intact. Normal inspection of face. Normal inspection of neck. Psychologic: Normal affect. Respiratory: Nonlabored. No use of accessory muscles. No tachypnea or dyspnea. Cardiovascular: No tachycardia Skin: [place] and Dry. No rashes or visible lesions. Extremities/Lymphatics: No edema Abdomen: Soft Non-distended. No rebound or guarding. : Catheter in place draining light pink/red urine. CBI running well. No clots Results & Data ([facility]) Vital Signs (Past 12 Hours) Vital Signs Temp Pulse Pulse Resp BP Pulse Ox 11/09/21 19:52 37.2 C 92 H 16 119/71 96 11/09/21 16:01 37.1 C 88 18 131/76 97 11/09/21 15:03 88 11/09/21 11:30 37 C 86 18 121/74 98 PG Care Time/CCT Total # of Minutes Spent Total Time Spent with Patient: Total time spent is greater than 50% in coordination of care (as documented) at patient's floor/unit and/or counseling patient: Coding Level of Care Code 34500 Subseq Hosp Care Lvl 3 Diagnoses Hematuria R31.0 Hematuria type: gross (1) Hematuria Hematuria type: gross Qualified Code(s): R31.0 - Gross hematuria
[2021-11-10] MEDS: AMPICILLIN 1,000 MG in SODIUM CHLOR 0.9% AD-VAN 50 ML IV SCH ×4 (02:35→20:25)
[2021-11-10 08:02] LABS: Hemoglobin 7.3 g/dL (14.0-18.0); Mean Corpuscular Hemoglobin 28.2 pg (25-34); Mean Corpuscular Hgb Conc 31.7 g/dL (32-36); Mean Corpuscular Volume 88.8 fL (80-100); Mean Platelet Volume 10.4 fL (7.4-10.4); Nucleated RBC # (auto) 0.05 K/uL (0-0); Nucleated RBC % (auto) 0.4 %; Platelet Count 233 K/uL (130-400); RDW Standard Deviation 53.6 fL (36.4-46.3); Red Blood Count 2.59 M/uL (4.7-6.1); White Blood Count 12.09 K/uL (4.8-10.8)
[2021-11-10] MEDS: ATORVASTATIN 40 MG TAB PO SCH (08:03)
[2021-11-10] MEDS: PANTOprazole 40 MG TAB PO SCH ×2 (08:03→20:25)
[2021-11-10] MEDS: METOPROLOL SUCC 25MG EXT REL TAB PO SCH (08:03)
[2021-11-10] MEDS: INSULIN ASPART PER UNIT SC SCH ×4 (08:13→21:23)
[2021-11-10] MEDS: INSULIN GLARGINE SOLOSTAR 100 UNITS/ML 3 ML PEN SC SCH ×2 (08:14→21:23)
[2021-11-10] MEDS: SODIUM CHLORIDE 0.9% 1000ML 1,000 ML IV SCH ×2 (08:20→18:07)
[2021-11-10 08:21] LABS: Partial Thromboplastin Ratio 2.3
[2021-11-10 08:24] LABS: Basophils # (auto) 0.02 K/uL (0-0.2); Basophils % (auto) 0.2 %; Eosinophils # (auto) 0.22 K/uL (0-0.5); Eosinophils % (auto) 1.8 %; Immature Granulocytes # (auto) 0.15 K/uL (0.00-0.02); Immature Granulocytes % (auto) 1.2 %; Lymphocytes # (auto) 2.05 K/uL (1.2-3.4); Monocytes # (auto) 0.94 K/uL (0.11-0.59); Monocytes % (auto) 7.8 %; Neutrophils # (auto) 8.71 K/uL (1.4-6.5); Polychromasia 1+
[2021-11-10 08:27] LABS: Partial Thromboplastin Time 59.4 Seconds (21.0-31.0)
[2021-11-10] MEDS: HEPARIN SODIUM/DEXTROSE 25,000 UNITS/500 ML BAG IV SCH (09:37)
--- NOTE | 2021-11-10 10:00 | Urology Progress Note ---
Date of Service November 10, 2021 Assessment & Plan (1) Hematuria: Plan: 55yo M with a mechanical aortic valve on chronic anticoagulation admitted with RITU, hyperkalemia, hypercoagulability, and gross hematuria - POD #2 s/p Cystoscopy with Urethral Dilation, Clot Evacuation, Prostate and Bladder Fulguration. - Orosco catheter exchanged yesterday to 24Fr coude hematuria cath due to episode of catheter clotting, possibly dislodged. - Pt afebrile, non-toxic appearing. - Labs reviewed - Wbc 12.09, Hgb 7.3, Creatinine 1.25 yesterday - Continue to trend. - Urine culture from 11/06 with Enterococcus, continues on IV Ampicillin. - Orosco catheter intact, draining clear urine with CBI running fast/wide open. - CBI titrated to moderate rate - Nursing aware, will continue to monitor. - Monitor H&H, transfuse as felt necessary per primary team. - Continue supportive care, antibiotic therapy, and close monitoring. - Will continue to follow. - Pt reassessed this afternoon - Orosco intact, draining clear urine with CBI on moderate rate. - Maintain Orosco catheter, continue CBI for now with plans to titrate down as appropriate. - Continue supportive care, antibiotic therapy, and close monitoring. - Will continue to follow. Admission and Anticipated Discharge Date Admission Date: November 06, 2021 Subjective Pt examined at bedside this AM. Awake, resting in bed on arrival. No acute distress. Denies abdominal, flank, and back pain at present. He does report some discomfort at the catheter insertion site. Orosco catheter intact, draining clear urine with CBI running wide open. No fevers. Denies nausea or vomiting. Offered no additional complaints at time of exam Review of Systems Constitutional: as per Subjective / HPI Genitourinary: + as per Subjective / HPI Physical Exam Constitutional: no acute distress Respiratory: normal respiratory effort and able to speak in complete sentences; no labored breathing and no audible wheezes Gastrointestinal (Abdomen): Inspection/Auscultation: abdomen normal to inspection Musculoskeletal: Head/Neck/Chest: normocephalic Skin: No visible rashes or lesions to exposed skin areas Neurologic: moves all extremities and awake Psychiatric: Orientation: alert, oriented x 3 and cooperative Genitourinary: Orosco catheter intact, draining clear urine with CBI running wide open Results & Data ([facility]) Vital Signs (Past 12 Hours) Vital Signs Temp Pulse Pulse Resp BP Pulse Ox 11/10/21 06:43 36.6 C 102 H 18 123/65 97 11/10/21 06:18 84 11/10/21 04:44 93 H 11/10/21 02:51 36.8 C 84 18 103/67 95 11/09/21 23:22 36.9 C 92 H 18 115/69 97 PG Care Time/CCT Total # of Minutes Spent Total Time Spent with Patient: Total time spent is greater than 50% in coordination of care (as documented) at patient's floor/unit and/or counseling patient: Coding Level of Care Code 04352 Subseq Hosp Care Lvl 2 Diagnoses Hematuria R31.0 Hematuria type: gross (1) Hematuria Hematuria type: gross Qualified Code(s): R31.0 - Gross hematuria
--- NOTE | 2021-11-10 11:46 | Pharmacy Report ---
Pharmacy Glycemic Short Note 2 - Date of Service November 10, 2021 - Glycemic Short BSG Results (Last 24 hours): 11/09/21 11/09/21 11/09/21 12:03 16:47 20:18 POC Glucose 151 H 232 H 201 H 11/10/21 11/10/21 07:23 11:36 POC Glucose 132 H 166 H OUTPATIENT ANTIDIABETIC REGIMEN: * empagliflozin 25mg Q AM * metformin 1gm PO BID * glimepiride 1mg po daily * A1c = 6.2% (11/07/21) ASSESSMENT: 11/10/21 * BSGs yesterday of 121, 151, 232, and 201 mg/dL * Patient received 53 units of insulin, 30 units of basal and 23 units of prandial/correctional bolus * Fasting BSG of 132 mg/dL this morning - will plan to use scaled Lantus this evening to potentially provide increased basal dose today * Will tighten Novolog carb ratio today given upward BSG trend throughout the day 11/07/21 * Type 2 diabetic admitted for hematuria, RITU, ABLA * Patient was placed on insulin drip yesterday for both hyperglycemia and hyperkalemia. The insulin drip was weaned off overnight. * Will begin basal/bolus SQ regimen at this time, dosing to be based upon weight and "moderate" stress level. PLAN FOR INPATIENT GLYCEMIC CONTROL: * Hold outpatient oral diabetes medications * Basal insulin * Lantus 20 units SC daily * Lantus scale HS to provide 10-20 units (see EHR for details) * Bolus insulin - tighten carb ratio * NovoLog per scale ACHS or Q6hrs while NPO * Goal Range: Low 110 mg/dL - High 140 mg/dL * Correction Factor: 20 mg/dL/unit * Nutritional / Prandial insulin per carb ratio of 1 unit per 6 grams CHO consumed PLAN FOR DISCHARGE: * HbA1c of 6.2% is at goal - reasonable to continue current home regimen on discharge, provided patient not experiencing hypoglycemia as an outpatient
[2021-11-10 13:23] LABS: Hematocrit (blood only) 23.5 % (42-52); Hemoglobin 7.3 g/dL (14.0-18.0); Mean Corpuscular Hemoglobin 27.9 pg (25-34); Mean Corpuscular Hgb Conc 31.1 g/dL (32-36); Mean Corpuscular Volume 89.7 fL (80-100); Mean Platelet Volume 9.4 fL (7.4-10.4); Platelet Count 239 K/uL (130-400); RDW Coefficient of Variation 17.1 % (11.5-14.5); RDW Standard Deviation 55.2 fL (36.4-46.3); Red Blood Count 2.62 M/uL (4.7-6.1); White Blood Count 14.53 K/uL (4.8-10.8)
[2021-11-10] MEDS: MoRPHine SULFATE 2 MG/ML CARP IV PRN ×2 (13:28→22:16)
--- NOTE | 2021-11-10 13:51 | Hospitalist Progress Note ---
Date of Service November 10, 2021 Assessment & Plan (1) Hypotension: Plan: hemorrhagic shock from hemorrhagic cystitisnow more stabilized status post transfusion of a total of 7 units packed red cells. Resolved Continue to monitor blood pressures Has since restarted his Toprol-XL DC IV fluids (2) Hematuria: Plan: Hemorrhagic cystitis, exacerbated by Coumadin induced coagulopathy. 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 Continue CBI Continue treatment for UTI with IV antibiotics Now status post 7 units PRBCs Okay to continue heparin drip for now with careful monitoring of CBC Hoping that bleeding will continue to slow down and stop May need to use alum washes if not improving Appreciate urology management -Holding home aspirin (3) RITU (acute kidney injury): Plan: With acute kidney injury on arrival with hemoglobin 3.4, now resolved down to 1.25 With resulting hyperkalemia and hyponatremia DC IV fluids today Orosco catheter placed and urethral stricture dilated Clots in the bladder causing bladder outlet obstruction also contributing -Continue to hold home lisinopril, empagliflozin, and furosemide (4) Hyperkalemia: Plan: Treated and improved, related to acute kidney injury on arrival (5) Anemia: Plan: With acute blood loss anemia from gross hematuria as above Status post 7 units PRBCs during this hospitalization Repeated CBC today and stable at 7.3 from this morning DC IV fluids which may be causing some hemodilutional anemia Follow CBC in the morning (6) UTI (urinary tract infection): Plan: Urine culture growing Enterococcus resistant to tetracycline Continue ampicillin and could convert to amoxicillin likely tomorrow (7) Aortic valve replaced: Plan: Patient is on chronic Coumadin for this, supratherapeutic INR on admission (although really not markedly so given that it was 4.1) Continue to monitor PT/INR-check in the morning -Continue to hold Coumadin and continue heparin drip in case of need for rapid reversibility -Once bleeding stops, if the only thing keeping him in the hospital is a subtherapeutic INR, then Lovenox bridge could be utilized (8) Uncontrolled type 2 diabetes mellitus with chronic kidney disease: Plan: A1c 6.2, pharmacy glycemic management as an inpatient appreciated Holding home metformin, glimepiride, and empagliflozin (9) Hypercholesterolemia: Plan: Chronically on a statin (10) NSVT (nonsustained ventricular tachycardia): Plan: Heart rates have overall improved with improvement of his volume status In sinus rhythm here Has chronic LBBB (11) Urethral stricture: Plan: Dilated during cystoscopy Maintain Orosco catheter for now (12) Leukocytosis: Plan: WBC count rising today up to 14 Could be secondary to UTI which was just recently treated since 11/09 Could be reactive due to severe anemia He is afebrile, no other signs of infection Follow CBC (13) Chronic kidney disease: Plan: CKD stage III -Avoid nephrotoxins -renally dose meds when appropriate -follow BMP Plan: DVT prophylaxis-Heparin drip Disposition-continued stay on medical floor with telemetry until hematuria, CBI titrated off, and hemoglobin remained stable Admission and Anticipated Discharge Date Admission Date: November 06, 2021 Subjective Patient still has some blood in the urine but seems to be clearing up, CBI has been titrated down a bit. He is very frustrated that he still in the hospital. Denies any abdominal pain or flank pain. No chest pain or shortness of breath, no lightheadedness. Telemetry with normal sinus rhythm with rates in the 90s Review of Systems Review of Systems: All systems reviewed & are unremarkable except as noted in HPI & below Physical Exam Constitutional: WD/WN, vitals as above Eyes: + anicteric sclerae; no conjunctival abnormality ENMT: external ear and nose normal, oropharynx normal Neck: trachea midline, no thyromegaly Respiratory: normal respiratory effort, lungs clear to auscultation Cardiovascular: RRR, no murmur, no edema Heart Sounds: + abnormal S2 (Mechanical click) Chest (Breasts): Chest: normal inspection of chest Gastrointestinal (Abdomen): normal bowel sounds, soft, nontender, no hepato splenomegaly Musculoskeletal: Extremities: extremities normal to inspection; no cyanosis and no clubbing Skin: no rashes, warm and dry Neurologic: moves all extremities and awake; no focal motor deficits Psychiatric: A+Ox3, euthymic affect Genitourinary: Orosco catheter in place with cuevas red urine in the bag Lymphatic: no lymphedema Results & Data Results & Data ([facility]) Vital Signs (Past 12 Hours) Vital Signs Temp Pulse Pulse Resp BP Pulse Ox 11/10/21 12:14 37.5 C 87 16 107/62 97 11/10/21 06:43 36.6 C 102 H 18 123/65 97 11/10/21 06:18 84 11/10/21 04:44 93 H 11/10/21 02:51 36.8 C 84 18 103/67 95 Laboratory Results 11/10/21 13:08 11/09/21 03:53 PG Care Time/CCT Total # of Minutes Spent Total Time Spent with Patient: Total time spent is greater than 50% in coordination of care (as documented) at patient's floor/unit and/or counseling patient: Coding Level of Care Code 44073 Subseq Hosp Care Lvl 3 Diagnoses Hypotension I95.9 Hematuria R31.9 Hyperkalemia E87.5 Aortic valve replaced Z95.2 Uncontrolled type 2 diabetes mellitus with chronic kidney disease E11.22; E11.65 Anemia D64.9 Hypercholesterolemia E78.00 NSVT (nonsustained ventricular tachycardia) I47.2 UTI (urinary tract infection) N39.0 RITU (acute kidney injury) N17.9 Urethral stricture N35.919 Leukocytosis D72.829 Chronic kidney disease N18.9
[2021-11-11] MEDS: MoRPHine SULFATE 2 MG/ML CARP IV PRN ×5 (01:05→23:05)
[2021-11-11] MEDS: MELATONIN 3 MG TAB PO PRN ×2 (01:05→23:06)
[2021-11-11] MEDS: HEPARIN SODIUM/DEXTROSE 25,000 UNITS/500 ML BAG IV SCH ×2 (01:20→17:38)
[2021-11-11] MEDS: AMPICILLIN 1,000 MG in SODIUM CHLOR 0.9% AD-VAN 50 ML IV SCH ×4 (02:47→20:24)
[2021-11-11 07:02] LABS: Hematocrit (blood only) 21.8 % (42-52); Hemoglobin 6.9 g/dL (14.0-18.0); Mean Corpuscular Hemoglobin 28.4 pg (25-34); Mean Corpuscular Hgb Conc 31.7 g/dL (32-36); Mean Corpuscular Volume 89.7 fL (80-100); Mean Platelet Volume 9.4 fL (7.4-10.4); Nucleated RBC # (auto) 0.06 K/uL (0-0); Nucleated RBC % (auto) 0.5 %; Platelet Count 241 K/uL (130-400); RDW Coefficient of Variation 16.7 % (11.5-14.5); RDW Standard Deviation 54.4 fL (36.4-46.3); Red Blood Count 2.43 M/uL (4.7-6.1); White Blood Count 13.67 K/uL (4.8-10.8)
[2021-11-11 07:16] LABS: INR 1.4 (0.9-1.1); Partial Thromboplastin Ratio 2.1; Prothrombin Time 13.6 Seconds (9.0-12.0)
[2021-11-11 07:19] LABS: Basophils # (auto) 0.03 K/uL (0-0.2); Basophils % (auto) 0.2 %; Eosinophils # (auto) 0.31 K/uL (0-0.5); Eosinophils % (auto) 2.3 %; Immature Granulocytes # (auto) 0.43 K/uL (0.00-0.02); Immature Granulocytes % (auto) 3.1 %; Lymphocytes # (auto) 1.04 K/uL (1.2-3.4); Lymphocytes % (auto) 7.6 %; Monocytes # (auto) 1.71 K/uL (0.11-0.59); Monocytes % (auto) 12.5 %; Neutrophils # (auto) 10.15 K/uL (1.4-6.5); Neutrophils % (auto) 74.3 %; Polychromasia 1+
[2021-11-11 07:29] LABS: Partial Thromboplastin Time 56.1 Seconds (21.0-31.0)
[2021-11-11 07:42] LABS: Albumin Globulin Ratio 0.4 (0.9-2); Albumin Level 1.8 gm/dl (3.4-5.0); BUN Creatinine Ratio 10.2 (10-20); Bilirubin,Total 0.5 mg/dl (0.2-1); Calcium 8.7 mg/dl (8.5-10.1); Creatinine Clr Calc Pharmacy 100.7 ml/min; Est GFR (African American) 90.9 ml/min; Est GFR (Non-African American) 78.4 ml/min; Globulin 4.1 gm/dl (2.5-4.0); Magnesium 1.5 mg/dl (1.8-2.4); Potassium 4.1 mmol/L (3.5-5.1); Total Protein 5.9 gm/dl (6.4-8.2)
[2021-11-11] MEDS ORDERED: SODIUM CHLORIDE 0.9% 250 ML IV PRN (07:52)
[2021-11-11] MEDS ORDERED: CALCIUM GLUCONATE 10% 1,000 MG in SODIUM CHLORIDE 0.9% 50 ML IV ONE (08:00)
--- NOTE | 2021-11-11 08:21 | Urology Progress Note ---
Date of Service November 11, 2021 Assessment & Plan (1) Hematuria: Plan: 55yo M with a mechanical aortic valve on chronic anticoagulation admitted with RITU, hyperkalemia, hypercoagulability, and gross hematuria - POD #3 s/p Cystoscopy with Urethral Dilation, Clot Evacuation, Prostate and Bladder Fulguration. - Pt afebrile - Labs reviewed - Wbc 13.67, Hemoglobin 6.9, Creatinine 1.05 - Urine culture from 11/06 with Enterococcus, continues on IV Ampicillin. - Orosco catheter intact, - Monitor H&H, transfuse as felt necessary per primary team. - Continue supportive care, antibiotic therapy, and close monitoring. - Will continue to follow. Admission and Anticipated Discharge Date Admission Date: November 06, 2021 Subjective Continues on Heparin gtt. Results & Data ([facility]) Vital Signs (Past 12 Hours) Vital Signs Temp Pulse Pulse Resp BP Pulse Ox 11/11/21 07:20 37.0 C 100 H 20 138/80 96 11/11/21 04:00 36.5 C 81 18 102/59 L 97 11/11/21 00:38 86 11/10/21 23:00 36.6 C 86 18 125/74 95 PG Care Time/CCT Total # of Minutes Spent Total Time Spent with Patient: Total time spent is greater than 50% in coordination of care (as documented) at patient's floor/unit and/or counseling patient: Coding Diagnoses Hematuria R31.0 Hematuria type: gross (1) Hematuria Hematuria type: gross Qualified Code(s): R31.0 - Gross hematuria
[2021-11-11] MEDS: METOPROLOL SUCC 25MG EXT REL TAB PO SCH (08:42)
[2021-11-11] MEDS: PHENAZOPYRIDINE HCL 100 MG TAB PO PRN (08:43)
[2021-11-11] MEDS: PANTOprazole 40 MG TAB PO SCH ×2 (08:43→20:32)
[2021-11-11] MEDS: ATORVASTATIN 40 MG TAB PO SCH (08:43)
[2021-11-11] MEDS: INSULIN GLARGINE SOLOSTAR 100 UNITS/ML 3 ML PEN SC SCH ×2 (08:44→20:34)
[2021-11-11] MEDS: INSULIN ASPART PER UNIT SC SCH ×4 (08:45→20:33)
[2021-11-11] MEDS: MAGNESIUM SULFATE / D5W 1 GM/100 ML BAG IV SCH ×2 (09:13→10:19)
--- NOTE | 2021-11-11 09:45 | Urology Progress Note ---
Date of Service November 11, 2021 Assessment & Plan (1) Hematuria: Plan: Hematuria in the setting of numerous risks (BPH, anticoaguation, enterococcus UTI) - urine improved today - certainly must continue to monitor Hgb closely, but bleeding seems to have slowed down considerably - we will slow CBI to a very slow rate and check on him again in 1 hour - currently on hep gtt - Cr has improved substantially (currently 1.05) - presuming he will be transitioning back to oral anticoagulation, discharge today seems unlikely - if he is going to remain in the hospital, I would like to leave his catheter in place for one more day before offering a voiding trial (assuming he remains clear) Admission and Anticipated Discharge Date Admission Date: November 06, 2021 Subjective s/p clot evacuation and fulguration large prostate w/ notable intravesical median lobe has received numerous units of PRBC (has received 7 units thus far) on CBI with CBI running relatively briskly, the urine today is clear still on hep gtt has supratherapeutic INR on arrival hgb dropped slightly overnight (7.3 --> 6.9) denies major subjective complaints minimal activity Physical Exam Physical Exam: urine clear on brisk CBI slowed CBI to a very slow rate - no immediate change in out put Results & Data ([facility]) Vital Signs (Past 12 Hours) Vital Signs Temp Pulse Pulse Resp BP Pulse Ox 11/11/21 07:20 37.0 C 100 H 20 138/80 96 11/11/21 04:00 36.5 C 81 18 102/59 L 97 11/11/21 00:38 86 11/10/21 23:00 36.6 C 86 18 125/74 95 PG Care Time/CCT Total # of Minutes Spent Total Time Spent with Patient: Total time spent is greater than 50% in coordination of care (as documented) at patient's floor/unit and/or counseling patient: Coding Level of Care Code 85698 Subseq Hosp Care Lvl 3 Diagnoses Hematuria R31.0 Hematuria type: gross (1) Hematuria Hematuria type: gross Qualified Code(s): R31.0 - Gross hematuria
--- NOTE | 2021-11-11 18:01 | Hospitalist Progress Note ---
Date of Service November 11, 2021 Assessment & Plan (1) Hematuria: Plan: Hemorrhagic cystitis, exacerbated by Coumadin induced coagulopathy. 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 tomorrow Now status post 7 units PRBCs, but will give 2 more units on 11/11 for hemoglobin 6.9 with ongoing bleeding for total of 9 units PRBCs Okay to continue heparin drip for now with careful monitoring of CBC Hoping that bleeding will continue to slow down and stop May need to use alum washes if not improving Appreciate urology management -Continue holding home aspirin (2) Hypotension: Plan: hemorrhagic shock from hemorrhagic cystitisnow more stabilized status post transfusion of a total of 7 units packed red cells. Resolved Continue to monitor blood pressures Has since restarted his Toprol-XL (3) Anemia: Plan: With acute blood loss anemia from gross hematuria as above Hemoglobin down to 6.9 on 11/11 with ongoing hematuria on heparin drip-high risk for continued loss of blood Status post 7 units PRBCs during this hospitalization Transfused 2 more units PRBCs today Give IV calcium gluconate 1 g given numerous PRBCs transfused and for clotting factor Follow CBC in the morning (4) RITU (acute kidney injury): Plan: With acute kidney injury on arrival with hemoglobin 3.4, now resolved down to 1.05 With resulting hyperkalemia and hyponatremia Treated with blood transfusion and IV fluids Orosco catheter placed and urethral stricture dilated Clots in the bladder causing bladder outlet obstruction also contributing -Continue to hold home lisinopril, empagliflozin, and furosemide (5) Hyperkalemia: Plan: Treated and improved, related to acute kidney injury on arrival (6) UTI (urinary tract infection): Plan: Urine culture growing Enterococcus resistant to tetracycline Continue ampicillin and will convert to amoxicillin tomorrow to finish out 10- day course (7) Aortic valve replaced: Plan: Patient is on chronic Coumadin for this, supratherapeutic INR on admission (although really not markedly so given that it was 4.1) Continue to monitor PT/INR-INR 1.4 today -Continue to hold Coumadin and continue heparin drip in case of need for rapid reversibility -Once bleeding stops, if the only thing keeping him in the hospital is a subtherapeutic INR, then Lovenox bridge could be utilized Will consult with Dr. Cruz prior to discharge regarding Coumadin dosing (8) Uncontrolled type 2 diabetes mellitus with chronic kidney disease: Plan: A1c 6.2, pharmacy glycemic management as an inpatient appreciated with Lantus and NovoLog Holding home metformin, glimepiride, and empagliflozin (9) Hypercholesterolemia: Plan: Chronically on a statin (10) NSVT (nonsustained ventricular tachycardia): Plan: Heart rates have overall improved with improvement of his volume status In sinus rhythm here but had 15 minutes of what appears to be SVT with rates in the 160s on 11/11 that was completely asymptomatic Has chronic LBBB and this does appear to be SVT to me rather than nonsustained ventricular tachycardia -I will review the telemetry strips with cardiology -Continue metoprolol Continue telemetry monitoring -Replaced his low magnesium today (11) Urethral stricture: Plan: Dilated during cystoscopy Maintain Orosco catheter for now, but likely will remove tomorrow (12) Leukocytosis: Plan: WBC count was rising up to 14, now back down to 13.6 Could be secondary to UTI which was just recently treated since 11/09 Could be reactive due to severe anemia He is afebrile, no other signs of infection Follow CBC (13) Chronic kidney disease: Plan: CKD stage III -Avoid nephrotoxins -renally dose meds when appropriate -follow BMP (14) Hypomagnesemia: Plan: Magnesium low at 1.5 Replace with 3 g of IV magnesium sulfate Follow level in the morning Plan: DVT prophylaxis-Heparin drip Disposition-continued stay on medical floor with telemetry until hematuria improved, CBI titrated off, and hemoglobin remains stable Admission and Anticipated Discharge Date Admission Date: November 06, 2021 Subjective Patient received 2 units PRBCs today due to worsening anemia. He feels well except for some discomfort with the Orosco catheter and is wondering when it can be removed. His CBI is turned down even lower and he has very minimal blood in his Orosco bag Denies abdominal pain. He walked to the bathroom back again today is moving his bowels Eating and drinking. Denies any chest pain or shortness of breath Did have 15 minutes of what appears to be SVT which was completely asymptomatic on telemetry today He is quite anxious to be discharged, but after discussing with him, Dr. Hill via [place] text, and the patient's at the bedside, he is agreeable to staying overnight again Review of Systems Review of Systems: All systems reviewed & are unremarkable except as noted in HPI & below Physical Exam Constitutional: WD/WN, vitals as above Eyes: + anicteric sclerae; no conjunctival abnormality Neck: trachea midline, no thyromegaly Respiratory: normal respiratory effort, lungs clear to auscultation Cardiovascular: RRR, no murmur, no edema Heart Sounds: + abnormal S2 (Mechanical click) Chest (Breasts): Chest: normal inspection of chest Gastrointestinal (Abdomen): normal bowel sounds, soft, nontender, no hepatosplenomegaly Musculoskeletal: Extremities: extremities normal to inspection; no cyanosis and no clubbing Skin: no rashes, warm and dry Neurologic: moves all extremities and awake; no focal motor deficits Psychiatric: A+Ox3, euthymic affect Genitourinary: Orosco catheter bag with dark pink urine, much production control technologist than yesterday Lymphatic: no lymphedema Results & Data Results & Data ([facility]) Vital Signs (Past 12 Hours) Vital Signs Temp Pulse Pulse Resp BP BP Pulse Ox 11/11/21 14:55 88 11/11/21 13:45 37 C 88 18 116/73 98 11/11/21 13:30 36.9 C 86 18 115/74 98 11/11/21 12:30 36.7 C 97 H 18 122/71 97 11/11/21 11:30 36.8 C 90 18 126/80 97 11/11/21 11:00 36.4 C L 90 18 126/80 97 11/11/21 10:30 36.7 C 97 H 18 120/76 96 11/11/21 10:15 36.7 C 105 H 18 129/84 93 11/11/21 10:00 36.8 C 94 H 18 121/76 93 11/11/21 09:57 36.8 C 94 H 18 121/76 93 11/11/21 09:30 160 H 11/11/21 07:52 82 11/11/21 07:20 37.0 C 100 H 20 138/80 96 Laboratory Results 11/11/21 11/11/21 11/11/21 Range/Units 20:08 16:41 11:33 WBC (4.8-10.8) K/uL RBC (4.7-6.1) M/uL Hgb (14.0-18.0) g/dL Hct (42-52) % MCV (80-100) fL MCH (25-34) pg MCHC (32-36) g/dL RDW Std Deviation (36.4-46.3) fL RDW Coeff of Juliane (11.5-14.5) % Plt Count (130-400) K/uL MPV (7.4-10.4) fL Immature Gran % (Auto) % Neut % (Auto) % Lymph % (Auto) % [place] % (Auto) % Eos % (Auto) % Baso % (Auto) % Neut # (Auto) (1.4-6.5) K/uL Lymph # (Auto) (1.2-3.4) K/uL [place] # (Auto) (0.11-0.59) K/uL Eos # (Auto) (0-0.5) K/uL Baso # (Auto) (0-0.2) K/uL Immature Gran # (Auto) (0.00-0.02) K/uL Absolute Nucleated RBC (0-0) K/uL Nucleated RBC % (auto) % Polychromasia PT (9.0-12.0) Seconds INR (0.9-1.1) APTT (21.0-31.0) Seconds PTT Ratio Sodium (136-145) mmol/L Potassium (3.5-5.1) mmol/L Chloride (98-107) mmol/L Carbon Dioxide (21-32) mmol/L Anion Gap (3-11) BUN (7-18) mg/dl Creatinine (0.6-1.4) mg/dl Est Cr Clr Drug Dosing ml/min Est GFR ( Amer) ml/min Est GFR (Non-Af Amer) ml/min BUN/Creatinine Ratio (10-20) Glucose (70-99) mg/dl POC Glucose 168 H 151 H 201 H (70-99) mg/dl Calcium (8.5-10.1) mg/dl Magnesium (1.8-2.4) mg/dl Total Bilirubin (0.2-1) mg/dl AST (15-37) U/L ALT (12-78) Alkaline Phosphatase (45-117) U/L Total Protein (6.4-8.2) gm/dl Albumin (3.4-5.0) gm/dl Globulin (2.5-4.0) gm/dl Albumin/Globulin Ratio (0.9-2) Blood Type Antibody Screen Crossmatch 11/11/21 11/11/21 11/11/21 Range/Units 07:31 06:42 06:42 WBC (4.8-10.8) K/uL RBC (4.7-6.1) M/uL Hgb (14.0-18.0) g/dL Hct (42-52) % MCV (80-100) fL MCH (25-34) pg MCHC (32-36) g/dL RDW Std Deviation (36.4-46.3) fL RDW Coeff of Juliane (11.5-14.5) % Plt Count (130-400) K/uL MPV (7.4-10.4) fL Immature Gran % (Auto) % Neut % (Auto) % Lymph % (Auto) % [place] % (Auto) % Eos % (Auto) % Baso % (Auto) % Neut # (Auto) (1.4-6.5) K/uL Lymph # (Auto) (1.2-3.4) K/uL [place] # (Auto) (0.11-0.59) K/uL Eos # (Auto) (0-0.5) K/uL Baso # (Auto) (0-0.2) K/uL Immature Gran # (Auto) (0.00-0.02) K/uL Absolute Nucleated RBC (0-0) K/uL Nucleated RBC % (auto) % Polychromasia PT (9.0-12.0) Seconds INR (0.9-1.1) APTT (21.0-31.0) Seconds PTT Ratio Sodium 132 L (136-145) mmol/L Potassium 4.1 (3.5-5.1) mmol/L Chloride 102 (98-107) mmol/L Carbon Dioxide 24 (21-32) mmol/L Anion Gap 6.0 (3-11) BUN 11 (7-18) mg/dl Creatinine 1.05 (0.6-1.4) mg/dl Est Cr Clr Drug Dosing 100.7 ml/min Est GFR ( Amer) 90.9 ml/min Est GFR (Non-Af Amer) 78.4 ml/min BUN/Creatinine Ratio 10.2 (10-20) Glucose 130 H (70-99) mg/dl POC Glucose 143 H (70-99) mg/dl Calcium 8.7 (8.5-10.1) mg/dl Magnesium 1.5 L (1.8-2.4) mg/dl Total Bilirubin 0.5 (0.2-1) mg/dl AST 6 L (15-37) U/L ALT 12 (12-78) Alkaline Phosphatase 69 (45-117) U/L Total Protein 5.9 L (6.4-8.2) gm/dl Albumin 1.8 L (3.4-5.0) gm/dl Globulin 4.1 H (2.5-4.0) gm/dl Albumin/Globulin Ratio 0.4 L (0.9-2) Blood Type O Negative Antibody Screen NEGATIVE Crossmatch See Detail 11/11/21 11/11/21 Range/Units 06:42 06:42 WBC 13.67 H (4.8-10.8) K/uL RBC 2.43 L (4.7-6.1) M/uL Hgb 6.9 L* (14.0-18.0) g/dL Hct 21.8 L (42-52) % MCV 89.7 (80-100) fL MCH 28.4 (25-34) pg MCHC 31.7 L (32-36) g/dL RDW Std Deviation 54.4 H (36.4-46.3) fL RDW Coeff of Juliane 16.7 H (11.5-14.5) % Plt Count 241 (130-400) K/uL MPV 9.4 (7.4-10.4) fL Immature Gran % (Auto) 3.1 % Neut % (Auto) 74.3 % Lymph % (Auto) 7.6 % [place] % (Auto) 12.5 % Eos % (Auto) 2.3 % Baso % (Auto) 0.2 % Neut # (Auto) 10.15 H (1.4-6.5) K/uL Lymph # (Auto) 1.04 L (1.2-3.4) K/uL [place] # (Auto) 1.71 H (0.11-0.59) K/uL Eos # (Auto) 0.31 (0-0.5) K/uL Baso # (Auto) 0.03 (0-0.2) K/uL Immature Gran # (Auto) 0.43 H (0.00-0.02) K/uL Absolute Nucleated RBC 0.06 H (0-0) K/uL Nucleated RBC % (auto) 0.5 % Polychromasia 1+ PT 13.6 H (9.0-12.0) Seconds INR 1.4 H (0.9-1.1) APTT 56.1 H* (21.0-31.0) Seconds PTT Ratio 2.1 Sodium (136-145) mmol/L Potassium (3.5-5.1) mmol/L Chloride (98-107) mmol/L Carbon Dioxide (21-32) mmol/L Anion Gap (3-11) BUN (7-18) mg/dl Creatinine (0.6-1.4) mg/dl Est Cr Clr Drug Dosing ml/min Est GFR ( Amer) ml/min Est GFR (Non-Af Amer) ml/min BUN/Creatinine Ratio (10-20) Glucose (70-99) mg/dl POC Glucose (70-99) mg/dl Calcium (8.5-10.1) mg/dl Magnesium (1.8-2.4) mg/dl Total Bilirubin (0.2-1) mg/dl AST (15-37) U/L ALT (12-78) Alkaline Phosphatase (45-117) U/L Total Protein (6.4-8.2) gm/dl Albumin (3.4-5.0) gm/dl Globulin (2.5-4.0) gm/dl Albumin/Globulin Ratio (0.9-2) Blood Type Antibody Screen Crossmatch PG Care Time/CCT Total # of Minutes Spent Total Time Spent with Patient: Total time spent is greater than 50% in coordination of care (as documented) at patient's floor/unit and/or counseling patient: Coding Level of Care Code 23495 Subseq Hosp Care Lvl 3 Diagnoses Hypotension I95.9 Hematuria R31.9 RITU (acute kidney injury) N17.9 Hyperkalemia E87.5 Anemia D64.9 UTI (urinary tract infection) N39.0 Aortic valve replaced Z95.2 Uncontrolled type 2 diabetes mellitus with chronic kidney disease E11.22; E11.65 Hypercholesterolemia E78.00 NSVT (nonsustained ventricular tachycardia) I47.2 Urethral stricture N35.919 Leukocytosis D72.829 Chronic kidney disease N18.9 Hypomagnesemia E83.42
[2021-11-12] MEDS: AMPICILLIN 1,000 MG in SODIUM CHLOR 0.9% AD-VAN 50 ML IV SCH (02:40)
[2021-11-12 06:36] LABS: Basophils # (auto) 0.04 K/uL (0-0.2); Basophils % (auto) 0.3 %; Eosinophils # (auto) 0.24 K/uL (0-0.5); Eosinophils % (auto) 1.6 %; Hematocrit (blood only) 26.3 % (42-52); Hemoglobin 8.3 g/dL (14.0-18.0); Immature Granulocytes # (auto) 0.32 K/uL (0.00-0.02); Immature Granulocytes % (auto) 2.2 %; Lymphocytes # (auto) 1.08 K/uL (1.2-3.4); Lymphocytes % (auto) 7.4 %; Mean Corpuscular Hgb Conc 31.6 g/dL (32-36); Mean Corpuscular Volume 88.9 fL (80-100); Mean Platelet Volume 9.7 fL (7.4-10.4); Monocytes # (auto) 1.82 K/uL (0.11-0.59); Monocytes % (auto) 12.4 %; Neutrophils # (auto) 11.18 K/uL (1.4-6.5); Neutrophils % (auto) 76.1 %; Nucleated RBC # (auto) 0.07 K/uL (0-0); Nucleated RBC % (auto) 0.5 %; Platelet Count 250 K/uL (130-400); RDW Coefficient of Variation 16.4 % (11.5-14.5); RDW Standard Deviation 52.5 fL (36.4-46.3); Red Blood Count 2.96 M/uL (4.7-6.1); White Blood Count 14.68 K/uL (4.8-10.8)
[2021-11-12 06:48] LABS: INR 1.2 (0.9-1.1); Partial Thromboplastin Ratio 1.7; Partial Thromboplastin Time 44.1 Seconds (21.0-31.0); Prothrombin Time 12.4 Seconds (9.0-12.0)
[2021-11-12 07:01] LABS: Albumin Globulin Ratio 0.8 (0.9-2); Albumin Level 2.7 gm/dl (3.4-5.0); BUN Creatinine Ratio 8.3 (10-20); Bilirubin,Total 0.8 mg/dl (0.2-1.0); Calcium 8.4 mg/dl (8.5-10.1); Creatinine Clr Calc Pharmacy 110.7 ml/min; Est GFR (African American) 101.3 ml/min; Est GFR (Non-African American) 87.4 ml/min; Globulin 3.3 gm/dl (2.5-4.0); Magnesium 1.3 mg/dl (1.7-2.4); Potassium 4.1 mmol/L (3.5-5.1)
[2021-11-12] MEDS: HEPARIN SODIUM/DEXTROSE 25,000 UNITS/500 ML BAG IV SCH (07:49)
[2021-11-12] MEDS: MAGNESIUM SULFATE / D5W 1 GM/100 ML BAG IV SCH ×3 (08:01→11:49)
[2021-11-12] MEDS: AMOXICILLIN 500 MG CAP PO SCH ×2 (08:05→12:56)
[2021-11-12] MEDS: ATORVASTATIN 40 MG TAB PO SCH (08:06)
[2021-11-12] MEDS: METOPROLOL SUCC 25MG EXT REL TAB PO SCH (08:06)
[2021-11-12] MEDS: PHENAZOPYRIDINE HCL 100 MG TAB PO PRN (08:06)
[2021-11-12] MEDS: PANTOprazole 40 MG TAB PO SCH (08:06)
[2021-11-12] MEDS: INSULIN GLARGINE SOLOSTAR 100 UNITS/ML 3 ML PEN SC SCH (08:08)
[2021-11-12] MEDS: INSULIN ASPART PER UNIT SC SCH ×2 (08:09→12:18)
--- NOTE | 2021-11-12 11:28 | Urology Progress Note ---
Date of Service November 12, 2021 Assessment & Plan (1) Hematuria: Plan: 55 yo male with hematuria in the setting of BPH, UTI and need for anticoagulation Plan: 1. Hematuria essentially resolved. Ok to perform void trial with PVRs to ensure adequate voiding. 2. Had a long conversation with patient regarding suspected poor bladder emptying which has led to atrophy of his right kidney and hydronephrosis of his left, affecting renal function. Discussed that he may not pass void trial and need to have gonzalez replaced or learned CIC. Patient not keen on either of these. Explained that further renal damage could eventually lead to need for hemodialysis. Patient does not seem to grasp severity of current admission and feels that medication has adequately controlled his voiding symptoms. 3. Hgb stable and creatinine stable today 4. Enterococcus faecalis UTI. Continue amoxicillin 5. If patient discharged today, urology will schedule close outpatient follow up to ensure appropriate bladder emptying. Admission and Anticipated Discharge Date Admission Date: November 06, 2021 Subjective Patient seen in person on rounds. Gonzalez catheter draining carmenza urine. Denies any pain. Patient very much wants to get catheter removed. HD stable. Hgb 8.3 from 6.9 yesterday. Cr 0.96, was 1.05 yesterday. Review of Systems Review of Systems: 14 point review of systems negative outside of what is listed above in HPI Physical Exam Physical Exam: General: Alert and oriented, no acute distress HEENT: Normocephalic, mucous membranes moist Cardiovascular: Regular rate Pulmonary: Nonlabored respirations Abdomen: Nondistended : Gonzalez draining carmenza urine Extremities: Moves all 4 spontaneously Neuro: No gross deficits Skin: Warm, dry, no rashes noted Results & Data ([facility]) Vital Signs (Past 12 Hours) Vital Signs Temp Pulse Pulse Pulse Resp BP Pulse Ox 11/12/21 07:48 37 C 80 16 130/90 95 11/12/21 07:26 91 H 11/12/21 04:00 37.1 C 75 18 132/78 96 11/12/21 00:18 84 PG Care Time/CCT Total # of Minutes Spent Total Time Spent with Patient: Total time spent is greater than 50% in coordination of care (as documented) at patient's floor/unit and/or counseling patient: Coding Level of Care Code 55131 Subseq Hosp Care Lvl 2 Diagnoses Hematuria R31.0 Hematuria type: gross (1) Hematuria Hematuria type: gross Qualified Code(s): R31.0 - Gross hematuria
[2021-11-12 11:32] VITALS: BP 130/80; TEMP 97.5
[2021-11-12 11:55] VITALS: O2SAT 96
[2021-11-12] MEDS ORDERED: ENOXAPARIN INJ 120 MG/0.8 ML SYR SQ SCH (12:00)
[2021-11-12] MEDS ORDERED: METOPROLOL SUCC 25MG EXT REL TAB PO SCH (12:00)
--- NOTE | 2021-11-12 13:17 | Discharge Summary ---
Date of Service November 12, 2021 Admission HPI Per Admitting Provider This is a 55-year-old male with past medical history of prostate adenocarcinoma 2018, type 2 diabetes mellitus, mild chronic renal sufficiency, status post mechanical aortic valve secondary to congenital bicuspid valve and chronic bladder outlet obstruction that presents with abnormal lab work. Patient is awake and alert and able to give history, rest the history as per ER physician and outpatient records. Patient tells me that approximately 4 days ago he started to have evidence hematuria. He says he occasionally gets urinary tract infections and these present in this matter. He denied any fevers or chills as well as any pain in his back or his suprapubic region. He does follow with urology and was at their office yesterday. He saw the nurse and at that time he had a Orosco catheter placed with return of 1500 cc of "Merlot colored urine". He also had lab work performed at that night. Today he returned to the urologist office and was told to present to the emergency room. He was found to be in acute renal failure with a very elevated creatinine. In addition, he was anemic with hemoglobin down to 6.5. His potassium was also very elevated to 6.2. In the emergency room, he was found to be tachycardic and hypotensive. He did have periods of prolonged NSVT which seem to improve with volume resuscitation. Blood pressure was down to 74/49 although this is improving. Unit of O- packed blood cells is currently being administered when I arrived into the room. In addition, patient is supratherapeutic on his Coumadin with an INR 4.1. At this time, patient will be admitted to the hospital. I have a call out to audit machine operator to discuss ICU admission. Principal Diagnosis Hemorrhagic shock Acute blood loss anemia Gross hematuria Radiation cystitis Acute kidney injury Hyperkalemia Enterococcus UTI Hypomagnesemia SVT Discharge Exam Constitutional WD/WN, vitals as above Eyes + anicteric sclerae; no conjunctival abnormality Neck trachea midline, no thyromegaly Respiratory normal respiratory effort, lungs clear to auscultation Cardiovascular RRR, no murmur, no edema Heart Sounds: + abnormal S2 (Mechanical click) Chest (Breasts) Chest: normal inspection of chest Gastrointestinal (Abdomen) normal bowel sounds, soft, nontender, no hepatosplenomegaly Musculoskeletal Extremities: extremities normal to inspection; no cyanosis and no clubbing Skin no rashes, warm and dry Neurologic moves all extremities and awake; no focal motor deficits Psychiatric A+Ox3, euthymic affect Genitourinary Orosco catheter removed Lymphatic no lymphedema Discharge Data Allergies Allergy/AdvReac Type Severity Reaction Status Date / Time No Known Allergies Allergy Verified 11/06/21 12:29 Consultations 11/06/21 15:15 ED Decision to Admit Stat 11/06/21 16:10 Consult Doctor Of Nursing Practice Routine 11/06/21 19:22 Consult Urology Routine Procedures Performed Operation Date: 11/08/21 17:00 Actual Procedures p Cystoscopy, Uretheral Dilation, Clot Evacuation, Prostate and Bladder Fulgeration(Not Applicable) - Shaun Carvajal, DO Hospital Course (1) Hematuria: Hemorrhagic cystitis, exacerbated by Coumadin induced coagulopathy. 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 Received CBI for many days and hematuria pretty much resolved-Orosco catheter removed and he was voiding on his own with a PVR of 50 mL on the day of discharge Is much improved Continue treatment for UTI with antibiotics-finish out amoxicillin p.o. x7 more days for Enterococcus Now status post 9 units PRBCs throughout his hospitalization for significant hematuria He remained on a heparin drip throughout the majority of his hospitalization after his Coumadin was initially reversed and he was volume resuscitated with blood transfusions Appreciate urology management -Continue holding home aspirin on discharge -Okay to begin bridging Lovenox and restart Coumadin on the day of discharge with close follow-up with anticoagulation clinic -Follow-up with urology within 1 week-urology is concerned that he may have a neurogenic bladder and expect that in the future he will need either self- catheterization intermittently or chronic Orosco catheter replaced (2) Hypotension: hemorrhagic shock from hemorrhagic cystitisnow resolved status post transfusion of a total of 9 units packed red cells. -Have since restarted his Toprol-XL and blood pressures are normal (3) Anemia: With acute blood loss anemia from gross hematuria as above Hemoglobin down to 6 on arrival Status post 9 units PRBCs during this hospitalization Received IV calcium gluconate 1 g given numerous PRBCs transfused and for clotting factor Follow CBC in 2 days with next INR check as an outpatient-hemoglobin was stable on at 8.3 on the day of discharge (4) RITU (acute kidney injury): With acute kidney injury on arrival with creatinine 3.4, now resolved down to 0.96 With resulting hyperkalemia and hyponatremia Treated with blood transfusion and IV fluids Orosco catheter placed and urethral stricture dilated, however urology also feels he likely has a neurogenic bladder contributing Clots in the bladder causing bladder outlet obstruction also contributing -Held his home lisinopril, empagliflozin, and furosemide throughout hospitalization-okay to restart lisinopril and empagliflozin upon discharge He can continue to use furosemide as needed (5) Hyperkalemia: Treated and improved, related to acute kidney injury on arrival (6) UTI (urinary tract infection): Urine culture growing Enterococcus resistant to tetracycline Received IV ampicillin and converted to amoxicillin to finish out 10-day course (7) Aortic valve replaced: Patient is on chronic Coumadin for this, supratherapeutic INR on admission 4.1 Was on heparin drip throughout his stay in case of worsening bleeding. Coumadin was initially reversed Continue to monitor PT/INR-INR 1.2 on the day of discharge Discussed his care with anticoagulation clinic-Dr. Cruz--> recommends Coumadin 10 mg daily x2 days, then follow-up at Coumadin clinic -Start bridging Lovenox 1 mg/KG SQ every 12 hours until discontinued by Coumadin clinic (8) Uncontrolled type 2 diabetes mellitus with chronic kidney disease: A1c 6.2, pharmacy glycemic management as an inpatient appreciated with Lantus and NovoLog Held home metformin, glimepiride, and empagliflozin, but can all be restarted upon discharge (9) Hypercholesterolemia: Chronically on a statin (10) NSVT (nonsustained ventricular tachycardia): Heart rates have overall improved with improvement of his volume status In sinus rhythm here but had 15 minutes of what appears to be SVT with rates in the 160s on 11/11 that was completely asymptomatic Has chronic LBBB and this does appear to be SVT to me rather than nonsustained ventricular tachycardia -I did also review the telemetry strips with cardiology who agreed that this is not ventricular tachycardia -Continue metoprolol succinate and increase the dose to 37.5 mg once daily to prevent further SVT -Continue to replace low magnesium (11) Urethral stricture: Dilated during cystoscopy Orosco catheter removed and he passed a trial of void prior to discharge (12) Leukocytosis: WBC count remains elevated but stable from previous at 14 Could be secondary to UTI which was just recently treated since 11/09 Could be reactive due to severe anemia He is afebrile, no other signs of infection Follow CBC as an outpatient (13) Chronic kidney disease: CKD stage III -Avoid nephrotoxins -renally dose meds when appropriate -follow BMP as an outpatient in 2 days (14) Hypomagnesemia: Magnesium low at 1.3 Replaced with IV magnesium sulfate on several days Start magnesium oxide 250 Mg p.o. once daily upon discharge Follow magnesium levels as an outpatient May need increased oral magnesium dose as an outpatient DVT prophylaxis-Heparin drip Disposition-stable for discharge to home Total Time Total Time Spent Total Time Spent (In Minutes): 45 minutes Total Time Includes: Examination of the Patient, Discharge Planning, Medication Reconciliation and Communication With Other Providers (Urology, anticoagulation clinic) Discharge Plan Discharge Items Patient Disposition: Home - Self-Care Reason For Visit: ANEMIA Discharge Diagnosis: Acute blood loss anemia, Hematuria, Acute kidney injury, hyperkalemia, hemorrhagic shock, UTI Condition on Discharge: Fair Activity: As commented below Bathing: No limitations Exercise/Sports: Gradually increase as tolerated Non-emergency contact: Primary Care Provider and Urologist Call non-emergency contact if: you have any medication questions, your symptoms worsen and your pain is not controlled Follow-up/Referrals: Kaley Cruz MD, PhD [Pathologist] - 11/14/21 10:00 am (Follow up for your Coumadin management) Pop Hill MD [Physician] - (Follow up within 1 week in the Urology office. Dr. Hill's office will call you with an appointment.) Teresa Sim MD [Physician] - 11/24/21 11:15 am Diet: Carb Consistent or DM2 and Heart Healthy Addtl Attending Provider Instructions: Please have your blood work checked to include a CBC, magnesium, and BMP in 2 days. You should continue on the Lovenox injections twice daily until Dr. Cruz tells you to stop. You should take 10mg of coumadin today and tomorrow, and then see Dr. Cruz at 10:00 AM on Wednesday11/14/21. Please follow up with Urology as directed-they should be scheduling this appointment. HOLD on taking your aspirin for now. Finish out one more week of antibiotics for your UTI with amoxicillin, three times a day. If you have any trouble with urinating, please call the Urologist's office right away. You had some runs of a rapid heart rhythm that the Pipeline Welder thinks could be atrial flutter or supraventricular tachycardia. Your metoprolol dose was increased to 37.5mg once daily. Please keep your routine follow up visits scheduled with Dr. Bernstein. Pending Studies at Discharge: No Stand-Alone Forms: [facility] Medications and DC Order Prescriptions: New metoprolol succinate [Toprol XL] 25 mg tablet extended release 24 hr 37.5 mg PO DAILY Qty: 45 RF: 0 Continued lactobacillus combination no.4 [Probiotic] 3 billion cell capsule 3,000 mmu cells PO DAILY RF: 0 potassium chloride [Klor-Con 10] 10 mEq tablet extended release 20 meq PO DAILY PRN (Reason: If takes lasix) RF: 0 clobetasol 0.05 % ointment 1 appln TOP 2XWK PRN (Reason: Itching) RF: 0 warfarin [Jantoven] 5 mg tablet See Rx Instructions PO UD RF: 0 triamcinolone acetonide 0.5 % ointment 1 applic TOP QID PRN (Reason: itching) Qty: 45 RF: 3 atorvastatin 40 mg tablet 40 mg PO DAILY Qty: 90 RF: 3 metformin 1,000 mg tablet 1,000 mg PO BID Qty: 180 RF: 3 trazodone 50 mg tablet See Rx Instructions .ROUTE .COMPLEX Qty: 90 RF: 7 Jardiance 25 mg tablet 25 mg PO QAM Qty: 90 RF: 3 furosemide 40 mg tablet 40 mg PO DAILY PRN (Reason: leg swelling) Qty: 90 RF: 3 silodosin 8 mg capsule 8 mg PO DAILY Qty: 90 RF: 3 lisinopril 10 mg tablet 10 mg PO DAILY Qty: 90 RF: 3 glimepiride 1 mg tablet 1 mg PO DAILY Qty: 90 RF: 3 Changed metoprolol succinate [Toprol XL] 25 mg tablet extended release 24 hr 37.5 mg PO DAILY Qty: 135 RF: 1 Discontinued aspirin [Ecotrin Low Strength] 81 mg tablet,delayed release (DR/EC) 81 mg PO DAILY RF: 0 No Action warfarin [Jantoven] 7.5 mg tablet See Rx Instructions PO UD RF: 0 Discharge Orders: Discharge Order (Routine); Ordered 11/12/21 Ordered By: Felicity Buckley/Other Patient Handouts: High Blood Sugar (Hyperglycemia), Managing Type 2 Diabetes Admission Data Admit Date/Time: 11/06/21 13:23 Attending Provider: Felicity Thurman Admit Provider: Juan M Byrd Primary Care Provider: Carlota Martinez Other Providers: Juan M Byrd ; Chris Fink ; Cresencio Norton ; Miguel Angel Valencia ; Pop Hill ; Page Nieto ; Shaun Carvajal ; Umm Peacock ; Karli Francis ; Raven Brand ; Colt Ellis ; Art Goel ; Breanna Albarran ; Sveta Brand ; Rony Melo Other Interventions: Discharge Summary Assessment (RN) Last Done: 11/12/21 13:35 Coding Level of Care Code D/C DAY MANAGEMENT >30 MINS Diagnoses Hematuria R31.9 Hypotension I95.9 Anemia D64.9 RITU (acute kidney injury) N17.9 Hyperkalemia E87.5 UTI (urinary tract infection) N39.0 Aortic valve replaced Z95.2 Uncontrolled type 2 diabetes mellitus with chronic kidney disease E11.22; E11.65 Hypercholesterolemia E78.00 NSVT (nonsustained ventricular tachycardia) I47.2 Urethral stricture N35.919 Leukocytosis D72.829 Chronic kidney disease N18.9 Hypomagnesemia E83.42
[2021-11-12 13:38] VITALS: PULSE 75
[2021-11-12] MEDS ORDERED: WARFARIN SOD 10 MG TAB PO SCH (16:00)
[2021-11-13] MEDS ORDERED: METOPROLOL SUCC 25MG EXT REL TAB PO SCH (09:00)
== END 2021-11-12 14:29 | disposition home or self-care (01) | DRG 662 ==
LOC: ED 10:18 → 1E 13:23 → SUATTDRO 13:23 → 1E 16:17 → 2N 11-07 12:04

== ENCOUNTER 2021-12-22 16:40 | Inpatient (IN) ==
[2021-12-22] MEDS ORDERED: SODIUM CHLORIDE 0.9% 500 ML IV STA (17:01)
--- NOTE | 2021-12-22 17:42 | Emergency Department Note ---
Impression & Plan Weakness, Anemia, Hematuria, RITU (acute kidney injury), Acute hyponatremia, Coagulopathy ED Provider Note NAME: MARCI GALLARDO AGE: 56 SEX: M : 1965 ARRIVES VIA: Walk-In INFORMANT: [Patient] ED PROVIDER(S): [Samson Jang MD] CHIEF COMPLAINT: Abnormal labs HISTORY OF PRESENT ILLNESS: The patient is a 56-year-old male who presents to the ER at the advice of his he matologist. 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 Last Wednesday, 3 days ago, he had an INR that was over 8. He had blood in his urine. The patient was told to hold his Coumadin and was given a vitamin K tablet. The amount of blood in the urine has decreased over the weekend. Today, the INR was around 4. He had a hemoglobin just under 7. He feels weak and tired and kind of washed out. There has been no urinary burning or frequency. No fever, chills, cough or congestion. No real shortness of breath, no abdominal pain. Patient has a history of having anemia from urinary bleeding. He was last transfused about 6 weeks ago. Blood type is O-. Of note, the patient's white blood cell count was also high today at 15, his creatinine was elevated. He states he has not noticed a fever and does not feel like he has any kind of infection. REVIEW OF SYSTEMS: See HPI for pertinent positives and negatives. A total of ten systems were reviewed and were otherwise negative. PMHx/PSHx: See Below SOCIAL HISTORY: See Below. PHYSICAL EXAM: GENERAL: Patient is in no acute distress. HEENT: No acute trauma, normocephalic atraumatic, mucous membranes moist, no nasal congestion, no scleral icterus. NECK: No stridor, no adenopathy, no meningismus, trachea is midline. LUNGS: Clear to auscultation bilaterally, no wheeze, no rhonchi, breath sounds equal. HEART: Mildly tachycardic, regular rhythm, no murmurs. ABDOMEN: Soft, nontender, bowel sounds positive, no hernias, no peritonitis. EXTREMITIES: No cyanosis or edema, full range of motion of all the joints without pain or difficulty, no signs for acute trauma. NEUROLOGIC: Oriented x 3, no acute motor or sensory deficits, no focal weakness. SKIN: No rash, no jaundice, no diaphoresis. Pale. DIFFERENTIAL DIAGNOSIS: Infection, sepsis, coagulopathy, UTI, hematuria, COVID-19, bacteremia, dehydration, metabolic abnormality, hypo/hyperglycemia, electrolyte disturbance, anemia, hypoxia, cardiac sources, as well as other pathologies. EMERGENCY DEPARTMENT COURSE/PROCEDURES: ECG: Indication was weakness. The ECG shows a normal sinus rhythm with a rate of 88. There is a left bundle branch block. No concerning ST elevation, no PVCs. The QTc is 498. Compared an ECG from 06 November 2021, the rate has decreased. Continuous Cardiac Monitoring: An order was placed for continuous cardiac monitoring. The monitor shows a rate of 86 with normal sinus rhythm. Critical Care Note: I have personally spent 51 minutes of critical care time in the direct management of this patient. This includes bedside care, interpretation of diagnostic studies, and testing, discussion with consultants, patient, and family members, and other required patient management activities. This 51 minutes is in excess of all separately billable procedures. MEDICAL DECISION MAKING: There is a moderate leukocytosis at 17,000, this certainly could be consistent with infection. The patient is anemic with a hemoglobin of 6.3. Platelet count was normal. INR was elevated at 4, this is above the therapeutic window but consistent with his Coumadin use. Renal panel testing shows acute kidney injury with a creatinine of 2.37. CO2 was a bit low at 18. Sodium was low at 123. Lactic acid level was elevated consistent with infection/dehydration. No concer bailey liver enzyme elevation. Urinalysis shows hematuria and potential infection. Urine culture is pending. Covid testing returned negative. Chest film showed some cardiomegaly, no CHF or pneumonia. Abdominal and pelvis CT showed bladder inflammation and a bladder diverticulum. There was hydron ephrosis noted. Chronic findings to the right kidney noted. The patient presents with abnormal outpatient laboratory testing. On ED work-up he appears to have a UTI, hematuria, anemia, acute kidney injury, hyponatremia, coagulopathy. I do think a hospital stay is warranted. Patient received IV saline, 1.5 L. He received IV Levaquin as empiric antibiotic coverage. He was ordered for 1 unit of blood to be transfused while here in the ED. The consent for the blood transfusion was signed. I talked to the patient about his findings. I did speak with case management. The on-call hospitalist was consulted. Past Med/Surg History Medical History Chronic anticoagulation Diabetes Diabetic retinopathy Diverticulum of bladder Erectile dysfunction Hematuria Couple days out of a month will noted tea colored urine; Hydronephrosis of right kidney Hypercholesteremia Hypertension Incomplete bladder emptying Insomnia Prostate cancer Psoriasis Urethral stricture Surgical History H/O aortic valve replacement H/O colonoscopy Tubular adenoma 08/22/18 H/O cystoscopy Family History Mother Asthma MVP (mitral valve prolapse) Father Leukemia Pernicious anemia Brother No problems noted. Brother No problems noted. Brother No problems noted. Sister No problems noted. Daughter No problems noted. Daughter No problems noted. 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; Feels Safe at Home: Yes caffeine: No during the past year weight has: remained stable Assistive Devices: None Allergies Allergies Allergy/AdvReac Type Severity Reaction Status Date / Time No Known Allergies Allergy Verified 12/22/21 20:13 Home Meds Home Medications Medication Instructions Recorded Confirmed lactobacillus combination no.4 3 3,000 mmu cells PO DAILY 08/04/18 12/22/21 billion cell capsule (Probiotic) potassium chloride 10 mEq 20 meq PO DAILY PRN tab 08/04/18 12/22/21 tablet,extended release (Klor-Con) clobetasol 0.05 % topical ointment 1 appln TOP 2XWK PRN gm 06/20/19 12/22/21 warfarin 7.5 mg tablet (Jantoven) See Rx Instructions PO UD tab 11/17/2112/22 aspirin 81 mg tablet,delayed 81 mg PO DAILY 12/01/21 12/22/21 release (Adult Low Dose Aspirin) trazodone 50 mg tablet 50 - 100 mg PO HS PRN 12/22/21 12/22/21 Previous Rx's Medication Instructions Recorded triamcinolone acetonide 0.5 % 1 applic TOP QID PRN #45 gm 02/07/21 topical ointment atorvastatin 40 mg tablet 40 mg PO DAILY #90 tab 05/21/21 metformin 1,000 mg tablet 1,000 mg PO BID #180 tab 06/06/21 empagliflozin 25 mg tablet 25 mg PO QAM #90 tab 06/13/21 (Jardiance) furosemide 40 mg tablet 40 mg PO DAILY PRN #90 tab 06/13/21 glimepiride 1 mg tablet 1 mg PO DAILY #90 tab 07/14/21 silodosin 8 mg capsule 8 mg PO DAILY #90 cap 07/31/21 lisinopril 10 mg tablet 10 mg PO DAILY #90 tab 10/06/21 metoprolol succinate 25 mg 37.5 mg PO DAILY #135 tab 11/12/21 tablet,extended release 24 hr (Toprol XL) metoprolol succinate 25 mg 37.5 mg PO DAILY #45 tab 11/12/21 tablet,extended release 24 hr (Toprol XL) warfarin 5 mg tablet (Jantoven) See Rx Instructions PO UD #20 tab 12/22/21 Results & Data (ED) Vital Signs Vital Signs - 24 hr 12/22/21 16:59 12/22/21 17:42 12/22/21 18:28 Temperature 36.9 C Temperature Source Temporal Artery Scan Pulse Rate 99 H Pulse Rate [Apical] 86 Pulse Rhythm [Apical] Regular Pulse Strength [Apical] Normal Respiratory Rate 18 18 Respiratory Effort / Characteristics Non-Labored Non-Labored Spontaneous Respiratory Depth Normal Normal Respiratory Pattern Regular Regular Blood Pressure 100/61 Blood Pressure [Left Arm] 111/72 Blood Pressure Mean 74 Blood Pressure Mean [Left Arm] 85 Blood Pressure Position [Left Arm] Semi-fowlers Pulse Oximetry 100 99 98 Oxygen Delivery Method Room Air Room Air Room Air Sepsis Recent Fever Within 48 Hours No Sepsis New/Unexplained Change in Mental Status No Sepsis Action Taken by Nursing No Action Required 12/22/21 19:00 Temperature Temperature Source Pulse Rate Pulse Rate [Apical] 84 Pulse Rhythm [Apical] Regular Pulse Strength [Apical] Normal Respiratory Rate 20 Respiratory Effort / Characteristics Non-Labored Respiratory Depth Normal Respiratory Pattern Blood Pressure Blood Pressure [Left Arm] 108/67 Blood Pressure Mean Blood Pressure Mean [Left Arm] 80 Blood Pressure Position [Left Arm] Pulse Oximetry 99 Oxygen Delivery Method Sepsis Recent Fever Within 48 Hours Sepsis New/Unexplained Change in Mental Status Sepsis Action Taken by Long-Term Medications Current Medication List: was personally reviewed by me Laboratory Data Attestation: I reviewed the patient's lab results. Result diagrams: 12/22/21 17:57 12/22/21 17:57 Lab Results 12/22/21 12/22/21 12/22/21 Range/Units 17:57 17:57 17:57 WBC 17.80 H (4.8-10.8) K/uL RBC 2.50 L (4.7-6.1) M/uL Hgb 6.3 L* (14.0-18.0) g/dL Hct 20.5 L* (42-52) % MCV 82.0 (80-100) fL MCH 25.2 (25-34) pg MCHC 30.7 L (32-36) g/dL RDW Std Deviation 49.7 H (36.4-46.3) fL RDW Coeff of Juliane 17.1 H (11.5-14.5) % Plt Count 399 (130-400) K/uL MPV 9.7 (7.4-10.4) fL Absolute Nucleated RBC 0.10 H (0-0) K/uL Nucleated RBC % (auto) 0.6 % PT 36.6 H (9.0-12.0) Seconds INR 4.0 H (0.9-1.1) APTT 55.9 H* (21.0-31.0) Seconds PTT Ratio 2.1 Sodium 123 L (136-145) mmol/L Potassium 5.5 H (3.5-5.1) mmol/L Chloride 94 L (98-107) mmol/L Carbon Dioxide 18 L (21-32) mmol/L Anion Gap 11 (3-11) BUN 53 H (6-23) mg/dl Creatinine 2.37 H (0.6-1.4) mg/dl Est Cr Clr Drug Dosing 41.1 ml/min Est GFR ( Amer) 33.7 ml/min Est GFR (Non-Af Amer) 29.1 ml/min BUN/Creatinine Ratio 22.4 H (10-20) Glucose 185 H (70-99(Fasting)) mg/dl Lactate (0.4-2.0) mmol/L Calcium 8.9 (8.5-10.1) mg/dl Total Bilirubin 0.5 (0.2-1.0) mg/dl AST 16 (13-39) U/L ALT 21 (7-52) U/L Alkaline Phosphatase 100 (34-104) U/L Total Protein 7.2 (6.0-8.3) gm/dl Albumin 3.6 (3.4-5.0) gm/dl Globulin 3.6 (2.5-4.0) gm/dl Albumin/Globulin Ratio 1.0 (0.9-2) Urine Color Urine Appearance (Clear) Urine pH (4.5-7.5) Ur Specific [place] (1.000-1.030) Urine Protein (Negative) Urine Glucose (UA) (Negative) Urine Ketones (Negative) Urine Blood (Negative) Urine Nitrite (Negative) Urine Bilirubin (Negative) Urine Urobilinogen (Negative) Ur Leukocyte Esterase (Negative) Urine RBC (0-4) /hpf Urine WBC (0-5) /hpf Ur Epithelial Cells (0-5) /lpf Urine Bacteria (Negative) SARS-CoV-2, RNA, NAAT (NEGATIVE) Blood Type Antibody Screen Crossmatch 12/22/21 12/22/21 12/22/21 Range/Units 17:57 18:21 18:35 WBC (4.8-10.8) K/uL RBC (4.7-6.1) M/uL Hgb (14.0-18.0) g/dL Hct (42-52) % MCV (80-100) fL MCH (25-34) pg MCHC (32-36) g/dL RDW Std Deviation (36.4-46.3) fL RDW Coeff of Juliane (11.5-14.5) % Plt Count (130-400) K/uL MPV (7.4-10.4) fL Absolute Nucleated RBC (0-0) K/uL Nucleated RBC % (auto) % PT (9.0-12.0) Seconds INR (0.9-1.1) APTT (21.0-31.0) Seconds PTT Ratio Sodium (136-145) mmol/L Potassium (3.5-5.1) mmol/L Chloride (98-107) mmol/L Carbon Dioxide (21-32) mmol/L Anion Gap (3-11) BUN (6-23) mg/dl Creatinine (0.6-1.4) mg/dl Est Cr Clr Drug Dosing ml/min Est GFR ( Amer) ml/min Est GFR (Non-Af Amer) ml/min BUN/Creatinine Ratio (10-20) Glucose (70-99(Fasting)) mg/dl Lactate 2.6 H* (0.4-2.0) mmol/L Calcium (8.5-10.1) mg/dl Total Bilirubin (0.2-1.0) mg/dl AST (13-39) U/L ALT (7-52) U/L Alkaline Phosphatase (34-104) U/L Total Protein (6.0-8.3) gm/dl Albumin (3.4-5.0) gm/dl Globulin (2.5-4.0) gm/dl Albumin/Globulin Ratio (0.9-2) Urine Color Urine Appearance (Clear) Urine pH (4.5-7.5) Ur Specific [place] (1.000-1.030) Urine Protein (Negative) Urine Glucose (UA) (Negative) Urine Ketones (Negative) Urine Blood (Negative) Urine Nitrite (Negative) Urine Bilirubin (Negative) Urine Urobilinogen (Negative) Ur Leukocyte Esterase (Negative) Urine RBC (0-4) /hpf Urine WBC (0-5) /hpf Ur Epithelial Cells (0-5) /lpf Urine Bacteria (Negative) SARS-CoV-2, RNA, NAAT NEGATIVE (NEGATIVE) Blood Type O Negative Antibody Screen NEGATIVE Crossmatch See Detail 12/22/21 Range/Units 19:10 WBC (4.8-10.8) K/uL RBC (4.7-6.1) M/uL Hgb (14.0-18.0) g/dL Hct (42-52) % MCV (80-100) fL MCH (25-34) pg MCHC (32-36) g/dL RDW Std Deviation (36.4-46.3) fL RDW Coeff of Juliane (11.5-14.5) % Plt Count (130-400) K/uL MPV (7.4-10.4) fL Absolute Nucleated RBC (0-0) K/uL Nucleated RBC % (auto) % PT (9.0-12.0) Seconds INR (0.9-1.1) APTT (21.0-31.0) Seconds PTT Ratio Sodium (136-145) mmol/L Potassium (3.5-5.1) mmol/L Chloride (98-107) mmol/L Carbon Dioxide (21-32) mmol/L Anion Gap (3-11) BUN (6-23) mg/dl Creatinine (0.6-1.4) mg/dl Est Cr Clr Drug Dosing ml/min Est GFR ( Amer) ml/min Est GFR (Non-Af Amer) ml/min BUN/Creatinine Ratio (10-20) Glucose (70-99(Fasting)) mg/dl Lactate (0.4-2.0) mmol/L Calcium (8.5-10.1) mg/dl Total Bilirubin (0.2-1.0) mg/dl AST (13-39) U/L ALT (7-52) U/L Alkaline Phosphatase (34-104) U/L Total Protein (6.0-8.3) gm/dl Albumin (3.4-5.0) gm/dl Globulin (2.5-4.0) gm/dl Albumin/Globulin Ratio (0.9-2) Urine Color Brown Urine Appearance Turbid A (Clear) Urine pH 5.0 (4.5-7.5) Ur Specific [place] 1.020 (1.000-1.030) Urine Protein 3+ H (Negative) Urine Glucose (UA) 3+ H (Negative) Urine Ketones Negative (Negative) Urine Blood 3+ H (Negative) Urine Nitrite Negative (Negative) Urine Bilirubin Negative (Negative) Urine Urobilinogen Negative (Negative) Ur Leukocyte Esterase 1+ H (Negative) Urine RBC >30 H (0-4) /hpf Urine WBC 10-30 H (0-5) /hpf Ur Epithelial Cells 0-5 (0-5) /lpf Urine Bacteria 2+ H (Negative) SARS-CoV-2, RNA, NAAT (NEGATIVE) Blood Type Antibody Screen Crossmatch Administered Medications Discontinued Medications Sodium Chloride (Nss) 500 mls @ 999 mls/hr IV .Q31M STA Stop: 12/22/21 17:31 Last Infusion: 12/22/21 20:06 Dose: 0 mls/hr Documented by: [id number] Admin: 12/22/21 18:21 Dose: 999 mls/hr Documented by: [id number] Levofloxacin/Dextrose (Levaquin/D5w) 750 mg in 150 mls @ 100 mls/hr IV NOW STA Stop: 12/22/21 19:48 Last Admin: 12/22/21 20:25 Dose: 100 mls/hr Documented by: [id number] Imaging Data Radiologist's Impression: Abdomen/Pelvis CT 12/22/21 18:[address] WITHOUT CONTRAST CT DOSE: 1139.56 mGy.cm HISTORY: Anemia. Hematuria. Prostate cancer with radiation. Elevated white blood cell count. Assess for obstruction. TECHNIQUE: Multiaxial CT images of the abdomen and pelvis were performed without contrast. A dose lowering technique was utilized adhering to the principles of ALARA. COMPARISON STUDY: Renal ultrasound 04/24/2019. Abdomen and pelvis CT 11/15/2017. FINDINGS: The lung bases are clear. No pneumoperitoneum. No pneumatosis. No suspicious lytic or blastic osseous lesions. Dense mitral and aortic valve calcifications are noted and are partially visualized on this study. There are poststernotomy changes. The unenhanced liver, spleen, gallbladder, pancreas, and adrenal glands are unremarkable. No retroperitoneal lymphadenopathy. Normal caliber abdominal aorta. Near complete atrophy of the right renal parenchyma, unchanged. There is severe right hydroureteronephrosis, unchanged. There is mo derate left hydroureteronephrosis which has progressed in the interval. No obstructing stones identified. There is mild urothelial thickening and adjacent fat stranding within the mid to distal bilateral ureters. This is similar to the prior study and may be chronic. There is again noted a thickened and irregular bladder wall with a large right lateral bladder diverticulum. The bladder wall thickening has progressed. There is also mild thickening within the right lateral bladder diverticulum with adjacent fat stranding. This suggests an associated cystitis. Small amount of hyperdense material within the large right bladder diverticulum suggests blood products in the setting of hematuria. There are few punctate metallic densities within the prostate gland. There is also mild fat stranding adjacent to the thickened bladder. No pelvic free fluid. Suboptimal evaluation for bowel pathology due to the lack of intravenous and oral contrast. However, there is no definite bowel wall thickening or obstruction. Normal appendix. A few colonic diverticula. No evidence for acute diverticulitis. IMPRESSION: 1. Thickened and irregular bladder wall which has progressed in the interval. There is also mild wall thickening within the large right lateral bladder diverticulum. This bladder diverticulum remains distended. There is mild fat stranding adjacent to the bladder/bladder diverticulum. Therefore, these findings likely represent a cystitis. Recommend correlation with urinalysis. In addition, follow-up cystoscopy recommended for further evaluation of the irregular and thickened bladder wall to exclude the possibility of a neoplastic process. 2. Severe right hydroureteronephrosis, unchanged and moderate left hydroureteronephrosis which has progressed. No obstructing stones identified. This hydronephrosis could be due to the thickened bladder wall or bladder outlet obstruction. 3. Small amount of hyperdense material within the large right lateral bladder diverticulum suggestive of blood products in the setting of hematuria. 4. Additional findings as described above. ACT 112: Negative or not required by law. Electronically signed by: Cristino Parada M.D. 12/22/2021 7:48 PM Chest X-Ray 12/22/21 18:30 XR chest 1V portable HISTORY: Weakness. COMPARISON: Chest 11/06/2021. FINDINGS: No pneumothorax. No pleural effusions. The cardiac silhouette remains mildly enlarged. There are poststernotomy changes. There is mild central pulmonary vascular congestion without overt edema. This has improved. Mitral annulus calcifications are noted. No focal lung consolidations to suggest pneumonia. IMPRESSION: Cardiomegaly with mild central pulmonary vascular congestion without overt edema. This has improved in the interval. ACT 112: Negative or not required by law. Electronically signed by: Cristino Parada M.D. 12/22/2021 6:55 PM Discharge Plan Visit Data Chief Complaint: Abnormal Labs/Diagnostic Testing Stated Complaint: ABNORMAL LABS, BLOOD IN URINE ED Provider: Samson Jang Discharge Problem: Weakness, Anemia, Hematuria, RITU (acute kidney injury), Acute hyponatremia, Coagulopathy Patient Disposition: Admitted As Inpatient Condition: Fair
[2021-12-22 18:17] LABS: Hematocrit (blood only) 20.5 % (42-52); Hemoglobin 6.3 g/dL (14.0-18.0); Mean Corpuscular Hemoglobin 25.2 pg (25-34); Mean Corpuscular Hgb Conc 30.7 g/dL (32-36); Mean Platelet Volume 9.7 fL (7.4-10.4); Nucleated RBC % (auto) 0.6 %; Platelet Count 399 K/uL (130-400); RDW Coefficient of Variation 17.1 % (11.5-14.5); RDW Standard Deviation 49.7 fL (36.4-46.3)
[2021-12-22] MEDS ORDERED: levoFLOXacin/D5W 750 MG/150 ML BAG IV STA (18:19)
[2021-12-22] MEDS ORDERED: SODIUM CHLORIDE 0.9% 250 ML IV PRN ×2 (18:19→22:30)
[2021-12-22 18:25] LABS: Albumin Level 3.6 gm/dl (3.4-5.0); BUN Creatinine Ratio 22.4 (10-20); Bilirubin,Total 0.5 mg/dl (0.2-1.0); Calcium 8.9 mg/dl (8.5-10.1); Creatinine Clr Calc Pharmacy 41.1 ml/min; Est GFR (African American) 33.7 ml/min; Est GFR (Non-African American) 29.1 ml/min; Globulin 3.6 gm/dl (2.5-4.0); Potassium 5.5 mmol/L (3.5-5.1); Total Protein 7.2 gm/dl (6.0-8.3)
[2021-12-22] MEDS ORDERED: SODIUM CHLORIDE 0.9% 1000ML 1,000 ML IV ONE (18:30)
[2021-12-22 18:32] LABS: Partial Thromboplastin Ratio 2.1; Prothrombin Time 36.6 Seconds (9.0-12.0)
[2021-12-22 18:39] LABS: Partial Thromboplastin Time 55.9 Seconds (21.0-31.0)
--- NOTE | 2021-12-22 18:56 | XRay Report ---
XR chest 1V portable HISTORY: Weakness. COMPARISON: Chest 11/06/2021. FINDINGS: No pneumothorax. No pleural effusions. The cardiac silhouette remains mildly enlarged. Ther e are poststernotomy changes. There is mild central pulmonary vascular congestion without overt edema . This has improved. Mitral annulus calcifications are noted. No focal lung consolidations to suggest pneumonia. IMPRESSION: Cardiomegaly with mild central pulmonary vascular congestion without overt edema. This has improved i n the interval. ACT 112: Negative or not required by law. Electronically signed by: Cristino Parada M.D. 12/22/2021 6:55 PM
[2021-12-22 19:39] LABS: Appearance Urine Turbid (Clear); Bilirubin Urine Negative (Negative); Blood Urine 3+ (Negative); Color Urine Brown; Glucose Urine UA 3+ (Negative); Ketones Urine Negative (Negative); Leukocyte Esterase Urine 1+ (Negative); Nitrite Urine Negative (Negative); Protein Urine 3+ (Negative); Urobilinogen Urine Negative (Negative)
[2021-12-22 19:44] LABS: Epithelial Cell Urine 0-5 /lpf (0-5)
--- NOTE | 2021-12-22 19:44 | History & Physical Report ---
Date of Service December 22, 2021 Assessment & Plan (1) Hematuria: Plan: 56yo male with complex medical history to include mechanical AVR on Coumadin anticoagulation, h/o prostate CA s/p XRT with radiation cystitis, recent hospitalization for gross hematuria with hemorrhagic shock requiring transfusion of 9u PRBCs. Patient returns with recurrent hematuria in setting of supratherapeutic INR, presumed UTI. He is hemodynamically stable. States that the hematuria has mostly resolved. INR is supratherapeutic at 4. Was previously 8.9 on Wednesday - his Coumadin has been on hold. He was administered PO Vitamin K x 1 dose. -Admit to medical with telemetry -Bladder scan as needed -Continue to hold Coumadin and monitor daily INR -Treatment of presumed UTI as below -Will defer Urology consultation at this time as patient reports his hematuria has largely resolved. He is scheduled to followup with Dr. Fred Puga next week on 12/29/21. (2) Anemia: Plan: Hgb=6.3, Hct=20.5. Normochromic/normocytic. Patient with severe anemia on presentation during prior hospital stay - Hgb 5.8 at that time. He was transfused with 9u PRBCs. Hgb on day of discharge 11/12/21 = 8.3. Patient HD stable. Reports hematuria has largely resolved -Transfusion 2u PRBCs -Monitor CBC - next at 12:00, then AM labs -Hemoccult ordered in ER (3) RITU (acute kidney injury): Plan: Elevation of BUN and Cr to 53 and 2.37, respectively. Also with elevation of K to 5.5 and HCO3 of 18. IVF administered in ER. No EKG changes consistent with hyperkalemia. Ddx to include infection, possible pre-renal, hematuria with obstruction? -Repeat chemistry in AM -Avoid nephrotoxic agents -Renal dosing where needed (4) Acute hyponatremia: Plan: Kz=189 -Repeat chemistry in AM (5) UTI (urinary tract infection): Plan: History of enterococcus faecalis UTI - hollingsworth-sensitive. He completed antibiotic therapy. Now with acute hematuria as well as elevated WBC=17.8. UA with bacteria present -Follow culture -Vancomycin, renal dosing per pharmacy (6) Chronic anticoagulation: Plan: Patient on Coumadin for history of mechanical aortic valve placement. Recently had supratherapeutic INR of 8.9. He was administered Vitamin K PO x 1 dose and his Coumadin has been on hold. Last dose was evening of 12/18/21. He was instructed to take 2.5 mg on the evening of 12/24/21 by anticoagulation clinic. -Continue to hold coumadin -Monitor INR daily -Resume when INR within target range 2.5 - 3.5 (7) Radiation cystitis: Plan: Radiation cystitis noted on cystoscopy. Possible source of bleeding in setting of coagulopathy, INR of 8.9 several days ago -Monitor (8) Hypercholesterolemia: Plan: Chronic -Continue Atorvastatin 40mg po daily (9) Hypertension: Plan: Chronic -Blood pressure well controlled at present 111/88 -Hold Lisinopril in setting of RITU -Hold Metoprolol for now in setting of possible bleeding -Continue to monitor BP (10) Diabetes: Plan: Chronic. Well controlled. Last FgaT8K=9.2 on 11/07/21. Blood sugar = 185 today. -Hold Jardiance, Glimepiride and Metformin -Lantus 7u BID and ISS -Goal BSG of 100 - 140 while inpatient Plan: F/E/N - LR at 80mL/hr, Mg repletion with 2gm, CC diet as tolerated Ppx - INR=4, monitor daily Code - Full per discussion with patient Dispo - Admission to medical with telemetry History of Present Illness Chief Complaint: hematuria Primary Care Provider: Teresa Sim MD Arturo Davidson is a 56yo male with history of congenital bicuspid aortic valve s/p mechanical AVR on Coumadin anticoagulation, prostate adenocarcinoma s/p XRT and androgen deprivation therapy with chronic bladder outlet obstruction and frequent UTIs, DM and CKD with baseline Cr of 1.5. Patient was admitted to [facility] on 11/06/21 - 11/12/21 when he presented with gross hematuria with anemia (Hgb of 6.5), Enterococcus faecalis UTI, hemorrhagic shock and RITU with elevated K of 6.2 as well as supratherapeutic INR. Patient was admitted to the MICU. He had a cystoscopy performed on 11/08/21 which revealed radiation cystitis as well as bleeding varices in the bladder. He was managed with CBI, blood transfusion of 9u PRBCs and antibiotics. Patient found to have a supratherapeutic INR on 12/19/21 at 8.9. He was administered Vitamin K PO x 1 dose and instructed to hold his Coumadin. He developed some gross hematuria over the weekend. Reports that urine starts out pink then becomes dark "Merlot colored" then fades out to brownish. He passes some clots. Has not had difficulty passing urine. Denies flank pain or suprapubic pain. He reports that the hematuria has markedly improved now. No additional complaints - specifically denies fever, chills, chest pain, cough, SOB, abdominal pain, nausea, vomiting, diarrhea or constipation. He reports feeling ill over the weekend and staying in bed most of the day on Wednesday. Decreased PO intake. In the ER patient afebrile, HD stable. Workup revealed anemia with Hgb=6.3 as well as RITU with BUN=53, Cr=2.37 ER Course: PRBC x 1 unit ordered, NSS Allergies Allergy/AdvReac Type Severity Reaction Status Date / Time No Known Allergies Allergy Verified 12/22/21 20:13 Home Medications Medication Instructions Recorded Confirmed Type lactobacillus combination no.4 3 3,000 mmu cells PO DAILY 08/04/18 12/22/21 History billion cell capsule (Probiotic) potassium chloride 10 mEq 20 meq PO DAILY PRN tab 08/04/18 12/22/21 History tablet,extended release (Klor-Con) clobetasol 0.05 % topical ointment 1 appln TOP 2XWK PRN gm 06/20/19 12/22/21 History triamcinolone acetonide 0.5 % 1 applic TOP QID PRN #45 gm 02/07/21 12/22/21 Rx topical ointment atorvastatin 40 mg tablet 40 mg PO DAILY #90 tab 05/21/21 12/22/21 Rx metformin 1,000 mg tablet 1,000 mg PO BID #180 tab 06/06/21 12/22/21 Rx empagliflozin 25 mg tablet 25 mg PO QAM #90 tab 06/13/21 12/22/21 Rx (Jardiance) furosemide 40 mg tablet 40 mg PO DAILY PRN #90 tab 06/13/21 12/22/21 Rx glimepiride 1 mg tablet 1 mg PO DAILY #90 tab 07/14/21 12/22/21 Rx silodosin 8 mg capsule 8 mg PO DAILY #90 cap 09/30/21 02/21/22 Rx lisinopril 10 mg tablet 10 mg PO DAILY #90 tab 10/06/21 12/22/21 Rx metoprolol succinate 25 mg 37.5 mg PO DAILY #135 tab 11/12/21 12/22/21 Rx tablet,extended release 24 hr (Toprol XL) metoprolol succinate 25 mg 37.5 mg PO DAILY #45 tab 11/12/21 12/22/21 Rx tablet,extended release 24 hr (Toprol XL) warfarin 7.5 mg tablet (Jantoven) See Rx Instructions PO UD tab 11/17/21 12/22/21 History aspirin 81 mg tablet,delayed 81 mg PO DAILY 12/01/21 12/22/21 History release (Adult Low Dose Aspirin) trazodone 50 mg tablet 50 - 100 mg PO HS PRN 12/22/21 12/22/21 History warfarin 5 mg tablet (Jantoven) See Rx Instructions PO UD #20 tab 12/22/21 12/22/21 Rx Past Med/Surg History Medical History (Updated 12/22/21 @ 22:42 by Clara Parson DO) Chronic anticoagulation mechanical aortic valve on coumadin Diabetes Diabetic retinopathy Diverticulum of bladder Erectile dysfunction Hematuria Couple days out of a month will noted tea colored urine; Hydronephrosis of right kidney Hypercholesteremia Hypertension Incomplete bladder emptying Insomnia Prostate cancer Psoriasis Radiation cystitis Urethral stricture Surgical History H/O aortic valve replacement H/O colonoscopy Tubular adenoma 08/22/18 H/O cystoscopy Family History Mother Asthma MVP (mitral valve prolapse) Father Leukemia Pernicious anemia Brother No problems noted. Brother No problems noted. Brother No problems noted. Sister No problems noted. Daughter No problems noted. Daughter No problems noted. 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; Feels Safe at Home: Yes caffeine: No during the past year weight has: remained stable Assistive Devices: None Review of Systems Review of Systems: All systems reviewed & are unremarkable except as noted in HPI & below Physical Exam Physical Exam: General: patient resting comfortably, NAD, non-toxic in appearance, AA&O x 4 Skin: warm, dry, intact, no rashes or lesions, +PALLOR HEENT: NC/AT, PERRL, EOMI, anicteric sclera, conjunctiva without injection, external ear normal to inspection and nontender, nares patent, slightly dry mucus membranes, dentition intact, no oropharyngeal lesions, neck supple, trachea midline, no LAD, no thyromegaly, no JVD Heart: +S1/S2, regular, no m/r/g Lungs: equal air entry bilaterally, no rales/rhonchi/wheezes Abd: +BS, soft, NT/ND, no masses/organomegaly/ascites, no CVA tenderness, no suprapubic pain Ext: warm, 2+ pulses in UE/LE bilaterally, no clubbing/cyanosis or edema Neuro: nonfocal, patient AA&O x 4, speech intact, no facial droop, moving all extremities on command with equal strength 5/5 Results & Data Results & Data ([facility]) Vital Signs (Past 12 Hours) Vital Signs Temp Pulse Pulse Resp BP BP Pulse Ox 12/22/21 19:00 84 20 108/67 99 12/22/21 18:28 98 12/22/21 17:42 86 18 111/72 99 12/22/21 16:59 36.9 C 99 H 18 100/61 100 Laboratory Results Laboratory Results WBC 17.80 K/uL (4.8-10.8) H 12/22/21 17:57 RBC 2.50 M/uL (4.7-6.1) L 12/22/21 17:57 Hgb 6.3 g/dL (14.0-18.0) L* 12/22/21 17:57 Hct 20.5 % (42-52) L* 12/22/21 17:57 MCV 82.0 fL (80-100) 12/22/21 17:57 MCH 25.2 pg (25-34) 12/22/21 17:57 MCHC 30.7 g/dL (32-36) L 12/22/21 17:57 RDW Std Deviation 49.7 fL (36.4-46.3) H 12/22/21 17:57 RDW Coeff of Juliane 17.1 % (11.5-14.5) H 12/22/21 17:57 Plt Count 399 K/uL (130-400) 12/22/21 17:57 MPV 9.7 fL (7.4-10.4) 12/22/21 17:57 Absolute Nucleated RBC 0.10 K/uL (0-0) H 12/22/21 17:57 Nucleated RBC % (auto) 0.6 % 12/22/21 17:57 PT 36.6 Seconds (9.0-12.0) H 12/22/21 17:57 INR 4.0 (0.9-1.1) H 12/22/21 17:57 APTT 55.9 Seconds (21.0-31.0) H* 12/22/21 17:57 PTT Ratio 2.1 12/22/21 17:57 Sodium 123 mmol/L (136-145) L 12/22/21 17:57 Potassium 5.5 mmol/L (3.5-5.1) H 12/22/21 17:57 Chloride 94 mmol/L (98-107) L 12/22/21 17:57 Carbon Dioxide 18 mmol/L (21-32) L 12/22/21 17:57 Anion Gap 11 (3-11) 12/22/21 17:57 BUN 53 mg/dl (6-23) H 12/22/21 17:57 Creatinine 2.37 mg/dl (0.6-1.4) H 12/22/21 17:57 Est Cr Clr Drug Dosing 41.1 ml/min 12/22/21 17:57 Est GFR ( Amer) 33.7 ml/min 12/22/21 17:57 Est GFR (Non-Af Amer) 29.1 ml/min 12/22/21 17:57 BUN/Creatinine Ratio 22.4 (10-20) H 12/22/21 17:57 Glucose 185 mg/dl (70-99(Fasting)) H 12/22/21 17:57 Lactate 1.0 mmol/L (0.4-2.0) 12/22/21 20:07 Calcium 8.9 mg/dl (8.5-10.1) 12/22/21 17:57 Total Bilirubin 0.5 mg/dl (0.2-1.0) 12/22/21 17:57 AST 16 U/L (13-39) 12/22/21 17:57 ALT 21 U/L (7-52) 12/22/21 17:57 Alkaline Phosphatase 100 U/L (34-104) 12/22/21 17:57 Total Protein 7.2 gm/dl (6.0-8.3) 12/22/21 17:57 Albumin 3.6 gm/dl (3.4-5.0) 12/22/21 17:57 Globulin 3.6 gm/dl (2.5-4.0) 12/22/21 17:57 Albumin/Globulin Ratio 1.0 (0.9-2) 12/22/21 17:57 Urine Color Brown 12/22/21 19:10 Urine Appearance Turbid (Clear) A 12/22/21 19:10 Urine pH 5.0 (4.5-7.5) 12/22/21 19:10 Ur Specific [place] 1.020 (1.000-1.030) 12/22/21 19:10 Urine Protein 3+ (Negative) H 12/22/21 19:10 Urine Glucose (UA) 3+ (Negative) H 12/22/21 19:10 Urine Ketones Negative (Negative) 12/22/21 19:10 Urine Blood 3+ (Negative) H 12/22/21 19:10 Urine Nitrite Negative (Negative) 12/22/21 19:10 Urine Bilirubin Negative (Negative) 12/22/21 19:10 Urine Urobilinogen Negative (Negative) 12/22/21 19:10 Ur Leukocyte Esterase 1+ (Negative) H 12/22/21 19:10 Urine RBC >30 /hpf (0-4) H 12/22/21 19:10 Urine WBC 10-30 /hpf (0-5) H 12/22/21 19:10 Ur Epithelial Cells 0-5 /lpf (0-5) 12/22/21 19:10 Urine Bacteria 2+ (Negative) H 12/22/21 19:10 SARS-CoV-2, RNA, NAAT NEGATIVE (NEGATIVE) 12/22/21 18:35 Blood Type O Negative 12/22/21 18:21 Antibody Screen NEGATIVE 12/22/21 18:21 Crossmatch See Detail 12/22/21 18:21 Impressions Abdomen/Pelvis CT 12/22/21 18:[address] WITHOUT CONTRAST CT DOSE: 1139.56 mGy.cm HISTORY: Anemia. Hematuria. Prostate cancer with radiation. Elevated white blood cell count. Assess for obstruction. TECHNIQUE: Multiaxial CT images of the abdomen and pelvis were performed without contrast. A dose lowering technique was utilized adhering to the principles of ALARA. COMPARISON STUDY: Renal ultrasound 04/24/2019. Abdomen and pelvis CT 11/15/2017. FINDINGS: The lung bases are clear. No pneumoperitoneum. No pneumatosis. No suspicious lytic or blastic osseous lesions. Dense mitral and aortic valve calcifications are noted and are partially visualized on this study. There are poststernotomy changes. The unenhanced liver, spleen, gallbladder, pancreas, and adrenal glands are unremarkable. No retroperitoneal lymphadenopathy. Normal caliber abdominal aorta. Near complete atrophy of the right renal parenchyma, unchanged. There is severe right hydroureteronephrosis, unchanged. There is moderate left hydroureteronephrosis which has progressed in the interval. No obstructing stones identified. There is mild urothelial thickening and adjacent fat stranding within the mid to distal bilateral ureters. This is similar to the prior study and may be chronic. There is again noted a thickened and irregular bladder wall with a large right lateral bladder diverticulum. The bladder wall thickening has progressed. There is also mild thickening within the right lateral bladder diverticulum with adjacent fat stranding. This suggests an associated cystitis. Small amount of hyperdense material within the large right bladder diverticulum suggests blood products in the setting of hematuria. There are few punctate metallic densities within the prostate gland. There is also mild fat stranding adjacent to the thickened bladder. No pelvic free fluid. Suboptimal evaluation for bowel pathology due to the lack of intravenous and oral contrast. However, there is no definite bowel wall thickening or obstruction. Normal appendix. A few colonic diverticula. No evidence for acute diverticulitis. IMPRESSION: 1. Thickened and irregular bladder wall which has progressed in the interval. There is also mild wall thickening within the large right lateral bladder diverticulum. This bladder diverticulum remains distended. There is mild fat stranding adjacent to the bladder/bladder diverticulum. Therefore, these findin gs likely represent a cystitis. Recommend correlation with urinalysis. In addition, follow-up cystoscopy recommended for further evaluation of the irregular and thickened bladder wall to exclude the possibility of a neoplastic process. 2. Severe right hydroureteronephrosis, unchanged and moderate left hydroureteronephrosis which has progressed. No obstructing stones identified. This hydronephrosis could be due to the thickened bladder wall or bladder outlet obstruction. 3. Small amount of hyperdense material within the large right lateral bladder diverticulum suggestive of blood products in the setting of hematuria. 4. Additional findings as described above. ACT 112: Negative or not required by law. Electronically signed by: Cristino Parada M.D. 12/22/2021 7:48 PM Chest X-Ray 12/22/21 18:30 XR chest 1V portable HISTORY: Weakness. COMPARISON: Chest 11/06/2021. FINDINGS: No pneumothorax. No pleural effusions. The cardiac silhouette remains mildly enlarged. There are poststernotomy changes. There is mild central pulmonary vascular congestion without overt edema. This has improved. Mitral annulus calcifications are noted. No focal lung consolidations to suggest pneumonia. IMPRESSION: Cardiomegaly with mild central pulmonary vascular congestion without overt edema. This has improved in the interval. ACT 112: Negative or not required by law. Electronically signed by: Cristino Parada M.D. 12/22/2021 6:55 PM Code Status & VTE Plan VTE Prophylaxis Plan VTE Prophylaxis will be ordered: Yes PG Care Time/CCT Total # of Minutes Spent Total Time Spent with Patient: Total time spent is greater than 50% in coordination of care (as documented) at patient's floor/unit and/or counseling patient: Coding Level of Care Code 59418 Initial Inpt Care Lvl 3 Diagnoses Radiation cystitis N30.40 Anemia D64.9 Anemia type: unspecified type Hematuria R31.0 Hematuria type: gross RITU (acute kidney injury) N17.9 Acute hyponatremia E87.1 Chronic anticoagulation Z79.01 UTI (urinary tract infection) N39.0 Hypercholesterolemia E78.00 Hypertension I10 Diabetes E11.9 (1) Anemia Anemia type: unspecified type Qualified Code(s): D64.9 - Anemia, unspecified (2) Hematuria Hematuria type: gross Qualified Code(s): R31.0 - Gross hematuria
[2021-12-22 19:45] LABS: Bacteria Urine 2+ (Negative); RBC Urine >30 /hpf (0-4)
--- NOTE | 2021-12-22 19:49 | CT Scan Report ---
ABDOMEN AND PELVIS CT WITHOUT CONTRAST CT DOSE: 1139.56 mGy.cm HISTORY: Anemia. Hematuria. Prostate cancer with radiation. Elevated white blood cell count. Assess f or obstruction. TECHNIQUE: Multiaxial CT images of the abdomen and pelvis were performed without contrast. A dose lo wering technique was utilized adhering to the principles of ALARA. COMPARISON STUDY: Renal ultrasound 04/24/2019. Abdomen and pelvis CT 11/15/2017. FINDINGS: The lung bases are clear. No pneumoperitoneum. No pneumatosis. No suspicious lytic or blast ic osseous lesions. Dense mitral and aortic valve calcifications are noted and are partially visualiz ed on this study. There are poststernotomy changes. The unenhanced liver, spleen, gallbladder, pancre as, and adrenal glands are unremarkable. No retroperitoneal lymphadenopathy. Normal caliber abdominal aorta. Near complete atrophy of the right renal parenchyma, unchanged. There is severe right hydrour eteronephrosis, unchanged. There is moderate left hydroureteronephrosis which has progressed in the i nterval. No obstructing stones identified. There is mild urothelial thickening and adjacent fat stran ding within the mid to distal bilateral ureters. This is similar to the prior study and may be chroni c. There is again noted a thickened and irregular bladder wall with a large right lateral bladder div erticulum. The bladder wall thickening has progressed. There is also mild thickening within the right lateral bladder diverticulum with adjacent fat stranding. This suggests an associated cystitis. Smal l amount of hyperdense material within the large right bladder diverticulum suggests blood products i n the setting of hematuria. There are few punctate metallic densities within the prostate gland. Ther e is also mild fat stranding adjacent to the thickened bladder. No pelvic free fluid. Suboptimal eval uation for bowel pathology due to the lack of intravenous and oral contrast. However, there is no def inite bowel wall thickening or obstruction. Normal appendix. A few colonic diverticula. No evidence f or acute diverticulitis. IMPRESSION: 1. Thickened and irregular bladder wall which has progressed in the interval. There is also mild wall thickening within the large right lateral bladder diverticulum. This bladder diverticulum remains di stended. There is mild fat stranding adjacent to the bladder/bladder diverticulum. Therefore, these f indings likely represent a cystitis. Recommend correlation with urinalysis. In addition, follow-up cy stoscopy recommended for further evaluation of the irregular and thickened bladder wall to exclude th e possibility of a neoplastic process. 2. Severe right hydroureteronephrosis, unchanged and moderate left hydroureteronephrosis which has pr ogressed. No obstructing stones identified. This hydronephrosis could be due to the thickened bladder wall or bladder outlet obstruction. 3. Small amount of hyperdense material within the large right lateral bladder diverticulum suggestive of blood products in the setting of hematuria. 4. Additional findings as described above. ACT 112: Negative or not required by law. Electronically signed by: Cristino Parada M.D. 12/22/2021 7:48 PM
[2021-12-22] MEDS ORDERED: DEXTROSE 50% 50 ML SYRINGE IV PRN (22:30)
[2021-12-22] MEDS ORDERED: LACTATED RINGER'S 1,000 ML IV SCH (22:30)
[2021-12-22] MEDS ORDERED: GLUCOSE 40% GEL 15 GM TUBE PO PRN (22:30)
[2021-12-22] MEDS ORDERED: GLUCAGON FOR INJ 1 MG VIAL SQ PRN (22:30)
[2021-12-22] MEDS ORDERED: GLUCOSE 10 TABS/TUBE PO PRN (22:30)
[2021-12-22] MEDS ORDERED: ONDANSETRON INJ 2 MG/ML 2 ML VIAL IV PRN (22:30)
[2021-12-22] MEDS ORDERED: CARBOHYDRATES FOR HYPOGLYCEMIA PO PRN (22:30)
[2021-12-22] MEDS ORDERED: ACETAMINOPHEN 325 MG TAB PO PRN (22:30)
[2021-12-22] MEDS ORDERED: traZODone HCL 50 MG TAB PO PRN (22:51)
[2021-12-22] MEDS ORDERED: VANCOMYCIN CONSULT ACTIVE PRN (22:57)
[2021-12-22] MEDS: INSULIN ASPART PER UNIT SC SCH (23:12)
[2021-12-22] MEDS ORDERED: VANCOMYCIN HCL 2,250 MG in SODIUM CHLORIDE 0.9% 500 ML IV ONE (23:15)
[2021-12-22] MEDS: MAGNESIUM SULFATE / D5W 1 GM/100 ML BAG IV SCH (23:42)
[2021-12-22] MEDS: INSULIN GLARGINE SOLOSTAR 100 UNITS/ML 3 ML PEN SC SCH (23:47)
[2021-12-23] MEDS: MAGNESIUM SULFATE / D5W 1 GM/100 ML BAG IV SCH (01:42)
--- NOTE | 2021-12-23 04:16 | Pharmacy Report ---
Pharmacy Vanc AUC Short Note - Date of Service December 23, 2021 - Assessment & Plan Assessment 56 year old M receiving VANCOMYCIN IV for treatment of complicated UTI Pertinent microbiologic data includes: 11/06/21 urine cx grew e faecalis (sensitive to all abx test except TCNs), New Urine Cx this admission as well as BLCXs Of note, pt does have new RITU. Doses ordered today may need adjusted if RITU continues to change number operator next 12-24 hrs Plan Vancomycin * AUC/JO is the preferred PK/PD target for vancomycin * AUC guided dosing is effective and associated with decreased risk of nephrotoxicity compared to traditional trough targets * Loading dose: 2250mg ~20mg/kg x 1 given in the ED tonight * Maint dose: 1250mg IV Q 24 hrs is predicted to achieve target AUC/JO of 400- 600 mg/L.hr and may be associated with a 13 % risk of nephrotoxicity * A drug level has not yet been ordered, will await f/u chemistry to determine if above dose still acceptable Pharmacy will continue to follow and will adjust dose/frequency as necessary. Thank you.
[2021-12-23] MEDS: INSULIN ASPART PER UNIT SC SCH ×4 (08:17→20:30)
[2021-12-23] MEDS: INSULIN GLARGINE SOLOSTAR 100 UNITS/ML 3 ML PEN SC SCH ×2 (08:18→20:31)
[2021-12-23] MEDS: ATORVASTATIN 40 MG TAB PO SCH (08:18)
[2021-12-23 08:19] LABS: Basophils # (auto) 0.03 K/uL (0-0.2); Basophils % (auto) 0.2 %; Eosinophils # (auto) 0.06 K/uL (0-0.5); Eosinophils % (auto) 0.4 %; Hematocrit (blood only) 25.9 % (42-52); Hemoglobin 8.2 g/dL (14.0-18.0); Immature Granulocytes # (auto) 0.38 K/uL (0.00-0.02); Immature Granulocytes % (auto) 2.7 %; Lymphocytes # (auto) 1.67 K/uL (1.2-3.4); Lymphocytes % (auto) 11.9 %; Mean Corpuscular Hemoglobin 26.4 pg (25-34); Mean Corpuscular Hgb Conc 31.7 g/dL (32-36); Mean Corpuscular Volume 83.3 fL (80-100); Mean Platelet Volume 9.4 fL (7.4-10.4); Monocytes # (auto) 0.83 K/uL (0.11-0.59); Monocytes % (auto) 5.9 %; Neutrophils # (auto) 11.03 K/uL (1.4-6.5); Neutrophils % (auto) 78.9 %; Nucleated RBC # (auto) 0.11 K/uL (0-0); Nucleated RBC % (auto) 0.8 %; Platelet Count 345 K/uL (130-400); RDW Coefficient of Variation 17.6 % (11.5-14.5); RDW Standard Deviation 51.9 fL (36.4-46.3); Red Blood Count 3.11 M/uL (4.7-6.1)
[2021-12-23 08:30] LABS: Prothrombin Time 27.9 Seconds (9.0-12.0)
--- NOTE | 2021-12-23 08:43 | Electrocardiogram Report ---
Test Reason : Blood Pressure : / mmHG Vent. Rate : 088 BPM Atrial Rate : 088 BPM P-R Int : 198 ms QRS Dur : 152 ms QT Int : 412 ms P-R-T Axes : 036 -24 128 degrees QTc Int : 498 ms Normal sinus rhythm Left bundle branch block Abnormal ECG When compared with ECG of 06-NOV-2021 16:29, No significant change was found Confirmed by Shai Sauer ([id number]) on 12/23/2021 8:42:28 AM Referred By: REFERRED SELF Confirmed By:Sami Sauer
[2021-12-23 08:44] LABS: BUN Creatinine Ratio 22.7 (10-20); Creatinine Clr Calc Pharmacy 50.2 ml/min; Est GFR (Non-African American) 37.1 ml/min; Potassium 4.9 mmol/L (3.5-5.1)
--- NOTE | 2021-12-23 13:49 | Hospitalist Progress Note ---
Date of Service December 23, 2021 Assessment & Plan (1) Hematuria: Plan: 56yo male with complex medical history to include mechanical AVR on Coumadin anticoagulation, h/o prostate CA s/p XRT with radiation cystitis, 11/2021 hospitalization for gross hematuria with hemorrhagic shock requiring transfusion of 9u PRBCs. Patient returns with recurrent hematuria in setting of supratherapeutic INR from coumadin, known XRT cystitis, and suspected UTI. Per his account the gross hematuria has resolved. INR now 3 s/p recent vit K administration. Was previously 8.9 on Wednesday of last week. Follows with [facility] Cou[facility] - Dr Cruz. Coumadin remains on hold. See #2 below. I am concerned by his CT a/p findings from admission - will likely involve [facility] tomorrow. (2) Acute blood loss anemia: Plan: 2nd to gross hematuria. s/p 2 units PRBCs. Also with Fe deficiency - will give venofer 300mg IV x 1 with likely repeat venofer tomorrow. CBC in am. BPs remain stable. (3) RITU (acute kidney injury): Plan: Suspect multifactorial including pre-renal causes and post-renal causes. Modestly improved today. Will give additional IV fluids in the way of Bicarbonate infusion. Repeat BMP in am. Probable urology consult am. HOLD MARKO inhibitor. (4) Acute hyponatremia: Plan: Uj=177 on admission. Improving s/p isotonic fluids. Likely due to poor po intake, acute renal failure, etc. Has high K, low HCO3 - give additional fluids with bicarb infusion overnight, repeat BMP am. (5) UTI (urinary tract infection): Plan: History of enterococcus faecalis UTI - holl[place]-sensitive. He completed antibiotic therapy for this in November. Urine cx pending. Blood cx's thus far negative. He is on IV vanco only. Will add rocephin for gram neg coverage. He did receive a dose of IV levaquin in the ER overnight. Can start rocephin in am. (6) Chronic anticoagulation: Plan: Patient on Coumadin for history of mechanical aortic valve placement. Recently had supratherapeutic INR of 8.9. He was administered Vitamin K PO x 1 dose and his Coumadin has been on hold since then. Last dose was evening of 12/18/21. He was instructed to take 2.5 mg on the evening of 12/24/21 by anticoagulation clinic. Continue to hold coumadin Monitor INR daily (7) Radiation cystitis: Plan: Radiation cystitis noted on cystoscopy during November admission. Likely contributing to recurrent bleeding. It appears he never followed up with urology post-admission in November. (8) Hypercholesterolemia: Plan: Continue Atorvastatin 40mg po daily (9) Hypertension: Plan: Hold Lisinopril in setting of RITU Hold Metoprolol (10) Diabetes: Plan: Chronic. Well controlled. Last WgbA8F=3.2 on 11/07/21. Hold Jardiance, Glimepiride and Metformin -Lantus 7u BID and novolog supplemental scale -Goal BSG of 100 - 140 while inpatient (11) Hemorrhagic disorder due to circulating anticoagulants: Plan: in the setting of gross hematuria, supratherapeutic INR and coumadin use see above (12) Hyperkalemia: Plan: 2nd RITU HOLD MARKO bicarb drip BMP this afternoon and again in am (13) H/O mechanical aortic valve replacement: Plan: for congenital bicuspid AV chronic coumadin - INR goal 2.5 to 3.5 see above (14) Bilateral hydronephrosis: Plan: severe on R moderate on L progressive per CT likely to involve urology tomorrow Plan: HIGHLY ENCOURAGED PATIENT TO REMAIN HOSPITALIZED GIVEN THE SHEER NUMBER OF ACTIVE PROBLEMS Admission and Anticipated Discharge Date Admission Date: December 22, 2021 Subjective patient sitting in chair states that urine has cleared; not even any pink urine at this time he was hoping to leave the hospital today; states he has deadlines to meet with his job denies any fevers/chills appetite fair at best - has been decreased for several days denies any dizziness/lightheadedness tele overnight wnl patient confirms he follows closely with Dr Cruz in the coumadin clinic had recent vitamin K administration for high INR and was to hold coumadin today again with resumption on Wednesday Review of Systems Review of Systems: gen - no fevers, no chills cv - no chest pain pulm - no dyspnea GI - denies abd pain or nausea/emesis - reports a slight "stinging" when he voids Physical Exam Physical Exam: gen - pale, obese, NAD skin - pallor mouth - MMM neck - no JVD heart - RRR, s1 s2, no murmur; mechanical valve closure sound present lungs - CTA b/l abd - soft, NT, ND, BS+ ext - no edema, pulses 2+ b/l Results & Data Results & Data ([facility]) Vital Signs (Past 12 Hours) Vital Signs Temp Pulse Pulse Resp BP BP Pulse Ox 12/23/21 10:12 36.4 C L 87 20 116/73 94 12/23/21 06:23 81 12/23/21 02:15 36.6 C 77 16 127/79 98 Laboratory Results Laboratory Results - last 24 hr 12/22/21 12/22/21 12/22/21 17:57 17:57 17:57 WBC 17.80 H RBC 2.50 L Hgb 6.3 L* Hct 20.5 L* MCV 82.0 MCH 25.2 MCHC 30.7 L RDW Std Deviation 49.7 H RDW Coeff of Juliane 17.1 H Plt Count 399 MPV 9.7 Immature Gran % (Auto) Neut % (Auto) Lymph % (Auto) Hernando % (Auto) Eos % (Auto) Baso % (Auto) Neut # (Auto) Lymph # (Auto) Hernando # (Auto) Eos # (Auto) Baso # (Auto) Immature Gran # (Auto) Absolute Nucleated RBC 0.10 H Nucleated RBC % (auto) 0.6 PT 36.6 H INR 4.0 H APTT 55.9 H* PTT Ratio 2.1 Sodium 123 L Potassium 5.5 H Chloride 94 L Carbon Dioxide 18 L Anion Gap 11 BUN 53 H Creatinine 2.37 H Est Cr Clr Drug Dosing 41.1 Est GFR ( Amer) 33.7 Est GFR (Non-Af Amer) 29.1 BUN/Creatinine Ratio 22.4 H Glucose 185 H POC Glucose Lactate Calcium 8.9 Magnesium Total Bilirubin 0.5 AST 16 ALT 21 Alkaline Phosphatase 100 Total Protein 7.2 Albumin 3.6 Globulin 3.6 Albumin/Globulin Ratio 1.0 Urine Color Urine Appearance Urine pH Ur Specific [place] Urine Protein Urine Glucose (UA) Urine Ketones Urine Blood Urine Nitrite Urine Bilirubin Urine Urobilinogen Ur Leukocyte Esterase Urine RBC Urine WBC Ur Epithelial Cells Urine Bacteria SARS-CoV-2, RNA, NAAT Blood Type Antibody Screen Crossmatch 12/22/21 12/22/21 12/22/21 17:57 17:57 18:21 WBC RBC Hgb Hct MCV MCH MCHC RDW Std Deviation RDW Coeff of Juliane Plt Count MPV Immature Gran % (Auto) Neut % (Auto) Lymph % (Auto) [place] % (Auto) Eos % (Auto) Baso % (Auto) Neut # (Auto) Lymph # (Auto) [place] # (Auto) Eos # (Auto) Baso # (Auto) Immature Gran # (Auto) Absolute Nucleated RBC Nucleated RBC % (auto) PT INR APTT PTT Ratio Sodium Potassium Chloride Carbon Dioxide Anion Gap BUN Creatinine Est Cr Clr Drug Dosing Est GFR ( Amer) Est GFR (Non-Af Amer) BUN/Creatinine Ratio Glucose POC Glucose Lactate 2.6 H* Calcium Magnesium 1.6 L Total Bilirubin AST ALT Alkaline Phosphatase Total Protein Albumin Globulin Albumin/Globulin Ratio Urine Color Urine Appearance Urine pH Ur Specific [place] Urine Protein Urine Glucose (UA) Urine Ketones Urine Blood Urine Nitrite Urine Bilirubin Urine Urobilinogen Ur Leukocyte Esterase Urine RBC Urine WBC Ur Epithelial Cells Urine Bacteria SARS-CoV-2, RNA, NAAT Blood Type O Negative Antibody Screen NEGATIVE Crossmatch See Detail 12/22/21 12/22/21 12/22/21 18:35 19:10 20:07 WBC RBC Hgb Hct MCV MCH MCHC RDW Std Deviation RDW Coeff of Juliane Plt Count MPV Immature Gran % (Auto) Neut % (Auto) Lymph % (Auto) [place] % (Auto) Eos % (Auto) Baso % (Auto) Neut # (Auto) Lymph # (Auto) [place] # (Auto) Eos # (Auto) Baso # (Auto) Immature Gran # (Auto) Absolute Nucleated RBC Nucleated RBC % (auto) PT INR APTT PTT Ratio Sodium Potassium Chloride Carbon Dioxide Anion Gap BUN Creatinine Est Cr Clr Drug Dosing Est GFR ( Amer) Est GFR (Non-Af Amer) BUN/Creatinine Ratio Glucose POC Glucose Lactate 1.0 Calcium Magnesium Total Bilirubin AST ALT Alkaline Phosphatase Total Protein Albumin Globulin Albumin/Globulin Ratio Urine Color Brown Urine Appearance Turbid A Urine pH 5.0 Ur Specific [place] 1.020 Urine Protein 3+ H Urine Glucose (UA) 3+ H Urine Ketones Negative Urine Blood 3+ H Urine Nitrite Negative Urine Bilirubin Negative Urine Urobilinogen Negative Ur Leukocyte Esterase 1+ H Urine RBC >30 H Urine WBC 10-30 H Ur Epithelial Cells 0-5 Urine Bacteria 2+ H SARS-CoV-2, RNA, NAAT NEGATIVE Blood Type Antibody Screen Crossmatch 12/22/21 12/23/21 12/23/21 22:42 07:15 08:09 WBC RBC Hgb Hct MCV MCH MCHC RDW Std Deviation RDW Coeff of Juliane Plt Count MPV Immature Gran % (Auto) Neut % (Auto) Lymph % (Auto) [place] % (Auto) Eos % (Auto) Baso % (Auto) Neut # (Auto) Lymph # (Auto) [place] # (Auto) Eos # (Auto) Baso # (Auto) Immature Gran # (Auto) Absolute Nucleated RBC Nucleated RBC % (auto) PT INR APTT PTT Ratio Sodium 127 L Potassium 4.9 Chloride 100 Carbon Dioxide 18 L Anion Gap 9 BUN 44 H Creatinine 1.94 H D Est Cr Clr Drug Dosing 50.2 Est GFR ( Amer) 43.0 Est GFR (Non-Af Amer) 37.1 BUN/Creatinine Ratio 22.7 H Glucose 118 H POC Glucose 120 H 103 H Lactate Calcium 9.0 Magnesium Total Bilirubin AST ALT Alkaline Phosphatase Total Protein Albumin Globulin Albumin/Globulin Ratio Urine Color Urine Appearance Urine pH Ur Specific [place] Urine Protein Urine Glucose (UA) Urine Ketones Urine Blood Urine Nitrite Urine Bilirubin Urine Urobilinogen Ur Leukocyte Esterase Urine RBC Urine WBC Ur Epithelial Cells Urine Bacteria SARS-CoV-2, RNA, NAAT Blood Type Antibody Screen Crossmatch 12/23/21 12/23/21 12/23/21 08:09 08:09 11:42 WBC 14.00 H RBC 3.11 L Hgb 8.2 L Hct 25.9 L MCV 83.3 MCH 26.4 MCHC 31.7 L RDW Std Deviation 51.9 H RDW Coeff of Juliane 17.6 H Plt Count 345 MPV 9.4 Immature Gran % (Auto) 2.7 Neut % (Auto) 78.9 Lymph % (Auto) 11.9 [place] % (Auto) 5.9 Eos % (Auto) 0.4 Baso % (Auto) 0.2 Neut # (Auto) 11.03 H Lymph # (Auto) 1.67 [place] # (Auto) 0.83 H Eos # (Auto) 0.06 Baso # (Auto) 0.03 Immature Gran # (Auto) 0.38 H Absolute Nucleated RBC 0.11 H Nucleated RBC % (auto) 0.8 PT 27.9 H INR 3.0 H APTT PTT Ratio Sodium Potassium Chloride Carbon Dioxide Anion Gap BUN Creatinine Est Cr Clr Drug Dosing Est GFR ( Amer) Est GFR (Non-Af Amer) BUN/Creatinine Ratio Glucose POC Glucose 132 H Lactate Calcium Magnesium Total Bilirubin AST ALT Alkaline Phosphatase Total Protein Albumin Globulin Albumin/Globulin Ratio Urine Color Urine Appearance Urine pH Ur Specific [place] Urine Protein Urine Glucose (UA) Urine Ketones Urine Blood Urine Nitrite Urine Bilirubin Urine Urobilinogen Ur Leukocyte Esterase Urine RBC Urine WBC Ur Epithelial Cells Urine Bacteria SARS-CoV-2, RNA, NAAT Blood Type Antibody Screen Crossmatch Diagnostic Findings urine cx pending blood cx's pending but negative PG Care Time/CCT Total # of Minutes Spent Total Time Spent with Patient: Total time spent is greater than 50% in coordination of care (as documented) at patient's floor/unit and/or counseling patient: Coding Level of Care Code 90659 Subseq Hosp Care Lvl 3 Diagnoses Hematuria R31.0 Hematuria type: gross RITU (acute kidney injury) N17.9 Acute hyponatremia E87.1 UTI (urinary tract infection) N39.0 Chronic anticoagulation Z79.01 Radiation cystitis N30.40 Hypercholesterolemia E78.00 Hypertension I10 Diabetes E11.9 Hemorrhagic disorder due to circulating anticoagulants D68.318 Hyperkalemia E87.5 H/O mechanical aortic valve replacement Z95.2 Acute blood loss anemia D62 Bilateral hydronephrosis N13.30 (1) Hematuria Hematuria type: gross Qualified Code(s): R31.0 - Gross hematuria
[2021-12-23 16:30] LABS: Hematocrit (blood only) 27.8 % (42-52); Hemoglobin 8.7 g/dL (14.0-18.0)
[2021-12-23] MEDS: VANCOMYCIN HCL 1,250 MG in SODIUM CHLORIDE 0.9% 250 ML IV SCH (16:50)
[2021-12-23 16:56] LABS: BUN Creatinine Ratio 20.3 (10-20); Calcium 9.4 mg/dl (8.5-10.1); Creatinine Clr Calc Pharmacy 48.2 ml/min; Est GFR (African American) 40.9 ml/min; Est GFR (Non-African American) 35.3 ml/min; Magnesium 2.1 mg/dl (1.7-2.4)
[2021-12-23] MEDS ORDERED: IRON SUCROSE 300 MG in SODIUM CHLORIDE 0.9% 250 ML IV ONE (17:30)
[2021-12-23] MEDS ORDERED: SODIUM BICARBONATE 8.4% 100 MEQ in WATER, STERILE 1,000 ML IV SCH (19:30)
[2021-12-23] MEDS ORDERED: VANCOMYCIN HCL 1,250 MG in SODIUM CHLORIDE 0.9% 250 ML IV SCH (23:00)
[2021-12-24 07:37] LABS: Hematocrit (blood only) 24.6 % (42-52); Hemoglobin 7.7 g/dL (14.0-18.0); Mean Corpuscular Hemoglobin 26.4 pg (25-34); Mean Corpuscular Hgb Conc 31.3 g/dL (32-36); Mean Corpuscular Volume 84.2 fL (80-100); Mean Platelet Volume 9.6 fL (7.4-10.4); Nucleated RBC # (auto) 0.11 K/uL (0-0); Nucleated RBC % (auto) 0.9 %; Platelet Count 338 K/uL (130-400); RDW Standard Deviation 53.9 fL (36.4-46.3); Red Blood Count 2.92 M/uL (4.7-6.1)
[2021-12-24 07:59] LABS: BUN Creatinine Ratio 21.3 (10-20); Calcium 8.7 mg/dl (8.5-10.1); Est GFR (African American) 54.2 ml/min; Est GFR (Non-African American) 46.8 ml/min; Potassium 4.4 mmol/L (3.5-5.1)
[2021-12-24] MEDS: INSULIN ASPART PER UNIT SC SCH ×4 (08:17→21:10)
[2021-12-24] MEDS: INSULIN GLARGINE SOLOSTAR 100 UNITS/ML 3 ML PEN SC SCH ×2 (08:21→21:05)
[2021-12-24] MEDS: ATORVASTATIN 40 MG TAB PO SCH (08:21)
[2021-12-24 10:06] LABS: INR 2.1 (0.9-1.1); Prothrombin Time 20.4 Seconds (9.0-12.0)
[2021-12-24] MEDS: cefTRIAXone SODIUM 2,000 MG in DEXTROSE 5% 50 ML IV SCH (10:18)
[2021-12-24] MEDS ORDERED: IRON SUCROSE 300 MG in SODIUM CHLORIDE 0.9% 250 ML IV ONE (11:00)
--- NOTE | 2021-12-24 11:17 | Urology Consultation ---
Date of Consultation December 24, 2021 Assessment & Plan (1) Hematuria: (2) Radiation cystitis: (3) Bilateral hydronephrosis: (4) Incomplete bladder emptyin56 year old male with multiple comorbidities including prostate cancer s/p radiation, radiation cystitis, bladder diverticulum, bilateral hydronephrosis, chronic urinary outflow obstruction, and neurogenic bladder with incomplete emptying admitted for hematuria, anemia, RITU, hyponatremia, and supratherapeutic INR. - Urology consulted for XRT Cystitis, suspected UTI, b/l hydronephrosis, hematuria. - Patient afebrile, nontoxic, lab work reviewed - creatinine downtrending to 1.6 today, WBC 12.3, Hgb 7.7. - Urine culture preliminary pin point growth reincubating, blood cultures no growth x 24 hours. - Currently on IV Ceftriaxone and Vancomycin - follow cultures. - CTAP reviewed personally and with Dr. Hill - notable for thickened and irregular bladder wall which has progressed since previous CT, significantly distended bladder diverticulum. Severe right hydroureteronephrosis with severely atrophic right kidney. Moderate left hydroureteronephrosis which has progressed since previous scan. No obstructing stones visualized. Small amount of hyperdense material within the large right lateral bladder diverticulum. - Voiding spontaneously, reports hematuria has improved. - No acute intervention at this time. - PVR today was 706 mL. - Recommend insertion of Orosco catheter, discussed with patient at length and he declines. - Recommend continue to monitor post void residuals and straight cath as needed if PVR > 500 mL. 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 - Again discussed with patient that halfway he may need Orosco vs CIC, repair of bladder diverticulum in future. - Patient wishes to follow-up with his previous urologist, Dr. Fred Puga, and reports he is scheduled on Wednesday. Neymar discussion regarding risks of incomplete emptying especially in the context of his already atrophic/nonfunctioning right kidney, worsening left hydr onephrosis, including infection, recurrent hematuria, and disease progression to renal failure necessitating hemodialysis, etc. Previous discussions both inpatient and outpatient regarding management with Orosco vs CIC. Patient does not seem to grasp the severity of recent hospital admissions and feels that medication has adequately controlled his voiding symptoms. Recommend he follow- up with his urologist after discharge. will sign off, please contact us with any further questions/issues. History of Present Illness Reason for Consultation: XRT Cystitis, UTI, b/l hydro, hematuria Requesting Physician: Dr. Martinez Attending Physician: Harvey Martinez History of Present Illness 56 year old male with complicated past medical history significant for mechanical aortic valve replacement, chronic anticoagulation, hypertension, hypercholesterolemia, uncontrolled type 2 diabetes, prostate cancer s/p radiation, radiation cystitis, bladder diverticulum, hydronephrosis, chronic urinary outflow obstruction, and neurogenic bladder with incomplete emptying admitted for hematuria, anemia, RITU, hyponatremia, and supratherapeutic INR. Patient presented to [facility] ED on 12/22/21 for evaluation at the direction of his anthropological linguist for abnormal labs including elevated INR, low hemoglobin and hematuria. Afebrile on arrival. Lab work personally reviewed. Creatinine 2.37, WBC 17.8, Hgb 6.3, Hct 20.5, Sodium 123, potassium 5.5, INR 4, and Lactate 2.6. Covid testing negative. Urinalysis on admission 3+ blood, 1+ leukocytes, >30 RBCs, 10-30 WBCs, 2+ bacteria, negative nitrates. Urine culture and blood cultures collected. ED course included IV fluids, IV Levaquin, and 1 unit of PRBCs. CTAP without contrast on 12/22 reviewed and notable for thickened and irregular bladder wall which has progressed since previous CT, significantly distended bladder diverticulum, mild fat stranding adjacent to bladder and diverticulum. Severe right hydroureteronephrosis with severely atrophic right kidney. Moderate left hydroureteronephrosis which has progressed since previous scan. No obstructing stones visualized. Small amount of hyperdense material within the large right lateral bladder diverticulum suggestive of blood products in the setting of hematuria. He was admitted to hospital medicine service. Urology service consulted today for XRT Cystitis, UTI, b/l hydro, hematuria. Patient is known to our service for history of prostate cancer s/p radiation, urinary obstruction with bilateral hydronephrosis, neurogenic bladder. Patient was seen by our service during his previous hospital admission in November for gross hematuria, UTI, and multiple lab abnormalities including significant anemia requiring 9 units of PRBCs, RITU, and hyperkalemia. He was treated for Enterococcus UTI. He is s/p cystoscopy, clot evacuation, prostate and bladder fulguration on 11/08/21, on CBI post-operatively, hematuria essentially resolved, and catheter eventually removed prior to discharge. Hematuria at that time felt to be in the setting of numerous risks including BPH, anticoagulation with supratherapeutic INR, UTI, and hx of radiation. Chart review: Afebrile Creatinine 1.60 WBC 12.30 HGB 7.7 INR 2.1 Has received 2 units PRBCs Urine culture preliminary pin point growth BCx no growth x 24 hours On IV Vancomycin and Ceftriaxone Patient seen and examined at bedside this afternoon. He is awake, alert and sitting up in bed. Subjectively doing well, wishes to go home. Denies abdominal, flank or suprapubic pain. He recently voided in toilet with BM, PVR was 706 mL. Reports his urine is light brown with occasional small clots. Denies issues emptying bladder. However, reports he is not getting Rapaflo since hospitalization and feels this may be contributing to incomplete emptying. No nausea or vomiting. No fever or chills. Reports he has an outpatient follow-up with Dr. Fred Puga, [facility] on Wednesday. Offers no additional complaints. Allergies Allergy/AdvReac Type Severity Reaction Status Date / Time No Known Allergies Allergy Verified 12/22/21 20:13 Home Medications Medication Instructions Recorded Confirmed Type lactobacillus combination no.4 3 3,000 mmu cells PO DAILY 08/04/18 12/22/21 History billion cell capsule (Probiotic) potassium chloride 10 mEq 20 meq PO DAILY PRN tab 08/04/18 12/22/21 History tablet,extended release (Klor-Con) clobetasol 0.05 % topical ointment 1 appln TOP 2XWK PRN gm 06/20/19 12/22/21 History triamcinolone acetonide 0.5 % 1 applic TOP QID PRN #45 gm 02/07/21 12/22/21 Rx topical ointment atorvastatin 40 mg tablet 40 mg PO DAILY #90 tab 05/21/21 12/22/21 Rx metformin 1,000 mg tablet 1,000 mg PO BID #180 tab 06/06/21 12/22/21 Rx empagliflozin 25 mg tablet 25 mg PO QAM #90 tab 06/13/21 12/22/21 Rx (Jardiance) furosemide 40 mg tablet 40 mg PO DAILY PRN #90 tab 06/13/21 12/22/21 Rx glimepiride 1 mg tablet 1 mg PO DAILY #90 tab 07/14/21 12/22/21 Rx silodosin 8 mg capsule 8 mg PO DAILY #90 cap 07/31/21 12/22/21 Rx lisinopril 10 mg tablet 10 mg PO DAILY #90 tab 10/06/21 12/22/21 Rx metoprolol succinate 25 mg 37.5 mg PO DAILY #135 tab 11/12/21 12/22/21 Rx tablet,extended release 24 hr (Toprol XL) metoprolol succinate 25 mg 37.5 mg PO DAILY #45 tab 11/12/21 12/22/21 Rx tablet,extended release 24 hr (Toprol XL) warfarin 7.5 mg tablet (Jantoven) See Rx Instructions PO UD tab 11/17/21 12/22/21 History aspirin 81 mg tablet,delayed 81 mg PO DAILY 12/01/21 12/22/21 History release (Adult Low Dose Aspirin) trazodone 50 mg tablet 50 - 100 mg PO HS PRN 12/22/21 12/22/21 History warfarin 5 mg tablet (Jantoven) See Rx Instructions PO UD #20 tab 12/22/21 12/22/21 Rx Patient History Medical History Chronic anticoagulation mechanical aortic valve on coumadin Diabetes Diabetic retinopathy Diverticulum of bladder Erectile dysfunction Hematuria Couple days out of a month will noted tea colored urine; Hydronephrosis of right kidney Hypercholesteremia Hypertension Incomplete bladder emptying Insomnia Prostate cancer Psoriasis Radiation cystitis Urethral stricture Surgical History H/O aortic valve replacement H/O colonoscopy Tubular adenoma 08/22/18 H/O cystoscopy Family History Mother Asthma MVP (mitral valve prolapse) Father Leukemia Pernicious anemia Brother No problems noted. Brother No problems noted. Brother No problems noted. Sister No problems noted. Daughter No problems noted. Daughter No problems noted. 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; Other Information That Helps Us Care for You: No Feels Safe at Home: Yes Safety Concerns: Feels Safe At This Time caffeine: No during the past year weight has: remained stable Assistive Devices: None Review of Systems Constitutional: as per Subjective / HPI Eyes: no problem reported Ear, Nose, Mouth, Throat: no problem reported Respiratory: no problem reported Cardiovascular: no problem reported Gastrointestinal: as per Subjective / HPI Genitourinary: + as per Subjective / HPI Musculoskeletal: no problem reported Integumentary: no problem reported Neurologic: no problem reported Psychiatric: no problem reported Endocrine: no problem reported Physical Exam Constitutional: comfortable; no acute distress Eyes: no scleral abnormality Neck: normal visual inspection Respiratory: normal respiratory effort; no respiratory distress, no labored breathing and no audible wheezes Cardiovascular: Extremities: no pedal edema Gastrointestinal (Abdomen): Inspection/Auscultation: abdomen normal to inspection; abdomen not distended Percussion/Palpation: abdomen soft; abdomen nontender and no guarding Musculoskeletal: Head/Neck/Chest: normocephalic and head atraumatic Skin: + pallor no visible rashes Neurologic: moves all extremities and awake Psychiatric: Orientation: alert and oriented x 3 Genitourinary: no CVA tenderness Results & Data ([facility]) Vital Signs (Past 12 Hours) Vital Signs Temp Pulse Pulse Resp BP Pulse Ox 12/24/21 06:18 96 H 12/24/21 03:00 36.6 C 56 L 20 125/70 93 Diagnostic Findings ABDOMEN AND PELVIS CT WITHOUT CONTRAST CT DOSE: 1139.56 mGy.cm HISTORY: Anemia. Hematuria. Prostate cancer with radiation. Elevated white blood cell count. Assess for obstruction. TECHNIQUE: Multiaxial CT images of the abdomen and pelvis were performed without contrast. A dose lowering technique was utilized adhering to the principles of ALARA. COMPARISON STUDY: Renal ultrasound 04/24/2019. Abdomen and pelvis CT 11/15/2017. FINDINGS: The lung bases are clear. No pneumoperitoneum. No pneumatosis. No suspicious lytic or blastic osseous lesions. Dense mitral and aortic valve calcifications are noted and are partially visualized on this study. There are poststernotomy changes. The unenhanced liver, spleen, gallbladder, pancreas, and adrenal glands are unremarkable. No retroperitoneal lymphadenopathy. Normal caliber abdominal aorta. Near complete atrophy of the right renal parenchyma, unchanged. There is severe right hydroureteronephrosis, unchanged. There is moderate left hydroureteronephrosis which has progressed in the interval. No obstructing stones identified. There is mild urothelial thickening and adjacent fat stranding within the mid to distal bilateral ureters. This is similar to the prior study and may be chronic. There is again noted a thickened and irregular bladder wall with a large right lateral bladder diverticulum. The bladder wall thickening has progressed. There is also mild thickening within the right lateral bladder diverticulum with adjacent fat stranding. This suggests an associated cystitis. Small amount of hyperdense material within the large right bladder diverticulum suggests blood products in the setting of hematuria. There are few punctate metallic densities within the prostate gland. There is also mild fat stranding adjacent to the thickened bladder. No pelvic free fluid. Suboptimal evaluation for bowel pathology due to the lack of intravenous and oral contrast. However, there is no definite bowel wall thickening or ob struction. Normal appendix. A few colonic diverticula. No evidence for acute diverticulitis. IMPRESSION: 1. Thickened and irregular bladder wall which has progressed in the interval. There is also mild wall thickening within the large right lateral bladder diverticulum. This bladder diverticulum remains distended. There is mild fat stranding adjacent to the bladder/bladder diverticulum. Therefore, these findings likely represent a cystitis. Recommend correlation with urinalysis. In addition, follow-up cystoscopy recommended for further evaluation of the irregular and thickened bladder wall to exclude the possibility of a neoplastic process. 2. Severe right hydroureteronephrosis, unchanged and moderate left hydroureteronephrosis which has progressed. No obstructing stones identified. This hydronephrosis could be due to the thickened bladder wall or bladder outlet obstruction. 3. Small amount of hyperdense material within the large right lateral bladder diverticulum suggestive of blood products in the setting of hematuria. 4. Additional findings as described above. PG Care Time/CCT Total # of Minutes Spent Total Time Spent with Patient: Total time spent is greater than 50% in coordination of care (as documented) at patient's floor/unit and/or counseling patient: Coding Level of Care Code 77030 Inpt Consult Level 4 Diagnoses Hematuria R31.0 Hematuria type: gross Bilateral hydronephrosis N13.30 Radiation cystitis N30.40 Incomplete bladder emptying R33.9 (1) Hematuria Hematuria type: gross Qualified Code(s): R31.0 - Gross hematuria
[2021-12-24] MEDS: VANCOMYCIN HCL 1,250 MG in SODIUM CHLORIDE 0.9% 250 ML IV SCH (12:43)
[2021-12-24 15:43] LABS: Hematocrit (blood only) 28.8 % (42-52); Hemoglobin 8.9 g/dL (14.0-18.0)
[2021-12-24] MEDS ORDERED: WARFARIN SOD 2.5 MG TAB PO ONE (17:04)
--- NOTE | 2021-12-24 19:50 | Hospitalist Progress Note ---
Date of Service December 24, 2021 Assessment & Plan (1) Hematuria: Plan: 56yo male with complex medical history to include mechanical AVR on Coumadin anticoagulation, h/o prostate CA s/p XRT with radiation cystitis, 11/2021 hospitalization for gross hematuria with hemorrhagic shock requiring transfusion of 9u PRBCs. Patient returns with recurrent hematuria in setting of supratherapeutic INR from coumadin, known XRT cystitis, and suspected UTI. Hematuria has improved since admission. However, H/H trending down again. INR was previously 8.9 on Wednesday of last week. Follows with [facility] Coumadin clinic - Dr Cruz. Received 5mg of vitamin K at that time. INR now ~1. I spoke with Dr Cruz - cautiously will give coumadin 2.5mg x 1 today. INR in am. With respect to hematuria - appreciate [facility] [place]. Since hematuria has improved no plans for repeat cystoscopy. Some of the hematuria could be UTI-related - await culture, cont IV abx. Repeat INR/CBC am. (2) Acute blood loss anemia: Plan: 2nd to gross hematuria. s/p 2 units PRBCs. Also with Fe deficiency -s/p IV venofer 300mg yesterday; give 2nd dose of 300mg today, then 3rd dose tomorrow. Recent ferritin level <20. CBC in am. BPs remain stable. (3) RITU (acute kidney injury): Plan: Suspect multifactorial including pre-renal causes and post-renal causes. Continues to improve with supportive care. Stop IV fluids. BMP am. Cont to HOLD MARKO inhibitor. (4) Acute hyponatremia: Plan: Dt=540 on admission. Improving s/p isotonic fluids. Likely due to poor po intake, acute renal failure, etc. BMP in am. (5) Bilateral hydronephrosis: Plan: severe on R moderate on L progressive per CT appreciate urology consult progressive hydronephrosis is due to incomplete bladder emptying/obstruction PVR today very high - minimum of 400cc, but 1 bladder scan reading was 700cc refusing gonzalez refusing intermittent catheterization (6) Diverticulum of bladder: Plan: large, as seen on CT likely contributing to all the problems noted above (7) UTI (urinary tract infection): Plan: History of enterococcus faecalis UTI - hollingsworth-sensitive. He completed antibiotic therapy for this in November. Urine cx this admission - staph. Blood cx's thus far negative. Cont vanco in the event it is MRSA. Rocephin if MSSA. (8) Chronic anticoagulation: Plan: Patient on Coumadin for history of mechanical aortic valve placement. Recently had supratherapeutic INR of 8.9. He was administered Vitamin K 5mg PO x 1 dose and his Coumadin has been on hold since then. Last dose was evening of 12/18/21. He was instructed to take 2.5 mg on the evening of 12/24/21 by anticoagulation clinic. I spoke with Dr Cruz today - she confirmed that it would be best to give the 2.5mg of coumadin today cautiously. The hope is that we can avoid a lovenox bridge which would complicate things in light of #1 above. INR in am. (9) Radiation cystitis: Plan: Radiation cystitis noted on cystoscopy during November admission. Likely contributing to recurrent bleeding. It appears he never followed up with urology post-admission in November. he confirmed such. He will f/u with Dr Fred Puga, [facility] urology, after discharge. (10) Hypercholesterolemia: Plan: Continue Atorvastatin 40mg po daily (11) Hypertension: Plan: Hold Lisinopril in setting of RITU Hold Metoprolol (12) Diabetes: Plan: Chronic. Well controlled. Last PifM1C=4.2 on 11/07/21. Hold Jardiance, Glimepiride and Metformin -Lantus 7u BID and novolog supplemental scale -Goal BSG of 100 - 140 while inpatient (13) Hemorrhagic disorder due to circulating anticoagulants: Plan: in the setting of gross hematuria, supratherapeutic INR and coumadin use see above (14) Hyperkalemia: Plan: 2nd RITU resolved HOLD MARKO bmp am (15) H/O mechanical aortic valve replacement: Plan: for congenital bicuspid AV chronic coumadin - INR goal 2 to 3 see above INR am (16) LBBB (left bundle branch block): Plan: chronic going back several years short/brief episode of what looks like PAT this am resume metoprolol tomorrow if BPs will allow Plan: care extensively discussed with urology care extensively discussed with coumadin clinic provider total care time today 65 minutes - multiple bedside visits, complex care coordination, etc Admission and Anticipated Discharge Date Admission Date: December 22, 2021 Subjective patient again sitting in chair states he was up late last night 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 patient refusing gonzalez or intermittent catheterization at this time despite large PVRs tele overnight -- brief run of PAF this am Review of Systems Review of Systems: gen - no fevers cv - no chest pain; no dizziness or lightheadedness pulm - no dyspnea gu - no dysuria gi - no abd pain, no flank pain Physical Exam Physical Exam: gen - pale, obese, NAD, sitting in chair skin - pallor mouth - MMM neck - no JVD heart - RRR, s1 s2, no murmur; mechanical valve closure sound present lungs - CTA b/l abd - soft, NT, ND, BS+ ext - no edema, pulses 2+ b/l Results & Data Results & Data ([facility]) Vital Signs (Past 12 Hours) Vital Signs Temp Pulse Pulse Resp BP BP Pulse Ox 12/24/21 19:00 36.9 C 91 H 20 111/70 97 12/24/21 15:39 36.8 C 95 H 20 136/80 98 12/24/21 14:17 97 H 12/24/21 11:26 36.4 C L 85 18 124/69 98 Laboratory Results Laboratory Results - last 24 hr 12/23/21 12/24/21 12/24/21 20:06 07:01 07:01 WBC 12.30 H RBC 2.92 L Hgb 7.7 L Hct 24.6 L MCV 84.2 MCH 26.4 MCHC 31.3 L RDW Std Deviation 53.9 H RDW Coeff of Juliane 18.0 H Plt Count 338 MPV 9.6 Absolute Nucleated RBC 0.11 H Nucleated RBC % (auto) 0.9 PT INR Sodium 132 L Potassium 4.4 Chloride 102 Carbon Dioxide 21 Anion Gap 9 BUN 34 H Creatinine 1.60 H D Est Cr Clr Drug Dosing 61.0 Est GFR ( Amer) 54.2 Est GFR (Non-Af Amer) 46.8 BUN/Creatinine Ratio 21.3 H Glucose 97 POC Glucose 156 H Osmolality Calcium 8.7 12/24/21 12/24/21 12/24/21 07:01 07:26 09:34 WBC RBC Hgb Hct MCV MCH MCHC RDW Std Deviation RDW Coeff of Juliane Plt Count MPV Absolute Nucleated RBC Nucleated RBC % (auto) PT 20.4 H INR 2.1 H Sodium Potassium Chloride Carbon Dioxide Anion Gap BUN Creatinine Est Cr Clr Drug Dosing Est GFR ( Amer) Est GFR (Non-Af Amer) BUN/Creatinine Ratio Glucose POC Glucose 126 H Osmolality 293 Calcium 12/24/21 12/24/21 12/24/21 11:18 15:30 16:44 WBC RBC Hgb 8.9 L Hct 28.8 L MCV MCH MCHC RDW Std Deviation RDW Coeff of Juliane Plt Count MPV Absolute Nucleated RBC Nucleated RBC % (auto) PT INR Sodium Potassium Chloride Carbon Dioxide Anion Gap BUN Creatinine Est Cr Clr Drug Dosing Est GFR ( Amer) Est GFR (Non-Af Amer) BUN/Creatinine Ratio Glucose POC Glucose 171 H 182 H Osmolality Calcium Diagnostic Findings Urine cx - staph species PG Care Time/CCT Total # of Minutes Spent Total Time Spent with Patient: Total time spent is greater than 50% in coordination of care (as documented) at patient's floor/unit and/or counseling patient: Prolonged Care Time Prolonged Care Time: Yes Total Prolonged Care Time: 65 Coding Level of Care Code 30587 Subseq Hosp Care Lvl 3 (25 - SIGNIFICANT, SEPARATELY IDENTIFIABLE ) Diagnoses Hematuria R31.0 Hematuria type: gross Acute blood loss anemia D62 RITU (acute kidney injury) N17.9 Acute hyponatremia E87.1 UTI (urinary tract infection) N39.0 Chronic anticoagulation Z79.01 Radiation cystitis N30.40 Hypercholesterolemia E78.00 Hypertension I10 Diabetes E11.9 Hemorrhagic disorder due to circulating anticoagulants D68.318 Hyperkalemia E87.5 H/O mechanical aortic valve replacement Z95.2 Bilateral hydronephrosis N13.30 Diverticulum of bladder N32.3 LBBB (left bundle branch block) I44.7 Additional Codes Prolonged Care Time - Prolonged Care Time: Yes ([id number]) Time Spent (min) 65 (1) Hematuria Hematuria type: gross Qualified Code(s): R31.0 - Gross hematuria
[2021-12-25] MEDS ORDERED: VANCOMYCIN TROUGH ONE (04:30)
[2021-12-25 05:04] LABS: Hematocrit (blood only) 25.4 % (42-52); Hemoglobin 7.7 g/dL (14.0-18.0); Mean Corpuscular Hemoglobin 26.1 pg (25-34); Mean Corpuscular Hgb Conc 30.3 g/dL (32-36); Mean Corpuscular Volume 86.1 fL (80-100); Mean Platelet Volume 9.4 fL (7.4-10.4); Nucleated RBC # (auto) 0.08 K/uL (0-0); Nucleated RBC % (auto) 0.5 %; Platelet Count 361 K/uL (130-400); RDW Coefficient of Variation 18.5 % (11.5-14.5); RDW Standard Deviation 55.9 fL (36.4-46.3); Red Blood Count 2.95 M/uL (4.7-6.1); White Blood Count 16.42 K/uL (4.8-10.8)
[2021-12-25 05:24] LABS: INR 1.8 (0.9-1.1); Prothrombin Time 17.8 Seconds (9.0-12.0)
[2021-12-25] MEDS: VANCOMYCIN HCL 1,250 MG in SODIUM CHLORIDE 0.9% 250 ML IV SCH (05:32)
[2021-12-25 05:34] LABS: BUN Creatinine Ratio 20.7 (10-20); Calcium 8.8 mg/dl (8.5-10.1); Creatinine Clr Calc Pharmacy 69.7 ml/min; Est GFR (African American) 63.7 ml/min; Potassium 4.5 mmol/L (3.5-5.1)
[2021-12-25 05:58] LABS: Folate (Folic Acid) 6.74 ng/ml (>5.38)
[2021-12-25] MEDS ORDERED: CYANOCOBALAMIN (B-12) 500 MCG TABLET PO SCH (09:00)
[2021-12-25] MEDS: INSULIN ASPART PER UNIT SC SCH ×3 (09:43→17:09)
[2021-12-25] MEDS: INSULIN GLARGINE SOLOSTAR 100 UNITS/ML 3 ML PEN SC SCH (09:44)
[2021-12-25] MEDS: ATORVASTATIN 40 MG TAB PO SCH (09:45)
[2021-12-25] MEDS ORDERED: IRON SUCROSE 300 MG in SODIUM CHLORIDE 0.9% 250 ML IV ONE (10:00)
--- NOTE | 2021-12-25 11:53 | Pharmacy Report ---
Pharmacy Vanc AUC Short Note - Date of Service December 25, 2021 - Assessment & Plan Assessment 56 year old M receiving VANCOMYCIN + CEFTRIAXONE IV for treatment of complicated UTI Pertinent microbiologic data includes: 11/06/21 urine cx grew e faecalis (sensitive to all abx test except TCNs), New Urine Cx, pin point growth, reincubating. BC no growth RITU improving Plan Vancomycin * AUC/JO is the preferred PK/PD target for vancomycin * AUC guided dosing is effective and associated with decreased risk of nephrotoxicity compared to traditional trough targets * With improved renal function and trough today 10.4mg/dl, current dosing is subtherapeutic * Trough level of 14.4 mcg/mL is predicted to achieve target AUC/JO of 400-600 mg/L.hr and may be associated with a 10 % risk of nephrotoxicity * Change to 1000 mg IV every 12 hours * Trough level ordered for: 12/27/21 Ceftriaxone 2g IV Q24H Pharmacy will continue to follow and will adjust dose/frequency as necessary. Thank you.
[2021-12-25] MEDS ORDERED: SODIUM CHLORIDE 0.9% 250 ML IV PRN (12:12)
[2021-12-25] MEDS: cefTRIAXone SODIUM 2,000 MG in DEXTROSE 5% 50 ML IV SCH (12:46)
[2021-12-25] MEDS ORDERED: WARFARIN SOD 5 MG TAB PO ONE (15:30)
[2021-12-25] MEDS ORDERED: VANCOMYCIN HCL 1,000 MG in SODIUM CHLORIDE 0.9% 250 ML IV SCH (16:00)
[2021-12-25 16:13] VITALS: TEMP 97.9
[2021-12-25 16:28] VITALS: O2SAT 97
[2021-12-25 18:14] VITALS: BP 115/72; PULSE 95
--- NOTE | 2021-12-27 12:35 | Discharge Summary ---
Date of Service Date of admission - December 22, 2021 Date of discharge - December 25, 2021 Admission HPI Per Admitting Provider Arturo Davidson is a 56yo male with history of congenital bicuspid aortic valve s/p mechanical AVR on Coumadin anticoagulation, prostate adenocarcinoma s/p XRT and androgen deprivation therapy with chronic bladder outlet obstruction and frequent UTIs, DM and CKD with baseline Cr of 1.5. Patient was admitted to [facility] on 11/06/21 - 11/12/21 when he presented with gross hematuria with anemia (Hgb of 6.5), Enterococcus faecalis UTI, hemorrhagic shock and RITU with elevated K of 6.2 as well as supratherapeutic INR. Patient was admitted to the MICU. He had a cystoscopy performed on 11/08/21 which revealed radiation cystitis as well as bleeding varices in the bladder. He was managed with CBI, blood transfusion of 9u PRBCs and antibiotics. Patient found to have a supratherapeutic INR on 12/19/21 at 8.9. He was administered Vitamin K PO x 1 dose and instructed to hold his Coumadin. He developed some gross hematuria over the weekend. Reports that urine starts out pink then becomes dark "Merlot colored" then fades out to brownish. He passes some clots. Has not had difficulty passing urine. Denies flank pain or suprapubic pain. He reports that the hematuria has markedly improved now. No additional complaints - specifically denies fever, chills, chest pain, cough, SOB, abdominal pain, nausea, vomiting, diarrhea or constipation. He reports feeling ill over the weekend and staying in bed most of the day on Wednesday. Decreased PO intake. In the ER patient afebrile, HD stable. Workup revealed anemia with Hgb=6.3 as well as RITU with BUN=53, Cr=2.37 ER Course: PRBC x 1 unit ordered, NSS Principal Diagnosis 1. acute blood loss anemia superimposed upon chronic anemia - acute component 2 nd to gross hematuria in the setting of UTI, radiation cystitis, and supratherapeutic INR; s/p 3 units PRBCs 2. coag negative staph UTI 3. gross hematuria 4. mechanical aortic valve on chronic coumadin 5. acute kidney injury - resolved 6. hyperkalemia - resolved 7. iron deficiency s/p Venofer x 3 infusions 8. large bladder diverticulum 9. severe bilateral hydroureteronephrosis 10. severe urinary retention 11. hyponatremia - improved Discharge Exam gen - pale, obese, NAD, sitting in chair skin - no rash mouth - MMM neck - no JVD heart - RRR, s1 s2, no murmur; mechanical valve closure sound present lungs - CTA b/l abd - soft, NT, ND, BS+, no flank tenderness to palpation ext - no edema, pulses 2+ b/l Discharge Data Allergies Allergy/AdvReac Type Severity Reaction Status Date / Time No Known Allergies Allergy Verified 12/22/21 20:13 Consultations [facility] Procedures Performed 1. PRBCs x 3 units 2. Venofer infusion x 3 Ordered Studies Abdomen/Pelvis CT 12/22/21 18:[address] WITHOUT CONTRAST CT DOSE: 1139.56 mGy.cm HISTORY: Anemia. Hematuria. Prostate cancer with radiation. Elevated white blood cell count. Assess for obstruction. TECHNIQUE: Multiaxial CT images of the abdomen and pelvis were performed without contrast. A dose lowering technique was utilized adhering to the principles of ALARA. COMPARISON STUDY: Renal ultrasound 04/24/2019. Abdomen and pelvis CT 11/15/2017. FINDINGS: The lung bases are clear. No pneumoperitoneum. No pneumatosis. No suspicious lytic or blastic osseous lesions. Dense mitral and aortic valve calcifications are noted and are partially visualized on this study. There are poststernotomy changes. The unenhanced liver, spleen, gallbladder, pancreas, and adrenal glands are unremarkable. No retroperitoneal lymphadenopathy. Normal caliber abdominal aorta. Near complete atrophy of the right renal parenchyma, unchanged. There is severe right hydroureteronephrosis, unchanged. There is moderate left hydroureteronephrosis which has progressed in the interval. No obstructing stones identified. There is mild urothelial thickening and adjacent fat stranding within the mid to distal bilateral ureters. This is similar to the prior study and may be chronic. There is again noted a thickened and irregular bladder wall with a large right lateral bladder diverticulum. The bladder wall thickening has progressed. There is also mild thickening within the right lateral bladder diverticulum with adjacent fat stranding. This suggests an associated cystitis. Small amount of hyperdense material within the large right bladder diverticulum suggests blood products in the setting of hematuria. There are few punctate metallic densities within the prostate gland. There is also mild fat stranding adjacent to the thickened bladder. No pelvic free fluid. Suboptimal evaluation for bowel pathology due to the lack of intravenous and oral contrast. However, there is no definite bowel wall thickening or obstruction. Normal appendix. A few colonic diverticula. No evidence for acute diverticulitis. IMPRESSION: 1. Thickened and irregular bladder wall which has progressed in the interval. There is also mild wall thickening within the large right lateral bladder diverticulum. This bladder diverticulum remains distended. There is mild fat stranding adjacent to the bladder/bladder diverticulum. Therefore, these findings likely represent a cystitis. Recommend correlation with urinalysis. In addition, follow-up cystoscopy recommended for further evaluation of the irregular and thickened bladder wall to exclude the possibility of a neoplastic process. 2. Severe right hydroureteronephrosis, unchanged and moderate left hydroureteronephrosis which has progressed. No obstructing stones identified. This hydronephrosis could be due to the thickened bladder wall or bladder outlet obstruction. 3. Small amount of hyperdense material within the large right lateral bladder diverticulum suggestive of blood products in the setting of hematuria. 4. Additional findings as described above. ACT 112: Negative or not required by law. Electronically signed by: Cristino Parada M.D. 12/22/2021 7:48 PM Chest X-Ray 12/22/21 18:30 XR chest 1V portable HISTORY: Weakness. COMPARISON: Chest 11/06/2021. FINDINGS: No pneumothorax. No pleural effusions. The cardiac silhouette remains mildly enlarged. There are poststernotomy changes. There is mild central pulmonary vascular congestion without overt edema. This has improved. Mitral annulus calcifications are noted. No focal lung consolidations to suggest pneumonia. IMPRESSION: Cardiomegaly with mild central pulmonary vascular congestion without overt edema. This has improved in the interval. ACT 112: Negative or not required by law. Electronically signed by: Cristino Parada M.D. 12/22/2021 6:55 PM Hospital Course (1) Hematuria: Patient has a mechanical aortic valve and is on chronic coumadin. He also has a h/o prostate cancer s/p XRT with resulting radiation cystitis. Mr Davidson was hospitalized 11/2021 for severe gross hematuria with hemorrhagic shock requiring transfusion of 9u PRBCs. He required cystoscopy, urethral dilation, clot evacuation, and prostate/bladder fulgeration. Large bladder diverticulum was found. The entire bladder wall was edematous, inflamed, and friable. Patient returned with recurrent hematuria in setting of supratherapeutic INR from coumadin, his known XRT cystitis, and UTI. On 12/19 in the coumadin clinic his INR was >8. He received vitamin K 5mg po x 1 at that time. INR on 12/22 at of ER presentation was 4. CT abd/pelvis showed progressive hydronephrosis, retained blood products, and ongoing bladder wall inflammation. Following admission his gross hematuria gradually improved then fully resolved. He was seen by [facility]. Repeat cystoscopy was deferred given the resolution of his hematuria. Bladder scans/PVRs were advised which showed, at minimum, PVRs of 400-500cc or more. He required straight cath once with 1500cc of urine obtained. Intermittent self-catheterization was strongly advised but he declined, stating he wished to f/u with [facility] post-discharge to discuss his options. He remains at high risk for recurrent bleeding due to ongoing need for systemic anticoagulation, known radiation cystitis, etc. I recommended he have a repeat CBC on 12/29/21, to ensure stability of his hemoglobin. As noted below he received blood & intravenous iron. (2) Acute blood loss anemia: 2nd to gross hematuria. s/p 3 units PRBCs in total. Lowest hemoglobin was 6.3. Hemoglobin at discharge was 7.7 (this hemoglobin was prior to his final unit of PRBCs). He received IV venofer 300mg x 3 doses during the stay. Vitamin B12 level was checked & was low-normal at 367. Oral supplementation with vitamin B12 1000mcg daily was advised. Again repeat CBC will be needed on 12/29/21. Lab order placed for such. (3) RITU (acute kidney injury): Suspect multifactorial including pre-renal causes and post-renal causes. MARKO inhibitor held, and he was asked to NOT take it at home post-discharge. Peak Cr = 2.3. Cr at discharge = 1.4. (4) Acute hyponatremia: Vw=649 on admission. Improved s/p isotonic fluids. Likely due to poor po intake, acute renal failure, etc. Sodium level at discharge = 134. (5) Hemorrhagic disorder due to circulating anticoagulants: Gross hematuria in the setting of coumadin use and supratherapeutic INR. See above. (6) Bilateral hydronephrosis: severe on Right moderate on Left progressive per CT abd/pelvis 2nd to incomplete bladder emptying/obstruction, large bladder diverticulum, etc. PVRs very high - minimum of 400-500cc, with some >1000cc. refused gonzalez placement. refused intermittent catheterization at home. did allow one straight cath while hospitalized yielding 1500cc of urine. follow-up with Dr Fred Puga, [facility], as scheduled to discuss options for care. (7) Diverticulum of bladder: large, as seen on CT as well as on recent cystoscopy in 11/2021. likely contributing to all the problems noted above. (8) UTI (urinary tract infection): History of enterococcus faecalis UTI 11/2021. He completed antibiotic therapy for this in November. The final urine culture results were not available before discharge home but was growing staph. He was therefore discharged on keflex with doxycycline. Unfortunately the final culture showed coag negative staph, both oxacillin and tetracycline resistant. He was changed to a 10-day course of oral zyvox. This was called into his pharmacy. He was instructed to d/c the keflex/doxycycline. (9) Chronic anticoagulation: Patient is on coumadin for history of mechanical aortic valve placement. Recently had supratherapeutic INR of 8.9. He was administered Vitamin K 5mg PO x 1 dose and his Coumadin had been on hold since then. Last dose was evening of 12/18/21. I had verbal communication with Dr Gus Cruz from the anticoagulation clinic. On 12/24 we administered 2.5mg x 1 of coumadin. On 12/25 we administered 5mg x 1 of coumadin. INR on 12/25 (day of discharge) was 1.8. He has f/u with Dr Cruz on 12/26 in the anticoagulation clinic. (10) Radiation cystitis: Radiation cystitis noted on cystoscopy during November admission. This is certainly contributing to recurrent bleeding. He was to follow-up with [facility] in November following his admission but it does not appear he did so. He does have scheduled follow-up with Dr Fred Puga, [facility], shortly after this discharge in the [facility]. (11) Hypercholesterolemia: Continue Atorvastatin 40mg po daily (12) Hypertension: Hold Lisinopril in setting of RITU and ongoing tendencies towards hyperkalemia/worsening renal function. BPs were controlled without it while here. Metoprolol and lasix were also held because of low-normal BPs and his acute renal failure, respectively. Lasix, lisinopril, and metoprolol were all placed on hold at time of discharge. (13) Diabetes: Chronic. Well controlled. Last FlyL3X=0.2% on 11/07/21. Jardiance, Glimepiride and Metformin were held during the stay but resumed at discharge. Basal-bolus insulin was used during the stay for glycemic control. (14) Hyperkalemia: 2nd RITU - resolved. Continue to HOLD MARKO at discharge. Repeat BMP on 12/29/21, was advised to ensure stability of creatinine and potassium levels. (15) H/O mechanical aortic valve replacement: for congenital bicuspid AV chronic coumadin see above INR 1.8 at discharge f/u with Dr Curz in the Anticoagulation Clinic at [facility] on 12/26/21 (16) LBBB (left bundle branch block): chronic going back several years had a short/brief episode of what looked like PAT during the admission but no other dysrhythmia metoprolol was held while here and at discharge but low threshold to resume the metoprolol as BPs will allow as outpatient Total Time Total Time Spent Total Time Spent (In Minutes): 60 Discharge Plan Discharge Items Patient Disposition: Home - Self-Care Reason For Visit: HEMATURIA (Blood in Urine) Discharge Diagnosis: 1. hematuria - improved; likely multiple causes including radiation cystitis, urinary tract infection, high INR, etc. 2. acute renal failure - resolved 3. hyponatremia (low sodium) - resolved 4. severe anemia - 3 units of Blood, 3 infusions of Iron given; anemia is due to #1 above 5. low-normal vitamin B12 level 6. mechanical aortic valve with chronic coumadin use; INR at discharge 1.8 Activity: As commented below Activity Comment: light activities only; nothing strenuous until cleared by your physicians Sexual Activity: Wait until after follow-up appointment Exercise/Sports: Wait until after follow-up appointment Driving/Machine Use: Resume 1 day after discharge Non-emergency contact: Primary Care Provider, Specialist and Urologist Call non-emergency contact if: you have any medication questions, your symptoms worsen and you have a fever Follow-up/Referrals: Fred Puga MD [Outside Practitioners] - (keep previously scheduled appointment with Dr Puga for your urinary tract problems) Kaley Cruz MD, PhD [Pathologist] - 12/26/21 (keep previously scheduled appointment with Dr Cruz for INR check) Teresa Sim MD [Primary Care Provider] - (within 1 week) Diet: Carb Consistent or DM2 Ambulatory Orders: Basic Metabolic Panel (Routine) Timeframe: 20211229 Location: Determined by Patient Ordered By: Harvey Martinez Complete Blood Count no Diff (Routine) Timeframe: 20211229 Location: Determined by Patient Ordered By: Harvey Martinez Addtl Attending Provider Instructions: Mr Stuart, You were treated for the problems listed above in "discharge diagnoses." Fortunately the hematuria improved while you were here with simply holding your coumadin and treating your urinary tract infection. We also held your aspirin. Again you received 3 units of blood in total while here along with 3 iron infusions for your severe anemia. You have a combination of iron deficiency from bleeding, as well as early vitamin B12 deficiency. During your stay we noted that you were having difficulty emptying your bladder. [facility] saw you in consult and they have recommended intermittent self-catheterization several times each day at home. You have declined this for now, and you plan to discuss this further with Dr Fred Puga next week at [facility] in [place]. You have a urinary tract infection due to staph. At time of discharge we do not have the final urine culture report. Thus, until that time, please take the following 2 antibiotics - * cephalexin 500mg three times daily * doxycycline 100mg twice daily When I have the final urine culture report I will call you and let you know which antibiotic to continue (1 of them will likely be stopped). I have spoken with Dr Cruz from the coumadin clinic and she will see you as scheduled on 12/26/21. You received 2.5mg of coumadin on 12/24, and 5mg on 12/25. Do not take any additional coumadin upon arrival home. It is not necessary for you to take oral iron supplementation at home. Please take, however, [id number] vitamin B12 1000mcg (1mg) daily for 6-12 months. With respect to your blood pressure medications - because of your recent bleeding - your blood pressures have been normal without those medications. Please HOLD the following upon return home - * lisinopril * metoprolol succinate * furosemide * potassium supplement * aspirin Do not take any [id number] motrin, ibuprofen, alleve, naprosyn. It is ok to take tylenol for aches/pains/fever. When you see Dr Cruz next week please go to the [facility] lab and have a blood draw. I will repeat your CBC blood count and creatinine (kidney function level). Follow-up - see separate section Return to [facility] if - * you have fevers over 100 degrees * you have worsening abdominal pain * you have dizziness or lightheadedness * you have worsening blood in your urine * any other concerns Continue to feel better and it was our pleasure to care for you at [facility]! -Dr Martinez Pending Studies at Discharge: Yes Studies:: final urine culture result Stand-Alone Forms: My [facility], Smoking Cessation Medications and DC Order Prescriptions: New cyanocobalamin (vitamin B-12) 1,000 mcg capsule 1,000 mcg PO DAILY Qty: 90 RF: 3 Continued lactobacillus combination no.4 [Probiotic] 3 billion cell capsule 3,000 mmu cells PO DAILY RF: 0 clobetasol 0.05 % ointment 1 appln TOP 2XWK PRN (Reason: Itching) RF: 0 warfarin [Jantoven] 5 mg tablet See Rx Instructions PO UD Qty: 20 RF: 0 triamcinolone acetonide 0.5 % ointment 1 applic TOP QID PRN (Reason: itching) Qty: 45 RF: 3 atorvastatin 40 mg tablet 40 mg PO DAILY Qty: 90 RF: 3 metformin 1,000 mg tablet 1,000 mg PO BID Qty: 180 RF: 3 Jardiance 25 mg tablet 25 mg PO QAM Qty: 90 RF: 3 silodosin 8 mg capsule 8 mg PO DAILY Qty: 90 RF: 3 glimepiride 1 mg tablet 1 mg PO DAILY Qty: 90 RF: 3 trazodone 50 mg tablet 50 - 100 mg PO HS PRN (Reason: Insomnia) RF: 0 Discontinued potassium chloride [Klor-Con 10] 10 mEq tablet extended release 20 meq PO DAILY PRN (Reason: If takes lasix) RF: 0 aspirin [Adult Low Dose Aspirin] 81 mg tablet,delayed release (DR/EC) 81 mg PO DAILY RF: 0 furosemide 40 mg tablet 40 mg PO DAILY PRN (Reason: leg swelling) Qty: 90 RF: 3 lisinopril 10 mg tablet 10 mg PO DAILY Qty: 90 RF: 3 metoprolol succinate [Toprol XL] 25 mg tablet extended release 24 hr 37.5 mg PO DAILY Qty: 135 RF: 1 metoprolol succinate [Toprol XL] 25 mg tablet extended release 24 hr 37.5 mg PO DAILY Qty: 45 RF: 0 No Action warfarin [Jantoven] 7.5 mg tablet See Rx Instructions PO UD RF: 0 linezolid [Zyvox] 600 mg tablet 600 mg PO BID RF: 0 Discharge Orders: Discharge Order (Routine); Ordered 12/25/21 Ordered By: Harvey Martinez Admission Data Admit Date/Time: 12/22/21 19:42 Attending Provider: Harvey Martinez Admit Provider: Clara Parson Primary Care Provider: Teresa Sim Other Providers: Felicity Thurman ; Pop Hill Other Interventions: Discharge Summary Assessment (RN) Last Done: 12/25/21 18:13 Coding Level of Care Code D/C DAY MANAGEMENT >30 MINS Diagnoses Hematuria R31.0 Hematuria type: gross Acute blood loss anemia D62 RITU (acute kidney injury) N17.9 Acute hyponatremia E87.1 Bilateral hydronephrosis N13.30 Diverticulum of bladder N32.3 UTI (urinary tract infection) N39.0 Chronic anticoagulation Z79.01 Radiation cystitis N30.40 Hypercholesterolemia E78.00 Hypertension I10 Diabetes E11.9 Hemorrhagic disorder due to circulating anticoagulants D68.318 Hyperkalemia E87.5 H/O mechanical aortic valve replacement Z95.2 LBBB (left bundle branch block) I44.7
== END 2021-12-25 18:58 | disposition home or self-care (01) | DRG 813 ==
LOC: ED 16:40 → EDINP 19:42 → SUATTDRO 19:42 → 2W 22:15

== ENCOUNTER 2022-01-16 18:47 | Inpatient (IN) ==
[2022-01-16 20:07] LABS: Appearance Urine Turbid (Clear); Color Urine Brown; Specific Gravity Urine 1.022 (1.000-1.030)
[2022-01-16 20:11] LABS: Bacteria Urine 2+ (Negative); Epithelial Cell Urine 0-5 /lpf (0-5); RBC Urine >30 /hpf (0-4); WBC Urine >30 /hpf (0-5)
[2022-01-16 20:18] LABS: Alanine Aminotransferase 9 U/L (7-52); Albumin Globulin Ratio 1.3 (0.9-2); Albumin Level 3.6 gm/dl (3.4-5.0); Alkaline Phosphatase 50 U/L (34-104); Anion Gap 13 (3-11); BUN Creatinine Ratio 13.6 (10-20); Bilirubin,Total 1.8 mg/dl (0.2-1.0); Blood Urea Nitrogen 36 mg/dl (6-23); Calcium 8.4 mg/dl (8.5-10.1); Carbon Dioxide 18 mmol/L (21-32); Chloride 94 mmol/L (98-107); Est GFR (African American) 29.5 ml/min; Est GFR (Non-African American) 25.4 ml/min; Globulin 2.8 gm/dl (2.5-4.0); Glucose 175 mg/dl (70-99(Fasting)); Sodium 125 mmol/L (136-145); Total Protein 6.4 gm/dl (6.0-8.3)
[2022-01-16 20:33] LABS: Hematocrit (blood only) 33.6 % (42-52); Hemoglobin 10.6 g/dL (14.0-18.0); Mean Corpuscular Hemoglobin 28.1 pg (25-34); Mean Corpuscular Hgb Conc 31.5 g/dL (32-36); Mean Corpuscular Volume 89.1 fL (80-100); Mean Platelet Volume 11.1 fL (7.4-10.4); Platelet Count 224 K/uL (130-400); RDW Standard Deviation 67.7 fL (36.4-46.3); Red Blood Count 3.77 M/uL (4.7-6.1); White Blood Count 11.77 K/uL (4.8-10.8)
[2022-01-16] MEDS ORDERED: CIPROFLOXACIN / D5W 400 MG/200 ML BAG IV STA (20:41)
[2022-01-16] MEDS ORDERED: SODIUM CHLORIDE 0.9% 1000ML 1,000 ML IV ONE ×2 (20:48→21:44)
--- NOTE | 2022-01-16 20:55 | XRay Report ---
SINGLE VIEW CHEST CLINICAL HISTORY: Fever. FINDINGS: An AP, portable, upright chest radiograph is compared to study dated 12/22/2021. The patient is status post midline sternotomy. The heart is enlarged. The pulmonary vasculature is noncongested. The lungs and pleural spaces are clear. No pneumothorax is seen. The bony thorax is grossly intact. IMPRESSION: Cardiomegaly with no active disease in the chest. ACT 112: Negative or not required by law. Electronically signed by: Samson Nicholas M.D. 01/16/2022 8:53 PM
[2022-01-16 21:01] LABS: Anisocytosis Present; Basophils # (auto) 0.03 K/uL (0-0.2); Basophils % (auto) 0.3 %; Immature Granulocytes # (auto) 0.09 K/uL (0.00-0.02); Immature Granulocytes % (auto) 0.8 %; Lymphocytes # (auto) 1.35 K/uL (1.2-3.4); Lymphocytes % (auto) 11.5 %; Monocytes # (auto) 1.66 K/uL (0.11-0.59); Monocytes % (auto) 14.1 %; Neutrophils # (auto) 8.64 K/uL (1.4-6.5); Neutrophils % (auto) 73.3 %; Poikilocytosis Present; Polychromasia 1+
--- NOTE | 2022-01-16 21:06 | Emergency Department Note ---
History of Present Illness General Chief complaint: Abnormal Labs/Diagnostic Testing Stated complaint: ABNORMAL LAB WORK, REFERRED Time Seen by Provider: 01/16/22 20:34 History of Present Illness 56-year-old male presents to the ED with a chief complaint of a fever. He had some outpatient blood work done today and the lab work was abnormal and he was sent to the ED for evaluation. He thinks that he might have a urinary tract infection. He gets these regularly. Denies any nausea or vomiting. No chest pains or shortness of breath. No other complaints at this time. Home Medications Medication Instructions Recorded Confirmed Type lactobacillus combination no.4 3 3,000 mmu cells PO DAILY 08/04/18 01/09/22 History billion cell capsule (Probiotic) clobetasol 0.05 % topical ointment 1 appln TOP 2XWK PRN gm 06/20/19 01/09/22 History triamcinolone acetonide 0.5 % 1 applic TOP QID PRN #45 gm 02/07/21 01/09/22 Rx topical ointment atorvastatin 40 mg tablet 40 mg PO DAILY #90 tab 05/21/21 01/09/22 Rx metformin 1,000 mg tablet 1,000 mg PO BID #180 tab 06/06/21 01/09/22 Rx empagliflozin 25 mg tablet 25 mg PO QAM #90 tab 06/13/21 01/09/22 Rx (Jardiance) glimepiride 1 mg tablet 1 mg PO DAILY #90 tab 07/14/21 01/09/22 Rx silodosin 8 mg capsule 8 mg PO DAILY #90 cap 07/31/21 01/09/22 Rx trazodone 50 mg tablet 50 - 100 mg PO HS PRN 12/22/21 01/09/22 History cyanocobalamin (vitamin B-12) 1,000 mcg PO DAILY #90 cap 12/25/21 01/09/22 Rx 1,000 mcg capsule warfarin 5 mg tablet (Jantoven) See Rx Instructions PO UD #80 tab 01/14/22 Rx Allergies Allergy/AdvReac Type Severity Reaction Status Date / Time No Known Allergies Allergy Verified 01/09/22 14:12 Past Med/Surg History Medical History Acute hyponatremia RITU (acute kidney injury) Chronic anticoagulation mechanical aortic valve on coumadin Diabetic retinopathy Erectile dysfunction Hematuria Couple days out of a month will noted tea colored urine; Hematuria Hydronephrosis of right kidney Hypercholesteremia Hypercholesterolemia Hypertension Hypertension Incomplete bladder emptying Incomplete bladder emptying Insomnia Prostate cancer Psoriasis Urethral stricture Surgical History H/O aortic valve replacement H/O colonoscopy Tubular adenoma 08/22/18 H/O cystoscopy Family History Mother Asthma MVP (mitral valve prolapse) Father Leukemia Pernicious anemia Brother No problems noted. Brother No problems noted. Brother No problems noted. Sister No problems noted. Daughter No problems noted. Daughter No problems noted. 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 How many Children do You have: 3 other: Patient is baseline pretty anemic Feels Safe at Home: Yes caffeine: No during the past year weight has: decreased > 10 lbs Dental Care, Regularly: Yes Physical Activity Frequency: 3-4 Times per Week Assistive Devices: Glasses Review of Systems A total of 10 systems reviewed and were otherwise negative Physical Exam Vital Signs Vital Signs - 24 hr 01/16/22 19:00 01/16/22 19:30 Temperature 38.4 C H Temperature Source Temporal Artery Scan Pulse Rate 137 H Respiratory Rate 18 Respiratory Effort / Characteristics Non-Labored Spontaneous Respiratory Depth Normal Blood Pressure 96/62 L Blood Pressure Mean 73 Pulse Oximetry 97 96 Oxygen Delivery Method Room Air Room Air Sepsis Recent Fever Within 48 Hours Yes Sepsis New/Unexplained Change in Mental Status No Sepsis Action Taken by Nursing Physician Notified CONSTITUTIONAL/VITAL SIGNS: Reviewed / noted above. GENERAL: Non-toxic in appearance. INTEGUMENTARY: Warm, dry, and [place]. HEAD: Normocephalic. EYES: without scleral icterus or trauma. ENT/OROPHARYNX: clear and moist. LYMPHADENOPATHY/NECK: Is supple without lymphadenopathy or meningismus. RESPIRATORY: Clear to auscultation bilaterally. No increased work of breathing. CARDIOVASCULAR: Regular rate and rhythm. GI/ABDOMEN: Soft and nontender. No organomegaly or pulsatile mass. EXTREMITIES: Warm and well perfused. BACK: No CVA tenderness. NEUROLOGICAL: Intact without focal deficits. PSYCHIATRIC: normal affect. MUSCULOSKELETAL: Normally developed with good muscle tone. TRIAGE NURSING DOCUMENTATION REVIEWED. Medical Decision Making Differential Diagnosis Differential includes viral illness, influenza, streptococcal pharyngitis, me ningitis, pneumonia, sinusitis, UTI, pyelonephritis, otitis media. Medical Records Attestation: I reviewed the patient's medical records. Home Medications Current Medication List: was personally reviewed by me Laboratory Data Attestation: I reviewed the patient's lab results. Result diagrams: 01/16/22 20:21 01/16/22 19:30 Lab Results 01/16/22 01/16/22 01/16/22 Range/Units 19:30 19:30 19:30 WBC Cancelled RBC Cancelled Hgb Cancelled Hct Cancelled MCV Cancelled MCH Cancelled MCHC Cancelled RDW Std Deviation Cancelled RDW Coeff of Juliane Cancelled Plt Count Cancelled MPV Cancelled Immature Gran % (Auto) Cancelled Neut % (Auto) Cancelled Lymph % (Auto) Cancelled [place] % (Auto) Cancelled Eos % (Auto) Cancelled Baso % (Auto) Cancelled Neut # (Auto) Cancelled Lymph # (Auto) Cancelled [place] # (Auto) Cancelled Eos # (Auto) Cancelled Baso # (Auto) Cancelled Immature Gran # (Auto) Cancelled Absolute Nucleated RBC Cancelled Nucleated RBC % (auto) Cancelled Neutrophils % (Manual) Cancelled Band Neutrophils % Cancelled Lymphocytes % (Manual) Cancelled Prolymphocyte % Cancelled Reactive Lymphs % (Man) Cancelled Monocytes % (Manual) Cancelled Eosinophils % (Manual) Cancelled Basophils % (Manual) Cancelled Metamyelocytes % (Man) Cancelled Myelocytes % (Man) Cancelled Promyelocytes % (Man) Cancelled Blast Cells % (Manual) Cancelled Plasma Cell % (Manual) Cancelled Other Cells % Cancelled Nucleated RBC % Cancelled Neutrophils # (Manual) Cancelled Band Neutrophils # Cancelled Total Absolute Neuts Cancelled Lymphocytes # (Manual) Cancelled Prolymphocyte # Cancelled Reactive Lymphs # Cancelled Total Abs Lymphocytes Cancelled Monocytes # (Manual) Cancelled Eosinophils # (Manual) Cancelled Basophils # (Manual) Cancelled Metamyelocytes # (Man) Cancelled Myelocytes # (Manual) Cancelled Promyelocytes # (Man) Cancelled Blast Cells # (Man) Cancelled Plasma Cell # (Manual) Cancelled Other Cells # Cancelled Nucleated RBCs # (Man) Cancelled Hypersegmented Neuts Cancelled Hyposegmented Neuts Cancelled Hypogranular Neuts Cancelled Large Granular Lymphs Cancelled # Lrg Granular Lymphs Cancelled Hairy Cells Cancelled Smudge Cells Cancelled Toxic Granulation Cancelled Toxic Vacuolation Cancelled Dohle Bodies Cancelled Nirmala Rods Cancelled Platelet Estimate Cancelled Hypogranular Platelets Cancelled Clumped Platelets Cancelled Giant Platelets Cancelled Platelet Satelliting Cancelled RBC Morphology Cancelled Polychromasia Cancelled Hypochromasia Cancelled Poikilocytosis Cancelled Basophilic Stippling Cancelled Anisocytosis Cancelled Microcytosis Cancelled Macrocytosis Cancelled Spherocytes Cancelled Pappenheimer Bodies Cancelled Sickle Cells Cancelled Target Cells Cancelled Tear Drop Cells Cancelled Ovalocytes Cancelled Stomatocytes Cancelled [place] Bodies Cancelled Echinocytes Cancelled Acanthocytes (Spur) Cancelled Rouleaux Cancelled RBC Agglutinates Cancelled Schistocytes Cancelled RBC Morph Comment Cancelled Sezary Cell Cancelled Sodium 125 L (136-145) mmol/L Potassium TNP Chloride 94 L (98-107) mmol/L Carbon Dioxide 18 L (21-32) mmol/L Anion Gap 13 H (3-11) BUN 36 H (6-23) mg/dl Creatinine 2.65 H (0.6-1.4) mg/dl Est Cr Clr Drug Dosing 37.0 ml/min Est GFR ( Amer) 29.5 ml/min Est GFR (Non-Af Amer) 25.4 ml/min BUN/Creatinine Ratio 13.6 (10-20) Glucose 175 H (70-99(Fasting)) mg/dl Calcium 8.4 L (8.5-10.1) mg/dl Total Bilirubin 1.8 H (0.2-1.0) mg/dl AST TNP ALT 9 (7-52) U/L Alkaline Phosphatase 50 (34-104) U/L Total Protein 6.4 (6.0-8.3) gm/dl Albumin 3.6 (3.4-5.0) gm/dl Globulin 2.8 (2.5-4.0) gm/dl Albumin/Globulin Ratio 1.3 (0.9-2) Urine Color Urine Appearance (Clear) Urine pH (4.5-7.5) Ur Specific [place] (1.000-1.030) Urine Protein (Negative) Urine Glucose (UA) (Negative) Urine Ketones (Negative) Urine Blood (Negative) Urine Nitrite (Negative) Urine Bilirubin (Negative) Urine Urobilinogen (Negative) Ur Leukocyte Esterase (Negative) Urine RBC (0-4) /hpf Urine WBC (0-5) /hpf Ur Epithelial Cells (0-5) /lpf Urine Bacteria (Negative) SARS-CoV-2, RNA, NAAT NEGATIVE (NEGATIVE) 01/16/22 01/16/22 Range/Units 19:30 20:21 WBC 11.77 H RBC 3.77 L Hgb 10.6 L Hct 33.6 L MCV 89.1 MCH 28.1 MCHC 31.5 L RDW Std Deviation 67.7 H RDW Coeff of Juliane 21.0 H Plt Count 224 MPV 11.1 H Immature Gran % (Auto) 0.8 Neut % (Auto) 73.3 Lymph % (Auto) 11.5 [place] % (Auto) 14.1 Eos % (Auto) 0.0 Baso % (Auto) 0.3 Neut # (Auto) 8.64 H Lymph # (Auto) 1.35 [place] # (Auto) 1.66 H Eos # (Auto) 0.00 Baso # (Auto) 0.03 Immature Gran # (Auto) 0.09 H Absolute Nucleated RBC Nucleated RBC % (auto) Neutrophils % (Manual) Band Neutrophils % Lymphocytes % (Manual) Prolymphocyte % Reactive Lymphs % (Man) Monocytes % (Manual) Eosinophils % (Manual) Basophils % (Manual) Metamyelocytes % (Man) Myelocytes % (Man) Promyelocytes % (Man) Blast Cells % (Manual) Plasma Cell % (Manual) Other Cells % Nucleated RBC % Neutrophils # (Manual) Band Neutrophils # Total Absolute Neuts Lymphocytes # (Manual) Prolymphocyte # Reactive Lymphs # Total Abs Lymphocytes Monocytes # (Manual) Eosinophils # (Manual) Basophils # (Manual) Metamyelocytes # (Man) Myelocytes # (Manual) Promyelocytes # (Man) Blast Cells # (Man) Plasma Cell # (Manual) Other Cells # Nucleated RBCs # (Man) Hypersegmented Neuts Hyposegmented Neuts Hypogranular Neuts Large Granular Lymphs # Lrg Granular Lymphs Hairy Cells Smudge Cells Toxic Granulation Toxic Vacuolation Dohle Bodies Nirmala Rods Platelet Estimate Hypogranular Platelets Clumped Platelets Giant Platelets Platelet Satelliting RBC Morphology Polychromasia 1+ Hypochromasia Poikilocytosis Present Basophilic Stippling Anisocytosis Present Microcytosis Macrocytosis Spherocytes Pappenheimer Bodies Sickle Cells Target Cells Tear Drop Cells Ovalocytes Stomatocytes [place] Bodies Echinocytes Acanthocytes (Spur) Rouleaux RBC Agglutinates Schistocytes RBC Morph Comment Sezary Cell Sodium (136-145) mmol/L Potassium Chloride (98-107) mmol/L Carbon Dioxide (21-32) mmol/L Anion Gap (3-11) BUN (6-23) mg/dl Creatinine (0.6-1.4) mg/dl Est Cr Clr Drug Dosing ml/min Est GFR ( Amer) ml/min Est GFR (Non-Af Amer) ml/min BUN/Creatinine Ratio (10-20) Glucose (70-99(Fasting)) mg/dl Calcium (8.5-10.1) mg/dl Total Bilirubin (0.2-1.0) mg/dl AST ALT (7-52) U/L Alkaline Phosphatase (34-104) U/L Total Protein (6.0-8.3) gm/dl Albumin (3.4-5.0) gm/dl Globulin (2.5-4.0) gm/dl Albumin/Globulin Ratio (0.9-2) Urine Color Brown Urine Appearance Turbid A (Clear) Urine pH (4.5-7.5) Ur Specific [place] 1.022 (1.000-1.030) Urine Protein (Negative) Urine Glucose (UA) (Negative) Urine Ketones (Negative) Urine Blood (Negative) Urine Nitrite (Negative) Urine Bilirubin (Negative) Urine Urobilinogen (Negative) Ur Leukocyte Esterase (Negative) Urine RBC >30 H (0-4) /hpf Urine WBC >30 H (0-5) /hpf Ur Epithelial Cells 0-5 (0-5) /lpf Urine Bacteria 2+ H (Negative) SARS-CoV-2, RNA, NAAT (NEGATIVE) Imaging Data Radiologist's Impression: Chest X-Ray 01/16/22 19:04 SINGLE VIEW CHEST CLINICAL HISTORY: Fever. FINDINGS: An AP, portable, upright chest radiograph is compared to study dated 12/22/2021. The patient is status post midline sternotomy. The heart is enlarged. The pulmonary vasculature is noncongested. The lungs and pleural spaces are clear. No pneumothorax is seen. The bony thorax is grossly intact. IMPRESSION: Cardiomegaly with no active disease in the chest. ACT 112: Negative or not required by law. Electronically signed by: Samson Nicholas M.D. 01/16/2022 8:53 PM ECG Data Attestation: I personally reviewed and interpreted this ECG as follows: Additional Comments: Twelve-lead EKG: Per my interpretation shows a sinus rhythm with a left bundle branch block at a rate of 128. MDM Narrative 56-year-old male presents with fever, concerns of urinary tract infection and abnormal labs as an outpatient. His BUN and creatinine is 36 and 2.65 respectively. Baseline creatinine is 1.4. Sodium is 125. Urine is suggestive of infection. Covid test is negative. EKG shows a sinus rhythm with a left bundle branch block. White blood cell count is 11.7 and hemoglobin is 10.6. Chest x-ray did not show acute process. The patient was started on IV Cipro based on previous culture. He was given a liter of normal saline IV. He will be seen by the hospitalist for further inpatient evaluation and care. Impression & Plan RITU (acute kidney injury), UTI (urinary tract infection) Discharge Plan Visit Data Chief Complaint: Abnormal Labs/Diagnostic Testing Stated Complaint: ABNORMAL LAB WORK, DR REFERRED ED Provider: Eliezer Worthington Discharge Problem: RITU (acute kidney injury), UTI (urinary tract infection) Patient Disposition: Being Evaluated by Hospitalist Forms Stand Alone Forms: My [facility], Virtual Emergency Department, Important Visit Information Prescriptions Prescriptions: No Action lactobacillus combination no.4 [Probiotic] 3 billion cell capsule 3,000 mmu cells PO DAILY RF: 0 clobetasol 0.05 % ointment 1 appln TOP 2XWK PRN (Reason: Itching) RF: 0 triamcinolone acetonide 0.5 % ointment 1 applic TOP QID PRN (Reason: itching) Qty: 45 RF: 3 atorvastatin 40 mg tablet 40 mg PO DAILY Qty: 90 RF: 3 metformin 1,000 mg tablet 1,000 mg PO BID Qty: 180 RF: 3 Jardiance 25 mg tablet 25 mg PO QAM Qty: 90 RF: 3 silodosin 8 mg capsule 8 mg PO DAILY Qty: 90 RF: 3 warfarin [Jantoven] 5 mg tablet See Rx Instructions PO UD Qty: 80 RF: 0 glimepiride 1 mg tablet 1 mg PO DAILY Qty: 90 RF: 3 trazodone 50 mg tablet 50 - 100 mg PO HS PRN (Reason: Insomnia) RF: 0 cyanocobalamin (vitamin B-12) 1,000 mcg capsule 1,000 mcg PO DAILY Qty: 90 RF: 3 Referrals Referrals: Teresa Sim MD [Primary Care Provider] -
--- NOTE | 2022-01-16 21:19 | History & Physical Report ---
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 faecalis UTI in 11/2021, type 2 diabetes complicated by chronic kidney disease and retinopathy, psoriasis, s/p mechanical AoV replacement on Couadin who presented to [facility] for fever, subsequently found to meet criteria for severe sepsis. At this time, given patient's significant urologic history, suspect that possible source may by ur inary in nature. Severe Sepsis - on arrival, found to be febrile and tachycardic with softer pressures in the 90/50 range that responded well to IVF - work-up as follows: - febrile to >38 persistently since arrival - leukocytosis to 14.7 on admission, PMN predominant - procal appreciably elevated to 14 - lactate (obtained after fluids) 2.3 - bun 36 / cr 2.65 (baseline ~1.2-1.4) - cxr without any e/o infectious abnormality - urine with turbid appearance, 2+ bacteria, >30 WBCs, >30 RBCs - previous ucx -- (12/2021) coag-negative staph, resistant to oxacillin/tetracyclin, (11/2021) E. faecalis resistant to tetracycline - given appreciable urologic history and daily catheterizations, major concern at this time is secondary to urologic source - transition to cefepime w/ dapto (renal dosing) for broad spectrum coverage until clinical picture is clearer and cultures result - ct-a/p: severe cystitis w/ emphysematous changes; unchanged R hydronephrosis and L hydronephrosis (though both still severe) - continue aggressive ivf, monitor I&O, goal UOP >0.5cc/kg/hr (2) RITU (acute kidney injury): Plan: - baseline creatinine in the system appears to be around ~1.2-1.4 - in setting of bilateral hydronephrosis, which is noted -- at discharge in 12/2021, Cr at 1.4 - arrival bun 36 / cr 2.65 - suspect mixed picture: prerenal in setting of sepsis, intrarenal from hydro, and contribution of post-renal in setting of chronic urinary retention (though reports urinating ok) - check UCr/Adam to calculate FENa - unchanged severe hydroureteronephrosis, though still severe b/l, on ct-a/p - continue ivf -- nss @ 125/cchr following boluses (3) Cystitis: Plan: CT abdomen pelvis notable for severe bladder inflammation with emphysematous changes, significantly worsened compared to scan 12/2021 With noted history of radiation cystitis and sepsis, as above Consult urology, appreciate insight/recommendations Continue antibiotics, as above (4) Word finding difficulty: Plan: - in ED on my assessment, patient noted to have intermittent word finding difficulties with some confusion, though fully A&O and no FNDs on neuro exam - primarily suspect secondary to metabolic encephalopathy in setting of severe sepsis, lower suspicion for intracranial pathology or relation to hyponatremia - will check CT-H without contrast -- normal - continue treatment as above (5) Elevated troponin: Plan: Elevated Troponin - noted to 0.07 on arrival in setting of suspected sepsis, no c/o cp, sob - ECG w/ chronic LBBB; no new conduction/repolarization abnormalities otherwise - no reported chest pain, shortness of breath, exertional symptoms - in setting of severe sepsis, suspect secondary to demand rather than ACS - recheck in 6 hours, again in 12 - may wish to consider stress test as outpatient (6) Hyponatremia: Plan: Hyponatremia (noted to 125 on arrival) - in setting of severe sepsis, volume depletion, RITU - suspect secondary to the above - will check Posm, Uosm, Adam, Ucr for further characterization - continue mIVF for now in setting of sepsis (7) Bilateral hydronephrosis: Plan: Bilateral Hydronephrosis - in 12/2021 during last admission, ct-a/p revealing of severe R hydroureteronephrosis (unchanged) and moderate L hydroureteronephrosis that had progressed - concern at the time was that this was secondary to incomplete emptying, large bladder diverticulum, obstruction - follows w/ Dr. Puga - [facility] (last visit 12/29/21): qHS catheterizations to prevent UTI, was planning to repeat renal US in 2 months to monitor -- lower suspicion for improvement in R hydro at that visit - check ct-a/p, as above - consider consultation with urology while here pending results (8) Irradiation cystitis with hematuria: Plan: Irradiation Cystitis with Intermittent Hematuria -- secondary to treatment of prostate cancer - patient reporting hematuria this morning when he went to void - last admission in 12/2021, did require transfusions secondary to hematuria - recently established w/ wound clinic, considering hyperbaric oxygen therapy - UA in the ED did demonstrate carmenza discoloration with >30 RBCs - follows w/ Dr. Puga -- as above; consideration was given at last appointment to possible fulguration of bladder vessels depending on recurrence - monitor UOP and appearance of urine - pending ct-a/p, can consider insertion of gonzalez (9) Hyperbilirubinemia: Plan: Hyperbilirubinemia - appreciated at 2.1 on admission in the setting of otherwise normal LFTs - possibly secondary to [place], though during previous admissions no noted elevations - check DBili and repeat CMP in morning - Await CT-A/P (10) Aortic valve replaced: Plan: History of Mechanical Valve Replacement; Chronic Anticoagulation - history noted , follows w/ AC clinic -- goal INR 2-3 - home regimen per most recent notes: 2.5mg W/Sat; 5mg other days - INR at 1.7 on arrival - recheck INR - avoid/limit interacting meds - last TTE in 07/2020 with normal LVEF, mild-moderate mitral stenosis - can consider rechecking TTE while here, as wound clinic was requesting repeat prior to starting hyperbaric O2 therapy (11) Chronic anticoagulation: Plan: - noted, in setting of AoV replacement (w/ mechanical valve) - see AoV replacement problem above (12) Uncontrolled type 2 diabetes mellitus with chronic kidney disease: Plan: Type 2 DM - complicated by ckd and retinopathy - hold home medications - initiate SSI w/ goal BSG 140-180 in setting of severe sepsis - consider reducing goal BSG pending clinical improvement - last a1c at 6.2% in 11/2021 (13) Mood disorder: Plan: - hold trazodone in setting of word finding difficulties, resume when appropriate (14) Anemia: Plan: - with chronic baseline normocytic anemia, suspect likely secondary to chronic disease - history of hematuria (and h/o an episode of such on morning of admission) noted - Hgb on arrival at 11.3 -- suspect partly hemoconcentrated in setting of sepsis - see interstitial cystitis/hematuria above for problem-specific plan - will add iron panel and reticulocytes to AM labs, consider supplementation as needed Plan: code/full dispo/ms-tele ppx-continue warfarin, check inr in AM diet-cc/ongoing ivf History of Present Illness Primary Care Provider: Teresa Sim MD This is a 56-year-old male with a notable past medical history of prostate cancer s/p XRT (2018) resulting in radiation cystitis, neurogenic bladder/chronic urinary outflow obstruction requiring qHS catheterization at home, bilateral hydronephrosis, history of E. faecalis UTI in 11/2021, type 2 diabetes complicated by chronic kidney disease and retinopathy, psoriasis, s/p mechanical AoV replacement on Couadin who presented to [facility] for fever. Of note, patient was recently hospitalized (discharged 12/25/2021) for hematuria, suspected to be due to radiation cystitis, UTI and supratherapeutic INR on anticoagulation. His aids with history. Patient says that over the last several days, he has felt quite poor. His appetite has not been good. He does endorse a fever and chills. He also says that this morning, he noted blood in his urinewhich, as of recently, has been atypical for him. He denies any back pain, abdominal pain, nausea, vomiting, diarrhea. Denies any blood in stool. No lightheadedness or dizziness. No chest pain or SOB. Patient denies any recent changes in medications. He denies any use of tobacco, alcohol, recreational drugs on a daily basis. He lives at home with his . In the emergency room, patient was found to have a blood pressure 96/62 with heart rates in the 130s, febrile to 38.4. Labs were significant for leukocytosis to 13 with neutrophilic predominant, persistent anemia 10.6, INR 1.7, hyponatremia 127 with hypochloremia 95, BUN 36, creatinine 2.65 (baselnie appears to be around 1.2-1.4), TBili 2.1. Chest x-ray with cardiomegaly, otherwise no acute findings. Blood and urine cultures pending. ECG with sinus tachycardia and left bundle branch block. Patient received a total of 2L normal saline. Started on ciprofloxacin. Allergies Allergy/AdvReac Type Severity Reaction Status Date / Time No Known Allergies Allergy Verified 01/16/22 22:35 Home Medications Medication Instructions Recorded Confirmed Type lactobacillus combination no.4 3 3,000 mmu cells PO DAILY 08/04/18 01/16/22 History billion cell capsule (Probiotic) clobetasol 0.05 % topical ointment 1 appln TOP 2XWK PRN gm 06/20/19 01/16/22 History triamcinolone acetonide 0.5 % 1 applic TOP QID PRN #45 gm 02/07/21 01/16/22 Rx topical ointment atorvastatin 40 mg tablet 40 mg PO DAILY #90 tab 05/21/21 01/16/22 Rx metformin 1,000 mg tablet 1,000 mg PO BID #180 tab 06/06/21 01/16/22 Rx empagliflozin 25 mg tablet 25 mg PO QAM #90 tab 06/13/21 01/16/22 Rx (Jardiance) glimepiride 1 mg tablet 1 mg PO DAILY #90 tab 07/14/21 01/16/22 Rx silodosin 8 mg capsule 8 mg PO DAILY #90 cap 07/31/21 01/16/22 Rx trazodone 50 mg tablet 50 - 100 mg PO HS PRN 12/22/21 01/16/22 History cyanocobalamin (vitamin B-12) 1,000 mcg PO DAILY #90 cap 12/25/21 01/16/22 Rx 1,000 mcg capsule furosemide 40 mg tablet 40 mg PO DAILY PRN 01/16/22 01/16/22 History warfarin 5 mg tablet (Jantoven) 5 mg PO DAILY 01/16/22 01/16/22 History Past Med/Surg History Medical History Acute hyponatremia RITU (acute kidney injury) Chronic anticoagulation mechanical aortic valve on coumadin Diabetic retinopathy Erectile dysfunction Hematuria Couple days out of a month will noted tea colored urine; Hematuria Hydronephrosis of right kidney Hypercholesteremia Hypercholesterolemia Hypertension Hypertension Incomplete bladder emptying Incomplete bladder emptying Insomnia Prostate cancer Psoriasis Urethral stricture Surgical History H/O aortic valve replacement H/O colonoscopy Tubular adenoma 08/22/18 H/O cystoscopy Family History Mother Asthma MVP (mitral valve prolapse) Father Leukemia Pernicious anemia Brother No problems noted. Brother No problems noted. Brother No problems noted. Sister No problems noted. Daughter No problems noted. Daughter No problems noted. 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 There are intermittent word finding difficulties, but not true expressive aphasia. HEENT: Mucous membranes appear mildly dry. No evidence of JVD. Cardiac: Tachycardic with regular rhythm. S1 and S2 are present without murmurs rubs or gallops Pulmonary: Easy respiratory effort with symmetric expansion of the chest. Lungs are clear to auscultation bilaterally without crackles or wheezes Abdominal: Normoactive bowel sounds / abdomen is soft, nontender, and nondistended to p no CVA tenderness : Normal external male genitalia, no evidence of trauma or skin lesions Extremities: No peripheral edema appreciated in the lower extremities bilaterally Neuro: Fully alert and oriented. Intermittent word finding difficulties, although no expressive aphasia. Cranial nerves II through XII grossly intact. Upper and lower motor strength 5 out of 5. Sensation to light touch grossly intact in the upper and lower extremities. No dysmetria with [id number] testing. No clonus. Results & Data Results & Data ([facility]) Vital Signs (Past 12 Hours) Vital Signs Temp Pulse Resp BP Pulse Ox 01/16/22 19:30 96 01/16/22 19:00 38.4 C H 137 H 18 96/62 L 97 Supervising Physician Co-Signing Physician Notes Attending addendum: I have physically seen this patient, have supervised the medical residents activities, and agree with the H&P unless as otherwise noted. Assessment and Plan: Sepsis due to complicated UTI- Previous infections: Enterococcus faecalis on 11/06/2021. Coag negative staph on 12/22/2021 Previous hospitalizations 11/06-11/12/2021, and 12/22-12/27/2021 Received Cipro 40 mg IV from the ED Placed on cefepime IV and daptomycin IV to cover these organisms. Avoid Vanco due to acute kidney injury Blood pressure at its lowest was 90/50, and did respond to IV fluid resuscitation Continue IV fluids Acute kidney injury on CKD/severe bilateral hydroureteronephrosis/cystitis- Creatinine 2.65 upon admission, with baseline 1.2-1.4 Follow with serial laboratories Other treatment as above Elevated troponin- Likely type II/supply demand mismatch The patient will be admitted to telemetry for serial cardiac enzymes, serial EKG's, cardiac rhythm monitoring and a 2-D echocardiogram with Dopplers. Remaining orders and notations as noted Resident Activity Tracking Resident Involvement: Resident Care Provided Care Provided: Adult Hospital Medicine (1) Anemia Anemia type: unspecified type Qualified Code(s): D64.9 - Anemia, unspecified
[2022-01-16 21:20] LABS: Potassium 4.8 mmol/L (3.5-5.1)
[2022-01-16 21:37] LABS: INR 1.8 (0.9-1.1); Prothrombin Time 18.6 Seconds (9.0-12.0)
[2022-01-16] MEDS ORDERED: DAPTOmycin 525 MG in SYRINGE 0 ML IV ONE (21:58)
--- NOTE | 2022-01-16 22:11 | CT Scan Report ---
CT SCAN OF THE BRAIN WITHOUT IV CONTRAST CLINICAL HISTORY: Change in mental status. Difficulty with word finding. COMPARISON STUDY: No priors. TECHNIQUE: Unenhanced axial CT scan of the brain is performed from the vertex to the skull base. A d ose lowering technique was utilized adhering to the principles of ALARA. CT DOSE: 614.27 mGy.cm FINDINGS: Brain parenchyma: The brain parenchyma is normal in appearance. There is no hemorrhage, mass effect, or evidence of acute territorial ischemia by CT criteria. Servin-white matter differentiation is preser ana. No extra-axial fluid collection is seen. Ventricles, sulci, cisterns: Normal in configuration. Intracranial vasculature: There is atherosclerotic calcification of the cavernous carotid and vertebr al arteries. Calvarium: Unremarkable. Sinuses and mastoids: The visualized paranasal sinuses are clear. The mastoid air cells are well pneu matized. Orbits: The bony orbits are grossly intact. IMPRESSION: There is no hemorrhage, mass effect, or evidence of acute territorial ischemia by CT melani hodge. ACT 112: Negative or not required by law. Electronically signed by: Samson Nicholas M.D. 01/16/2022 10:09 PM
--- NOTE | 2022-01-16 23:23 | CT Scan Report ---
CT SCAN OF THE ABDOMEN AND PELVIS WITHOUT IV CONTRAST CLINICAL HISTORY: Cystitis. Urosepsis. COMPARISON STUDY: Abdominal CT dated 12/22/2021. TECHNIQUE: CT scan of the abdomen and pelvis is performed from the lung bases to the proximal femora. Images are reviewed in the axial, sagittal, and coronal planes. IV contrast was not administered for this examination. A dose lowering technique was utilized adhering to the principles of ALARA. CT DOSE: 1311.59 mGy.cm FINDINGS: Lung bases: The patient is status post midline sternotomy. The heart is mildly enlarged and without p ericardial effusion. The mitral annulus is densely calcified. The lung bases are clear noting bibasil ar scarring/atelectasis. A small hiatal hernia is noted. Liver: The unenhanced liver is normal in size, contour, and attenuation. There is no intrahepatic leidy iary ductal dilatation. Gallbladder: The gallbladder is distended but otherwise normal in appearance. Spleen: Normal in size and attenuation. Pancreas: The unenhanced pancreas is grossly unremarkable. Adrenal glands: Unremarkable. Kidneys: The right kidney is markedly atrophic and severely hydronephrotic. The right ureter is dilat ed to the level of the bladder.. The left kidney is normal in size. There is also moderate to severe hydronephrosis of the left kidney. No gas is identified within the left renal collecting system, and the left ureter is also dilated to the level of the bladder. There are no renal calculi identified. T here is no evidence of contour deforming renal mass lesion. Abdominal vasculature: The abdominal aorta is normal in course and caliber noting mild to moderate at herosclerotic calcification. Bowel: There is no bowel obstruction. Mild fecal retention is seen throughout the colon. The appendix is well-visualized and normal Peritoneum: There is trace free fluid in the right paracolic gutter and pelvis. No intraperitoneal fr ee air is identified. Lymphadenopathy: None. Pelvic viscera: The prostate gland is heterogeneous. Metallic fiducial are noted in the prostate glan d. The bladder is markedly distended, and there is a large diverticulum seen eccentric to the left.. There is a large air-fluid level within the bladder lumen, with marked bladder wall thickening and pe ricystic inflammation and fluid. There is pneumatosis of the bladder wall and the appearance is consi stent with emphysematous cystitis. Skeletal structures: The skeletal structures appear osteopenic. No lytic or blastic lesions are seen. IMPRESSION: 1. There is severe bladder inflammation with evidence of emphysematous cystitis. Inflammation has sig nificantly worsened as compared to 12/22/2021. Urological evaluation is advised. 2. There is marked hydronephrosis of the severely atrophic right kidney. This is similar to previous. 3. There is moderate to severe left hydroureteronephrosis. The left ureter is dilated to the level of the bladder, and this is also similar to previous. 4. Trace abdominopelvic ascites. 5. Additional findings as above. ACT 112: Negative or not required by law. Electronically signed by: Samson Nicholas M.D. 01/16/2022 11:20 PM
[2022-01-16] MEDS ORDERED: ACETAMINOPHEN 500 MG TAB PO STA (23:24)
[2022-01-17] MEDS ORDERED: DEXTROSE 50% 50 ML SYRINGE IV PRN (00:54)
[2022-01-17] MEDS ORDERED: GLUCOSE 40% GEL 15 GM TUBE PO PRN (00:54)
[2022-01-17] MEDS ORDERED: GLUCOSE 10 TABS/TUBE PO PRN (00:54)
[2022-01-17] MEDS ORDERED: CARBOHYDRATES FOR HYPOGLYCEMIA PO PRN (00:54)
[2022-01-17] MEDS ORDERED: ONDANSETRON INJ 2 MG/ML 2 ML VIAL IV PRN (00:54)
[2022-01-17] MEDS ORDERED: GLUCAGON FOR INJ 1 MG VIAL SQ PRN (00:54)
[2022-01-17] MEDS: SODIUM CHLORIDE 0.9% 1000ML 1,000 ML IV SCH ×4 (01:11→22:53)
[2022-01-17] MEDS ORDERED: TRIAMCINOLONE ACET 0.5% CR 15 GM TUBE TOP PRN (02:15)
[2022-01-17] MEDS ORDERED: CLOBETASOL PROPIONATE 0.05% OINT 15 GM TUBE EXT PRN (02:18)
[2022-01-17] MEDS: CEFEPIME 2,000 MG in SYRINGE 0 ML IV SCH (03:13)
[2022-01-17 03:27] LABS: Hematocrit (blood only) 30.5 % (42-52); Hemoglobin 9.7 g/dL (14.0-18.0); Mean Corpuscular Hemoglobin 28.4 pg (25-34); Mean Corpuscular Hgb Conc 31.8 g/dL (32-36); Mean Corpuscular Volume 89.4 fL (80-100); Mean Platelet Volume 10.5 fL (7.4-10.4); Platelet Count 187 K/uL (130-400); RDW Coefficient of Variation 21.1 % (11.5-14.5); RDW Standard Deviation 68.6 fL (36.4-46.3); Red Blood Count 3.41 M/uL (4.7-6.1); Reticulocyte % 2.1 % (0.5-2.0); Reticulocytes # 0.07 10^6/uL (0.02-0.10); White Blood Count 11.92 K/uL (4.8-10.8)
[2022-01-17 03:44] LABS: Anisocytosis Present; Basophils # (auto) 0.02 K/uL (0-0.2); Basophils % (auto) 0.2 %; Eosinophils # (auto) 0.01 K/uL (0-0.5); Eosinophils % (auto) 0.1 %; Immature Granulocytes # (auto) 0.09 K/uL (0.00-0.02); Immature Granulocytes % (auto) 0.8 %; Lymphocytes # (auto) 2.19 K/uL (1.2-3.4); Lymphocytes % (auto) 18.4 %; Monocytes # (auto) 1.11 K/uL (0.11-0.59); Monocytes % (auto) 9.3 %; Neutrophils % (auto) 71.2 %; Polychromasia 1+
[2022-01-17 03:48] LABS: Albumin Globulin Ratio 1.2 (0.9-2); Albumin Level 3.1 gm/dl (3.4-5.0); BUN Creatinine Ratio 14.7 (10-20); Bilirubin Direct 0.5 mg/dl (0-0.2); Bilirubin,Total 1.6 mg/dl (0.2-1.0); Calcium 7.9 mg/dl (8.5-10.1); Creatinine Clr Calc Pharmacy 39.1 ml/min; Est GFR (African American) 31.3 ml/min; Globulin 2.6 gm/dl (2.5-4.0); Potassium 4.7 mmol/L (3.5-5.1); Total Protein 5.7 gm/dl (6.0-8.3)
[2022-01-17 03:49] LABS: BUN Creatinine Ratio 14.7 (10-20); Calcium 7.9 mg/dl (8.5-10.1); Creatinine Clr Calc Pharmacy 39.1 ml/min; Est GFR (African American) 31.3 ml/min; Potassium 4.7 mmol/L (3.5-5.1)
[2022-01-17] MEDS: WARFARIN SOD 5 MG TAB PO SCH (03:53)
[2022-01-17 04:20] LABS: Troponin I 0.05 ng/ml (0-0.04)
[2022-01-17 06:58] LABS: Appearance Urine Cloudy (Clear); Bilirubin Urine 1+ (Negative); Blood Urine 3+ (Negative); Color Urine Red; Glucose Urine UA 3+ (Negative); Ketones Urine Trace (Negative); Leukocyte Esterase Urine Trace (Negative); Nitrite Urine Positive (Negative); Protein Urine 3+ (Negative); Specific Gravity Urine 1.025 (1.000-1.030); Urobilinogen Urine Negative (Negative); pH Urine 5.5 (4.5-7.5)
[2022-01-17 07:00] LABS: Epithelial Cell Urine 0-5 /lpf (0-5)
[2022-01-17 07:01] LABS: Bacteria Urine 1+ (Negative); RBC Urine >30 /hpf (0-4); WBC Urine >30 /hpf (0-5)
[2022-01-17] MEDS: INSULIN ASPART PER UNIT SC SCH ×4 (07:38→21:07)
[2022-01-17] MEDS: CYANOCOBALAMIN (B-12) 500 MCG TABLET PO SCH (08:01)
[2022-01-17] MEDS: ADVANCED PROBIOTIC 1250 MG CAPSULE PO SCH (08:02)
[2022-01-17] MEDS: ATORVASTATIN 40 MG TAB PO SCH (08:02)
[2022-01-17] MEDS ORDERED: SODIUM CHLORIDE 0.9% 1000ML 500 ML IV ONE ×3 (08:50→21:57)
--- NOTE | 2022-01-17 08:53 | Urology Consultation ---
Date of Consultation January 17, 2022 Assessment & Plan (1) Cystitis: (2) Bilateral hydronephrosis: (3) Sepsis: (4) Irradiation cystitis with hematuria: (5) Prostate cancer: Admitted again with the same problems prior Infection, retention, hematuria Plan 1. Antibiotics 2. Place Orosco catheter to maximize drainage will treating the infection 3. He follows with Dr. Fred Puga as an outpatientI have encouraged him to discuss the option of bladder diverticulectomy as I suspect this is his underlying pathology and definitively treating that diverticulum can resolve his recurrent hospitalizations and infectionsunfortunately this comes at a substantial risk given his comorbidities History of Present Illness Attending Physician: Davy Marquez MD History of Present Illness 56-year-old well-known to our service as he has been admitted multiple times in the past several months with the same complaints Consultations performed during each of those hospitalizations outlining appropriate care Again returns with a UTI Systemic reaction during this occasion He has chronic bilateral hydronephrosis He has a very large right-sided bladder diverticulum and a thickened and abnormal bladder with a large prostate Complicating this is chronic anticoagulation as well as prior radiation for prostate cancer He also has a history of an aortic valve replacement His right kidney is quite atrophic with severe hydronephrosis, he has better parenchyma on the left He has a substantial amount of air in his bladder and diverticulum today He does perform self-catheterization on occasiontypically just 1 time per day at night He has chronic hematuria Allergies Allergy/AdvReac Type Severity Reaction Status Date / Time No Known Allergies Allergy Verified 01/16/22 22:35 Home Medications Medication Instructions Recorded Confirmed Type lactobacillus combination no.4 3 3,000 mmu cells PO DAILY 08/04/18 01/16/22 History billion cell capsule (Probiotic) clobetasol 0.05 % topical ointment 1 appln TOP 2XWK PRN gm 06/20/19 01/16/22 History triamcinolone acetonide 0.5 % 1 applic TOP QID PRN #45 gm 02/07/21 01/16/22 Rx topical ointment atorvastatin 40 mg tablet 40 mg PO DAILY #90 tab 05/21/21 01/16/22 Rx metformin 1,000 mg tablet 1,000 mg PO BID #180 tab 06/06/21 01/16/22 Rx empagliflozin 25 mg tablet 25 mg PO QAM #90 tab 06/13/21 01/16/22 Rx (Jardiance) glimepiride 1 mg tablet 1 mg PO DAILY #90 tab 07/14/21 01/16/22 Rx silodosin 8 mg capsule 8 mg PO DAILY #90 cap 07/31/21 01/16/22 Rx trazodone 50 mg tablet 50 - 100 mg PO HS PRN 12/22/21 01/16/22 History cyanocobalamin (vitamin B-12) 1,000 mcg PO DAILY #90 cap 12/25/21 01/16/22 Rx 1,000 mcg capsule furosemide 40 mg tablet 40 mg PO DAILY PRN 01/16/22 01/16/22 History warfarin 5 mg tablet (Jantoven) 5 mg PO DAILY 01/16/22 01/16/22 History Patient History Medical History Acute hyponatremia RITU (acute kidney injury) Chronic anticoagulation mechanical aortic valve on coumadin Diabetic retinopathy Erectile dysfunction Hematuria Couple days out of a month will noted tea colored urine; Hematuria Hydronephrosis of right kidney Hypercholesteremia Hypercholesterolemia Hypertension Hypertension Incomplete bladder emptying Incomplete bladder emptying Insomnia Prostate cancer Psoriasis Urethral stricture Surgical History H/O aortic valve replacement H/O colonoscopy Tubular adenoma 08/22/18 H/O cystoscopy Family History Mother Asthma MVP (mitral valve prolapse) Father Leukemia Pernicious anemia Brother No problems noted. Brother No problems noted. Brother No problems noted. Sister No problems noted. Daughter No problems noted. Daughter No problems noted. Son Seizure disorder Intellectual disability Social History Smoking Status: Never smoker Second Hand Exposure: No; Hx Alcohol Use: No Hx Substance Use: No Preferred Language: Yi Communication Ability: Effective Visual Impairment: No Limitations Hearing Ability: Normal Bean Picker Required: No Beliefs That Will Affect Care: None marital status: Current Living Situation: Spouse Current Living Situation Comment: special needs 26yr old son, and twins 15 year old daughters. 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 How many Children do You have: 3 Other Information That Helps Us Care for You: No other: Patient is baseline pretty anemic Feels Safe at Home: Yes Safety Concerns: Feels Safe At This Time caffeine: No during the past year weight has: decreased > 10 lbs Dental Care, Regularly: Yes Physical Activity Frequency: 3-4 Times per Week Assistive Devices: Glasses Review of Systems Constitutional: as per Subjective / HPI Eyes: no problem reported Ear, Nose, Mouth, Throat: no problem reported Respiratory: no problem reported Cardiovascular: no problem reported Gastrointestinal: as per Subjective / HPI Genitourinary: + as per Subjective / HPI Musculoskeletal: no problem reported Integumentary: no problem reported Neurologic: no problem reported Psychiatric: no problem reported Endocrine: no problem reported Physical Exam Constitutional: well developed and well nourished Neck: neck nontender Respiratory: normal respiratory effort; no respiratory distress and does not use accessory muscles Cardiovascular: Rate/Rhythm: regular rate Vessels: radial pulses present Extremities: no edema Gastrointestinal (Abdomen): Inspection/Auscultation: abdomen normal to inspection Percussion/Palpation: abdomen soft; abdomen nontender and no guarding Musculoskeletal: Head/Neck/Chest: normocephalic and head atraumatic Extremities: extremities normal to inspection Skin: no rashes and no lesions Trauma: no evidence of skin trauma Neurologic: awake; not obtunded Speech / Cognition: normal speech Motor/Sensory: no tremor Psychiatric: Orientation: alert and oriented x 3 Genitourinary: no CVA tenderness Lymphatic: no lymphadenopathy Results & Data ([facility]) Vital Signs (Past 12 Hours) Vital Signs Temp Pulse Pulse Pulse Resp BP Pulse Ox 01/17/22 08:00 117 H 01/17/22 07:11 36.4 C L 115 H 18 106/70 98 01/17/22 03:47 118 H 18 123/74 98 01/17/22 02:30 36.8 C 106 H 20 103/54 L 95 01/17/22 02:16 38.0 C H 122 H 18 108/64 97 01/17/22 01:00 119 H 01/17/22 00:37 38.0 C H 122 H 18 108/64 97 01/17/22 00:00 37.5 C 115 H 26 H 103/62 96 01/16/22 23:31 119 H 26 H 116/71 98 01/16/22 23:00 115 H 24 102/63 97 01/16/22 22:00 110 H 22 123/73 94 PG Care Time/CCT Total # of Minutes Spent Total Time Spent with Patient: Total time spent is greater than 50% in coordination of care (as documented) at patient's floor/unit and/or counseling patient: Coding Level of Care Code 85776 Inpt Consult Level 5 Diagnoses Cystitis N30.90 Bilateral hydronephrosis N13.30 Sepsis A41.9 Irradiation cystitis with hematuria N30.41 Prostate cancer C61
--- NOTE | 2022-01-17 10:35 | Electrocardiogram Report ---
Test Reason : Blood Pressure : / mmHG Vent. Rate : 128 BPM Atrial Rate : 128 BPM P-R Int : 120 ms QRS Dur : 144 ms QT Int : 370 ms P-R-T Axes : 000 -22 131 degrees QTc Int : 540 ms Sinus tachycardia Left bundle branch block Abnormal ECG When compared with ECG of 22-DEC-2021 17:39, No significant change was found Confirmed by Shai Sauer ([id number]) on 01/17/2022 10:35:06 AM Referred By: Teresa Sim Confirmed By:Sami Sauer
[2022-01-17] MEDS: ACETAMINOPHEN 325 MG TAB PO PRN ×2 (10:49→20:22)
--- NOTE | 2022-01-17 12:25 | Hospitalist Progress Note ---
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 faecalis UTI in 11/2021, type 2 diabetes complicated by chronic kidney disease and retinopathy, psoriasis, s/p mechanical AoV replacement on Couadin who presented to [facility] for fever, subsequently found to meet criteria for severe sepsis. At this time, given patient's significant urologic history, suspect that possible source may by uri nary in nature. Severe Sepsis - on arrival, found to be febrile and tachycardic with softer pressures in the 90/50 range that responded well to IVF -On arrival: Febrile, leukocytosis with elevated and LR, pro-Filipe 14, lactate 2.3 which was obtained after fluids and which normalized after additional fluids, creatinine 2.65 from baseline of approximately 1.2-1.4 CXR: No acute abnormality UA: Turbid, 2+ bacteria, infected appearing. UC pending. Previous urine cultures with coag negative staph resistant to oxacillin/tetracycline and Enterococcus faecalis resistant to tetracycline UC pending speciation Continue cefepime/daptomycin pending speciation and sensitivities CTA/P: Severe cystitis with emphysematous changes, unchanged severe right hydronephrosis and left hydronephrosis - transition to cefepime w/ dapto (renal dosing) for broad spectrum coverage until clinical picture is clearer and cultures result -Patient with sinus tachycardia 01/17 today, improved and fluid responsive. Given an additional 1 L of boluses 01/17. P.o. improving. (2) RITU (acute kidney injury): Plan: - baseline creatinine in the system appears to be around ~1.2-1.4 - in setting of bilateral hydronephrosis, which is noted -- at discharge in 12/2021, Cr at 1.4 -Admitting creatinine 2.65 - suspect mixed picture: prerenal in setting of sepsis, intrarenal from hydro, and contribution of post-renal in setting of chronic urinary retention (though reports urinating ok) -FENa 1.2% (serum sodium 127, serum creatinine 2.52, urine sodium 56, urine creatinine 93.5) suggesting intrinsic involvement -CTA/P as above, patient remains with unchanged severe right hydro and left hydro- Orosco has been placed Continue to follow output, volume support while managing sepsis as noted above and below (3) Cystitis: Plan: CT abdomen pelvis notable for severe bladder inflammation with emphysematous changes, significantly worsened compared to scan 12/2021 With noted history of radiation cystitis and sepsis, as above Urology consulted. Orosco placed. Continue infection management and consider outpatient follow-up for definitive treatment of diverticulum Continue antibiotics, as above UC pending Of note patient has been on an SGLT2 inhibitor for his diabetes, this is likely contributing to his recurrent infections and given multiple hospitalizations for UTIs patient benefit from switching to another glycemic. See below. (4) Word finding difficulty: Plan: -On admission with word finding difficulty, although well oriented. Normalized 319 - primarily suspect secondary to metabolic encephalopathy in setting of severe sepsis, lower suspicion for intracranial pathology or relation to hyponatremia - will check CT-H without contrast -- normal -Improved following sepsis treatment (5) Elevated troponin: Plan: Elevated Troponin - noted to 0.07 on arrival in setting of suspected sepsis, no c/o cp, sob - ECG w/ chronic LBBB; no new conduction/repolarization abnormalities otherwise - in setting of severe sepsis, suspect secondary to demand rather than ACS - down trended No ongoing chest pain Can consider outpatient stress test (6) Hyponatremia: Plan: Hyponatremia (noted to 125 on arrival) - in setting of severe sepsis, volume depletion, RITU - FeNA/Urine{e} as above -Proving, but still clinically volume depleted Continue fluids as above Uptrending Motrin daily (7) Bilateral hydronephrosis: Plan: Bilateral Hydronephrosis - in 12/2021 during last admission, ct-a/p revealing of severe R hydroureteronephrosis (unchanged) and moderate L hydroureteronephrosis that had progressed - concern at the time was that this was secondary to incomplete emptying, large bladder diverticulum, obstruction - follows w/ Dr. Puga [place] [facility] [place]last visit 12/29/21): qHS catheterizati ons to prevent UTI, was planning to repeat renal US in 2 months to monitor -- lower suspicion for improvement in R hydro at that visit -CT scan as above Orosco placed, follow RITU as above, likely will follow-up for outpatient management of large bladder diverticulum (8) Irradiation cystitis with hematuria: Plan: Irradiation Cystitis with Intermittent Hematuria -- secondary to treatment of prostate cancer - patient reporting hematuria this morning when he went to void - last admission in 12/2021, did require transfusions secondary to hematuria - recently established w/ wound clinic, considering hyperbaric oxygen therapy - follows w/ Dr. Puga -- as above - monitor UOP and appearance of urine (9) Hyperbilirubinemia: Plan: Hyperbilirubinemia -Isolated hyperbilirubinemia without clinical gallbladder symptoms - possibly secondary to [place], though during previous admissions no noted elevations - CT: Liver: The unenhanced liver is normal in size, contour, and attenuation. There is no intrahepatic biliary ductal dilatation. Gallbladder: The gallbladder is distended but otherwise normal in appearance. -Total bilirubin 1.6, direct 0.5. May rise in the setting of acute illness/sepsis although bladder with some distention but otherwise normal as above. Trend (10) Aortic valve replaced: Plan: History of Mechanical Valve Replacement; Chronic Anticoagulation - history noted , follows w/ AC clinic -- goal INR 2-3 - home regimen per most recent notes: 2.5mg W/Sat; 5mg other days - INR at 1.7 on arrival -INR recheck in therapeutic range at 2.1 - last TTE in 07/2020 with normal LVEF, mild-moderate mitral stenosis - TTE recheck pending, as wound clinic was requesting repeat prior to starting hyperbaric O2 therapy Continue home warfarin dose, typically with a total weekly dose of around 30 to 32.5 mg (11) Chronic anticoagulation: Plan: - noted, in setting of AoV replacement (w/ mechanical valve) - see AoV replacement problem above (12) Uncontrolled type 2 diabetes mellitus with chronic kidney disease: Plan: Type 2 DM - complicated by ckd and retinopathy - hold home medications - initiate SSI w/ goal BSG 140-180 in setting of severe sepsis - last a1c at 6.2% in 11/2021 Patient's A1c is well controlled. As noted above he has done well on an SGLT2, however has had recurrent hospitalizations for recurrent UTIs with abnormal anatomy. Recommend conversion to a alternative antiglycemic given his otherwise good control and risk on exacerbating his UTIs which have been associated with severe sepsis and admissions. Patient reports he had tried Januvia in the past, this did not work well for him and he did not get good benefit in his A1c Patient is tolerant of Metformin maximize therapy at home and glimepiride 1 mg daily. ? Trial of GLP-1 daily or weekly injection versus DPP 4 inhibitor. (13) Mood disorder: Plan: -Trazodone temporarily held for concern of altered mentation as above May resume 50 mg p.o. nightly as needed (14) Anemia: Plan: - with chronic baseline normocytic anemia, suspect likely secondary to chronic disease - history of hematuria (and h/o an episode of such on morning of admission) noted - Hgb on arrival at 11.3 likely hemoconcentrated in the setting of sepsis Hemoglobin recheck 9.7 Iron 13, transferrin 180, ferritin 149, unsaturated IBC 247 (within normal range) Plan: code/full dispo/ms-tele ppx-anticoagulated on warfarin diet-cc/ongoing ivf Admission and Anticipated Discharge Date Admission Date: January 16, 2022 Subjective Arturo is seen at the bedside today. Reports he still feels a little fatigued, but overall much better than yesterday. No fevers or chills overnight. Has had a Orosco placed to help drain his bladder, reports has been draining a fairly dark urine. Denies chest pain, chest pressure. Does not have palpitations, is aware his heart rate has been elevated. No nausea/vomiting today. Saw Dr. Hill earlier today. Review of Systems Review of Systems: All systems reviewed & are unremarkable except as noted in Subjective Physical Exam Physical Exam: General: A&Ox3. NAD. Cooperative. Appears ill but nontoxic HEENT: Atraumatic, normocephalic. Dual acuity grossly intact Pulm: CTAB A&P. -wheezes, -rales, -rhonchi. Symmetrical chest rise. No increase in work of breathing. No respiratory distress. Cardiac: RRR, systolic murmur. Radial pulses intact and symmetrical. Abdominal: Obese,nontender, nondistended, soft. BS present. : Orosco in place draining tea colored urine Extremities: Moves all extremities equally, sensation in hands and feet intact Results & Data Results & Data ([facility]) Vital Signs (Past 12 Hours) Vital Signs Temp Pulse Pulse Pulse Resp BP Pulse Ox 01/17/22 10:50 38.2 C H 124 H 18 109/73 95 01/17/22 08:00 117 H 01/17/22 07:11 36.4 C L 115 H 18 106/70 98 01/17/22 03:47 118 H 18 123/74 98 01/17/22 02:30 36.8 C 106 H 20 103/54 L 95 01/17/22 02:16 38.0 C H 122 H 18 108/64 97 01/17/22 01:00 119 H 01/17/22 00:37 38.0 C H 122 H 18 108/64 97 01/17/22 00:00 37.5 C 115 H 26 H 103/62 96 PG Care Time/CCT Total # of Minutes Spent Total Time Spent with Patient: Total time spent is greater than 50% in coordination of care (as documented) at patient's floor/unit and/or counseling patient: Coding Level of Care Code 84805 Subseq Hosp Care Lvl 3 Diagnoses Sepsis A41.9 RITU (acute kidney injury) N17.9 Cystitis N30.90 Word finding difficulty R47.89 Elevated troponin R77.8 Hyponatremia E87.1 Bilateral hydronephrosis N13.30 Irradiation cystitis with hematuria N30.41 Hyperbilirubinemia E80.6 Aortic valve replaced Z95.2 Chronic anticoagulation Z79.01 Uncontrolled type 2 diabetes mellitus with chronic kidney disease E11.22; E11.65 Mood disorder F39 Anemia D64.9 Anemia type: unspecified type (1) Anemia Anemia type: unspecified type Qualified Code(s): D64.9 - Anemia, unspecified
[2022-01-17 12:27] LABS: INR 2.1 (0.9-1.1); Prothrombin Time 21.6 Seconds (9.0-12.0)
[2022-01-17] MEDS ORDERED: WARFARIN SOD 2.5 MG TAB PO SCH (16:00)
[2022-01-17] MEDS ORDERED: DAPTOmycin 350 MG in SYRINGE 0 ML IV SCH (20:00)
[2022-01-17] MEDS: SODIUM CHLORIDE 0.9% 500 ML IV SCH (20:26)
--- NOTE | 2022-01-17 23:12 | Billing Data ---
Date of Service January 17, 2022 Coding Level of Care Code 20250 Initial Inpt Care Lvl 3
[2022-01-18] MEDS: CEFEPIME 2,000 MG in SYRINGE 0 ML IV SCH ×2 (03:24→14:06)
[2022-01-18] MEDS: SODIUM CHLORIDE 0.9% 1000ML 1,000 ML IV SCH ×3 (07:14→22:10)
[2022-01-18] MEDS: CYANOCOBALAMIN (B-12) 500 MCG TABLET PO SCH (07:35)
[2022-01-18] MEDS: ADVANCED PROBIOTIC 1250 MG CAPSULE PO SCH (07:35)
[2022-01-18] MEDS: ATORVASTATIN 40 MG TAB PO SCH (07:35)
[2022-01-18] MEDS: SILODOSIN PO SCH (07:36)
[2022-01-18] MEDS: SODIUM CHLORIDE 0.9% 500 ML IV SCH (07:39)
[2022-01-18 07:55] LABS: Basophils # (auto) 0.01 K/uL (0-0.2); Basophils % (auto) 0.1 %; Eosinophils # (auto) 0.03 K/uL (0-0.5); Eosinophils % (auto) 0.3 %; Hematocrit (blood only) 26.1 % (42-52); Hemoglobin 8.2 g/dL (14.0-18.0); Immature Granulocytes # (auto) 0.05 K/uL (0.00-0.02); Immature Granulocytes % (auto) 0.5 %; Lymphocytes # (auto) 0.48 K/uL (1.2-3.4); Lymphocytes % (auto) 4.5 %; Mean Corpuscular Hemoglobin 28.2 pg (25-34); Mean Corpuscular Hgb Conc 31.4 g/dL (32-36); Mean Corpuscular Volume 89.7 fL (80-100); Mean Platelet Volume 11.4 fL (7.4-10.4); Monocytes # (auto) 1.38 K/uL (0.11-0.59); Neutrophils % (auto) 81.6 %; Platelet Count 213 K/uL (130-400); RDW Coefficient of Variation 21.4 % (11.5-14.5); RDW Standard Deviation 69.1 fL (36.4-46.3); Red Blood Count 2.91 M/uL (4.7-6.1); White Blood Count 10.65 K/uL (4.8-10.8)
[2022-01-18 08:02] LABS: INR 1.8 (0.9-1.1); Prothrombin Time 18.1 Seconds (9.0-12.0)
[2022-01-18] MEDS: INSULIN ASPART PER UNIT SC SCH ×4 (08:11→20:42)
[2022-01-18 08:23] LABS: Calcium 7.9 mg/dl (8.5-10.1); Creatinine Clr Calc Pharmacy 66.7 ml/min; Est GFR (African American) 58.6 ml/min; Est GFR (Non-African American) 50.6 ml/min; Globulin 3.1 gm/dl (2.5-4.0); Potassium 4.4 mmol/L (3.5-5.1); Total Protein 6.1 gm/dl (6.0-8.3)
[2022-01-18 08:32] LABS: Echinocytes 1+; Hypochromasia Present; Toxic Granulation 1+; Toxic Vacuolation 1+
--- NOTE | 2022-01-18 09:17 | Urology Progress Note ---
Date of Service January 18, 2022 Assessment & Plan (1) UTI (urinary tract infection): (2) Sepsis: Plan: Severe infection Continue Orosco catheter Continue broad-spectrum antibiotics He has bilateral hydronephrosis which I do not anticipate will resolve until or unless his bladder is improvedhe has a very large diverticulum which I believe is the reason he is such a difficult time clearing his infections Unfortunately has significant comorbidities making definitive treatment of the diverticulum quite challenging Overall seems to be progressing appropriately I anticipate another few days before he entirely resolves his febrile illness Admission and Anticipated Discharge Date Admission Date: January 16, 2022 Subjective No major issues overnight Orosco catheter inserted He was febrile and he remains tachycardic Catheter is draining well with 3.5 L of urine output overnight He is sleeping when I arrivedI attempted to arouse him and he mumbled some answers but did not fully awaken Physical Exam Physical Exam: Cloudy/purulent urine within the tubingno blood Constitutional: well developed and well nourished Respiratory: no respiratory distress Cardiovascular: Extremities: no pedal edema Gastrointestinal (Abdomen): Inspection/Auscultation: abdomen normal to ins pection Results & Data ([facility]) Vital Signs (Past 12 Hours) Vital Signs Temp Pulse Pulse Resp BP Pulse Ox 01/18/22 07:34 37.7 C H 117 H 20 127/77 94 01/18/22 07:18 117 H 01/18/22 03:35 118 H 18 106/65 94 01/17/22 23:19 37.0 C 114 H 18 106/67 94 01/17/22 22:20 124 H 01/17/22 21:45 37.7 C H 118 H 100/62 94 PG Care Time/CCT Total # of Minutes Spent Total Time Spent with Patient: Total time spent is greater than 50% in coordination of care (as documented) at patient's floor/unit and/or counseling patient: Coding Level of Care Code 77471 Subseq Hosp Care Lvl 3 Diagnoses UTI (urinary tract infection) N39.0 Sepsis A41.9
--- NOTE | 2022-01-18 14:04 | Hospitalist Progress Note ---
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 faecalis UTI in 11/2021, type 2 diabetes complicated by chronic kidney disease and retinopathy, psoriasis, s/p mechanical AoV replacement on Couadin who presented to [facility] for fever, subsequently found to meet criteria for severe sepsis. At this time, given patient's significant urologic history, suspect that possible source may by uri nary in nature. Severe Sepsis - on arrival, found to be febrile and tachycardic with softer pressures in the 90/50 range that responded well to IVF -On arrival: Febrile, leukocytosis with elevated and LR, pro-Filipe 14, lactate 2.3 which was obtained after fluids and which normalized after additional fluids, creatinine 2.65 from baseline of approximately 1.2-1.4 CXR: No acute abnormality UA: Turbid, 2+ bacteria, infected appearing. UC pending. Previous urine cultures with coag negative staph resistant to oxacillin/tetracycline and Enterococcus faecalis resistant to tetracycline UC initial culture positive for Enterobacter, second culture GNB pending speciation Continue cefepime/daptomycin pending speciation and sensitivities CTA/P: Severe cystitis with emphysematous changes, unchanged severe right hydronephrosis and left hydronephrosis - transitioned to cefepime w/ dapto (renal dosing) for broad spectrum coverage -Urine output improving, remains with slightly dark urine. Remains intermittently febrile, slightly tachycardic, BP 105/75 in late morning Continue supplemental fluids Urine culture prelim positive for Enterobacter, will continue cefepime and if no secondary speciation/growth likely narrow to Rocephin tomorrow. Daptomycin discontinued, no gram-positive growth at this time (2) RITU (acute kidney injury): Plan: - baseline creatinine in the system appears to be around ~1.2-1.4 - in setting of bilateral hydronephrosis, which is noted -- at discharge in 12/2021, Cr at 1.4 -Admitting creatinine 2.65, rapidly downtrending to 1.5 today - suspect mixed picture: prerenal in setting of sepsis, intrarenal from hydro, and contribution of post-renal in setting of chronic urinary retention (though reports urinating ok) -FENa 1.2% (serum sodium 127, serum creatinine 2.52, urine sodium 56, urine creatinine 93.5) suggesting intrinsic involvement -CTA/P as above, patient remains with unchanged severe right hydro and left hydro- Orosco has been placed Continue to follow output, volume support while managing sepsis as noted above and below (3) Cystitis: Plan: CT abdomen pelvis notable for severe bladder inflammation with emphysematous changes, significantly worsened compared to scan 12/2021 With noted history of radiation cystitis and sepsis, as above Urology consulted. Orosco placed. Continue infection management and consider outpatient follow-up for definitive treatment of diverticulum Continue antibiotics, as above First UC positive for Enterobacter cloaca, second cath preliminary positive for GNB. Treatment as above Of note patient has been on an SGLT2 inhibitor for his diabetes, this is likely contributing to his recurrent infections and given multiple hospitalizations for UTIs patient benefit from switching to another glycemic. See below. (4) Word finding difficulty: Plan: -On admission with word finding difficulty, although well oriented. Normalized 319 - primarily suspect secondary to metabolic encephalopathy in setting of severe sepsis, lower suspicion for intracranial pathology or relation to hyponatremia - will check CT-H without contrast -- normal -Improved following sepsis treatment (5) Elevated troponin: Plan: - noted to 0.07 on arrival in setting of suspected sepsis, no c/o cp, sob - ECG w/ chronic LBBB; no new conduction/repolarization abnormalities otherwise - in setting of severe sepsis, suspect secondary to demand rather than ACS - down trended No ongoing chest pain Can consider outpatient stress test (6) Hyponatremia: Plan: - in setting of severe sepsis, volume depletion, RITU - FeNA as above -Improving, volume status improving Continue fluids as above BMP daily (7) Bilateral hydronephrosis: Plan: - in 12/2021 during last admission, ct-a/p revealing of severe R hydroureteronephrosis (unchanged) and moderate L hydroureteronephrosis that had progressed - concern at the time was that this was secondary to incomplete emptying, large bladder diverticulum, obstruction - follows w/ Dr. Puga - [facility] (last visit 12/29/21): HS catheterizations to prevent UTI, was planning to repeat renal US in 2 months to monitor -- lower suspicion for improvement in R hydro at that visit -CT scan as above Orosco placed, follow RITU as above, likely will follow-up for outpatient management of large bladder diverticulum (8) Irradiation cystitis with hematuria: Plan: - patient reporting hematuria this morning when he went to void - last admission in 12/2021, did require transfusions secondary to hematuria - recently established w/ wound clinic, considering hyperbaric oxygen therapy - follows w/ Dr. Puga -- as above - monitor UOP and appearance of urine (9) Hyperbilirubinemia: Plan: Hyperbilirubinemia -Isolated hyperbilirubinemia without clinical gallbladder symptoms - CT:Liver: The unenhanced liver is normal in size, contour, and attenuation. There is no intrahepatic biliary ductal dilatation. Gallbladder: The gallbladder is distended but otherwise normal in appearance. -Total bilirubin 1.6, direct 0.5. May rise in the setting of acute illness/sepsis although bladder with some distention but otherwise normal as above. 01/18 bilirubin normalized, suspect was elevated in the setting of acute illness/sepsis (10) Aortic valve replaced: Plan: History of Mechanical Valve Replacement; Chronic Anticoagulation - history noted , follows w/ AC clinic -- goal INR 2-3 - home regimen per most recent notes: 2.5mg W/Sat; 5mg other days - INR at 1.7 on arrival -INR recheck in therapeutic range at 2.1 - last TTE in 07/2020 with normal LVEF, mild-moderate mitral stenosis - TTE recheck pending, as wound clinic was requesting repeat prior to starting hyperbaric O2 therapy 01/18 INR slightly subtherapeutic, 1 mg additional to be given this afternoon, continue INR daily (11) Chronic anticoagulation: Plan: - noted, in setting of AoV replacement (w/ mechanical valve) - see AoV replacement problem above (12) Uncontrolled type 2 diabetes mellitus with chronic kidney disease: Plan: complicated by ckd and retinopathy - hold home medications - initiate SSI w/ goal BSG 140-180 in setting of severe sepsis - last a1c at 6.2% in 11/2021 Patient's A1c is well controlled. As noted above he has done well on an SGLT2, however has had recurrent hospitalizations for recurrent UTIs with abnormal anatomy. Recommend conversion to a alternative antiglycemic given his otherwise good control and risk on exacerbating his UTIs which have been associated with severe sepsis and admissions. Patient reports he had tried Januvia in the past, this did not work well for him and he did not get good benefit in his A1c Patient is tolerant of Metformin maximize therapy at home and glimepiride 1 mg daily. ? Trial of GLP-1 daily or weekly injection versus DPP 4 inhibitor as outpatient. (13) Mood disorder: Plan: -Trazodone temporarily held for concern of altered mentation as above May resume 50 mg p.o. nightly as needed (14) Anemia: Plan: - with chronic baseline normocytic anemia, suspect likely secondary to chronic disease - history of hematuria (and h/o an episode of such on morning of admission) noted - Hgb on arrival at 11.3 likely hemoconcentrated in the setting of sepsis Trend hemoglobin, no indication for transfusion at this time Iron 13, transferrin 180, ferritin 149, unsaturated IBC 247 (within normal range) Plan: code/full dispo/ms-tele ppx-continue warfarin, check inr daily diet-cc/ongoing ivf Admission and Anticipated Discharge Date Admission Date: January 16, 2022 Subjective Arturo is seen at the bedside today. He reports he feels better and about 80% back to normal, no fevers, chills, sweats overnight. Orosco catheter is draining light yellow urine in the tube, somewhat orange/concentrated in bag. Total output 3050 last 24 hours. No chest pain, chest pressure, difficulty breathing, shortness of breath, abdominal pain. Is very concerned over whether or not he should have surgery. Discussed that his urologic specialists are the best to advise him on this, and that it is a difficult/benefits discussion given that he has a very large diverticulum which will likely cause continued bladder issues and he has had difficult time clearing UTIs which could be related to this, even if his SGLT2 was stopped. Discussed that this would likely be addressed as outpatient, as his current infection and sepsis needs to be addressed prior to pursuing intervention should he choose to. Patient appreciative of care, no additional questions or concerns at bedside. Review of Systems Review of Systems: All systems reviewed & are unremarkable except as noted in Subjective Physical Exam Physical Exam: General: A&Ox3. NAD. Cooperative. Appears ill but nontoxic HEENT: Atraumatic, normocephalic. Visual grossly and hearing intact Pulm: CTAB A&P. -wheezes, -rales, -rhonchi. Symmetrical chest rise. No increase in work of breathing. No respiratory distress. Cardiac: RRR, systolic murmur. Radial pulses intact and symmetrical. Abdominal: Obese,nontender, nondistended, soft. BS present. : Orosco in place draining light yellow urine in the tubing, slightly dark/tea colored in bag Extremities: Moves all extremities equally, sensation in hands and feet intact Results & Data Results & Data ([facility]) Vital Signs (Past 12 Hours) Vital Signs Temp Pulse Pulse Resp BP Pulse Ox 01/18/22 11:07 38.0 C H 121 H 18 105/75 93 01/18/22 07:34 37.7 C H 117 H 20 127/77 94 01/18/22 07:18 117 H 01/18/22 03:35 118 H 18 106/65 94 PG Care Time/CCT Total # of Minutes Spent Total Time Spent with Patient: Total time spent is greater than 50% in coordination of care (as documented) at patient's floor/unit and/or counseling patient: Coding Level of Care Code 05257 Subseq Hosp Care Lvl 3 Diagnoses Sepsis A41.9 RITU (acute kidney injury) N17.9 Cystitis N30.90 Word finding difficulty R47.89 Elevated troponin R77.8 Hyponatremia E87.1 Bilateral hydronephrosis N13.30 Irradiation cystitis with hematuria N30.41 Hyperbilirubinemia E80.6 Aortic valve replaced Z95.2 Chronic anticoagulation Z79.01 Uncontrolled type 2 diabetes mellitus with chronic kidney disease E11.22; E11.65 Mood disorder F39 Anemia D64.9 Anemia type: unspecified type (1) Anemia Anemia type: unspecified type Qualified Code(s): D64.9 - Anemia, unspecified
[2022-01-18] MEDS ORDERED: WARFARIN SOD 1 MG TAB PO SCH (16:00)
[2022-01-18] MEDS: WARFARIN SOD 5 MG TAB PO SCH (16:36)
[2022-01-18] MEDS ORDERED: SODIUM CHLORIDE 0.9% 1000ML 250 ML IV ONE (22:16)
[2022-01-18] MEDS ORDERED: METOPROLOL TARTRATE 1 MG/ML VIAL IV STA (22:52)
[2022-01-18] MEDS ORDERED: Nursing to Pharmacy Communication SCH (23:45)
[2022-01-19] MEDS ORDERED: METOPROLOL TARTRATE 1 MG/ML VIAL IV STA (00:48)
[2022-01-19] MEDS ORDERED: SODIUM CHLORIDE 0.9% 1000ML 250 ML IV ONE (01:03)
[2022-01-19] MEDS: CEFEPIME 2,000 MG in SYRINGE 0 ML IV SCH (01:33)
[2022-01-19] MEDS ORDERED: MELATONIN 3 MG TAB PO PRN (02:17)
[2022-01-19] MEDS: SODIUM CHLORIDE 0.9% 1000ML 1,000 ML IV SCH ×2 (06:04→13:35)
[2022-01-19 07:16] LABS: Basophils # (auto) 0.02 K/uL (0-0.2); Basophils % (auto) 0.2 %; Eosinophils # (auto) 0.04 K/uL (0-0.5); Eosinophils % (auto) 0.4 %; Hematocrit (blood only) 24.8 % (42-52); Hemoglobin 7.9 g/dL (14.0-18.0); Immature Granulocytes # (auto) 0.04 K/uL (0.00-0.02); Immature Granulocytes % (auto) 0.4 %; Lymphocytes # (auto) 0.67 K/uL (1.2-3.4); Lymphocytes % (auto) 6.5 %; Mean Corpuscular Hemoglobin 28.1 pg (25-34); Mean Corpuscular Hgb Conc 31.9 g/dL (32-36); Mean Corpuscular Volume 88.3 fL (80-100); Monocytes # (auto) 1.84 K/uL (0.11-0.59); Monocytes % (auto) 17.7 %; Neutrophils # (auto) 7.76 K/uL (1.4-6.5); Neutrophils % (auto) 74.8 %; Platelet Count 244 K/uL (130-400); RDW Coefficient of Variation 21.5 % (11.5-14.5); RDW Standard Deviation 68.2 fL (36.4-46.3); Red Blood Count 2.81 M/uL (4.7-6.1); White Blood Count 10.37 K/uL (4.8-10.8)
[2022-01-19 07:25] LABS: Prothrombin Time 20.8 Seconds (9.0-12.0)
[2022-01-19 07:40] LABS: Anisocytosis Present; BUN Creatinine Ratio 20.8 (10-20); Calcium 8.1 mg/dl (8.5-10.1); Creatinine Clr Calc Pharmacy 82.7 ml/min; Est GFR (African American) 73.1 ml/min; Est GFR (Non-African American) 63.1 ml/min; Potassium 4.4 mmol/L (3.5-5.1)
[2022-01-19] MEDS: SILODOSIN PO SCH (09:03)
[2022-01-19] MEDS: ATORVASTATIN 40 MG TAB PO SCH (09:03)
[2022-01-19] MEDS: ADVANCED PROBIOTIC 1250 MG CAPSULE PO SCH (09:04)
[2022-01-19] MEDS: CYANOCOBALAMIN (B-12) 500 MCG TABLET PO SCH (09:04)
[2022-01-19] MEDS: INSULIN ASPART PER UNIT SC SCH ×4 (09:18→20:45)
[2022-01-19] MEDS: cefTRIAXone SODIUM 2,000 MG in DEXTROSE 5% 50 ML IV SCH (09:44)
--- NOTE | 2022-01-19 11:21 | Urology Progress Note ---
Date of Service January 19, 2022 Assessment & Plan (1) UTI (urinary tract infection): (2) Diverticulum of bladder: (3) Bilateral hydronephrosis: Plan: - Follow-up UTI, sepsis; bilateral hydronephrosis, bladder diverticulum. - Pt subjectively doing well. - Afebrile overnight, lab work reviewed - creatinine and WBC downtrending. - Urine culture grew out Enterobacter, BCx no growth x 48 hours - Transitioned from Cefepime --> Ceftriaxone. - Orosco intact and draining appropriately, still with some purulent looking urine today. - Continue Orosco catheter for maximum drainage while infection is being treated. - Continue supportive care, antibiotics and management per hospital service. - He follows with Dr. Fred Puga as an outpatient. - Recommend follow-up with Dr. Puga after discharge for ongoing management and discussion of bladder diverticulectomy. - will follow peripherally, please contact our service with any additional questions or concerns. Admission and Anticipated Discharge Date Admission Date: January 16, 2022 Subjective Patient seen and examined at bedside this AM. He is sleeping soundly upon my arrival, arouses to his name. Offers no complaints at present. Subjectively feeling better since arrival. Tolerating Orosco catheter - intact, patent and draining some cloudy/purulent appearing urine, slightly blood tinged. No abdominal, flank, or suprapubic pain. No nausea or vomiting. No fever or chills. Review of Systems Constitutional: as per Subjective / HPI Gastrointestinal: as per Subjective / HPI Genitourinary: + as per Subjective / HPI Physical Exam Constitutional: + obese; no acute distress Respiratory: normal respiratory effort; no respiratory distress and no labored breathing Gastrointestinal (Abdomen): Inspection/Auscultation: abdomen normal to inspection; abdomen not distended Musculoskeletal: Head/Neck/Chest: normocephalic and head atraumatic Neurologic: moves all extremities Psychiatric: Orientation: alert and oriented x 3 Genitourinary: Orosco intact, patent and draining some cloudy/purulent appearing urine, slightly blood tinged. Results & Data ([facility]) Vital Signs (Past 12 Hours) Vital Signs Temp Pulse Pulse Pulse Resp BP BP 01/19/22 11:15 36.9 C 108 H 28 H 116/60 01/19/22 07:53 36.6 C 106 H 31 H 124/82 01/19/22 07:44 24 01/19/22 06:16 119 H 01/19/22 03:35 36.8 C 115 H 18 116/73 01/19/22 01:58 108 H 104/68 01/19/22 01:23 117 H 112/72 01/19/22 00:53 126 H 101/66 01/18/22 23:59 130 H Pulse Ox 01/19/22 11:15 94 01/19/22 07:53 95 01/19/22 07:44 01/19/22 06:16 01/19/22 03:35 96 01/19/22 01:58 01/19/22 01:23 01/19/22 00:53 01/18/22 23:59 PG Care Time/CCT Total # of Minutes Spent Total Time Spent with Patient: Total time spent is greater than 50% in coordination of care (as documented) at patient's floor/unit and/or counseling patient: Coding Level of Care Code 50509 Subseq Hosp Care Lvl 2 Diagnoses UTI (urinary tract infection) N39.0 Diverticulum of bladder N32.3 Bilateral hydronephrosis N13.30
--- NOTE | 2022-01-19 12:50 | Hospitalist Progress Note ---
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 faecalis UTI in 11/2021, type 2 diabetes complicated by chronic kidney disease and retinopathy, psoriasis, s/p mechanical AoV replacement on Couadin who presented to [facility] for fever, subsequently found to meet criteria for severe sepsis. At this time, given patient's significant urologic history, suspect that possible source may by uri nary in nature. Severe Sepsis - on arrival, found to be febrile and tachycardic with softer pressures in the 90/50 range that responded well to IVF -On arrival: Febrile, leukocytosis with elevated and LR, pro-Filipe 14, lactate 2.3 which was obtained after fluids and which normalized after additional fluids, creatinine 2.65 from baseline of approximately 1.2-1.4 CXR: No acute abnormality UA: Turbid, 2+ bacteria, infected appearing. UC pending. Previous urine cultures with coag negative staph resistant to oxacillin/tetracycline and Enterococcus faecalis resistant to tetracycline UC initial culture positive for Enterobacter cloaca, ceftriaxone sensitive, repeat culture positive with same CTA/P: Severe cystitis with emphysematous changes, unchanged severe right hydronephrosis and left hydronephrosis - transitioned to cefepime w/ dapto (renal dosing) for broad spectrum coverage 01/19: positive for Enterobacter cloaca, repeat with same speciation. Ceftriaxone sensitive, antibiotics narrowed to Rocephin. While beta lactams are second line for urinary tract infections, does have documented sensitivity and patient is at risk both with QT prolongation and other interacting meds for cipro/alternatives. Anticipate cefdinir twice daily outpatient treatment if doing well. Was febrile to 38 in last 24 hours, will follow after antibiotic narrowing for another 24 hours. If recurrent fever/chills obtain repeat blood cultures at that time. Patient is otherwise clinically improving and progressing towards discharge. Orosco with some purulent output today, will be discharged with a Orosco and have outpatient follow-up to their office. (2) RITU (acute kidney injury): Plan: - baseline creatinine in the system appears to be around ~1.2-1.4 - in setting of bilateral hydronephrosis, which is noted -- at discharge in 12/2021, Cr at 1.4 -Admitting creatinine 2.65, rapidly downtrending and normalized 01/19 - suspect mixed picture: prerenal in setting of sepsis, intrarenal from hydro, and contribution of post-renal in setting of chronic urinary retention (though reports urinating ok) -FENa 1.2% (serum sodium 127, serum creatinine 2.52, urine sodium 56, urine creatinine 93.5) suggesting intrinsic involvement -CTA/P as above, patient remains with unchanged severe right hydro and left hydro- Orosco has been placed - Hyponatremia as below (3) Cystitis: Plan: CT abdomen pelvis notable for severe bladder inflammation with emphysematous changes, significantly worsened compared to scan 12/2021 With noted history of radiation cystitis and sepsis, as above Urology consulted. Orosco placed. Continue infection management and consider outpatient follow-up for definitive treatment of diverticulum Continue antibiotics, as above First UC positive for Enterobacter cloaca, second cath preliminary positive for GNB. Treatment as above Of note patient has been on an SGLT2 inhibitor for his diabetes, this is likely contributing to his recurrent infections and given multiple hospitalizations for UTIs patient benefit from switching to another glycemic. See below. (4) Word finding difficulty: Plan: -On admission with word finding difficulty, although well oriented. Normalized 319 - primarily suspect secondary to metabolic encephalopathy in setting of severe sepsis, lower suspicion for intracranial pathology or relation to hyponatremia - will check CT-H without contrast -- normal -Improved following sepsis treatment (5) Elevated troponin: Plan: - noted to 0.07 on arrival in setting of suspected sepsis, no c/o cp, sob - ECG w/ chronic LBBB; no new conduction/repolarization abnormalities otherwise - in setting of severe sepsis, suspect secondary to demand rather than ACS - down trended No ongoing chest pain Can consider outpatient stress test (6) Hyponatremia: Plan: - in setting of severe sepsis, volume depletion, RITU - FeNA as above -Improving, volume status improved Urine sodium 39, urine osmolality 498, serum osmolality 280. ? Underlying SIADH, appears near euvolemic with down trended tachycardia. BP chronically low normal, creatinine normalized today. Free fluid restrict, trend sodium BMP daily (7) Bilateral hydronephrosis: Plan: - in 12/2021 during last admission, ct-a/p revealing of severe R hydroureteronephrosis (unchanged) and moderate L hydroureteronephrosis that had progressed - concern at the time was that this was secondary to incomplete emptying, large bladder diverticulum, obstruction - follows w/ Dr. Puga - [facility] [place] [facility] (last visit 12/29/21): qHS catheterizations to prevent UTI, was planning to repeat renal US in 2 months to monitor -- lower suspicion for improvement in R hydro at that visit -CT scan as above Orosco placed, follow RITU as above, likely will follow-up for outpatient management of large bladder diverticulum (8) Irradiation cystitis with hematuria: Plan: - patient reporting hematuria this morning when he went to void - last admission in 12/2021, did require transfusions secondary to hematuria - recently established w/ wound clinic, considering hyperbaric oxygen therapy - follows w/ Dr. Puga -- as above - monitor UOP and appearance of urine (9) Hyperbilirubinemia: Plan: Hyperbilirubinemia -Isolated hyperbilirubinemia without clinical gallbladder symptoms - CT:Liver: The unenhanced liver is normal in size, contour, and attenuation. There is no intrahepatic biliary ductal dilatation. Gallbladder: The gallbladder is distended but otherwise normal in appearance. -Total bilirubin 1.6, direct 0.5. May rise in the setting of acute illness/sepsis although bladder with some distention but otherwise normal as above. 01/18 bilirubin normalized, suspect was elevated in the setting of acute illness/sepsis (10) Aortic valve replaced: Plan: History of Mechanical Valve Replacement; Chronic Anticoagulation - history noted , follows w/ AC clinic -- goal INR 2-3 - home regimen per most recent notes: 2.5mg W/Sat; 5mg other days - INR at 1.7 on arrival -INR recheck in therapeutic range - last TTE in 07/2020 with normal LVEF, mild-moderate mitral stenosis - TTE recheck pending, as wound clinic was requesting repeat prior to starting hyperbaric O2 therapy 01/18 INR slightly subtherapeutic, 1 mg additional to be given this afternoon, continue INR daily 01/19 therapeutic range, no warfarin adjustments at this time (11) Chronic anticoagulation: Plan: - noted, in setting of AoV replacement (w/ mechanical valve) - see AoV replacement problem above (12) Uncontrolled type 2 diabetes mellitus with chronic kidney disease: Plan: complicated by ckd and retinopathy - hold home medications - initiate SSI w/ goal BSG 140-180 in setting of severe sepsis - last a1c at 6.2% in 11/2021 Patient's A1c is well controlled. As noted above he has done well on an SGLT2, however has had recurrent hospitalizations for recurrent UTIs with abnormal anatomy. Recommend conversion to a alternative antiglycemic given his otherwise good control and risk on exacerbating his UTIs which have been associated with severe sepsis and admissions. Patient reports he had tried Januvia in the past, this did not work well for him and he did not get good benefit in his A1c Patient is tolerant of Metformin maximize therapy at home and glimepiride 1 mg daily. ? Trial of GLP-1 (Victoza 0.6mg QD -> 1.2mg QD; Trulicity 0.75mg weekly) versus DPP 4 inhibitor (Januvia 100mg daily poor past benefit per pt) as outpatient. High cost for GLP-1 per pt through rx, but may be able to get covered as medically indicated for pt with failure/contraindication to other patients. (13) Mood disorder: Plan: -Trazodone temporarily held for concern of altered mentation as above Resumed 50 mg p.o. nightly as needed (14) Anemia: Plan: - with chronic baseline normocytic anemia, suspect likely secondary to chronic disease - history of hematuria (and h/o an episode of such on morning of admission) noted - Hgb on arrival at 11.3 likely hemoconcentrated in the setting of sepsis Trend hemoglobin, no indication for transfusion at this time Iron 13, transferrin 180, ferritin 149, unsaturated IBC 247 (within normal range) Plan: code/full dispo/ms-tele ppx-continue warfarin, check inr daily diet-cc. IVF dced Admission and Anticipated Discharge Date Admission Date: January 16, 2022 Subjective Seen at bedside this morning. No fever/chills/sweats. Orosco output does have sediment/purulence. No abdominal pain. Patient is is anxious to continue his progression home. Has not had chest pain, chest pressure, shortness of breath, difficulty breathing, or worsening symptoms today. Reviewed care, has been febrile in the last 24 hours. If recurrent fever will obtain blood cultures at time of fever, but overall curve has down trended and if afebrile tomorrow may be able to convert to orals with dispo planning. PT/OT pending. Review of Systems Review of Systems: All systems reviewed & are unremarkable except as noted in Subjective Physical Exam Physical Exam: General: A&Ox3. NAD. Cooperative. Appears ill but nontoxic HEENT: Atraumatic, normocephalic. Visual grossly and hearing intact Pulm: CTAB A&P. -wheezes, -rales, -rhonchi. Symmetrical chest rise. No increase in work of breathing. No respiratory distress. Cardiac: RRR, systolic murmur. Radial pulses intact and symmetrical. Abdominal: Obese,nontender, nondistended, soft. BS present. : Orosco in place, previously light yellow now draining michaud and cloudy/ material Extremities: Moves all extremities equally, sensation in hands and feet intact Results & Data Results & Data ([facility]) Vital Signs (Past 12 Hours) Vital Signs Temp Pulse Pulse Pulse Resp BP BP 01/19/22 11:15 36.9 C 108 H 28 H 116/60 01/19/22 07:53 36.6 C 106 H 31 H 124/82 01/19/22 07:44 24 01/19/22 06:16 119 H 01/19/22 03:35 36.8 C 115 H 18 116/73 01/19/22 01:58 108 H 104/68 01/19/22 01:23 117 H 112/72 01/19/22 00:53 126 H 101/66 Pulse Ox 01/19/22 11:15 94 01/19/22 07:53 95 01/19/22 07:44 01/19/22 06:16 01/19/22 03:35 96 01/19/22 01:58 01/19/22 01:23 01/19/22 00:53 PG Care Time/CCT Total # of Minutes Spent Total Time Spent with Patient: Total time spent is greater than 50% in coordination of care (as documented) at patient's floor/unit and/or counseling patient: Coding Level of Care Code 16814 Subseq Hosp Care Lvl 2 Diagnoses Sepsis A41.9 RITU (acute kidney injury) N17.9 Cystitis N30.90 Word finding difficulty R47.89 Elevated troponin R77.8 Hyponatremia E87.1 Bilateral hydronephrosis N13.30 Irradiation cystitis with hematuria N30.41 Hyperbilirubinemia E80.6 Aortic valve replaced Z95.2 Chronic anticoagulation Z79.01 Uncontrolled type 2 diabetes mellitus with chronic kidney disease E11.22; E11.65 Mood disorder F39 Anemia D64.9 Anemia type: unspecified type (1) Anemia Anemia type: unspecified type Qualified Code(s): D64.9 - Anemia, unspecified
[2022-01-19] MEDS: WARFARIN SOD 5 MG TAB PO SCH (15:55)
[2022-01-19] MEDS ORDERED: SODIUM CHLORIDE 1 GM TABLET PO ONE (17:03)
[2022-01-19] MEDS: traZODone HCL 50 MG TAB PO PRN (23:48)
[2022-01-20 08:18] LABS: Hematocrit (blood only) 25.7 % (42-52); Hemoglobin 8.3 g/dL (14.0-18.0); Mean Corpuscular Hemoglobin 28.6 pg (25-34); Mean Corpuscular Hgb Conc 32.3 g/dL (32-36); Mean Corpuscular Volume 88.6 fL (80-100); Mean Platelet Volume 12.2 fL (7.4-10.4); Nucleated RBC # (auto) 0.05 K/uL (0-0); Nucleated RBC % (auto) 0.5 %; Platelet Count 296 K/uL (130-400); RDW Coefficient of Variation 21.9 % (11.5-14.5); RDW Standard Deviation 69.8 fL (36.4-46.3); White Blood Count 11.13 K/uL (4.8-10.8)
[2022-01-20 08:30] LABS: INR 3.4 (0.9-1.1)
[2022-01-20 08:47] LABS: Anisocytosis Present; Basophils # (auto) 0.02 K/uL (0-0.2); Basophils % (auto) 0.2 %; Eosinophils # (auto) 0.12 K/uL (0-0.5); Eosinophils % (auto) 1.1 %; Immature Granulocytes # (auto) 0.12 K/uL (0.00-0.02); Immature Granulocytes % (auto) 1.1 %; Lymphocytes # (auto) 1.85 K/uL (1.2-3.4); Lymphocytes % (auto) 16.6 %; Monocytes # (auto) 1.33 K/uL (0.11-0.59); Monocytes % (auto) 11.9 %; Neutrophils # (auto) 7.69 K/uL (1.4-6.5); Neutrophils % (auto) 69.1 %; Toxic Granulation 2+
[2022-01-20 08:48] LABS: BUN Creatinine Ratio 21.2 (10-20); Calcium 8.2 mg/dl (8.5-10.1); Creatinine Clr Calc Pharmacy 87.4 ml/min; Est GFR (African American) 78.4 ml/min; Est GFR (Non-African American) 67.6 ml/min; Potassium 4.1 mmol/L (3.5-5.1)
[2022-01-20] MEDS: CYANOCOBALAMIN (B-12) 500 MCG TABLET PO SCH (09:02)
[2022-01-20] MEDS: ADVANCED PROBIOTIC 1250 MG CAPSULE PO SCH (09:02)
[2022-01-20] MEDS: ATORVASTATIN 40 MG TAB PO SCH (09:02)
[2022-01-20] MEDS: SILODOSIN PO SCH (09:03)
[2022-01-20] MEDS: INSULIN ASPART PER UNIT SC SCH ×4 (09:14→20:28)
[2022-01-20] MEDS: cefTRIAXone SODIUM 2,000 MG in DEXTROSE 5% 50 ML IV SCH ×2 (10:51→11:29)
[2022-01-20] MEDS: SODIUM CHLORIDE 1 GM TABLET PO SCH ×2 (12:03→20:36)
[2022-01-20] MEDS: CEFDINIR 300 MG CAP PO SCH ×2 (12:03→20:35)
--- NOTE | 2022-01-20 12:50 | Hospitalist Progress Note ---
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 faecalis UTI in 11/2021, type 2 diabetes complicated by chronic kidney disease and retinopathy, psoriasis, s/p mechanical AoV replacement on Couadin who presented to [facility] for fever, subsequently found to meet criteria for severe sepsis. At this time, given patient's significant urologic history, suspect that possible source may by uri nary in nature. Severe Sepsis - on arrival, found to be febrile and tachycardic with softer pressures in the 90/50 range that responded well to IVF -On arrival: Febrile, leukocytosis with elevated and LR, pro-Filipe 14, lactate 2.3 which was obtained after fluids and which normalized after additional fluids, creatinine 2.65 from baseline of approximately 1.2-1.4 CXR: No acute abnormality UA: Turbid, 2+ bacteria, infected appearing. UC pending. Previous urine cultures with coag negative staph resistant to oxacillin/tetracycline and Enterococcus faecalis resistant to tetracycline UC initial culture positive for Enterobacter cloaca, ceftriaxone sensitive, repeat culture positive with same CTA/P: Severe cystitis with emphysematous changes, unchanged severe right hydronephrosis and left hydronephrosis - transitioned to cefepime w/ dapto (renal dosing) for broad spectrum coverage 01/19: positive for Enterobacter cloaca, repeat with same speciation. Ceftriaxone sensitive, antibiotics narrowed to Rocephin. While beta lactams are second line for urinary tract infections, does have documented sensitivity and patient is at risk both with QT prolongation and other interacting meds for cipro/alternatives. Anticipate cefdinir twice daily outpatient treatment if doing well. Was febrile to 38 in last 24 hours, will follow after antibiotic narrowing for another 24 hours. If recurrent fever/chills obtain repeat blood cultures at that time. Patient is otherwise clinically improving and progressing towards discharge. Orosco with some purulent output today, will be discharged with a Orosco and have outpatient follow-up to their office. 01/20: verify with urology at patient request whether Orosco should be remain in or if he could have a voiding trial prior to discharge. Due to his history of infections and abnormality it is recommended that he be discharged with a Orosco in place and leg bag with follow-up to their office. Afebrile for 24 hours, and clinically improved from an infection standpoint. Have narrow to cefdinir for oral course completion. Unfortunately patient is hyponatremic, would continue to fluid restrict and follow this until uptrending prior to discharge. (2) RITU (acute kidney injury): Plan: - baseline creatinine in the system appears to be around ~1.2-1.4 - in setting of bilateral hydronephrosis, which is noted -- at discharge in 12/2021, Cr at 1.4 -Admitting creatinine 2.65, rapidly downtrending and normalized 01/19 - suspect mixed picture: prerenal in setting of sepsis, intrarenal from hydro, and contribution of post-renal in setting of chronic urinary retention (though reports urinating ok) -FENa 1.2% (serum sodium 127, serum creatinine 2.52, urine sodium 56, urine cre atinine 93.5) suggesting intrinsic involvement -CTA/P as above, patient remains with unchanged severe right hydro and left hydro- Orosco has been placed - Hyponatremia as below (3) Cystitis: Plan: CT abdomen pelvis notable for severe bladder inflammation with emphysematous changes, significantly worsened compared to scan 12/2021 With noted history of radiation cystitis and sepsis, as above Urology consulted. Orosco placed. Continue infection management and consider outpatient follow-up for definitive treatment of diverticulum Continue antibiotics, as above First UC positive for Enterobacter cloaca, second cath preliminary positive for GNB. Treatment as above Of note patient has been on an SGLT2 inhibitor for his diabetes, this is likely contributing to his recurrent infections and given multiple hospitalizations for UTIs patient benefit from switching to another glycemic. See below. (4) Word finding difficulty: Plan: -On admission with word finding difficulty, although well oriented. Normalized 319 - primarily suspect secondary to metabolic encephalopathy in setting of severe sepsis, lower suspicion for intracranial pathology or relation to hyponatremia - will check CT-H without contrast -- normal -Improved following sepsis treatment (5) Elevated troponin: Plan: - noted to 0.07 on arrival in setting of suspected sepsis, no c/o cp, sob - ECG w/ chronic LBBB; no new conduction/repolarization abnormalities otherwise - in setting of severe sepsis, suspect secondary to demand rather than ACS - down trended No ongoing chest pain Can consider outpatient stress test (6) Hyponatremia: Plan: - in setting of severe sepsis, volume depletion, RITU - FeNA as above -Improving, volume status improved Urine sodium 39, urine osmolality 498, serum osmolality 280. ? Underlying SIADH, appears near euvolemic with down trended tachycardia. BP chronically low normal, creatinine normalized today. Free fluid restrict, trend sodium Sodium 126, sodium tablets added, continue to fluid restrict 1800 cc/day, trend BMP (7) Bilateral hydronephrosis: Plan: - in 12/2021 during last admission, ct-a/p revealing of severe R hydroureteronephrosis (unchanged) and moderate L hydroureteronephrosis that had progressed - concern at the time was that this was secondary to incomplete emptying, large bladder diverticulum, obstruction - follows w/ Dr. Puga - [facility] (last visit 12/29/21): qHS catheterizations to prevent UTI, was planning to repeat renal US in 2 months to monitor -- lower suspicion for improvement in R hydro at that visit -CT scan as above Orosco placed, follow RITU as above, likely will have outpatient follow-up with urology for Orosco evaluation and removal as above (8) Irradiation cystitis with hematuria: Plan: - patient reporting hematuria this morning when he went to void - last admission in 12/2021, did require transfusions secondary to hematuria - recently established w/ wound clinic, considering hyperbaric oxygen therapy - follows dory/ Dr. Puga -- as above - monitor UOP and appearance of urine (9) Hyperbilirubinemia: Plan: Hyperbilirubinemia -Isolated hyperbilirubinemia without clinical gallbladder symptoms - CT:Liver: The unenhanced liver is normal in size, contour, and attenuation. There is no intrahepatic biliary ductal dilatation. Gallbladder: The gallbladder is distended but otherwise normal in appearance. -Total bilirubin 1.6, direct 0.5. May rise in the setting of acute illness/sepsis although bladder with some distention but otherwise normal as above. 01/18 bilirubin normalized, suspect was elevated in the setting of acute illness/sepsis (10) Aortic valve replaced: Plan: History of Mechanical Valve Replacement; Chronic Anticoagulation - history noted , follows w/ AC clinic -- goal INR 2-3 - home regimen per most recent notes: 2.5mg W/Sat; 5mg other days - INR at 1.7 on arrival -INR recheck in therapeutic range - last TTE in 07/2020 with normal LVEF, mild-moderate mitral stenosis - TTE recheck pending, as wound clinic was requesting repeat prior to starting hyperbaric O2 therapy 01/18 INR slightly subtherapeutic, 1 mg additional to be given this afternoon, continue INR daily 01/19 therapeutic range, no warfarin adjustments at this time 01/20: INR supratherapeutic, did discuss with coag clinic. Suspicion for aberrant measurement, recommended switching Wednesday and Wednesday dose to have 2.5 mg today and 5 mg tomorrow with continued follow-up of INR, no dose to be held at this time (11) Chronic anticoagulation: Plan: - noted, in setting of AoV replacement (w/ mechanical valve) - see AoV replacement problem above (12) Uncontrolled type 2 diabetes mellitus with chronic kidney disease: Plan: complicated by ckd and retinopathy - hold home medications - initiate SSI w/ goal BSG 140-180 in setting of severe sepsis - last a1c at 6.2% in 11/2021 Patient's A1c is well controlled. As noted above he has done well on an SGLT2, however has had recurrent hospitalizations for recurrent UTIs with abnormal anatomy. Recommend conversion to a alternative antiglycemic given his otherwise good control and risk on exacerbating his UTIs which have been associated with severe sepsis and admissions. Patient reports he had tried Januvia in the past, this did not work well for him and he did not get good benefit in his A1c Patient is tolerant of Metformin maximize therapy at home and glimepiride 1 mg daily. ? Trial of GLP-1 (Victoza 0.6mg QD -> 1.2mg QD; Trulicity 0.75mg weekly) versus DPP 4 inhibitor (Januvia 100mg daily poor past benefit per pt) as outpatient. High cost for GLP-1 per pt through rx 01/20: Did call pharmacies and have various scripts above run through insurance. While previous medications including Trulicity were not covered, Victoza 0.6 mg / 1.2 mg dose is covered, cost is $45 per refill which should last between 6 weeks and 2 months depending on dose. This is reasonable, and likely the best alternative for the patient to switch to on discharge. Did career development counselor on risk of side effects, and theoretical risk of C-cell tumor as noted in subjective 01/20. Will have follow-up to PCP as outpatient for additional management following starting this on discharge (13) Mood disorder: Plan: -Trazodone temporarily held for concern of altered mentation as above Resumed 50 mg p.o. nightly as needed (14) Anemia: Plan: - with chronic baseline normocytic anemia, suspect likely secondary to chronic disease - history of hematuria (and h/o an episode of such on morning of admission) noted - Hgb on arrival at 11.3 likely hemoconcentrated in the setting of sepsis Trend hemoglobin, no indication for transfusion at this time Iron 13, transferrin 180, ferritin 149, unsaturated IBC 247 (within normal range) Plan: code/full dispo/ms-tele ppx-continue warfarin, check inr daily diet-cc. IVF dced Admission and Anticipated Discharge Date Admission Date: January 16, 2022 Subjective Arturo is seen at the bedside this morning. He reports he does continue to feel much better. Did have a run of PAT on monitor in the afternoon and did have some shortness of breath on exertion which quickly resolved. Orosco output is becoming clear, still remains somewhat clouded. Patient would like to know if he can have the Orosco removed for a voiding trial which she has tolerated in the past. No fever, chills, sweats, chest pain, chest pressure overnight. No shaking chills overnight. Did revisit different antiglycemic medications, GLP-1 agonist had been cost prohibitive before, did reach out to pharmacy regarding Victoza which is actually covered for him and reportedly $45 per fill which lasts between 45 and 60 days depending on dose. Anticipate discontinuing SGLT2 on discharge, initiating Victoza, with follow-up to PCP. Did discuss black box/theoretical risk of C-cell tumors in addition to other typical side effects including nausea, vomiting, gastrointestinal effects. While patient does prefer to go home today, does continue to be hyponatremic and will continue to manage for hyponatremia and hopefully discharge if this at least trends up above 130. Did discuss warfarin dosing with coagulation clinic, will swap his 2.5 to 5 mg dose on Wednesday/Wednesdays and repeat INR tomorrow. Per urology should leave Orosco in until next follow-up visit as well. Review of Systems Review of Systems: All systems reviewed & are unremarkable except as noted in Subjective Physical Exam Physical Exam: General: A&Ox3. NAD. Cooperative. Appears ill but nontoxic HEENT: Atraumatic, normocephalic. Visual grossly and hearing intact Pulm: Symmetrical chest rise. No increase in work of breathing. No respiratory distress. Cardiac: Radial pulses intact and symmetrical. Abdominal: Obese,nontender, nondistended, soft. BS present. 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 Extremities: Moves all extremities equally, sensation in hands and feet intact Results & Data Results & Data ([facility]) Vital Signs (Past 12 Hours) Vital Signs Temp Pulse Pulse Resp BP BP Pulse Ox 01/20/22 11:37 36.7 C 64 20 121/78 97 01/20/22 07:46 37.1 C 86 94 H 110/59 L 94 01/20/22 03:17 37.4 C 110 H 18 107/75 96 PG Care Time/CCT Total # of Minutes Spent Total Time Spent with Patient: Total time spent is greater than 50% in coordination of care (as documented) at patient's floor/unit and/or counseling patient: Coding Level of Care Code 35080 Subseq Hosp Care Lvl 3 Diagnoses Sepsis A41.9 RITU (acute kidney injury) N17.9 Cystitis N30.90 Word finding difficulty R47.89 Elevated troponin R77.8 Hyponatremia E87.1 Bilateral hydronephrosis N13.30 Irradiation cystitis with hematuria N30.41 Hyperbilirubinemia E80.6 Aortic valve replaced Z95.2 Chronic anticoagulation Z79.01 Uncontrolled type 2 diabetes mellitus with chronic kidney disease E11.22; E11.65 Mood disorder F39 Anemia D64.9 Anemia type: unspecified type (1) Anemia Anemia type: unspecified type Qualified Code(s): D64.9 - Anemia, unspecified
[2022-01-20] MEDS: INSULIN GLARGINE SOLOSTAR 100 UNITS/ML 3 ML PEN SC SCH (13:23)
[2022-01-20] MEDS ORDERED: WARFARIN SOD 2.5 MG TAB PO SCH (16:00)
[2022-01-20] MEDS: ACETAMINOPHEN 325 MG TAB PO PRN (20:35)
[2022-01-20] MEDS: traZODone HCL 50 MG TAB PO PRN (23:43)
[2022-01-21 08:16] LABS: Hematocrit (blood only) 27.3 % (42-52); Hemoglobin 8.3 g/dL (14.0-18.0); Mean Corpuscular Hemoglobin 27.5 pg (25-34); Mean Corpuscular Hgb Conc 30.4 g/dL (32-36); Mean Corpuscular Volume 90.4 fL (80-100); Mean Platelet Volume 11.9 fL (7.4-10.4); Platelet Count 319 K/uL (130-400); RDW Coefficient of Variation 21.8 % (11.5-14.5); RDW Standard Deviation 70.6 fL (36.4-46.3); Red Blood Count 3.02 M/uL (4.7-6.1); White Blood Count 12.42 K/uL (4.8-10.8)
[2022-01-21 08:39] LABS: Anisocytosis Present; Basophils # (auto) 0.05 K/uL (0-0.2); Basophils % (auto) 0.4 %; Eosinophils # (auto) 0.17 K/uL (0-0.5); Eosinophils % (auto) 1.4 %; Hypochromasia Present; Immature Granulocytes % (auto) 4.8 %; Lymphocytes # (auto) 1.75 K/uL (1.2-3.4); Lymphocytes % (auto) 14.1 %; Monocytes # (auto) 1.48 K/uL (0.11-0.59); Monocytes % (auto) 11.9 %; Neutrophils # (auto) 8.37 K/uL (1.4-6.5); Neutrophils % (auto) 67.4 %; Poikilocytosis Present; Toxic Granulation 1+
[2022-01-21 08:44] LABS: BUN Creatinine Ratio 18.3 (10-20); Calcium 8.3 mg/dl (8.5-10.1); Creatinine Clr Calc Pharmacy 99.2 ml/min; Est GFR (African American) 91.3 ml/min; Est GFR (Non-African American) 78.8 ml/min; Potassium 4.2 mmol/L (3.5-5.1)
[2022-01-21] MEDS: INSULIN ASPART PER UNIT SC SCH ×2 (08:44→12:44)
[2022-01-21] MEDS: INSULIN GLARGINE SOLOSTAR 100 UNITS/ML 3 ML PEN SC SCH (08:45)
[2022-01-21] MEDS: ADVANCED PROBIOTIC 1250 MG CAPSULE PO SCH (08:46)
[2022-01-21] MEDS: ATORVASTATIN 40 MG TAB PO SCH (08:46)
[2022-01-21] MEDS: CYANOCOBALAMIN (B-12) 500 MCG TABLET PO SCH (08:46)
[2022-01-21] MEDS: SODIUM CHLORIDE 1 GM TABLET PO SCH (08:46)
[2022-01-21] MEDS: CEFDINIR 300 MG CAP PO SCH (08:46)
[2022-01-21] MEDS: SILODOSIN PO SCH (08:47)
[2022-01-21 08:53] LABS: INR 3.4 (0.9-1.1)
--- NOTE | 2022-01-21 09:15 | Hospitalist Progress Note ---
Date of Service January 21, 2022 Assessment & Plan (1) Sepsis: Plan: This is a 56-year-old male with a notable past medical history of prostate cancer s/p XRT (2019) resulting in radiation cystitis, neurogenic bladder/chronic urinary outflow obstruction requiring qHS catheterization at home, bilateral hydronephrosis, history of E. faecalis UTI in 11/2021, type 2 diabetes complicated by chronic kidney disease and retinopathy, psoriasis, s/p mechanical AoV replacement on Couadin who presented to [facility] for fever, subsequently found to meet criteria for severe sepsis. At this time, given patient's significant urologic history, suspect that possible source may by uri nary in nature. Severe Sepsis - on arrival, febrile and tachycardic 90/50 - responded well to IVF leukocytosis with elevated, pro-Filipe 14, lactate 2.3 which was obtained after fluids and which normalized after additional fluids, -RITU creatinine 2.65 from baseline of approximately 1.2-1.4 CXR: No acute abnormality UC initial culture positive for Enterobacter cloaca, ceftriaxone sensitive, repeat culture positive with same CTA/P: Severe cystitis with emphysematous changes, unchanged severe right hydronephrosis and left hydronephrosis - initially on cefepime w/ dapto (renal dosing) for broad spectrum coverage, after positive for Enterobacter cloaca, repeat with same speciation. Ceftriaxone sensitive, antibiotics narrowed to Rocephin. Anticipate cefdinir twice daily outpatient treatment if doing well. Was febrile to 38 in last 24 hours, will follow after antibiotic narrowing for another 24 hours. I urology consult feels due to his history of infections and abnormality it is recommended that he be discharged with a Orosco in place and leg bag with follow- up to their office. (2) RITU (acute kidney injury): Plan: - baseline creatinine in the system appears to be around ~1.2-1.4 - in setting of bilateral hydronephrosis, which is noted -- at discharge in 12/2021, Cr at 1.4 -FENa 1.2% (serum sodium 127, serum creatinine 2.52, urine sodium 56, urine creatinine 93.5) suggesting intrinsic involvement -CTA/P as above, patient remains with unchanged severe right hydro and left hydro- Orosco has been placed - Hyponatremia as below (3) Cystitis: Plan: CT abdomen pelvis notable for severe bladder inflammation with emphysematous changes, significantly worsened compared to scan 12/2021 With noted history of radiation cystitis and sepsis, as above Urology consulted. Orosco placed. Continue infection management and consider outpatient follow-up for definitive treatment of diverticulum First UC positive for Enterobacter cloaca, second cath preliminary positive for GNB. Treatment as above Of note patient has been on an SGLT2 inhibitor for his diabetes, this is likely contributing to his recurrent infections and given multiple hospitalizations for UTIs patient benefit from switching to another glycemic. (4) Word finding difficulty: Plan: -secondary to metabolic encephalopathy in setting of severe sepsis - CT-H without contrast -- normal -Improved following sepsis treatment (5) Elevated troponin: Plan: - noted to 0.07 on arrival in setting of suspected sepsis, no c/o cp, sob, so demand ischemia not ACS - ECG w/ chronic LBBB; no new conduction/repolarization abnormalities otherwise (6) Hyponatremia: Plan: - in setting of severe sepsis, volume depletion, RITU - FeNA as above Free fluid restrict, sodium tablets added, continue to fluid restrict 1800 cc/day, (7) Uncontrolled type 2 diabetes mellitus with chronic kidney disease: Plan: complicated by ckd and retinopathy - initiate SSI w/ goal BSG 140-180 in setting of severe sepsis - last a1c at 6.2% in 11/2021 Patient's A1c is well controlled. As noted above he has done well on an SGLT2, however has had recurrent hospitalizations for recurrent UTIs with abnormal anatomy. Recommend conversion to a alternative antiglycemic given his otherwise good control and risk on exacerbating his UTIs which have been associated with severe sepsis and admissions. Patient reports he had tried Januvia in the past, this did not work well for him and he did not get good benefit in his A1c Patient is tolerant of Metformin maximize therapy at home and glimepiride 1 mg daily. ? Trial of GLP-1 (Victoza 0.6mg QD -> 1.2mg QD; Trulicity 0.75mg weekly) versus DPP 4 inhibitor (Januvia 100mg daily poor past benefit per pt) as outpatient. High cost for GLP-1 per pt through rx 01/20: Did call pharmacies and have various scripts above run through insurance. While previous medications including Trulicity were not covered, Victoza 0.6 mg / 1.2 mg dose is covered, cost is $45 per refill which should last between 6 weeks and 2 months depending on dose. This is reasonable, and likely the best alternative for the patient to switch to on discharge. Did credit counselor on risk of side effects, and theoretical risk of C-cell tumor as noted in subjective 01/20. Will have follow-up to PCP as outpatient for additional management following starting this on discharge (8) Bilateral hydronephrosis: Plan: - in 12/2021 during last admission, ct-a/p revealing of severe R hydroureteronephrosis (unchanged) and moderate L hydroureteronephrosis that had progressed - concern at the time was that this was secondary to incomplete emptying, large bladder diverticulum, obstruction - follows w/ Dr. Puga - [facility] [place] [facility] (last visit 12/29/21): qHS catheterizations to prevent UTI, was planning to repeat renal US in 2 months to monitor -- lower suspicion for improvement in R hydro at that visit -CT scan as above Orosco placed, follow RITU as above, likely will have outpatient follow-up with urology for Orosco evaluation and removal as above (9) Irradiation cystitis with hematuria: Plan: - patient reporting hematuria this morning when he went to void - last admission in 12/2021, did require transfusions secondary to hematuria - recently established w/ wound clinic, considering hyperbaric oxygen therapy - follows dory/ Dr. Puga -- as above - monitor UOP and appearance of urine (10) Hyperbilirubinemia: Plan: Hyperbilirubinemia -Isolated hyperbilirubinemia without clinical gallbladder symptoms - CT:Liver: The unenhanced liver is normal in size, contour, and attenuation. There is no intrahepatic biliary ductal dilatation. Gallbladder: The gallbladder is distended but otherwise normal in appearance. 01/18 bilirubin normalized, suspect was elevated in the setting of acute illness/sepsis (11) Aortic valve replaced: Plan: History of Mechanical Valve Replacement; Chronic Anticoagulation - history noted , follows w/ AC clinic -- goal INR 2-3 - home regimen per most recent notes: 2.5mg W/Sat; 5mg other days -INR in therapeutic range - last TTE in 07/2020 with normal LVEF, mild-moderate mitral stenosis - TTE pending wound clinic was requesting repeat prior to starting hyperbaric O2 therapy (12) Chronic anticoagulation: Plan: for mechanical Aovr (13) Mood disorder: Plan: -Trazodone temporarily held for concern of altered mentation as above Resumed 50 mg p.o. nightly as needed (14) Anemia: Plan: - with chronic baseline normocytic anemia, suspect likely secondary to chronic disease - history of hematuria (and h/o an episode of such on morning of admission) noted - Hgb on arrival at 11.3 likely hemoconcentrated in the setting of sepsis Trend hemoglobin, no indication for transfusion at this time Iron 13, transferrin 180, ferritin 149, unsaturated IBC 247 (within normal range) Plan: code/full dispo/ms-tele ppx-continue warfarin, check inr daily diet-cc. IVF dced Admission and Anticipated Discharge Date Admission Date: January 16, 2022 Results & Data Results & Data ([facility]) Vital Signs (Past 12 Hours) Vital Signs Temp Pulse Pulse Resp BP BP Pulse Ox 01/21/22 06:00 98.6 F 92 H 18 112/70 97 01/21/22 03:44 97.9 F 93 H 19 123/75 97 01/20/22 22:53 98.2 F 76 18 129/78 98 01/20/22 22:33 95 H PG Care Time/CCT Total # of Minutes Spent Total Time Spent with Patient: Total time spent is greater than 50% in coordination of care (as documented) at patient's floor/unit and/or counseling patient: Coding Diagnoses Sepsis A41.9 RITU (acute kidney injury) N17.9 Cystitis N30.90 Word finding difficulty R47.89 Elevated troponin R77.8 Hyponatremia E87.1 Bilateral hydronephrosis N13.30 Irradiation cystitis with hematuria N30.41 Hyperbilirubinemia E80.6 Aortic valve replaced Z95.2 Chronic anticoagulation Z79.01 Uncontrolled type 2 diabetes mellitus with chronic kidney disease E11.22; E11.65 Mood disorder F39 Anemia D64.9 Anemia type: unspecified type (1) Anemia Anemia type: unspecified type Qualified Code(s): D64.9 - Anemia, unspecified
[2022-01-21 11:31] VITALS: TEMP 98.1; O2SAT 95
[2022-01-21 12:02] VITALS: BP 112/70; PULSE 115
[2022-01-21] MEDS ORDERED: WARFARIN SOD 5 MG TAB PO SCH (16:00)
--- NOTE | 2022-01-21 16:55 | Discharge Summary ---
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 faecalis UTI in 11/2021, type 2 diabetes complicated by chronic kidney disease and retinopathy, psoriasis, s/p mechanical AoV replacement on Couadin who presented to [facility] for fever. Of note, patient was recently hospitalized (discharged 12/25/2021) for hematuria, suspected to be due to radiation cystitis, UTI and supratherapeutic INR on anticoagulation. His aids with history. Patient says that over the last several days, he has felt quite poor. His appetite has not been good. He does endorse a fever and chills. He also says that this morning, he noted blood in his urinewhich, as of recently, has been atypical for him. He denies any back pain, abdominal pain, nausea, vomiting, diarrhea. Denies any blood in stool. No lightheadedness or dizziness. No chest pain or SOB. Patient denies any recent changes in medications. He denies any use of tobacco, alcohol, recreational drugs on a daily basis. He lives at home with his . In the emergency room, patient was found to have a blood pressure 96/62 with heart rates in the 130s, febrile to 38.4. Labs were significant for leukocytosis to 13 with neutrophilic predominant, persistent anemia 10.6, INR 1.7, hyponatremia 127 with hypochloremia 95, BUN 36, creatinine 2.65 (baselnie appears to be around 1.2-1.4), TBili 2.1. Chest x-ray with cardiomegaly, otherwise no acute findings. Blood and urine cultures pending. ECG with sinus tachycardia and left bundle branch block. Patient received a total of 2L normal saline. Started on ciprofloxacin. Principal Diagnosis Enterobacter cystitis, with emphysematous bladder diabetes with mediation change restart metoprolol succinate discharge with gonzalez for bladder outlet obstrution Discharge Exam The patient appeared chronically ill Vital signs as documented. Lungs are clear to auscultation and appear unlabored Cardiac exam, Rhythm is regular.. IDALMIS Abdominal exam reveals normal bowel sounds, soft non tender, no masses Extremities are nonedematous and both pedal pulses are normal. Neurologic exam is alert and oriented, no focal loss of strength or sensation Skin is without bruises or rashes Psychologically is without concerns for anxiety or depression. 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 faecalis UTI in 11/2021, type 2 diabetes complicated by chronic kidney disease and retinopathy, psoriasis, s/p mechanical AoV replacement on Couadin who presented to [facility] for fever, subsequently found to meet criteria for severe sepsis. At this time, given patient's significant urologic history, suspect that possible source may by urinary in nature. Severe Sepsis - on arrival, febrile and tachycardic 90/50 - responded well to IVF leukocytosis with elevated, pro-Filipe 14, lactate 2.3 which was obtained after fluids and which normalized after additional fluids, -RITU creatinine 2.65 from baseline of approximately 1.2-1.4 CXR: No acute abnormality UC initial culture positive for Enterobacter cloaca, ceftriaxone sensitive, repeat culture positive with same CTA/P: Severe cystitis with emphysematous changes, unchanged severe right hydronephrosis and left hydronephrosis - initially on cefepime w/ dapto (renal dosing) for broad spectrum coverage, after positive for Enterobacter cloaca, repeat with same speciation. Ceftriaxone sensitive, antibiotics narrowed to Rocephin. Discharge on cefdinir twice daily outpatient treatment if doing well. urology consult feels due to his history of infections and abnormality it is recommended that he be discharged with a Gonzalez in place and leg bag with follow- up to their office. Pt elects to follow up with Dr Puga (2) RITU (acute kidney injury): Resolved baseline creatinine in the system appears to be around ~1.2-1.4 - in setting of bilateral hydronephrosis, which is noted -- at discharge in 12/2021, Cr at 1.4 -CTA/P as above, patient remains with unchanged severe right hydro and left hydro- Gonzalez has been placed - Hyponatremia as below (3) Cystitis: CT abdomen pelvis notable for severe bladder inflammation with emphysematous changes, significantly worsened compared to scan 12/2021 With noted history of radiation cystitis and sepsis, as above Urology consulted. Gonzalez placed. Continue infection management and consider outpatient follow-up for definitive treatment of diverticulum First UC positive for Enterobacter cloaca Of note patient has been on an SGLT2 inhibitor for his diabetes, this is likely contributing to his recurrent infections and given multiple hospitalizations for UTIs patient benefit from switching to another glycemic. (4) Word finding difficulty: resolved -secondary to metabolic encephalopathy in setting of severe sepsis - CT-H without contrast -- normal -Improved following sepsis treatment (5) Elevated troponin: - noted to 0.07 on arrival in setting of suspected sepsis, no c/o cp, sob, so demand ischemia not ACS - ECG w/ chronic LBBB; no new conduction/repolarization abnormalities otherwise (6) Hyponatremia: - in setting of severe sepsis, volume depletion, RITU - FeNA as above improved will send home on salt tablets and have recheck of sodium in 2 days after discharge, (7) Uncontrolled type 2 diabetes mellitus with chronic kidney disease: complicated by ckd and retinopathy - initiate SSI w/ goal BSG 140-180 in setting of severe sepsis - last a1c at 6.2% in 11/2021 Patient's A1c is well controlled. As noted above he has done well on an SGLT2, however has had recurrent hospitalizations for recurrent UTIs with abnormal anatomy. Recommend conversion to a alternative antiglycemic given his otherwise good control and risk on exacerbating his UTIs which have been associated with severe sepsis and admissions. Patient reports he had tried Januvia in the past, this did not work well for him and he did not get good benefit in his A1c Patient is tolerant of Metformin maximize therapy at home and glimepiride 1 mg daily. ? Trial of GLP-1 (Victoza 0.6mg QD -> 1.2mg QD; Trulicity 0.75mg weekly) versus DPP 4 inhibitor (Januvia 100mg daily poor past benefit per pt) as outpatient. High cost for GLP-1 per pt through rx 01/20: Did call pharmacies and have various scripts above run through insurance. While previous medications including Trulicity were not covered, Victoza 0.6 mg / 1.2 mg dose is covered, cost is $45 per refill which should last between 6 weeks and 2 months depending on dose. This is reasonable, and likely the best alternative for the patient to switch to on discharge. Dr Stock did personal financial counselor on risk of side effects, and theoretical risk of C-cell tumor as noted in subjective 01/20. Will have follow-up to PCP as outpatient for additional management following starting this on discharge (8) Bilateral hydronephrosis: - in 12/2021 during last admission, ct-a/p revealing of severe R hydroureteronephrosis (unchanged) and moderate L hydroureteronephrosis that had progressed - concern at the time was that this was secondary to incomplete emptying, large bladder diverticulum, obstruction - follows w/ Dr. Puga - [facility] [facility] (last visit 12/29/21): qHS catheterizations to prevent UTI, was planning to repeat renal US in 2 months to monitor -- lower suspicion for improvement in R hydro at that visit -CT scan as above Gonzalez placed, follow RITU as above, likely will have outpatient follow-up with urology for Gonzalez evaluation and removal as above (9) Irradiation cystitis with hematuria: - patient reporting hematuria this morning when he went to void - last admission in 12/2021, did require transfusions secondary to hematuria - recently established w/ wound clinic, considering hyperbaric oxygen therapy - follows w/ Dr. Puga - monitor UOP and appearance of urine (10) Hyperbilirubinemia: Hyperbilirubinemia -Isolated hyperbilirubinemia without clinical gallbladder symptoms - CT:Liver: The unenhanced liver is normal in size, contour, and attenuation. There is no intrahepatic biliary ductal dilatation. Gallbladder: The gallbladder is distended but otherwise normal in appearance. 01/18 bilirubin normalized, suspect was elevated in the setting of acute illness/sepsis (11) Aortic valve replaced: History of Mechanical Valve Replacement; Chronic Anticoagulation - history noted , follows w/ AC clinic -- goal INR 2-3 - home regimen per most recent notes: 2.5mg W/Sat; 5mg other days -INR in therapeutic range - last TTE in 07/2020 with normal LVEF, mild-moderate mitral stenosis - TTE pending wound clinic was requesting repeat prior to starting hyperbaric O2 therapy (12) Chronic anticoagulation: for mechanical Aovr (13) Mood disorder: -Trazodone temporarily held for concern of altered mentation as above Resumed 50 mg p.o. nightly as needed (14) Anemia: - with chronic baseline normocytic anemia, suspect likely secondary to chronic disease - history of hematuria (and h/o an episode of such on morning of admission) noted - Hgb on arrival at 11.3 likely hemoconcentrated in the setting of sepsis Trend hemoglobin, no indication for transfusion at this time Iron 13, transferrin 180, ferritin 149, unsaturated IBC 247 (within normal range) code/full Total Time Total Time Spent Total Time Spent (In Minutes): It required greater than 30 minutes to prepare this patient for discharge Discharge Plan Discharge Items Patient Disposition: Home - Self-Care Reason For Visit: C/F UROSEPSIS Discharge Diagnosis: sepsis from a urinary source bladder outlet obstruction transition from empagliflozin to liraglutide Activity: Resume your previous activity Non-emergency contact: Primary Care Provider and Urologist Call non-emergency contact if: your symptoms worsen and you have a fever Follow-up/Referrals: Teresa Sim MD [Primary Care Provider] - 02/03/22 11:15 am (Appt with CHIKIS Oconnor) Diet: Carb Consistent or DM2 Ambulatory Orders: Basic Metabolic Panel (Routine) Timeframe: 2 Days Location: Determined by Patient Ordered By: Art Velasqueztl Attending Provider Instructions: you have been identified to have an Enterobacter Urinary tract infection and will be on an antibiotic for an additional 9 days, we ask that you have a Urology follow up with Dr Puga for a voiding trial and have a gonzalez cath with leg bag at the time of discharge As we discussed, Dr Stock did some research and Victoza (liraglutide) once a day to help augment your diabetic control, of course we will want your primary care to monitor you for effect. you may start your victoza and meformin on the evening of discharge, your glimeparide the next day Your sodium has improved, we will ask that you keep your sodium tablets and have some outpt blood work checked this wednesday01/23/22 along with your coumadin INR your INR is 3.4 today please take 2.5 mg tonight and then resume your usual marie of coumdin unti you r recheck on wednesday Pending Studies at Discharge: No Stand-Alone Forms: My [facility], Smoking Cessation Medications and DC Order Prescriptions: New cefdinir 300 mg Capsule 300 mg PO BID Qty: 18 RF: 0 sodium chloride 1 gram Tablet 2 g PO DAILY Qty: 15 RF: 0 Victoza 2-Jaiden 0.6 mg/0.1 mL (18 mg/3 mL) pen injector 0.6 mg subcut DAILY Qty: 6 RF: 0 metoprolol succinate 25 mg tablet extended release 24 hr 25 mg PO DAILY Qty: 30 RF: 0 Continued lactobacillus combination no.4 [Probiotic] 3 billion cell capsule 3,000 mmu cells PO DAILY RF: 0 clobetasol 0.05 % ointment 1 appln TOP 2XWK PRN (Reason: Itching) RF: 0 triamcinolone acetonide 0.5 % ointment 1 applic TOP QID PRN (Reason: itching) Qty: 45 RF: 3 atorvastatin 40 mg tablet 40 mg PO DAILY Qty: 90 RF: 3 metformin 1,000 mg tablet 1,000 mg PO BID Qty: 180 RF: 3 silodosin 8 mg capsule 8 mg PO DAILY Qty: 90 RF: 3 glimepiride 1 mg tablet 1 mg PO DAILY Qty: 90 RF: 3 trazodone 50 mg tablet 50 - 100 mg PO HS PRN (Reason: Insomnia) RF: 0 cyanocobalamin (vitamin B-12) 1,000 mcg capsule 1,000 mcg PO DAILY Qty: 90 RF: 3 furosemide 40 mg tablet 40 mg PO DAILY PRN (Reason: Edema) RF: 0 Changed warfarin [Jantoven] 5 mg tablet 5 mg PO DAILY Qty: 0 RF: 0 Discontinued Jardiance 25 mg tablet 25 mg PO QAM Qty: 90 RF: 3 Discharge Orders: Discharge Order (Routine); Ordered 01/21/22 Ordered By: Art Buckley/Other Patient Handouts: Cefdinir Oral Capsule 300 mg, Victoza Pen Injector 6 mg/mL, Indwelling Urinary Catheter Dc, Leg Bag Care Dc Admission Data Admit Date/Time: 01/16/22 21:58 Attending Provider: Art Savage Admit Provider: Dane Camejo Primary Care Provider: Teresa Sim Other Providers: Kevin Greer ; Pop Hill Other Interventions: Discharge Summary Assessment (RN) Last Done: 01/21/22 12:01 Coding Level of Care Code D/C DAY MANAGEMENT >30 MINS Diagnoses Sepsis A41.9 RITU (acute kidney injury) N17.9 Cystitis N30.90 Word finding difficulty R47.89 Elevated troponin R77.8 Hyponatremia E87.1 Uncontrolled type 2 diabetes mellitus with chronic kidney disease E11.22; E11.65 Bilateral hydronephrosis N13.30 Irradiation cystitis with hematuria N30.41 Hyperbilirubinemia E80.6 Aortic valve replaced Z95.2 Chronic anticoagulation Z79.01 Mood disorder F39 Anemia D64.9 Anemia type: unspecified type
== END 2022-01-21 14:15 | disposition home or self-care (01) | DRG 871 ==
LOC: ED 18:47 → SUATTDRO 21:58 → 2W 21:58